=== PATIENT | male | born 1955 | race Caucasian/White ===

== ENCOUNTER 2017-05-02 19:48 | Emergency (ER) | payer BC ==
[2017-05-02] MEDS ORDERED: Sodium Chloride 0.9% 10 ML Syringe FLUSH PRN (19:51)
[2017-05-02] MEDS ORDERED: Aspirin 81 MG Tab.Chew PO ONE (19:59)
[2017-05-02] MEDS ORDERED: Nitroglycerin 0.4 MG Tab.SL SL ONE (20:00)
--- NOTE | 2017-05-02 20:06 | EDM.PDOC ---
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)) - Related Data Allergies Allergy/AdvReac Type Severity Reaction Status Date / Time acetaminophen Allergy Change Verified 10/05/16 01:32 [From Darvocet-N 100] Mental Status cinnamon Allergy Cannot Verified 10/05/16 01:32 Remember codeine Allergy Change Verified 10/05/16 01:32 Mental Status egg Allergy Cannot Verified 10/05/16 01:32 Remember indomethacin [From Indocin] Allergy Change Verified 10/05/16 01:32 Mental Status indomethacin sodium Allergy Change Verified 10/05/16 01:32 [From Indocin] Mental Status propoxyphene HCl Allergy Change Verified 10/05/16 01:32 [From Darvon] Mental Status propoxyphene napsylate Allergy Cannot Verified 10/05/16 01:32 [From Darvocet-N 100] Remember Qbkluda-Tdm-Sgx Reductase Allergy Muscle Verified 10/05/16 01:32 Inhibitor Aches Home Meds: Home Meds Aspirin 325 mg PO DAILY 01/29/15 [History] Carvedilol Phosphate [Coreg Cr] 40 mg PO DAILY 01/29/15 [History] ClonazePAM [KlonoPIN] 1 mg PO TID 01/29/15 [History] Colchicine [Colcrys] 2 tab PO ASDIRECTED PRN 01/29/15 [History] Lisinopril 1 tab PO DAILY 01/29/15 [History] Multivitamin [Multi-Vitamin Daily] 1 each PO DAILY 01/29/15 [History] Omeprazole [Prilosec] 1 cap PO BID 01/29/15 [History] Sucralfate [Carafate] 1 tab PO QIDACANDBED 01/29/15 [History] metFORMIN HCl [Metformin HCl] 1,000 mg PO BID 01/29/15 [History] Past Medical History Other HEENT History: glasses Cardiovascular History: Reports: Angina, High Cholesterol, Hypertension, [place] Respiratory History: Reports: SOB Gastrointestinal History: Reports: GERD, Hiatal Hernia, PUD Musculoskeletal History: Reports: Gout, Osteoarthritis Other Musculoskeletal History: Bilateral Knee Pain Psychiatric History: Reports: Anxiety Endocrine/Metabolic History: Reports: Diabetes, Type II Hematologic History: Reports: Anemia - Infectious Disease History Infectious Disease History: Reports: Chicken Pox - Past Surgical History Cardiovascular Surgical History: Reports: Coronary Artery Stent, Other (See Below) Social & Family History - Tobacco Use Smoking Status *Q: Former Smoker Years of Tobacco use: 3 Packs/Tins Daily: 1 Used Tobacco, but Quit: Yes Month Tobacco Last Used: NA Second Hand Smoke Exposure: No - Caffeine Use Caffeine Use: Reports: None - Alcohol Use Days Per Week of Alcohol Use: 0 - Recreational Drug Use Recreational Drug Use: No ED ROS GENERAL - Review of Systems Review Of Systems: See Below Constitutional: Reports: No Symptoms HEENT: Reports: No Symptoms Respiratory: Reports: Shortness of Breath (with exertion) Cardiovascular: Reports: Chest Pain, Dyspnea on Exertion GI/Abdominal: Reports: Abdominal Pain, Distension, Other (feels gassy) Musculoskeletal: Reports: Other (pain between shoulder blades) Skin: Reports: No Symptoms Neurological: Reports: No Symptoms ED EXAM, GENERAL - Physical Exam Exam: See Below Exam Limited By: No Limitations General Appearance: Alert, No Apparent Distress Head: Atraumatic, Normocephalic Neck: Normal Inspection, Non-Tender, Full Range of Motion Respiratory/Chest: No Respiratory Distress, Lungs Clear, Normal Breath Sounds Cardiovascular: Regular Rate, Rhythm, No Edema, Systolic Murmur GI/Abdominal: Normal Bowel Sounds, Soft, Non-Tender Back Exam: Normal Inspection, Full Range of Motion Extremities: Normal Inspection, Normal Range of Motion, Non-Tender Neurological: Alert, Oriented, CN II-XII Intact, Normal Cognition, Normal Gait Psychiatric: Normal Affect, Normal Mood Skin Exam: Warm, Dry, Intact, Normal Color EKG INTERPRETATION EKG Date: 05/02/17 Rhythm: NSR Rate (Beats/Min): 82 Comparison: Other: (no acute ST T wave elevation) Course - Vital Signs Last Recorded V/S: Last Vital Signs Temp 97.8 F 05/02/17 20:36 Pulse 82 05/02/17 20:36 Resp 16 05/02/17 20:36 BP 153/68 H 05/02/17 20:36 Pulse Ox 97 05/02/17 20:36 - Orders/Labs/Meds Orders: Active Orders 24 hr Category Date Time Status EKG Documentation Completion [RC] ASDIRECTED Care 05/02/17 19:52 Active Chest 1V Frontal [CR] Stat Exams 05/02/17 19:51 Taken Sodium Chloride 0.9% [Saline Flush] Med 05/02/17 19:51 Active 10 ml FLUSH ASDIRECTED PRN Peripheral IV Insertion Adult [OM.PC] Stat Oth 05/02/17 19:51 Ordered Medication Orders Sodium Chloride (Saline Flush) 10 ml FLUSH ASDIRECTED PRN PRN Reason: Keep Vein Open Labs: Laboratory Tests 05/02/17 05/02/17 Range/Units 20:10 20:10 WBC 4.0 (4.0-11.0) K/uL RBC 3.91 L (4.50-6.50) M/uL Hgb 11.8 L (13.0-18.0) g/dL Hct 34.8 L (40.0-54.0) % MCV 89 (76-96) fL MCH 30.2 (27.0-32.0) pg MCHC 33.9 (31.0-35.0) g/dL RDW 15.4 (11.0-16.0) % Plt Count 108 L D (150-400) K/uL MPV 10.5 H (6.0-10.0) fL Neut % (Auto) 67.0 (45.0-70.0) % Lymph % (Auto) 19.4 L (20.0-40.0) % Miller % (Auto) 10.2 H (3.0-10.0) % Eos % (Auto) 2.7 (1.0-5.0) % Baso % (Auto) 0.7 H (0.0-0.5) % Neut # (Auto) 2.69 (2.00-7.50) K/uL Lymph # (Auto) 0.78 L (1.50-4.00) K/uL Miller # (Auto) 0.41 (0.20-0.80) K/uL Eos # (Auto) 0.11 (0.04-0.40) K/uL Baso # (Auto) 0.03 (0.02-0.10) K/uL Sodium 140 (136-145) mmol/L Potassium 4.4 (3.5-5.1) mmol/L Chloride 104 (98-107) mmol/L Carbon Dioxide 24.3 (21.0-32.0) mmol/L Anion Gap 16.1 H (5.0-15.0) mmol/L BUN 23 D (8-26) mg/dL Creatinine 1.43 H D (0.70-1.30) mg/dL Est Cr Clr Drug Dosing TNP Estimated GFR (MDRD) 51 L (>60) MLS/MIN BUN/Creatinine Ratio 16.1 (6-25) Glucose 118 H (74-100) mg/dL Calcium 9.4 (8.5-10.1) mg/dL Total Bilirubin 0.8 (0.0-1.0) mg/dL AST 47 H (15-37) U/L ALT 46 (12-78) U/L Alkaline Phosphatase 138 H (46-116) U/L Troponin I < 0.017 (0.000-0.060) ng/mL B-Natriuretic Peptide 73 D (0-125) pg/mL Total Protein 7.7 (6.4-8.2) g/dL Albumin 3.7 (3.4-5.0) g/dL Globulin 4.0 (2.2-4.2) g/dL Albumin/Globulin Ratio 0.9 (0.8-2.0) Meds: Medications Generic Name Dose Route Start Last Admin Trade Name Freq PRN Reason Stop Dose Admin Sodium Chloride 10 ml 05/02/17 19:51 Saline Flush FLUSH ASDIRECTED PRN Keep Vein Open Discontinued Medications Generic Name Dose Route Start Last Admin Trade Name Freq PRN Reason Stop Dose Admin Al Hydroxide/Mg Hydroxide 30 ml 05/02/17 20:12 Gi Cocktail PO 05/02/17 20:13 ONETIME ONE Aspirin 324 mg 05/02/17 19:59 Aspirin PO 05/02/17 20:00 ONETIME ONE Nitroglycerin 0.4 mg 05/02/17 20:00 Nitrostat SL 05/02/17 20:01 ONETIME ONE Departure - Departure Time of Disposition: 21:15 Disposition: Home, Self-Care 01 Condition: Fair Clinical Impression: Epigastric abdominal pain - Discharge Information Forms: ED Department Discharge - Problem List & Annotations (1) Epigastric abdominal pain SNOMED Code(s): 39569177 Code(s): R10.13 - EPIGASTRIC PAIN Status: Acute Priority: Medium Current Visit: Yes - Problem List Review Problem List Initiated/Reviewed/Updated: Yes - My Orders Last 24 Hours: My Active Orders 05/02/17 19:51 Chest 1V Frontal [CR] Stat Sodium Chloride 0.9% [Saline Flush] 10 ml FLUSH ASDIRECTED PRN Peripheral IV Insertion Adult [OM.PC] Stat 05/02/17 19:52 EKG Documentation Completion [RC] ASDIRECTED - Assessment/Plan Last 24 Hours: My Active Orders 05/02/17 19:51 Chest 1V Frontal [CR] Stat Sodium Chloride 0.9% [Saline Flush] 10 ml FLUSH ASDIRECTED PRN Peripheral IV Insertion Adult [OM.PC] Stat 05/02/17 19:52 EKG Documentation Completion [RC] ASDIRECTED Assessment:: Epigastric abdominal pain Plan: Labs are normal; EKG and chest are WNL, he seems to respond to GI cocktail; the nitro did nothing for him. He states the epigastric discomfort waxes and wanes; the sharp pain last for 15 seconds. Recommend easy digestible foods, push fluids/gut rest Would like him to have FU in clinic next week; return to ER with worsening of symptoms
[2017-05-02] MEDS ORDERED: GI Cocktail Oral Solution 30 ML PO ONE (20:12)
--- NOTE | 2017-05-02 23:16 | CR ---
DATE OF SERVICE: 05/02/2017 CLINICAL DATA: Chest pain. AP CHEST Comparison is made to a prior exam dated 09/13/2016. The cardiac pacer and pacer wire remain unchanged in position. The heart remains enlarged, unchanged. There is persistent mild pulmonary vascular congestion. The interstitial infiltrates on the prior exam appear slightly improved. There is persistent mild eventration of the right hemidiaphragm. The exam is otherwise unchanged. [id number] MTDD
[2017-05-03 06:48] VITALS: BP 181/71
== END 2017-05-02 20:50 | disposition home or self-care (01) ==
LOC: LB.ED 19:48
DX: R10.13 Epigastric pain (principal); E78.00 Pure hypercholesterolemia, unspecified; I10 Essential (primary) hypertension; I25.2 Old myocardial infarction; K21.9 Gastro-esophageal reflux disease without esophagitis; E11.9 Type 2 diabetes mellitus without complications; M19.90 Unspecified osteoarthritis, unspecified site; Z86.2 Personal history of diseases of the blood and blood-forming organs and certain disorders involving the immune mechanism; Z87.891 Personal history of nicotine dependence; Z88.5 Allergy status to narcotic agent; Z91.012 Allergy to eggs; Z91.018 Allergy to other foods; Z88.8 Allergy status to other drugs, medicaments and biological substances; Z79.82 Long term (current) use of aspirin; Z79.84 Long term (current) use of oral hypoglycemic drugs; Z79.899 Other long term (current) drug therapy
CPT/HCPCS: 36415; 71010; 80053; 83880; 84484; 85025; 93005; 99285; A9270

== ENCOUNTER 2017-09-03 15:47 | Emergency (ER) | payer BC ==
[2017-09-03 16:16] VITALS: BP 141/56
[2017-09-03] MEDS ORDERED: diphenhydrAMINE 25 MG Cap ONE ×3 (16:28→17:39)
--- NOTE | 2017-09-03 16:30 | EDM.PDOC ---
ED HPI GENERAL MEDICAL PROBLEM - General Chief Complaint: General Stated Complaint: FLU LIKE SYMPTOMS Time Seen by Provider: 09/03/17 16:10 Source of Information: Reports: Patient, RN History Limitations: Reports: No Limitations - History of Present Illness INITIAL COMMENTS - FREE TEXT/NARRATIVE: 61 yr male presents with diarrhea X1 and numbness to cheeks, tops of hands and feet. He does have diabetes, did have some meat today with extra seasons in it , unknown if allergic to this, States he has had 2 CO in past and does have a pacemaker. States he wasn't doing anything, but sitting in chair when this started today. No change in cognition, equal hand grasps, smiles evenly. moves extremities well. States he does have some arthritis to knee and shoulder. Hx of gout. He does have 1 molar to left upper gum. No soreness to mouth and no sore throat. Onset: Today Onset Date: 09/03/17 Location: Reports: Face, Upper Extremity, Left, Upper Extremity, Right, Lower Extremity, Left, Lower Extremity, Right Quality: Reports: Other (numbness) epigastric Pain Score (Numeric/FACES): 3 - Related Data Allergies Allergy/AdvReac Type Severity Reaction Status Date / Time acetaminophen Allergy Change Verified 09/03/17 16:16 [From Darvocet-N 100] Mental Status cinnamon Allergy Cannot Verified 09/03/17 16:16 Remember codeine Allergy Change Verified 09/03/17 16:16 Mental Status egg Allergy Cannot Verified 09/03/17 16:16 Remember indomethacin [From Indocin] Allergy Change Verified 09/03/17 16:16 Mental Status indomethacin sodium Allergy Change Verified 09/03/17 16:16 [From Indocin] Mental Status propoxyphene HCl Allergy Change Verified 09/03/17 16:16 [From Darvon] Mental Status propoxyphene napsylate Allergy Cannot Verified 09/03/17 16:16 [From Darvocet-N 100] Remember Uqyezfq-Jgv-Thu Reductase Allergy Muscle Verified 09/03/17 16:16 Inhibitor Aches Home Meds: Home Meds Aspirin 325 mg PO DAILY 01/29/15 [History] Carvedilol Phosphate [Coreg Cr] 40 mg PO DAILY 01/29/15 [History] ClonazePAM [KlonoPIN] 1 mg PO TID 01/29/15 [History] Colchicine [Colcrys] 2 tab PO ASDIRECTED PRN 01/29/15 [History] Lisinopril 1 tab PO DAILY 01/29/15 [History] Multivitamin [Multi-Vitamin Daily] 1 each PO DAILY 01/29/15 [History] Omeprazole [Prilosec] 1 cap PO BID 01/29/15 [History] Sucralfate [Carafate] 1 tab PO QIDACANDBED 01/29/15 [History] metFORMIN HCl [Metformin HCl] 1,000 mg PO BID 01/29/15 [History] Past Medical History Other HEENT History: glasses Cardiovascular History: Reports: Angina, High Cholesterol, Hypertension, [place] Other Cardiovascular History: AICD stents July 2017 Respiratory History: Reports: SOB Other Respiratory History: dyspnea with exertion no sob or difficulty breathing at rest Gastrointestinal History: Reports: GERD, Hiatal Hernia, PUD Musculoskeletal History: Reports: Gout, Osteoarthritis Other Musculoskeletal History: Bilateral Knee Pain Psychiatric History: Reports: Anxiety Endocrine/Metabolic History: Reports: Diabetes, Type II Hematologic History: Reports: Anemia - Infectious Disease History Infectious Disease History: Reports: Chicken Pox - Past Surgical History Cardiovascular Surgical History: Reports: Coronary Artery Stent, Other (See Below) Social & Family History - Tobacco Use Smoking Status *Q: Former Smoker Years of Tobacco use: 3 Packs/Tins Daily: 1 Used Tobacco, but Quit: Yes Month Tobacco Last Used: NA Second Hand Smoke Exposure: No - Caffeine Use Caffeine Use: Reports: None Other Caffeine Use: not reported - Alcohol Use Days Per Week of Alcohol Use: 0 - Recreational Drug Use Recreational Drug Use: No ED ROS GENERAL - Review of Systems Review Of Systems: See Below HEENT: Reports: No Symptoms, Glasses, Other (numbness to cheeks.) Respiratory: Reports: No Symptoms Cardiovascular: Reports: No Symptoms GI/Abdominal: Reports: No Symptoms Musculoskeletal: Reports: Shoulder Pain Skin: Reports: No Symptoms Neurological: Reports: Numbness Psychiatric: Reports: Anxiety (Upper and lower GI scheduled this week and hx of polyps) Hematologic/Lymphatic: Reports: No Symptoms Immunologic: Reports: No Symptoms ED EXAM, GENERAL - Physical Exam Exam: See Below Exam Limited By: No Limitations General Appearance: Alert, WD/WN, No Apparent Distress Ears: Hearing Grossly Normal Nose: Normal Inspection, Normal Mucosa Throat/Mouth: Normal Inspection, Normal Lips, Normal Oropharynx, Normal Voice. No: Normal Teeth Head: Atraumatic, Normocephalic Neck: Supple, Non-Tender Respiratory/Chest: No Respiratory Distress, Lungs Clear, Normal Breath Sounds Cardiovascular: Regular Rate, Rhythm, No Edema GI/Abdominal: Normal Bowel Sounds, Soft, Non-Tender Extremities: Normal Inspection, Normal Range of Motion, No Pedal Edema Neurological: Alert, Oriented, CN II-XII Intact, Normal Cognition Psychiatric: Normal Affect, Normal Mood Skin Exam: Warm, Dry, Normal Color Lymphatic: No Adenopathy Course - Vital Signs Last Recorded V/S: Last Vital Signs Temp 98.7 F 09/03/17 16:00 Pulse 80 09/03/17 16:00 Resp 20 09/03/17 16:00 BP 141/56 H 09/03/17 16:00 Pulse Ox 98 09/03/17 16:00 - Orders/Labs/Meds Labs: Laboratory Tests 09/03/17 09/03/17 09/03/17 Range/Units 16:45 16:45 16:45 WBC 3.4 L (4.0-11.0) K/uL RBC 4.12 L (4.50-6.50) M/uL Hgb 12.6 L (13.0-18.0) g/dL Hct 35.4 L (40.0-54.0) % MCV 86 (76-96) fL MCH 30.6 (27.0-32.0) pg MCHC 35.6 H (31.0-35.0) g/dL RDW 14.9 (11.0-16.0) % Plt Count 82 L (150-400) K/uL MPV 11.1 H (6.0-10.0) fL Neut % (Auto) 71.2 H (45.0-70.0) % Lymph % (Auto) 15.4 L (20.0-40.0) % [place] % (Auto) 10.4 H (3.0-10.0) % Eos % (Auto) 2.7 (1.0-5.0) % Baso % (Auto) 0.3 (0.0-0.5) % Neut # (Auto) 2.40 (2.00-7.50) K/uL Lymph # (Auto) 0.52 L (1.50-4.00) K/uL [place] # (Auto) 0.35 (0.20-0.80) K/uL Eos # (Auto) 0.09 (0.04-0.40) K/uL Baso # (Auto) 0.01 L (0.02-0.10) K/uL Sodium 134 L (136-145) mmol/L Potassium 5.4 H (3.5-5.1) mmol/L Chloride 101 (98-107) mmol/L Carbon Dioxide 20.3 L D (21.0-32.0) mmol/L Anion Gap 18.1 H (5.0-15.0) mmol/L BUN 18 (8-26) mg/dL Creatinine 1.35 H (0.70-1.30) mg/dL Est Cr Clr Drug Dosing 64.67 mL/min Estimated GFR (MDRD) 54 L (>60) MLS/MIN BUN/Creatinine Ratio 13.3 (6-25) Glucose 297 H D (74-100) mg/dL Calcium 8.4 L (8.5-10.1) mg/dL Total Bilirubin 0.7 (0.0-1.0) mg/dL AST 50 H (15-37) U/L ALT 50 (12-78) U/L Alkaline Phosphatase 188 H (46-116) U/L Total Protein 7.3 (6.4-8.2) g/dL Albumin 3.3 L (3.4-5.0) g/dL Globulin 4.0 (2.2-4.2) g/dL Albumin/Globulin Ratio 0.8 (0.8-2.0) TSH, Ultra Sensitive 3.018 (0.358-3.740) uIU/mL Meds: Medications Discontinued Medications Generic Name Dose Route Start Last Admin Trade Name Freq PRN Reason Stop Dose Admin Al Hydroxide/Mg Hydroxide 30 ml 09/03/17 17:00 09/03/17 17:00 Gi Cocktail PO 09/03/17 17:01 30 ml ONETIME ONE Administration Diphenhydramine HCl Confirm 09/03/17 16:28 Benadryl Administered 09/03/17 16:29 Dose 25 mg .ROUTE .STK-MED ONE Diphenhydramine HCl 25 mg 09/03/17 16:39 09/03/17 16:41 Benadryl PO 09/03/17 16:40 25 mg ONETIME ONE Administration Diphenhydramine HCl Confirm 09/03/17 17:39 Benadryl Administered 09/03/17 17:40 Dose 150 mg .ROUTE .STK-MED ONE - Re-Assessments/Exams Free Text/Narrative Re-Assessment/Exam: 09/03/17 18:44 Pt reported this epigastric pain after having meat with seasoning on it at home. States relief of pain after Benadryl and GI cocktail. Pt states he has been having more sweets and more fruit with the holidays. Pt is scheduled for colonoscopy and upper GI Sunday. Pt is concerned about this. States he is taking Probiotic and is hopeful this will help with the blood in his stools. States some improvement noted. Recommend taking Benadryl every 8 hr if needed for numbness. Recommend to limit simple sugars, limit fruits, and limit carbohydrates. Pt will take is easy and be up at home this week until his GI series later this week. Cautioned against use of equipment and no driving with use of Benadryl. 09/03/17 18:52 Departure - Departure Time of Disposition: 17:40 Disposition: Home, Self-Care 01 Condition: Good Clinical Impression: Epigastric pain - Discharge Information Instructions: Diphenhydramine capsules or tablets, Panic Attacks Referrals: PCP,None [Primary Care Provider] - Forms: ED Department Discharge Additional Instructions: Take the rest of the week off and relax, you can take the Benadryl as needed for the numbness and tingling. If you feel worse return to the ER or the clinic. Drink plenty of fluid. - Problem List & Annotations (1) Epigastric abdominal pain SNOMED Code(s): 14439330 Code(s): R10.13 - EPIGASTRIC PAIN Status: Acute Priority: Medium - Problem List Review Problem List Initiated/Reviewed/Updated: Yes - Assessment/Plan Plan: Epigastric pain: [place] foods, decrease use of simple sugars and decrease fruit intake with his diabetes. Recommend use of Benadryl as needed for possible allergic reaction to seasoned meat he had tonight. F/U with PCP if symptoms persist or worsen or Return to ER.
[2017-09-03] MEDS ORDERED: diphenhydrAMINE 25 MG Cap PO ONE (16:39)
[2017-09-03] MEDS ORDERED: GI Cocktail Oral Solution 30 ML PO ONE (17:00)
== END 2017-09-03 17:40 | disposition home or self-care (01) ==
LOC: LB.ED 15:47
DX: R10.13 Epigastric pain (principal); Z87.891 Personal history of nicotine dependence; I10 Essential (primary) hypertension; I25.2 Old myocardial infarction; E11.9 Type 2 diabetes mellitus without complications; K21.9 Gastro-esophageal reflux disease without esophagitis; F41.9 Anxiety disorder, unspecified; E78.00 Pure hypercholesterolemia, unspecified; Z79.82 Long term (current) use of aspirin; Z79.84 Long term (current) use of oral hypoglycemic drugs; Z95.5 Presence of coronary angioplasty implant and graft; Z88.5 Allergy status to narcotic agent; Z88.6 Allergy status to analgesic agent; Z91.018 Allergy to other foods; Z88.8 Allergy status to other drugs, medicaments and biological substances; Z91.012 Allergy to eggs; Z79.899 Other long term (current) drug therapy
CPT/HCPCS: 36415; 80053; 84443; 85025; 99284; A9270

== ENCOUNTER 2017-09-07 09:28 | Day surgery (SDC) | payer BC ==
[~2017-09-07 09:28] MED LIST: Metoclopramide 10 MG/2 ML SDV IV PRN; Sodium Chloride 0.9% 10 ML Syringe FLUSH PRN
[2017-09-07] MEDS ORDERED: Propofol 200 MG/20 ML SDV ONE (11:30)
[2017-09-07 16:04] VITALS: BP 153/82
[2017-09-07] MEDS ORDERED: Sodium Chloride 0.9% 1,000 ML IV SCH (16:30)
--- NOTE | 2017-09-07 16:42 | OR ---
DATE OF OPERATION: 09/07/2017 PREOPERATIVE DIAGNOSIS: Gastrointestinal blood loss. POSTOPERATIVE DIAGNOSES: 1. Portal hypertension with esophageal varices and portal hypertensive gastropathy. 2. Moderate gastritis. 3. Moderate to severe sigmoid diverticulosis. 4. Grade 2 internal hemorrhoids. OPERATIONS: 1. Esophagogastroduodenoscopy with biopsies. 2. Colonoscopy. COMPLICATIONS: None. DRAINS: None. SPECIMENS: Gastric antrum. ESTIMATED BLOOD LOSS: Minimal. ANESTHESIA: General propofol anesthesia. INDICATION: Mr. Velez is a 61-year-old gentleman, who has had repeated bouts in the past of GI blood loss, both bright red blood as well as melena. He has recently had an episodes of bright red blood per rectum; however, this was short lived and he has not had a recurrence. He was sent for the above-mentioned tests. The above-mentioned procedures were explained. The risks, benefits, and complications were explained. The patient understood and agreed, and he was brought to the operating room. DESCRIPTION OF PROCEDURE: The patient was brought to the operating room, placed in a left lateral decubitus position on the operating room table. Satisfactory general propofol anesthesia was administered. We began by elevating the head of the bed to 45 degrees and placing a mouth guard. I then placed the endoscope by visual introduction into the oral cavity and subsequently advanced to the level of the second portion of the duodenum. Examination was performed on withdrawal. The duodenum appeared normal. The bowel showed some mild granularity, but no gross inflammation. The antrum and the body of the stomach did show moderate gastritis, this was characterized by granularity and cobblestoning. Biopsies of the antrum were taken for histology. On retroflexion, there was no hiatal hernia identified; however, there was sign suggestive of hypertensive portal gastropathy. Next, on withdrawal there were grade 3 esophageal varices identified within the esophagus, none of these were bleeding at that time, and there were no indication of previous bleed from these varices. The remainder of the esophagus was normal. The GE junction was normal. The Z-line was regular. The endoscope was subsequently withdrawn, and the patient tolerated that portion of the procedure well. Next, with the patient still in the left lateral decubitus position the bed was flattened out and then rotated, and we performed the lower endoscopy. The perianal examination revealed some old skin tags suggestive of previous external hemorrhoids. Remainder of the perianal area was within normal limits. Next, I then placed the endoscope by finger introduction into the rectum and subsequently advanced to the level of the cecum. Cecum was identified by the appendiceal orifice, the ileocecal valve, and cecal strap. Careful evaluation of mucosa was performed on withdrawal, and this revealed no polyps, no telangiectasias, no neoplastic growths; however, the patient did have moderate to severe diverticulosis involving the rectosigmoid and sigmoid without stricturing. Next, we performed a retroflexion maneuver in the rectum and this revealed grade 2 internal hemorrhoids. None of these were bleeding at the time. The remainder of the examination is within normal limits. Next, the colon was decompressed and the endoscope was withdrawn. The patient tolerated the procedure well. There were no complications. Instrument count was correct. The patient was awoken in the OR and taken to PACU for recovery. ARA/MARIANA /[id number]
== END 2017-09-07 14:20 | disposition home or self-care (01) ==
LOC: LB.SDS 09:28
PROVIDERS: ATTEND Surgery
DX: K57.30 Diverticulosis of large intestine without perforation or abscess without bleeding (principal); K64.8 Other hemorrhoids; I85.00 Esophageal varices without bleeding; I10 Essential (primary) hypertension; E78.5 Hyperlipidemia, unspecified; E11.9 Type 2 diabetes mellitus without complications; I25.10 Atherosclerotic heart disease of native coronary artery without angina pectoris; Z88.8 Allergy status to other drugs, medicaments and biological substances; Z91.012 Allergy to eggs; Z79.82 Long term (current) use of aspirin; Z79.899 Other long term (current) drug therapy
CPT/HCPCS: 43239; 45378; 82962; 88305; J2704; J7040

== ENCOUNTER 2018-01-03 22:20 | Emergency (ER) | payer BC ==
[2018-01-03 23:33] VITALS: BP 163/68
[2018-01-03] MEDS ORDERED: predniSONE 10 MG Tab ONE (23:50)
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
== END 2018-01-03 22:57 | disposition home or self-care (01) ==
LOC: LB.ED 22:20
DX: J45.909 Unspecified asthma, uncomplicated (principal)
CPT/HCPCS: 99283; A9270-GY

== ENCOUNTER 2019-08-20 08:50 | Observation (INO) | payer OTHER ==
--- NOTE | 2019-08-20 09:18 | EDM.PDOC ---
ED HPI GENERAL MEDICAL PROBLEM - General Chief Complaint: Neuro Symptoms/Deficits Stated Complaint: BEHAVIORAL Time Seen by Provider: 08/20/19 08:50 Source of Information: Reports: Patient, EMS, RN History Limitations: Reports: Altered Mental Status - History of Present Illness INITIAL COMMENTS - FREE TEXT/NARRATIVE: 63 yo male presents via ambulance, states pt confused at home and unable to communicate needs. states yesterday he was driving erradically on road from [place] to [place]. states his blood sugars have been elevated over 500 and was started on insulin. BS today on ambulance 208. Pt is alert, eyes open spontaneously, no chest pain, no shortness of breath. Follows commands. some inappropriate behavior, took out dentures and offered paper to put dentures on and pt tried to eat the paper. Head CT completed. EKG completed with NSR, left atrial enlargement, no ST elevations or depression. IV Nacl started 125cc/hr. Labs for CBC, CMP, troponin, lactic acid, U/A, TSH, magnesium. No alcohol use, no illicit drug use. Hx of diabetes uncontrolled, fatty liver disease, hypertension, hyperlipidemia, no seizures, no abusive behavior. VS normal, HR=80, BP 152/70. States no pain. will add ammonia level with hx of liver disease. Labs reviewed and no electrolyte imbalance, troponin negative, U/A clear, TSH slightly elevated, magnesium slightly low. Pt thought he took AM medications, but pills still in pill reminder for today, states he didn't take his medication. CT scan of head with no acute findings. Moderate chronic microvascular ischemic changes. Reviewed results with pt and , will place on observation. Ammonia level is pending. - Related Data Allergies Allergy/AdvReac Type Severity Reaction Status Date / Time acetaminophen Allergy Change Verified 08/20/19 11:57 [From Darvocet-N 100] Mental Status cinnamon Allergy Cannot Verified 08/20/19 11:57 Remember egg Allergy Cannot Verified 08/20/19 11:57 Remember dontrell Allergy Other Verified 08/20/19 11:57 mustard Allergy Anaphylactic Verified 08/20/19 11:57 Shock propoxyphene napsylate Allergy Cannot Verified 08/20/19 11:57 [From Darvocet-N 100] Remember Vllnfts-Mmh-Wvx Reductase Allergy Muscle Verified 08/20/19 11:57 Inhibitor Aches codeine AdvReac Change Verified 08/20/19 11:57 Mental Status indomethacin [From Indocin] AdvReac Change Verified 08/20/19 11:57 Mental Status indomethacin sodium AdvReac Change Verified 08/20/19 11:57 [From Indocin] Mental Status propoxyphene HCl AdvReac Change Verified 08/20/19 11:57 [From Darvon] Mental Status Home Meds: Home Meds Multivitamin [Multi-Vitamin Daily] 1 each PO DAILY 01/29/15 [History] metFORMIN HCl [Metformin HCl] 1,000 mg PO BID 01/29/15 [History] Ascorbic Acid [Vitamin C] 500 mg PO DAILY 09/06/17 [History] Aspirin 81 mg PO DAILY 09/06/17 [History] Ferrous Sulfate 325 mg PO DAILY 09/06/17 [History] Alogliptin Benzoate [Alogliptin] 25 mg PO DAILY 08/20/19 [History] Carvedilol [Coreg] 25 mg PO BID 08/20/19 [History] Citalopram [Citalopram HBr] 10 mg PO DAILY 08/20/19 [History] Famotidine 20 mg PO BEDTIME 08/20/19 [History] Insulin Aspart [NovoLOG] 5 units SUBCUT TIDMEALS 08/20/19 [History] Insulin Glargine,Hum.Rec.Anlog [Lantus Solostar] 24 units SUBCUT DAILY 08/20/19 [History] Lisinopril [Zestril] 20 mg PO DAILY 08/20/19 [History] Magnesium Oxide 2 tab PO BID 08/20/19 [History] Propranolol HCl 20 mg PO BID 08/20/19 [History] Past Medical History HEENT History: Reports: Impaired Vision Other HEENT History: glasses Cardiovascular History: Reports: Angina, High Cholesterol, Hypertension, [place] Other Cardiovascular History: AICD stents July 2017 Respiratory History: Reports: SOB Other Respiratory History: dyspnea with exertion no sob or difficulty breathing at rest Gastrointestinal History: Reports: GERD, Hiatal Hernia, PUD Musculoskeletal History: Reports: Gout, Osteoarthritis Other Musculoskeletal History: Bilateral Knee Pain Psychiatric History: Reports: Anxiety Endocrine/Metabolic History: Reports: Diabetes, Type II Hematologic History: Reports: Anemia - Infectious Disease History Infectious Disease History: Reports: Chicken Pox - Past Surgical History Cardiovascular Surgical History: Reports: Coronary Artery Stent, Other (See Below) Other Cardiovascular Surgeries/Procedures: Internal Defibrillator Social & Family History - Family History Family Medical History: Noncontributory - Caffeine Use Caffeine Use: Reports: Coffee Other Caffeine Use: not reported ED ROS GENERAL - Review of Systems Review Of Systems: See Below Constitutional: Reports: Weakness HEENT: Reports: Glasses, Vision Change, Other (history of blurred vision with blood sugar elevation per ) Respiratory: Denies: Shortness of Breath, Wheezing, Cough Cardiovascular: Denies: Chest Pain, Edema GI/Abdominal: Denies: Abdominal Pain, Diarrhea, Nausea, Vomiting : Reports: Frequency. Denies: Dysuria Musculoskeletal: Reports: Shoulder Pain, Other (neck pain, no trauma, no falls) Neurological: Reports: Confusion, Other (slow to respond) Psychiatric: Reports: Other (anxious and fist out like going to punch , she called ambulance) Hematologic/Lymphatic: Reports: No Symptoms ED EXAM, NEURO - Physical Exam Exam: See Below Exam Limited By: Altered Mental Status General Appearance: Alert, No Apparent Distress Nose: Normal Inspection, Normal Mucosa Throat/Mouth: Normal Lips, Normal Voice, No Airway Compromise Head Exam: Atraumatic, Normocephalic Neck: Supple, Non-Tender Respiratory/Chest: No Respiratory Distress, Lungs Clear, Normal Breath Sounds Cardiovascular: Normal Peripheral Pulses, Regular Rate, Rhythm, No Edema GI/Abdominal: Normal Bowel Sounds, Soft Neurological: Normal Dorsiflexion, Normal Plantar Flexion, Tremor (LUE), Straight Leg Raise (L), Straight Leg Raise (R) Extremities: Non-Tender, No Pedal Edema, Normal Capillary Refill Psychiatric: Flat Affect Skin Exam: Warm, Dry, Normal Color EKG INTERPRETATION EKG Date: 08/20/19 Rhythm: NSR Course - Vital Signs Last Recorded V/S: Last Vital Signs Temp 99.9 F 08/20/19 17:00 Pulse 83 08/20/19 17:00 Resp 18 08/20/19 17:00 BP 145/62 H 08/20/19 17:00 Pulse Ox 96 08/20/19 17:00 - Orders/Labs/Meds Labs: Laboratory Tests 08/20/19 08/20/19 08/20/19 Range/Units 09:30 09:30 09:30 WBC 4.4 D (4.0-11.0) K/uL RBC 4.31 L (4.50-6.50) M/uL Hgb 13.2 (13.0-18.0) g/dL Hct 38.4 L (40.0-54.0) % MCV 89 (76-96) fL MCH 30.6 (27.0-32.0) pg MCHC 34.4 (31.0-35.0) g/dL RDW 14.9 (11.0-16.0) % Plt Count 90 L (150-400) K/uL MPV 10.7 H (6.0-10.0) fL Neut % (Auto) 74.9 H (45.0-70.0) % Lymph % (Auto) 11.6 L (20.0-40.0) % [place] % (Auto) 9.8 (3.0-10.0) % Eos % (Auto) 3.0 (1.0-5.0) % Baso % (Auto) 0.7 H (0.0-0.5) % Neut # (Auto) 3.29 (2.00-7.50) K/uL Lymph # (Auto) 0.51 L (1.50-4.00) K/uL [place] # (Auto) 0.43 (0.20-0.80) K/uL Eos # (Auto) 0.13 (0.04-0.40) K/uL Baso # (Auto) 0.03 (0.02-0.10) K/uL Sodium 141 (136-145) mmol/L Potassium 4.7 (3.5-5.1) mmol/L Chloride 105 (98-107) mmol/L Carbon Dioxide 25.3 D (21.0-32.0) mmol/L Anion Gap 15.4 H (5.0-15.0) mmol/L BUN 21 (8-26) mg/dL Creatinine 1.25 (0.70-1.30) mg/dL Est Cr Clr Drug Dosing TNP Estimated GFR (MDRD) 59 L (>60) MLS/MIN BUN/Creatinine Ratio 16.8 (6-25) Glucose 221 H (74-100) mg/dL POC Glucose (74-110) mg/dL Lactic Acid 2.42 H (0.90-1.70) mmol/L Calcium 9.2 (8.5-10.1) mg/dL Magnesium 1.4 L (1.8-2.4) mg/dL Total Bilirubin 1.2 H D (0.0-1.0) mg/dL AST 68 H (15-37) U/L ALT 57 (12-78) U/L Alkaline Phosphatase 174 H (46-116) U/L Ammonia (11-32) umol/L Troponin I < 0.017 (0.000-0.060) ng/mL B-Natriuretic Peptide 128 H D (0-125) pg/mL Total Protein 7.5 (6.4-8.2) g/dL Albumin 3.6 (3.4-5.0) g/dL Globulin 3.9 (2.2-4.2) g/dL Albumin/Globulin Ratio 0.9 (0.8-2.0) TSH, Ultra Sensitive 4.486 H D (0.358-3.740) uIU/mL Urine Color Urine Appearance (CLEAR) Urine pH (5.0-8.0) Ur Specific [place] (1.003-1.030) Urine Protein (NEGATIVE) mg/dL Urine Glucose (UA) (NEGATIVE) mg/dL Urine Ketones (NEGATIVE) mg/dL Urine Occult Blood (NEGATIVE) Urine Nitrite (NEGATIVE) Urine Bilirubin (NEGATIVE) Urine Urobilinogen (0.2-1.0) E.U./dL Ur Leukocyte Esterase (NEGATIVE) 08/20/19 08/20/19 08/20/19 Range/Units 09:30 09:44 09:50 WBC (4.0-11.0) K/uL RBC (4.50-6.50) M/uL Hgb (13.0-18.0) g/dL Hct (40.0-54.0) % MCV (76-96) fL MCH (27.0-32.0) pg MCHC (31.0-35.0) g/dL RDW (11.0-16.0) % Plt Count (150-400) K/uL MPV (6.0-10.0) fL Neut % (Auto) (45.0-70.0) % Lymph % (Auto) (20.0-40.0) % [place] % (Auto) (3.0-10.0) % Eos % (Auto) (1.0-5.0) % Baso % (Auto) (0.0-0.5) % Neut # (Auto) (2.00-7.50) K/uL Lymph # (Auto) (1.50-4.00) K/uL [place] # (Auto) (0.20-0.80) K/uL Eos # (Auto) (0.04-0.40) K/uL Baso # (Auto) (0.02-0.10) K/uL Sodium (136-145) mmol/L Potassium (3.5-5.1) mmol/L Chloride (98-107) mmol/L Carbon Dioxide (21.0-32.0) mmol/L Anion Gap (5.0-15.0) mmol/L BUN (8-26) mg/dL Creatinine (0.70-1.30) mg/dL Est Cr Clr Drug Dosing Estimated GFR (MDRD) (>60) MLS/MIN BUN/Creatinine Ratio (6-25) Glucose (74-100) mg/dL POC Glucose 201 H (74-110) mg/dL Lactic Acid (0.90-1.70) mmol/L Calcium (8.5-10.1) mg/dL Magnesium (1.8-2.4) mg/dL Total Bilirubin (0.0-1.0) mg/dL AST (15-37) U/L ALT (12-78) U/L Alkaline Phosphatase (46-116) U/L Ammonia 120 H (11-32) umol/L Troponin I (0.000-0.060) ng/mL B-Natriuretic Peptide (0-125) pg/mL Total Protein (6.4-8.2) g/dL Albumin (3.4-5.0) g/dL Globulin (2.2-4.2) g/dL Albumin/Globulin Ratio (0.8-2.0) TSH, Ultra Sensitive (0.358-3.740) uIU/mL Urine Color Yellow Urine Appearance Clear (CLEAR) Urine pH 6.0 (5.0-8.0) Ur Specific [place] 1.020 (1.003-1.030) Urine Protein Negative (NEGATIVE) mg/dL Urine Glucose (UA) Negative (NEGATIVE) mg/dL Urine Ketones Negative (NEGATIVE) mg/dL Urine Occult Blood Negative (NEGATIVE) Urine Nitrite Negative (NEGATIVE) Urine Bilirubin Negative (NEGATIVE) Urine Urobilinogen 0.2 (0.2-1.0) E.U./dL Ur Leukocyte Esterase Negative (NEGATIVE) Meds: Medications Discontinued Medications Generic Name Dose Route Start Last Admin Trade Name Freq PRN Reason Stop Dose Admin Lactulose 20 gm 08/20/19 12:00 08/20/19 14:12 Chronulac PO 20 gm TID FATOU Administration Lactulose 20 gm 08/20/19 16:06 Chronulac PO ASDIRECTED PRN Other Lactulose 20 gm 08/20/19 17:00 08/20/19 16:33 Chronulac PO 20 gm ASDIRECTED PRN Administration Other Non-Formulary Medication 25 mg 08/21/19 08:00 Alogliptin Benzoate [Alogliptin] PO DAILY FATOU Non-Formulary Medication 81 mg 08/21/19 08:00 Aspirin [Aspirin] PO DAILY FATOU Non-Formulary Medication 25 mg 08/20/19 12:00 08/20/19 13:06 Carvedilol [Coreg] PO 25 mg BID FATOU Administration Non-Formulary 10 mg 08/21/19 08:00 Medication 1 Each ( PO Citalopram [ DAILY FATOU Citalopram Hbr] 20 Mg) Non-Formulary Medication 20 mg 08/20/19 20:00 Famotidine [Famotidine] PO BEDTIME FATOU Non-Formulary Medication 325 mg 08/21/19 08:00 Ferrous Sulfate [Ferrous Sulfate] PO DAILY FATOU Non-Formulary Medication 5 units 08/20/19 12:00 08/20/19 17:53 Insulin Aspart [Novolog] SUBCUT Not Given TIDMEALS FATOU Non-Formulary Medication 24 units 08/21/19 08:00 Insulin Glargine,Hum.Rec.Anlog [Lantus Solostar] SUBCUT DAILY FATOU Non-Formulary 20 mg 08/20/19 12:00 08/20/19 13:07 Medication 1 Each ( PO 20 mg Lisinopril [Zestril] DAILY FATOU Administration 40 Mg) Non-Formulary Medication 2 tab 08/20/19 12:00 08/20/19 13:07 Magnesium Oxide [Magnesium Oxide] PO 2 tab BID FATOU Administration Metformin 500mg Er 1,000 mg 08/20/19 20:00 Tablets PO BIDMEALS FATOU Non-Formulary Medication 1 each 08/21/19 08:00 Multivitamin [Multi-Vitamin Daily] PO DAILY FATOU Non-Formulary 20 mg 08/20/19 20:00 Medication 1 Each ( PO Propranolol Hcl [ BID FATOU Propranolol Hcl] 40 Mg) Non-Formulary Medication 25 mg 08/20/19 17:00 Carvedilol [Coreg] PO BIDMEALS FATOU - Re-Assessments/Exams Free Text/Narrative Re-Assessment/Exam: 08/20/19 17:33 Ammonia level is elevated, hx of fatty liver disease per . Consult with e-hospitalist and Dr Filiberto MD at [place]. Maisha crouch hospitalist recommend to transfer pt. Contact to [facility]. Dr Beltran reviewing pt record. Pt is having soft BM X 2. Continues with confusion and inappropriate use of items, blank stare, tremors to LUE. Staff report pr communicates well with lying down, but increase in confusion/blank stare with activity. PT is eating and drinking well. Blood sugars stable 200. Pt voiding well. Departure - Departure Time of Disposition: 19:00 Disposition: DC/Tfer to Acute Hospital 02 Clinical Impression: Hepatic encephalopathy, Tremor of left hand, Type 2 diabetes mellitus - Discharge Information *PRESCRIPTION DRUG MONITORING PROGRAM REVIEWED*: Not Applicable *COPY OF PRESCRIPTION DRUG MONITORING REPORT IN PATIENT FATOU: Not Applicable Sepsis Event Note - Focused Exam Vital Signs: Vital Signs Temp Pulse Resp BP Pulse Ox 08/20/19 09:11 76 20 152/70 H 97 08/20/19 09:02 97 20 117/83 97 08/20/19 08:53 97.6 F 81 20 162/87 H 98 Date Exam was Performed: 08/20/19 Time Exam was Performed: 20:52 - Assessment/Plan Plan: Ammonia level is elevated, hx of fatty liver disease per . Lactulose 20 gm PO every 1-2 hour until 2 soft BM, then tid started and pt has had 2 loose BM. Consult with e-hospitalist and Dr Filiberto MD at [place]. Maisha crouch hospitalist recommend to transfer pt. Contact to [facility] Lorenz[facility]. Dr Beltran reviewing pt record. Pt is having soft BM X 2. Continues with confusion and inappropriate use of items, blank stare, tremors to LUE. Staff report pr communicates well with lying down, but increase in confusion/blank stare with activity. Pt is eating and drinking well. Blood sugars stable 200. Pt voiding well. TC back from Dr Beltran and will accept pt for hepatic encephalopathy and tremor of LUE. [place] [facility] contacted and will transfer pt to [place], [place]. Discussion with and pt and agreeable to transfer.
--- NOTE | 2019-08-20 11:36 | CT ---
Date of Service: 08/20/19 Clinical Data: tremor left hand, confusion UNENHANCED BRAIN CT: Multislice acquisition through the brain without IV contrast was performed. No priors. No masses or mass effect. No intracranial hemorrhage. No evidence of acute or subacute infarct. There are periventricular lucencies bilaterally consistent with small vessel ischemic change. No osseous abnormalities. IMPRESSION: No acute intracranial abnormalities. [id number] [facility]
[2019-08-20] MEDS ORDERED: Non-Formulary Medication 1 Each (Carvedilol [Coreg] 25 MG) PO SCH ×2 (12:00→17:00)
[2019-08-20] MEDS ORDERED: Non-Formulary Medication 1 Each (Lisinopril [Zestril] 40 MG) PO SCH (12:00)
[2019-08-20] MEDS ORDERED: MAGNESIUM OXIDE PO SCH (12:00)
[2019-08-20] MEDS: Lactulose Soln 10 GM/15 ML 15 ML UD Cup PO SCH ×2 (12:01→14:12)
[2019-08-20] MEDS: INSULIN ASPART 5 UNIT SUBCUT SCH ×2 (13:08→17:53)
[2019-08-20] MEDS ORDERED: Lactulose Soln 10 GM/15 ML 15 ML UD Cup PO PRN ×2 (16:06→17:00)
[2019-08-20 17:58] VITALS: BP 145/62; PULSE 83
[2019-08-20] MEDS ORDERED: PROPRANOLOL HCL 40 MG PO SCH (20:00)
[2019-08-20] MEDS ORDERED: FAMOTIDINE 20 MG PO SCH (20:00)
[2019-08-20] MEDS ORDERED: METFORMIN 500 MG PO SCH (20:00)
[2019-08-21] MEDS ORDERED: ALOGLIPTIN BENZOATE 25 MG PO SCH (08:00)
[2019-08-21] MEDS ORDERED: INSULIN GLARGINE HUM REC ANLOG 24 UNIT SUBCUT SCH (08:00)
[2019-08-21] MEDS ORDERED: [UNRECOGNIZED DRUG - OTHER] SUBCUT SCH (08:00)
[2019-08-21] MEDS ORDERED: Non-Formulary Medication 1 Each (Citalopram [Citalopram Hbr] 20 MG) PO SCH (08:00)
[2019-08-21] MEDS ORDERED: Non-Formulary Medication 1 Each (Aspirin [Aspirin] 81 MG) PO SCH (08:00)
[2019-08-21] MEDS ORDERED: Non-Formulary Medication 1 Each (Multivitamin [Multi-Vitamin Daily] 1 EACH) PO SCH (08:00)
[2019-08-21] MEDS ORDERED: Non-Formulary Medication 1 Each (Ferrous Sulfate [Ferrous Sulfate] 325 MG) PO SCH (08:00)
== END 2019-08-20 19:00 ==
LOC: LB.ED 08:50 → LB.MS 10:44
PROVIDERS: ADMIT Nurse Practitioner Family; ATTEND Nurse Practitioner Family
DX: R41.0 Disorientation, unspecified (principal); E78.00 Pure hypercholesterolemia, unspecified; I10 Essential (primary) hypertension; K21.9 Gastro-esophageal reflux disease without esophagitis; E11.9 Type 2 diabetes mellitus without complications; F41.9 Anxiety disorder, unspecified; M10.9 Gout, unspecified; M19.90 Unspecified osteoarthritis, unspecified site; Z87.19 Personal history of other diseases of the digestive system; Z88.6 Allergy status to analgesic agent; Z88.5 Allergy status to narcotic agent; Z91.018 Allergy to other foods; Z91.012 Allergy to eggs; Z88.8 Allergy status to other drugs, medicaments and biological substances; Z79.899 Other long term (current) drug therapy; Z79.84 Long term (current) use of oral hypoglycemic drugs; Z79.82 Long term (current) use of aspirin
CPT/HCPCS: 36415; 70450; 80053; 81003; 82140; 82962; 83605; 83735; 83880; 84443; 84484; 85025; 93005; 99285; A0425; A0429; A9270-GY; G0378

== ENCOUNTER 2019-08-28 10:14 | Emergency (ER) | payer OTHER ==
[2019-08-28 11:35] VITALS: BP 151/77; PULSE 76
--- NOTE | 2019-08-28 12:11 | EDM.PDOC ---
ED HPI GENERAL MEDICAL PROBLEM - General Chief Complaint: General Stated Complaint: Confusion Time Seen by Provider: 08/28/19 11:00 Source of Information: Reports: Patient, Family History Limitations: Reports: Altered Mental Status - History of Present Illness INITIAL COMMENTS - FREE TEXT/NARRATIVE: This is a 63yo M brought in by his due to confusion. He has had recent issues with hepatic encephalopathy and has been on lactulose. He states it is 2001 and September but able to recall his birthday, place, , and president correctly. Onset: Gradual Duration: Day(s): Location: Reports: Generalized Severity: Mild - Related Data Allergies Allergy/AdvReac Type Severity Reaction Status Date / Time acetaminophen Allergy Change Verified 08/28/19 10:36 [From Darvocet-N 100] Mental Status cinnamon Allergy Cannot Verified 08/28/19 10:36 Remember egg Allergy Cannot Verified 08/28/19 10:36 Remember dontrell Allergy Other Verified 08/28/19 10:36 mustard Allergy Anaphylactic Verified 08/28/19 10:36 Shock propoxyphene napsylate Allergy Cannot Verified 08/28/19 10:36 [From Darvocet-N 100] Remember Sedpfbg-Cwz-Hkf Reductase Allergy Muscle Verified 08/28/19 10:36 Inhibitor Aches codeine AdvReac Change Verified 08/28/19 10:36 Mental Status indomethacin [From Indocin] AdvReac Change Verified 08/28/19 10:36 Mental Status indomethacin sodium AdvReac Change Verified 08/28/19 10:36 [From Indocin] Mental Status propoxyphene HCl AdvReac Change Verified 08/28/19 10:36 [From Darvon] Mental Status Home Meds: Home Meds Multivitamin [Multi-Vitamin Daily] 1 each PO DAILY 01/29/15 [History] metFORMIN HCl [Metformin HCl] 1,000 mg PO BID 01/29/15 [History] Ascorbic Acid [Vitamin C] 500 mg PO DAILY 09/06/17 [History] Aspirin 81 mg PO DAILY 09/06/17 [History] Ferrous Sulfate 325 mg PO DAILY 09/06/17 [History] Alogliptin Benzoate [Alogliptin] 25 mg PO DAILY 08/20/19 [History] Carvedilol [Coreg] 25 mg PO BID 08/20/19 [History] Citalopram [Citalopram HBr] 10 mg PO DAILY 08/20/19 [History] Famotidine 20 mg PO BEDTIME 08/20/19 [History] Insulin Aspart [NovoLOG] 5 units SUBCUT TIDMEALS 08/20/19 [History] Insulin Glargine,Hum.Rec.Anlog [Lantus Solostar] 24 units SUBCUT DAILY 08/20/19 [History] Lisinopril [Zestril] 20 mg PO DAILY 08/20/19 [History] Magnesium Oxide 2 tab PO BID 08/20/19 [History] Propranolol HCl 20 mg PO BID 08/20/19 [History] Lactulose 30 ml PO TID 08/28/19 [History] Past Medical History HEENT History: Reports: Impaired Vision Other HEENT History: glasses Cardiovascular History: Reports: Angina, High Cholesterol, Hypertension, [place] Other Cardiovascular History: AICD stents July 2017 Respiratory History: Reports: SOB Other Respiratory History: dyspnea with exertion no sob or difficulty breathing at rest Gastrointestinal History: Reports: Cirrhosis, GERD, Hiatal Hernia, PUD Musculoskeletal History: Reports: Gout, Osteoarthritis Other Musculoskeletal History: Bilateral Knee Pain Neurological History: Reports: Other (See Below) Other Neuro History: AMS when ammonia level gets high Psychiatric History: Reports: Anxiety Endocrine/Metabolic History: Reports: Diabetes, Type II Hematologic History: Reports: Anemia - Infectious Disease History Infectious Disease History: Reports: Chicken Pox - Past Surgical History Cardiovascular Surgical History: Reports: Coronary Artery Stent, Other (See Below) Other Cardiovascular Surgeries/Procedures: Internal Defibrillator Social & Family History - Family History Family Medical History: Noncontributory - Tobacco Use Smoking Status *Q: Former Smoker Used Tobacco, but Quit: Yes Month/Year Tobacco Last Used: 2001 - Caffeine Use Caffeine Use: Reports: Coffee Other Caffeine Use: not reported ED ROS GENERAL - Review of Systems Review Of Systems: Comprehensive ROS is negative, except as noted in HPI. ED EXAM, GENERAL - Physical Exam Exam: See Below Exam Limited By: No Limitations General Appearance: Alert, WD/WN, No Apparent Distress Eye Exam: Bilateral Eye: EOMI, PERRL Ears: Normal External Exam Nose: Normal Inspection Throat/Mouth: Normal Inspection, Normal Lips, Normal Teeth Head: Atraumatic, Normocephalic Neck: Normal Inspection, Supple, Non-Tender Respiratory/Chest: No Respiratory Distress, Lungs Clear Cardiovascular: Normal Peripheral Pulses, Regular Rate, Rhythm Extremities: Normal Inspection Neurological: Alert. No: Oriented Psychiatric: Normal Affect, Normal Mood Skin Exam: Warm, Dry, Intact Course - Vital Signs Last Recorded V/S: Last Vital Signs Temp 37.4 C 08/28/19 11:34 Pulse 76 08/28/19 11:34 Resp 16 08/28/19 11:34 BP 151/77 H 08/28/19 11:34 Pulse Ox 96 08/28/19 11:34 - Orders/Labs/Meds Orders: Active Orders 24 hr Category Date Time Status Chest 1V Frontal [CR] Stat Exams 08/28/19 10:36 Taken Labs: Laboratory Tests 08/28/19 08/28/19 08/28/19 Range/Units 10:50 10:50 10:50 WBC 3.6 L (4.0-11.0) K/uL RBC 4.36 L (4.50-6.50) M/uL Hgb 13.4 (13.0-18.0) g/dL Hct 39.0 L (40.0-54.0) % MCV 89 (76-96) fL MCH 30.7 (27.0-32.0) pg MCHC 34.4 (31.0-35.0) g/dL RDW 14.4 (11.0-16.0) % Plt Count 78 L (150-400) K/uL MPV 11.0 H (6.0-10.0) fL Neut % (Auto) 70.2 H (45.0-70.0) % Lymph % (Auto) 14.5 L (20.0-40.0) % [place] % (Auto) 11.1 H (3.0-10.0) % Eos % (Auto) 3.6 (1.0-5.0) % Baso % (Auto) 0.6 H (0.0-0.5) % Neut # (Auto) 2.52 (2.00-7.50) K/uL Lymph # (Auto) 0.52 L (1.50-4.00) K/uL [place] # (Auto) 0.40 (0.20-0.80) K/uL Eos # (Auto) 0.13 (0.04-0.40) K/uL Baso # (Auto) 0.02 (0.02-0.10) K/uL Sodium 142 (136-145) mmol/L Potassium 4.8 (3.5-5.1) mmol/L Chloride 107 (98-107) mmol/L Carbon Dioxide 24.3 (21.0-32.0) mmol/L Anion Gap 15.5 H (5.0-15.0) mmol/L BUN 20 (8-26) mg/dL Creatinine 1.36 H (0.70-1.30) mg/dL Est Cr Clr Drug Dosing 62.61 mL/min Estimated GFR (MDRD) 53 L (>60) MLS/MIN BUN/Creatinine Ratio 14.7 (6-25) Glucose 197 H (74-100) mg/dL Calcium 9.6 (8.5-10.1) mg/dL Total Bilirubin 0.8 D (0.0-1.0) mg/dL AST 49 H (15-37) U/L ALT 52 (12-78) U/L Alkaline Phosphatase 165 H (46-116) U/L Ammonia 117 H (11-32) umol/L Troponin I < 0.017 (0.000-0.060) ng/mL Total Protein 7.7 (6.4-8.2) g/dL Albumin 3.7 (3.4-5.0) g/dL Globulin 4.0 (2.2-4.2) g/dL Albumin/Globulin Ratio 0.9 (0.8-2.0) TSH, Ultra Sensitive 3.996 H (0.358-3.740) uIU/mL Departure - Departure Time of Disposition: 11:50 Disposition: Home, Self-Care 01 Condition: Good Clinical Impression: Hepatic encephalopathy - Discharge Information Instructions: Hepatic Encephalopathy Referrals: PCP,None [Primary Care Provider] - Forms: ED Department Discharge Care Plan Goals: MD De Los Santos will send electronic prescription to the pharmacy. Start taking this pill (Rifaximin) as prescribed and stop taking lactulose. If you are unable to fill the Rifaximin (due to siegel as discussed with MD De Los Santos) continue taking Lactulose as you were previously. Do not skip doses due to frequent bowel movements. If confusion gets worse call clinic or come to the ER. Make sure you are increasing your water intake to ensure you are staying hydrated. Call the clinic or hospital with any questions [phone]. Sepsis Event Note - Evaluation Sepsis Screening Result: No Definite Risk - Focused Exam Vital Signs: Vital Signs Temp Pulse Resp BP BP Pulse Ox 08/28/19 11:34 37.4 C 76 16 151/77 H 96 08/28/19 10:46 169/87 H 08/28/19 10:26 176/87 H 08/28/19 10:25 36.4 C 82 16 183/89 H 98 Date Exam was Performed: 08/28/19 Time Exam was Performed: 12:06 - Problem List & Annotations (1) Hepatic encephalopathy SNOMED Code(s): 47190104 Code(s): K72.90 - HEPATIC FAILURE, UNSPECIFIED WITHOUT COMA Status: Acute Priority: High Current Visit: Yes - Problem List Review Problem List Initiated/Reviewed/Updated: Yes - My Orders Last 24 Hours: My Active Orders 08/28/19 10:36 Chest 1V Frontal [CR] Stat - Assessment/Plan Last 24 Hours: My Active Orders 08/28/19 10:36 Chest 1V Frontal [CR] Stat Plan: Counseled on regular treatment and management. Patient needs to continue lactulose or medications regularly for management of his ammonia level. will monitor and help him manage his medication as directed. Discussed continued f/u in ER or clinic as needed for further symptoms or persistent symptoms. Discussed Rifaximin and use one or the other but only one of them as directed. F[facility]u [facility] clinic or [facility] as directed.
--- NOTE | 2019-08-28 17:19 | CR ---
CLINICAL DATA: Confusion. AP PORTABLE CHEST, 28 AUGUST 2019: Comparison made to a prior exam dated 02 May 2017. The heart remains enlarged, unchanged. The cardiac pacer and pacer wire remain unchanged in position. The lungs are clear. No pneumothorax. No pleural effusions. Job: [id number]
== END 2019-08-28 12:00 | disposition home or self-care (01) ==
LOC: LB.ED 10:14
DX: K72.90 Hepatic failure, unspecified without coma (principal); I10 Essential (primary) hypertension; I25.2 Old myocardial infarction; E11.9 Type 2 diabetes mellitus without complications; Z88.8 Allergy status to other drugs, medicaments and biological substances; Z91.012 Allergy to eggs; Z91.018 Allergy to other foods; Z88.5 Allergy status to narcotic agent; Z79.4 Long term (current) use of insulin; Z87.891 Personal history of nicotine dependence
CPT/HCPCS: 36415; 71045; 80053; 82140; 84443; 84484; 85025; 99283; 99285-25

== ENCOUNTER 2019-09-12 07:44 | Inpatient (IN) | payer OTHER ==
[2019-09-12] MEDS ORDERED: Non-Formulary Medication 1 Each (Ascorbic Acid [Vitamin C] 500 MG) PO SCH (10:30)
[2019-09-12] MEDS ORDERED: MAGNESIUM OXIDE PO SCH (10:30)
[2019-09-12] MEDS: metFORMIN 1,000 MG Tab PO SCH ×3 (12:05→20:36)
[2019-09-12] MEDS ORDERED: Lactulose Soln 10 GM/15 ML 15 ML UD Cup ONE (13:28)
[2019-09-12] MEDS: Aspirin 81 MG Tab.Chew PO SCH (13:33)
[2019-09-12] MEDS: ALOGLIPTIN BENZOATE 25 MG PO SCH (13:33)
[2019-09-12] MEDS: Citalopram 20 MG Tab PO SCH (13:33)
[2019-09-12] MEDS: Ferrous Sulfate 325 MG Tab PO SCH (13:33)
[2019-09-12] MEDS: Lactulose Soln 10 GM/15 ML 15 ML UD Cup PO SCH ×3 (13:36→20:35)
[2019-09-12] MEDS: Lisinopril 20 MG Tab PO SCH (13:42)
[2019-09-12] MEDS: Propranolol 40 MG Tab PO SCH ×2 (13:44→20:37)
[2019-09-12] MEDS ORDERED: Carvedilol 25 MG Tab ONE (13:49)
[2019-09-12] MEDS ORDERED: Ascorbic Acid 500 MG Tab ONE (13:50)
[2019-09-12] MEDS: Carvedilol 25 MG Tab PO SCH ×2 (13:51→20:37)
[2019-09-12] MEDS ORDERED: Magnesium Oxide 400 MG Tab ONE (13:56)
[2019-09-12] MEDS ORDERED: LACTULOSE PO SCH (14:00)
--- NOTE | 2019-09-12 14:11 | HP ---
REASON FOR EMERGENCY ROOM VISIT: Confusion and history of hepatic encephalopathy. HISTORY OF PRESENT ILLNESS: This 63-year-old man was brought in with his and accompanied by their son with increasing confusion. He has a history of nonalcoholic liver disease, possibly cirrhosis and is noted to have a fatty liver. His liver disease has progressed to the point where he has had significant ammonia elevations and encephalopathy leading to confusion for the past several months at least. His ammonia levels have been consistently high, recently over 100 and he has been on lactulose for this. His states that she is certain that he has been taking lactulose. He does have approximately 4-5 stools per day, although he is not having real diarrhea. At 1 point, there was consideration of putting him on Rifaximin because of encephalopathy. However, due to the expense and it is not being covered by insurance, they have not been able to get him on this medication. She states the he has got to the point where he has been very increasingly difficult to care for at home and she feels that his confusion has worsened. He has not had any fever, chills, or any recent respiratory illness. He has not had any bloody stools. It should be noted that the patient has been followed at the [facility] and he has also been seen by a warning coordination meteorologist to follow his liver disease. PAST MEDICAL HISTORY: 1. Liver disease as described above. 2. Type 2 diabetes mellitus. 3. History of asthmatic bronchitis. 4. Non-ST elevation [place] with stenting. 5. History of esophageal varices. 6. Hypertension. MEDICATIONS: Reviewed, please see electronic medical record. They include the following; carvedilol, aspirin, vitamin C, alogliptin, insulin, ferrous sulfate, famotidine, citalopram, magnesium oxide, lisinopril, lactulose 30 mL p.o. t.i.d., metformin 500 mg p.o. q.i.d., and propranolol 20 mg p.o. b.i.d. ALLERGIES: TO ACETAMINOPHEN, MULTIPLE SPICES INCLUDING CINNAMON, LYSSA, MUSTARD, PROPOXYPHENE, STATINS, CODEINE, INDOMETHACIN. REVIEW OF SYSTEMS: Pertinent positives and negatives as listed in the HPI. PHYSICAL EXAMINATION: GENERAL: He is calm, but responds to voice. He is not oriented to place or time. VITAL SIGNS: He is afebrile. Blood pressure 158/71, heart rate 83, respirations 18, O2 sats 98%. HEENT: There is no scleral icterus. Oropharynx is normal. NECK: Supple. No JVD is noted. CHEST: Clear to auscultation. CARDIAC: Regular rate without murmur or rub. ABDOMEN: Soft and nondistended. Clinically, I cannot detect any evidence of ascites with no evidence of shifting dullness, etc. EXTREMITIES: Normal pulses. No edema. SKIN: No rashes. He does not appear jaundiced. NEUROLOGIC: He moves all 4 extremities to command. His cranial nerves grossly appear to be intact with normal facial asymmetry. Extraocular motion, movement and normal hearing. His muscle strength, bulk and tone are normal and symmetrical. Deep tendon reflexes are not tested. LABORATORY DATA: His CBC shows that he has a mild leukopenia with a WBC of 3.8. His platelets are 87,000. He is not anemic. His CMP shows that his electrolytes are normal. His estimated GFR is 53, which is slightly decreased from 1 month ago when it was 59. His serum creatinine is 1.36. His glucose is 159. He has some mild transaminase elevation with an AST of 46. His alkaline phosphatase is 163, slightly elevated. His bilirubin is normal. His ammonia is 163, which is a significant elevation from 1 month ago when it was 120. IMPRESSION: Hepatic encephalopathy, secondary to liver disease (cirrhosis). PLAN: We will admit him to the hospital, make sure that his hydration is adequate and continue his medications including his lactulose. We may want to try to bump up his lactulose dose. In addition, I am going to try to see if I can get him started on Rifaximin 550 mg p.o. b.i.d. to help with his ammonia and his encephalopathy. It may be that he will need to be transferred to the [facility], where he gets most of his primary care. This was all explained to the patient's and son. They understand and agree. All questions were answered. DALE
[2019-09-12] MEDS: Insulin Glargine,Human Rec. Analog 100 Units/ML 3 ML Pen SUBCUT SCH (14:24)
[2019-09-12] MEDS: Insulin Aspart 100 Units/ML 3 ML Pen SUBCUT SCH ×2 (14:24→18:45)
[2019-09-12] MEDS ORDERED: Rifaximin 550 MG Tab ONE (15:04)
[2019-09-12] MEDS: Rifaximin 550 MG Tab PO SCH ×2 (15:08→20:36)
[2019-09-12] MEDS: Famotidine 20 MG Tab PO SCH (20:36)
[2019-09-12] MEDS: Magnesium Oxide 400 MG Tab PO SCH (20:38)
[2019-09-13] MEDS: Insulin Glargine,Human Rec. Analog 100 Units/ML 3 ML Pen SUBCUT SCH (08:00)
[2019-09-13] MEDS ORDERED: Non-Formulary Medication 1 Each (Multivitamin [Multi-Vitamin Daily] 1 EACH) PO SCH (08:00)
[2019-09-13] MEDS: Propranolol 40 MG Tab PO SCH ×2 (09:35→20:02)
[2019-09-13] MEDS: metFORMIN 1,000 MG Tab PO SCH ×4 (09:36→20:15)
[2019-09-13] MEDS: Citalopram 20 MG Tab PO SCH (09:37)
[2019-09-13] MEDS: Aspirin 81 MG Tab.Chew PO SCH (09:39)
[2019-09-13] MEDS: Lisinopril 20 MG Tab PO SCH (09:40)
[2019-09-13] MEDS: Magnesium Oxide 400 MG Tab PO SCH ×2 (09:40→20:03)
[2019-09-13] MEDS: Multivitamins with Iron/Calcium/Folic Acid/Minerals Tab PO SCH (09:40)
[2019-09-13] MEDS: Ascorbic Acid 500 MG Tab PO SCH (09:42)
[2019-09-13] MEDS: Ferrous Sulfate 325 MG Tab PO SCH (09:43)
[2019-09-13] MEDS: Carvedilol 25 MG Tab PO SCH ×2 (09:43→20:03)
[2019-09-13] MEDS: Insulin Aspart 100 Units/ML 3 ML Pen SUBCUT SCH ×3 (09:44→17:11)
[2019-09-13] MEDS: Lactulose Soln 10 GM/15 ML 15 ML UD Cup PO SCH ×5 (09:59→23:31)
[2019-09-13] MEDS: Rifaximin 550 MG Tab PO SCH ×2 (10:02→20:15)
--- NOTE | 2019-09-13 10:47 | PN ---
DATE OF VISIT: Mr. Velez has made incredible improvement overnight. He is much more alert and oriented and answers questions appropriately this morning. Please see nursing notes documenting his improvement over the course of the evening and into this morning. He is having more bowel movements and realizes that he is now taking his lactulose 4 times a day. In addition to this, we started him yesterday on rifaximin 550 mg p.o. b.i.d., and I have a feeling this has a lot to do with his tremendous improvement. He did not have any labs today, but it will be interesting to see how his ammonia level has changed compared to yesterday, and I have ordered labs for the morning. His vital signs remain stable, and he is afebrile. We will continue with no changes today and recheck his labs in the morning. DALE /[id number]
[2019-09-13] MEDS: ALOGLIPTIN BENZOATE 25 MG PO SCH (17:26)
[2019-09-13] MEDS: Famotidine 20 MG Tab PO SCH (20:02)
[2019-09-14] MEDS: Insulin Aspart 100 Units/ML 3 ML Pen SUBCUT SCH ×3 (08:00→17:46)
[2019-09-14] MEDS: Ascorbic Acid 500 MG Tab PO SCH (08:07)
[2019-09-14] MEDS: ALOGLIPTIN BENZOATE 25 MG PO SCH (08:07)
[2019-09-14] MEDS: Aspirin 81 MG Tab.Chew PO SCH (08:07)
[2019-09-14] MEDS: Ferrous Sulfate 325 MG Tab PO SCH (08:08)
[2019-09-14] MEDS: Multivitamins with Iron/Calcium/Folic Acid/Minerals Tab PO SCH (08:08)
[2019-09-14] MEDS: Magnesium Oxide 400 MG Tab PO SCH ×2 (08:08→19:51)
[2019-09-14] MEDS: Rifaximin 550 MG Tab PO SCH (08:08)
[2019-09-14] MEDS: Citalopram 20 MG Tab PO SCH (08:08)
[2019-09-14] MEDS: metFORMIN 1,000 MG Tab PO SCH ×4 (08:09→19:51)
[2019-09-14] MEDS: Propranolol 40 MG Tab PO SCH ×2 (08:10→19:51)
[2019-09-14] MEDS: Carvedilol 25 MG Tab PO SCH ×2 (08:12→19:50)
[2019-09-14] MEDS: Lisinopril 20 MG Tab PO SCH (08:12)
[2019-09-14] MEDS: Insulin Glargine,Human Rec. Analog 100 Units/ML 3 ML Pen SUBCUT SCH (08:13)
[2019-09-14] MEDS: Lactulose Soln 10 GM/15 ML 15 ML UD Cup PO SCH ×3 (08:16→19:52)
[2019-09-14] MEDS ORDERED: Rifaximin 550 MG Tab PO ONE (09:00)
--- NOTE | 2019-09-14 10:30 | PN ---
DATE OF VISIT: SUBJECTIVE: Kameron had a good night last night. He had quite a few more loose stools as a result of increasing his lactulose dose, so we cut back from 4 times a day back to his normal 3 times a day with the lactulose. He remains cogent, alert, oriented, and is 100% improved compared to his admission with regard to his encephalopathy. At this point, he has no signs of encephalopathy whatsoever. He remains afebrile with stable vital signs. OBJECTIVE: CHEST: Clear. CARDIAC: Regular rate without murmur. ABDOMEN: Soft. LABORATORY DATA: From this morning showed that his ammonia has gone from 163 on 09/12/2019, to his current level of 58 which is a remarkable change. I attribute this to the rifaximin largely. Some concern to me was the fact that his creatinine jumped from 1.36 to 1.72 with a decline in his GFR from 60-40. In looking back on his medical records, however, he had a GFR of 60 in August and looking back 2 years ago he had a creatinine of 1.6 with a GFR of 46. So, it appears to me that his renal function tends to wax and wane. IMPRESSION: 1. Overall, improved regarding hepatic encephalopathy. 2. Fluctuating renal function as described above. PLAN: We will cut his rifaximin down to from 550 mg b.i.d. to 550 mg p.o. daily even though this is not known to be a nephrotoxic drug. A long discussion has been undertaken regarding getting coverage for this expensive medication rifaximin and arranging this through the [place] system. I am going to talk to Dr. De Los Santos about that and ask him if he can help him through this process since he is the patient's regular provider. The patient understands and agrees with that. SANDEE/MARIANA /[id number]
[2019-09-14] MEDS: Famotidine 20 MG Tab PO SCH (19:50)
[2019-09-15] MEDS: Ferrous Sulfate 325 MG Tab PO SCH (09:20)
[2019-09-15] MEDS: Lisinopril 20 MG Tab PO SCH (09:20)
[2019-09-15] MEDS: Propranolol 40 MG Tab PO SCH ×2 (09:21→20:08)
[2019-09-15] MEDS: Multivitamins with Iron/Calcium/Folic Acid/Minerals Tab PO SCH (09:21)
[2019-09-15] MEDS: Citalopram 20 MG Tab PO SCH (09:22)
[2019-09-15] MEDS: metFORMIN 1,000 MG Tab PO SCH ×4 (09:22→20:09)
[2019-09-15] MEDS: Rifaximin 550 MG Tab PO SCH (09:22)
[2019-09-15] MEDS: Ascorbic Acid 500 MG Tab PO SCH (09:23)
[2019-09-15] MEDS: Aspirin 81 MG Tab.Chew PO SCH (09:24)
[2019-09-15] MEDS: Carvedilol 25 MG Tab PO SCH ×2 (09:24→20:08)
[2019-09-15] MEDS: Magnesium Oxide 400 MG Tab PO SCH ×2 (09:24→20:17)
[2019-09-15] MEDS: Insulin Aspart 100 Units/ML 3 ML Pen SUBCUT SCH ×3 (09:49→17:20)
[2019-09-15] MEDS: ALOGLIPTIN BENZOATE 25 MG PO SCH (09:58)
[2019-09-15] MEDS: Lactulose Soln 10 GM/15 ML 15 ML UD Cup PO SCH ×3 (10:12→20:07)
[2019-09-15] MEDS: Insulin Glargine,Human Rec. Analog 100 Units/ML 3 ML Pen SUBCUT SCH (10:31)
[2019-09-15] MEDS ORDERED: Sodium Chloride 0.9% 1,000 ML IV STA (10:42)
--- NOTE | 2019-09-15 12:01 | PN ---
DATE OF VISIT: 09/15/2019 SUBJECTIVE: Kameron feels well today and now offers no complaints. OBJECTIVE: His vital signs are stable and his exam is unremarkable. LABORATORY DATA: His labs demonstrates that his creatinine continues to inch up, yesterday it was 1.72 and today it is 2.04. His estimated GFR has gone from 41 to 33. His blood glucose this morning was 196. His liver enzymes remained stable and his ammonia has went from 56 yesterday to 71 today. He is now only taking rifaximin 550 mg p.o. daily. IMPRESSION: He is stable from the standpoint of his encephalopathy, which has resolved. However, his renal function seems to be deteriorating. In the past, he has had significant fluctuations in his renal function from mild to moderate in terms of severity and this may be simply a matter of hydration. I discussed the patient's situation with Dr. De Los Santos, who is his primary care provider, and we agreed that perhaps some gentle hydration throughout the day and recheck his labs in the morning would be a sensible approach. I am not going to make any changes in his medications. We will check a UA as well. The patient is understandably disappointed, but agrees and understands. SANDEE/MARIANA /[id number]
[2019-09-15] MEDS ORDERED: Insulin Glargine,Human Rec. Analog 100 Units/ML 3 ML Pen SUBCUT SCH (20:00)
[2019-09-15] MEDS: Famotidine 20 MG Tab PO SCH (20:08)
[2019-09-16 07:36] VITALS: BP 127/63; PULSE 69
[2019-09-16] MEDS: Propranolol 40 MG Tab PO SCH (08:02)
[2019-09-16] MEDS: Aspirin 81 MG Tab.Chew PO SCH (08:03)
[2019-09-16] MEDS: Ferrous Sulfate 325 MG Tab PO SCH (08:03)
[2019-09-16] MEDS: Multivitamins with Iron/Calcium/Folic Acid/Minerals Tab PO SCH (08:03)
[2019-09-16] MEDS: Ascorbic Acid 500 MG Tab PO SCH (08:03)
[2019-09-16] MEDS: metFORMIN 1,000 MG Tab PO SCH ×2 (08:04→11:50)
[2019-09-16] MEDS: Carvedilol 25 MG Tab PO SCH (08:04)
[2019-09-16] MEDS: Rifaximin 550 MG Tab PO SCH (08:04)
[2019-09-16] MEDS: Lisinopril 20 MG Tab PO SCH (08:05)
[2019-09-16] MEDS: Magnesium Oxide 400 MG Tab PO SCH (08:05)
[2019-09-16] MEDS: Citalopram 20 MG Tab PO SCH (08:06)
[2019-09-16] MEDS: Lactulose Soln 10 GM/15 ML 15 ML UD Cup PO SCH (08:06)
[2019-09-16] MEDS: Insulin Aspart 100 Units/ML 3 ML Pen SUBCUT SCH ×2 (08:07→11:51)
[2019-09-16] MEDS: ALOGLIPTIN BENZOATE 25 MG PO SCH (08:07)
--- NOTE | 2019-10-21 09:16 | DISCH ---
ADMISSION DIAGNOSIS: Hepatic encephalopathy, secondary to liver disease. DISCHARGE DIAGNOSIS: Hepatic encephalopathy, improved. HOSPITAL COURSE: This 63-year-old man was admitted on the above-mentioned date with increasing confusion and due to hepatic encephalopathy. He had a history of significant elevated ammonia levels and encephalopathy in the past for several months prior to this admission. His ammonia levels had been consistently high, greater than 100, and he had been on lactulose for this. He had marked confusion and disorientation. MEDICAL HISTORY: Significant for: 1. Liver disease including fatty liver. 2. Type 2 diabetes. 3. History of asthmatic bronchitis. 4. History of [id number] MS with coronary artery stenting. 5. History of esophageal bleeding with esophageal varices. 6. Hypertension. HOSPITAL COURSE: He was admitted to the hospital on the above-mentioned date, and he was started on rifaximin 550 mg p.o. b.i.d. His lactulose was continued through this, and overnight, he had remarkable improvement. On his third day of hospitalization, he had an increase in loose stools, so his lactulose had to be cut back. His mental status remained completely normal compared to admission, when he was very obtunded. His admission ammonia had gone from 163 down to a level of 58 by this time. He did have a jump in his creatinine from 1.36 to 1.72 and a decline in his GFR. Because of his rising creatinine and BUN, we had cut back on his rifaximin, even though it was not known to be a nephrotoxic drug, and we hydrated him gently throughout the day. His renal function did turn around and improve, and by the day of discharge, he was markedly improved. Arrangements were made to see if Dr. De Los Santos could arrange to have him get his rifaximin covered, as he is a , and he was just discharged on rifaximin 550 mg p.o. b.i.d. His other medications were unchanged. Followup arrangements were made. DALE /[id number]
== END 2019-09-16 12:55 | disposition home or self-care (01) | DRG 443 ==
LOC: LB.ED 07:44 → LB.MS 09:36 → UNDOADMIN 09:36 → LB.MS 10:25
PROVIDERS: ADMIT Surgery; ATTEND Surgery
DX: K72.90 Hepatic failure, unspecified without coma (principal); K74.60 Unspecified cirrhosis of liver; E11.9 Type 2 diabetes mellitus without complications; Z95.5 Presence of coronary angioplasty implant and graft; I10 Essential (primary) hypertension; Z79.82 Long term (current) use of aspirin; Z79.4 Long term (current) use of insulin; Z91.02 Food additives allergy status; I25.2 Old myocardial infarction; Z79.899 Other long term (current) drug therapy; Z88.5 Allergy status to narcotic agent; Z88.8 Allergy status to other drugs, medicaments and biological substances
CPT/HCPCS: 36415; 80053; 82140; 85025; A0425; A0429; 81003; 82962; 99285; A9270-GY; J1815-GY; J7030

== ENCOUNTER 2019-10-20 06:14 | Inpatient (IN) | payer OTHER ==
[2019-10-20] MEDS ORDERED: Albuterol 8 GM Inhaler INH PRN (08:33)
--- NOTE | 2019-10-20 08:35 | CR ---
Date of Service: 10/20/19 Clinical Data: altered mental status, fever AP CHEST: Comparison is made to a prior exam dated 08/28/19. The patient has had a poor inspiration. The cardiac pacer and pacer wire remain unchanged in position. The heart remains enlarged, unchanged. The right costophrenic angle is cut off. The visualized lungs are clear. No pneumothorax. No pleural effusions. [id number] [facility]
[2019-10-20] MEDS ORDERED: Insulin Glargine,Human Rec. Analog 100 Units/ML 3 ML Pen SUBCUT SCH (08:45)
[2019-10-20] MEDS: Rifaximin 550 MG Tab PO SCH ×3 (12:05→20:07)
[2019-10-20] MEDS: metFORMIN 1,000 MG Tab PO SCH ×4 (12:05→20:09)
[2019-10-20] MEDS: Carvedilol 6.25 MG Tab PO SCH ×3 (12:05→20:06)
[2019-10-20] MEDS: Aspirin 81 MG Tab.EC PO SCH ×2 (12:06→14:08)
[2019-10-20] MEDS: Ferrous Sulfate 325 MG Tab PO SCH ×2 (12:06→14:06)
[2019-10-20] MEDS: Carvedilol 25 MG Tab PO SCH ×3 (12:06→20:07)
[2019-10-20] MEDS: Citalopram 20 MG Tab PO SCH ×2 (12:07→14:06)
[2019-10-20] MEDS: Insulin Aspart 100 Units/ML 3 ML Pen SUBCUT SCH ×2 (12:08→18:05)
[2019-10-20] MEDS ORDERED: Multivitamins with Iron/Calcium/Folic Acid/Minerals Tab ONE (12:14)
[2019-10-20] MEDS ORDERED: Ascorbic Acid 500 MG Tab ONE (12:14)
[2019-10-20] MEDS: Non-Formulary Medication 1 Each (Ascorbic Acid [Vitamin C] 500 MG) PO SCH ×2 (12:15→14:09)
[2019-10-20] MEDS: Non-Formulary Medication 1 Each (Multivitamin [Multi-Vitamin Daily] 1 EACH) PO SCH ×2 (12:15→14:09)
--- NOTE | 2019-10-20 12:36 | HP ---
REASON FOR ADMISSION: Hepatic encephalopathy. HISTORY: This 64-year-old man had been admitted in the past on a number of occasions for hepatic encephalopathy secondary to cirrhosis and fatty liver. The etiology of his underlying liver disease is unclear at this time. He was previously admitted last month with marked confusion and a serum ammonia level of 163. He was maintained on lactulose, but that obviously was not keeping his serum ammonia levels down. He had been quite obtunded by the time he was seen in the emergency room at that time, however, once he was started on rifaximin therapy 550 mg b.i.d., he improved substantially and returned to baseline normal mental status levels. Unfortunately, due to the excessive cost of the rifaximin and the inability to arrange an insurance or [facility] to cover this medication, he has now returned with he had another episode of confusion that evolved over the past day or so. His noted that he was much more confused this morning. He was oriented as to name, but thought it was March 07. She noted that he was acting inappropriately, fidgeting around to toilet, and acting unusual and forgetful. When he gets like this, she states that he does anger quite easily and brought him and feeling "something is just not right." It should be noted that everyone in his family has had an upper respiratory infection that started over the weekend. He has not had any significant respiratory symptoms at this stage nor has he had any GI symptoms. He had been on propranolol in the past, however, he was switched to carvedilol. His emergency vehicle operations instructor, Dr. Phelan, in [place], is scheduled to see him next Sunday (1 week from tomorrow). PAST MEDICAL HISTORY: Significant for: 1. Liver disease as described above. 2. Type 2 diabetes. 3. History of an asthmatic bronchitis. 4. Non-ST elevation [place] with stenting. 5. History of esophageal varices. 6. Hypertension. MEDICATIONS: Reviewed. Please see electronic medical record. They include the followin. Carvedilol. 2. Aspirin. 3. Vitamin C. 4. Alogliptin. 5. Insulin. 6. Ferrous sulfate. 7. Famotidine. 8. Citalopram. 9. Lisinopril. 10.Lactulose 30 mL p.o. t.i.d. 11.Metformin 500 mg p.o. q.i.d. ALLERGIES: HE IS ALLERGIC TO ACETAMINOPHEN, MULTIPLE SPICES INCLUDING CINNAMON, LYSSA, AND MUSTARD. HE IS ALLERGIC TO PROPOXYPHENE, STATINS, CODEINE, AND INDOMETHACIN. REVIEW OF SYSTEMS: Pertinent positives and negatives as listed in the HPI. PHYSICAL EXAMINATION: GENERAL: He is reasonably alert and recognizes me. He is disoriented as to time stating that it was March 07. He is not agitated or in any acute distress. VITAL SIGNS: He is afebrile. Heart rate 79, blood pressure 156/68, respirations 18, O2 sats 97% on room air. HEENT: Head is normocephalic. He does not have any scleral icterus. Oropharynx is normal. No erythema or exudates. NECK: Supple. No adenopathy. No JVD. CHEST: Clear to auscultation with good air exchange bilaterally. No wheezes, rhonchi, or rales. CARDIAC: Regular rate without murmur. ABDOMEN: Obese, soft, and nontender. No hepatosplenomegaly can be detected. There is no evidence of ascites clinically with no shifting dullness. EXTREMITIES: Normal pulses. No edema. NEUROLOGIC: He is oriented x2. He does answer questions appropriately. Cranial nerves 2 through 12 are intact. Deep tendon reflexes are symmetrical bilaterally in both lower extremities. Muscle strength bulk and tone are normal and symmetrical. Sensation is normal to crude touch. SKIN: No rashes. LABORATORY DATA: CBC shows that he has a WBC of 3.4 x10 to the 3rd. This is his baseline. Hemoglobin 12.6. CMP, his electrolytes are normal. His creatinine is 1.14 with a BUN of 18 and a GFR estimated at greater than 60. His alkaline phosphatase is borderline elevated at 145, but his bilirubin is normal. His other transaminases are normal. His serum ammonia level is 178. His chest x-ray shows no active pulmonary disease. Nasopharyngeal swab for influenza A and B was negative. IMPRESSION: Hepatic encephalopathy. PLAN: We will admit him and restart him on his rifaximin and see if we can get that decreased. The underlying problem remains that he seems to need this medication quite badly and there are problems with getting this covered. This problem will have to be addressed. He and his understand and agree with this plan. SANDEE/MARIANA
[2019-10-20] MEDS ORDERED: Lactulose Soln 10 GM/15 ML 15 ML UD Cup ONE (13:18)
[2019-10-20] MEDS: ALOGLIPTIN BENZOATE 25 MG PO SCH (13:36)
[2019-10-20] MEDS: MAGNESIUM OXIDE PO SCH ×2 (13:36→20:25)
[2019-10-20] MEDS ORDERED: LACTULOSE PO SCH (14:00)
[2019-10-20] MEDS ORDERED: metFORMIN 500 MG Tab ONE (19:52)
[2019-10-20] MEDS ORDERED: Famotidine 20 MG Tab PO SCH (20:00)
[2019-10-20] MEDS: Lactulose Soln 10 GM/15 ML 15 ML UD Cup PO SCH (20:05)
[2019-10-20] MEDS: Magnesium Oxide 400 MG Tab ONE ×2 (20:07→20:26)
[2019-10-20] MEDS: Sodium Chloride 0.9% 10 ML Syringe FLUSH SCH (20:24)
[2019-10-21] MEDS ORDERED: Multivitamins with Iron/Calcium/Folic Acid/Minerals Tab PO SCH (08:00)
[2019-10-21] MEDS ORDERED: Ascorbic Acid 500 MG Tab PO SCH (08:00)
[2019-10-21] MEDS: Lactulose Soln 10 GM/15 ML 15 ML UD Cup PO SCH ×2 (08:10→14:01)
[2019-10-21] MEDS: Citalopram 20 MG Tab PO SCH (08:15)
[2019-10-21] MEDS: Ferrous Sulfate 325 MG Tab PO SCH (08:15)
[2019-10-21] MEDS: Rifaximin 550 MG Tab PO SCH (08:17)
[2019-10-21] MEDS: Carvedilol 6.25 MG Tab PO SCH (08:17)
[2019-10-21] MEDS ORDERED: Magnesium Oxide 400 MG Tab ONE ×2 (08:34→08:53)
[2019-10-21] MEDS: Insulin Aspart 100 Units/ML 3 ML Pen SUBCUT SCH ×2 (08:44→12:03)
[2019-10-21] MEDS: Carvedilol 25 MG Tab PO SCH (08:49)
[2019-10-21] MEDS: MAGNESIUM OXIDE PO SCH (08:50)
[2019-10-21] MEDS: metFORMIN 1,000 MG Tab PO SCH ×2 (08:50→12:06)
[2019-10-21] MEDS: Aspirin 81 MG Tab.EC PO SCH (08:50)
[2019-10-21] MEDS: Sodium Chloride 0.9% 10 ML Syringe FLUSH SCH (08:51)
[2019-10-21] MEDS: ALOGLIPTIN BENZOATE 25 MG PO SCH ×2 (09:00→14:00)
[2019-10-21 11:25] VITALS: BP 143/59; PULSE 71
--- NOTE | 2019-10-21 11:28 | PN ---
DATE OF VISIT: Mr. Velez is remarkably improved with regard to his mental status. This morning, he is perfectly lucid and is oriented x3. He answers questions appropriately and engages in normal conversation this morning. His turnaround is quite remarkable in light of his being here only 24 hours. His vital signs remained stable. His blood sugars are stable ranging between 133 and 117. His ammonia has gone from 178 yesterday to 65 today. This is the same pattern he exhibited last time and the only difference in both of these occasions that made a glaring difference was that he was able to take rifaximin. IMPRESSION: Marked hepatic encephalopathy, markedly improved. PLAN: The main dilemma we have here is that according to his , the insurance will not cover this medication. She has been quoted outrageous quotes in terms of cost for this medication ranging between 1500 and 3000 dollars per month. A cursory check by myself online indicates that this medication is available through offshore pharmacies such as in [place], etc., for less than 1 dollar a day. They have been told that the [facility] will not cover the cost of this medication, and I find that outrageous. I am going to enlist the help of [employer] to help resolve this issue. At least, we realize that it is possible for them to obtain the medication through pharmacies in [place], etc., but I still think that he should be able to be covered through the VA, and we will see if we can accomplish this for him. DALE /[id number]
[2019-10-21] MEDS ORDERED: Rifaximin 550 MG Tab PO ONE (16:00)
--- NOTE | 2019-10-21 16:25 | DISCH ---
ADMISSION DIAGNOSIS: Hepatic encephalopathy. HISTORY OF PRESENT ILLNESS: This 64-year-old man was admitted with known cirrhosis and liver failure, who was admitted yesterday with confusion and an elevated serum ammonia level of 174. He is known to have liver disease and type 2 diabetes. The etiology of his liver disease is unclear at this time, but it is possibly related to a combination of alcohol and fatty liver, which he does have as well. He was previously admitted 1 month ago with marked obtundation and an elevated ammonia level of 163. During that hospitalization, he was treated with his lactulose as usual, but he was also treated with rifaximin 550 mg p.o. b.i.d. This resulted in a remarkable turnaround with a significant fall of his serum ammonia levels down to 63 and a complete clearing of his sensorium to a normal baseline level. He was subsequently discharged. However, the problems have risen where he has been unable to get this covered by his insurance carrier and the [place] refuses to provide him with a medication as well. Financial constraints are very real as the cost of this medication out of pocket is in the range of 3000 dollars per month. was given a limited supply of the rifaximin and she stretched it out by only giving the medication once a day. However, eventually, it had to be discontinued because of cost limitations. He did begin to exhibit abnormal and inappropriate behavior and anger flareups as well as some disorientation and overall confusion, which was very similar to signs he had exhibited in the past. HOSPITAL COURSE: He was admitted with a serum ammonia level of 178. The remainder of his labs were unremarkable except that he normally has a leukopenia with a white blood count of 3.4 x10 to 3rd that is his baseline. He had no signs of any other comorbid conditions such as heart disease or pulmonary disease, and he was restarted on his rifaximin and this morning, his sensorium has cleared considerably to the point where he is back to his baseline and once again, his serum ammonia level dropped down to 65 this morning. This is the identical pattern to that which he exhibited in the previous hospitalization. IMPRESSION: Marked hepatic encephalopathy, much improved. PLAN: We spent a few hours today trying to work through some ways of providing him with this medication or at least getting the medication down to an affordable level. This included telephone calls to [facility] as he was actually born in [place]. They were unable to help us at all. We tried to get him a discount and indeed we were able to get his medication discount, but not very much from a level of 3000 dollars per month down to approximately 2700 dollars per month. Finally, a call was placed to Congressman Daniel Ramos and his office is trying to assist us with navigating to the [facility] system so that this can be provided with this medication. In the meantime, since he is clinically able to be discharged, we went ahead and discharged him and I did give his a prescription for rifaximin 550 mg dispense #14 tablets. She is prescribed 1 b.i.d., but she may stretch this out to 1 tablet a day so that to give her more time to be able to resolve this problem regarding the cost of the medication. I enlisted the help of hospital pharmacist and social services technician as well, and it really has been a huge effort on our RN to try to help this gentleman out. It may be that if they are unable to get his medication covered that he will have to return and be here until this matter can be resolved as it truly is a life- threatening situation. All questions were answered. SANDEE/MARIANA /[id number]
[2019-10-21] MEDS ORDERED: Insulin Glargine,Human Rec. Analog 100 Units/ML 3 ML Pen SUBCUT SCH (20:00)
== END 2019-10-21 16:15 | disposition home or self-care (01) | DRG 434 ==
LOC: LB.ED 06:14 → LB.MS 08:21
PROVIDERS: ADMIT Surgery; ATTEND Surgery
DX: K70.40 Alcoholic hepatic failure without coma (principal); K76.0 Fatty (change of) liver, not elsewhere classified; K74.60 Unspecified cirrhosis of liver; K72.90 Hepatic failure, unspecified without coma; E11.9 Type 2 diabetes mellitus without complications; I25.2 Old myocardial infarction; Z95.5 Presence of coronary angioplasty implant and graft; I10 Essential (primary) hypertension; Z79.82 Long term (current) use of aspirin; Z79.4 Long term (current) use of insulin; Z79.899 Other long term (current) drug therapy; Z88.5 Allergy status to narcotic agent; Z88.8 Allergy status to other drugs, medicaments and biological substances; Z88.6 Allergy status to analgesic agent; Z91.02 Food additives allergy status
CPT/HCPCS: 36415; 71045; 80053; 81003; 82140; 85025; 87804 ×2; 99284; A0425; A0429; 82962; 99221; 99238; A9270-GY; J1815-GY

== ENCOUNTER 2020-04-17 14:14 | Emergency (ER) | payer OTHER ==
[2020-04-17 14:31] VITALS: BP 142/67; PULSE 75
--- NOTE | 2020-04-17 15:05 | EDM.PDOC ---
ED HPI GENERAL MEDICAL PROBLEM - General Chief Complaint: Behavioral/Psych Stated Complaint: Altered mental Status Time Seen by Provider: 04/17/20 14:26 Source of Information: Reports: EMS History Limitations: Reports: Altered Mental Status - History of Present Illness INITIAL COMMENTS - FREE TEXT/NARRATIVE: Pt with know Hepatic Encephalopathy brought to ER due to worsening MS Change. Last time due to elevated ammonia levels 174. Onset: Today Duration: Intermittent, Waxing/Waning Quality: Reports: Same as Previous Episode Severity: Mild Improves with: Reports: Medication Associated Symptoms: Reports: Confusion. Denies: Cough, Diaphoresis, Fever/Chills, Headaches, Loss of Appetite, Malaise, Nausea/Vomiting - Related Data Allergies Allergy/AdvReac Type Severity Reaction Status Date / Time acetaminophen Allergy Change Verified 09/12/19 08:12 [From Darvocet-N 100] Mental Status cinnamon Allergy Cannot Verified 09/12/19 08:12 Remember egg Allergy Cannot Verified 09/12/19 08:12 Remember dontrell Allergy Other Verified 09/12/19 08:12 mustard Allergy Anaphylactic Verified 09/12/19 08:12 Shock propoxyphene napsylate Allergy Cannot Verified 09/12/19 08:12 [From Darvocet-N 100] Remember [id number] Reductase Allergy Muscle Verified 09/12/19 08:12 Inhibitor Aches codeine AdvReac Change Verified 09/12/19 08:12 Mental Status indomethacin [From Indocin] AdvReac Change Verified 09/12/19 08:12 Mental Status indomethacin sodium AdvReac Change Verified 09/12/19 08:12 [From Indocin] Mental Status propoxyphene HCl AdvReac Change Verified 09/12/19 08:12 [From Darvon] Mental Status Home Meds: Home Meds Multivitamin [Multi-Vitamin Daily] 1 each PO DAILY 01/29/15 [History] metFORMIN HCl [Metformin HCl] 500 mg PO QID 01/29/15 [History] Ascorbic Acid [Vitamin C] 500 mg PO DAILY 09/06/17 [History] Ferrous Sulfate 325 mg PO DAILY 09/06/17 [History] Alogliptin Benzoate [Alogliptin] 25 mg PO DAILY 08/20/19 [History] Citalopram [Citalopram HBr] 10 mg PO DAILY 08/20/19 [History] Famotidine 20 mg PO BEDTIME 08/20/19 [History] Insulin Aspart [NovoLOG] 8 units SUBCUT TIDMEALS 08/20/19 [History] Insulin Glargine,Hum.Rec.Anlog [Lantus Solostar] 24 units SUBCUT DAILY 08/20/19 [History] Magnesium Oxide 3 tab PO BID 08/20/19 [History] carvediloL [Coreg] 25 mg PO BID 08/20/19 [History] lisinopriL [Zestril] 20 mg PO DAILY 08/20/19 [History] Lactulose 30 ml PO TID 08/28/19 [History] Albuterol Sulfate [Albuterol Sulfate Hfa] 2 puff INH DAILY PRN 10/20/19 [History] Aspirin [Ecotrin EC] 81 mg PO DAILY 10/20/19 [History] carvediloL [Carvedilol] 6.25 mg PO BID 10/20/19 [History] Rifaximin [Xifaxan] 550 mg PO BID 10/21/19 [History] Past Medical History HEENT History: Reports: Impaired Vision Other HEENT History: glasses Cardiovascular History: Reports: Angina, High Cholesterol, Hypertension, [place] Other Cardiovascular History: AICD stents July 2017 Respiratory History: Reports: SOB Other Respiratory History: dyspnea with exertion no sob or difficulty breathing at rest Gastrointestinal History: Reports: Cirrhosis, GERD, Hiatal Hernia, PUD Musculoskeletal History: Reports: Gout, Osteoarthritis Other Musculoskeletal History: Bilateral Knee Pain Neurological History: Reports: Other (See Below) Other Neuro History: AMS when ammonia level gets high Psychiatric History: Reports: Anxiety Endocrine/Metabolic History: Reports: Diabetes, Type II Hematologic History: Reports: Anemia - Infectious Disease History Infectious Disease History: Reports: Chicken Pox - Past Surgical History Cardiovascular Surgical History: Reports: Coronary Artery Stent, Other (See Below) Other Cardiovascular Surgeries/Procedures: Internal Defibrillator Social & Family History - Family History Family Medical History: Noncontributory - Caffeine Use Caffeine Use: Reports: None Other Caffeine Use: not reported ED ROS GENERAL - Review of Systems Review Of Systems: See Below Constitutional: Denies: Fever, Fatigue, Diaphoresis HEENT: Reports: No Symptoms Respiratory: Reports: No Symptoms Cardiovascular: Denies: Chest Pain GI/Abdominal: Reports: Stool Incontinence : Reports: No Symptoms Musculoskeletal: Reports: No Symptoms Skin: Reports: No Symptoms Neurological: Reports: Confusion Psychiatric: Reports: Confusion ED EXAM, GENERAL - Physical Exam Exam: See Below Exam Limited By: Altered Mental Status General Appearance: Alert, Obtunded, Mild Distress Nose: Normal Inspection Throat/Mouth: Normal Inspection Head: Atraumatic, Normocephalic Neck: Normal Inspection, Supple Respiratory/Chest: No Respiratory Distress, Lungs Clear, Normal Breath Sounds, No Accessory Muscle Use Cardiovascular: Regular Rate, Rhythm, No Edema, No Gallop GI/Abdominal: Normal Bowel Sounds, Soft, Non-Tender Neurological: Alert, Confused (pt has hepatic encephalopathy and when Ammonia level increases he will be come confused) Psychiatric: Normal Affect Skin Exam: Warm, Dry, Intact EKG INTERPRETATION EKG Date: 04/17/20 Rhythm: NSR [place]: LAD-Left [place] Deviation Comparison: Change From Previous EKG (non-specific intraventricular block) Course - Vital Signs Last Recorded V/S: Last Vital Signs Temp 98.7 F 04/17/20 14:25 Pulse 75 04/17/20 14:25 Resp 18 04/17/20 14:25 BP 142/67 H 04/17/20 14:25 Pulse Ox 98 04/17/20 14:25 - Orders/Labs/Meds Orders: Active Orders 24 hr Category Date Time Status EKG Documentation Completion [RC] ASDIRECTED Care 04/17/20 16:45 Active CXR [Chest 1V Frontal] [CR] Stat Exams 04/17/20 16:41 Taken CKMB [CHEM] Stat Lab 04/17/20 16:47 Ordered CORONAVIRUS COVID-19 RAPID [MOLEC] Stat Lab 04/17/20 18:16 Ordered URINALYSIS W/MICROSCOPIC [UA W/MICROSCOPIC] [URIN] Stat Lab 04/17/20 15:00 Ordered Labs: Laboratory Tests 04/17/20 04/17/20 04/17/20 Range/Units 13:40 15:00 15:00 WBC 4.3 D (4.0-11.0) K/uL RBC 4.35 L (4.50-6.50) M/uL Hgb 13.5 (13.0-18.0) g/dL Hct 38.7 L (40.0-54.0) % MCV 89 (76-96) fL MCH 31.0 (27.0-32.0) pg MCHC 34.9 (31.0-35.0) g/dL RDW 15.0 (11.0-16.0) % Plt Count 85 L (150-400) K/uL MPV 10.7 H (6.0-10.0) fL Neut % (Auto) 70.0 (45.0-70.0) % Lymph % (Auto) 13.6 L (20.0-40.0) % Walker % (Auto) 12.7 H (3.0-10.0) % Eos % (Auto) 3.0 (1.0-5.0) % Baso % (Auto) 0.7 H (0.0-0.5) % Neut # (Auto) 3.03 (2.00-7.50) K/uL Lymph # (Auto) 0.59 L (1.50-4.00) K/uL Walker # (Auto) 0.55 (0.20-0.80) K/uL Eos # (Auto) 0.13 (0.04-0.40) K/uL Baso # (Auto) 0.03 (0.02-0.10) K/uL Sodium (136-145) mmol/L Potassium (3.5-5.1) mmol/L Chloride (98-107) mmol/L Carbon Dioxide (21.0-32.0) mmol/L Anion Gap (5.0-15.0) mmol/L BUN (8-26) mg/dL Creatinine (0.70-1.30) mg/dL Est Cr Clr Drug Dosing mL/min Estimated GFR (MDRD) (>60) MLS/MIN BUN/Creatinine Ratio (6-25) Glucose (74-100) mg/dL Calcium (8.5-10.1) mg/dL Total Bilirubin (0.0-1.0) mg/dL AST (15-37) U/L ALT (12-78) U/L Alkaline Phosphatase (46-116) U/L Ammonia 91 H (11-32) umol/L Troponin I < 0.017 (0.000-0.060) ng/mL Total Protein (6.4-8.2) g/dL Albumin (3.4-5.0) g/dL Globulin (2.2-4.2) g/dL Albumin/Globulin Ratio (0.8-2.0) 08/ Range/Units 15:00 WBC (4.0-11.0) K/uL RBC (4.50-6.50) M/uL Hgb (13.0-18.0) g/dL Hct (40.0-54.0) % MCV (76-96) fL MCH (27.0-32.0) pg MCHC (31.0-35.0) g/dL RDW (11.0-16.0) % Plt Count (150-400) K/uL MPV (6.0-10.0) fL Neut % (Auto) (45.0-70.0) % Lymph % (Auto) (20.0-40.0) % Walker % (Auto) (3.0-10.0) % Eos % (Auto) (1.0-5.0) % Baso % (Auto) (0.0-0.5) % Neut # (Auto) (2.00-7.50) K/uL Lymph # (Auto) (1.50-4.00) K/uL Walker # (Auto) (0.20-0.80) K/uL Eos # (Auto) (0.04-0.40) K/uL Baso # (Auto) (0.02-0.10) K/uL Sodium 140 (136-145) mmol/L Potassium 4.6 (3.5-5.1) mmol/L Chloride 106 (98-107) mmol/L Carbon Dioxide 23.0 (21.0-32.0) mmol/L Anion Gap 15.6 H (5.0-15.0) mmol/L BUN 21 (8-26) mg/dL Creatinine 1.20 (0.70-1.30) mg/dL Est Cr Clr Drug Dosing 70.06 mL/min Estimated GFR (MDRD) > 60 (>60) MLS/MIN BUN/Creatinine Ratio 17.5 (6-25) Glucose 141 H (74-100) mg/dL Calcium 8.8 (8.5-10.1) mg/dL Total Bilirubin 1.3 H (0.0-1.0) mg/dL AST 55 H (15-37) U/L ALT 52 (12-78) U/L Alkaline Phosphatase 153 H (46-116) U/L Ammonia (11-32) umol/L Troponin I (0.000-0.060) ng/mL Total Protein 6.9 (6.4-8.2) g/dL Albumin 3.1 L (3.4-5.0) g/dL Globulin 3.8 (2.2-4.2) g/dL Albumin/Globulin Ratio 0.8 (0.8-2.0) Meds: Medications Discontinued Medications Generic Name Dose Route Start Last Admin Trade Name Stacie PRN Reason Stop Dose Admin Lactulose 10 gm 04/17/20 15:01 04/17/20 15:59 Chronulac PO 04/17/20 15:02 10 gm ONETIME ONE Administration - Re-Assessments/Exams Free Text/Narrative Re-Assessment/Exam: Pt was brought to ER by EMS due to bizarre behavior at home according to his as reported by EMS. He will at times become confused especially if his Ammonia level increases secondary to Hepatic Encephalopathy. 04/17/20 17:14 Free Text/Narrative Re-Assessment/Exam: Screening labs did reveal an elevated Ammonia level of 91. His brought in his home medication which he takes to help control his Hepatic Encephalopathy (Rifaximin). He was given 550mg in ER and within an hour he was mentally back to his baseline and he wanted to go home and his wanted to take him home. 04/17/20 18:16 Free Text/Narrative Re-Assessment/Exam: 04/17/20 19:19 He was discharged at 1915 Departure - Departure Time of Disposition: 19:20 Disposition: Home, Self-Care 01 Preliminary Cause of *Q: Sepsis & Multi System Organ Failure Condition: Fair Clinical Impression: Increased ammonia level, Hepatic encephalopathy syndrome - Discharge Information *PRESCRIPTION DRUG MONITORING PROGRAM REVIEWED*: Not Applicable *COPY OF PRESCRIPTION DRUG MONITORING REPORT IN PATIENT FATOU: Not Applicable Instructions: Hepatic Encephalopathy, Ammonia Test Referrals: PCP,None [Primary Care Provider] - Forms: ED Department Discharge Sepsis Event Note (ED) - Evaluation Sepsis Screening Result: No Definite Risk - Focused Exam Vital Signs: Vital Signs Temp Pulse Resp BP Pulse Ox 04/17/20 14:25 98.7 F 75 18 142/67 H 98 - My Orders Last 24 Hours: My Active Orders 04/17/20 15:00 URINALYSIS W/MICROSCOPIC [UA W/MICROSCOPIC] [URIN] Stat 04/17/20 16:41 CXR [Chest 1V Frontal] [CR] Stat 04/17/20 16:45 EKG Documentation Completion [RC] ASDIRECTED 04/17/20 16:47 CKMB [CHEM] Stat 04/17/20 18:16 CORONAVIRUS COVID-19 RAPID [MOLEC] Stat - Assessment/Plan Last 24 Hours: My Active Orders 04/17/20 15:00 URINALYSIS W/MICROSCOPIC [UA W/MICROSCOPIC] [URIN] Stat 04/17/20 16:41 CXR [Chest 1V Frontal] [CR] Stat 04/17/20 16:45 EKG Documentation Completion [RC] ASDIRECTED 04/17/20 16:47 CKMB [CHEM] Stat 04/17/20 18:16 CORONAVIRUS COVID-19 RAPID [MOLEC] Stat
[2020-04-17] MEDS: Lactulose Soln 10 GM/15 ML 15 ML UD Cup PO ONE (15:59)
--- NOTE | 2020-04-19 06:43 | CR ---
Date of Service: 04/17/20 Clinical Data: sob AP CHEST: Patient has taken a poor inspiration. Comparison is made to a prior exam dated 10/20/19. The heart remains enlarged, unchanged. The cardiac pacer and pacer wire remain unchanged in position. There is increased density in the left retrocardiac region consistent with basilar atelectasis or infiltrate. The lungs are otherwise clear. The pulmonary vasculature does appear mildly prominent. It is most likely accentuated by the poor inspiration. No pneumothorax. No pleural effusion. [id number] [facility]
== END 2020-04-17 18:55 | disposition home or self-care (01) ==
LOC: LB.ED 14:14
DX: K72.90 Hepatic failure, unspecified without coma (principal); E72.20 Disorder of urea cycle metabolism, unspecified; I10 Essential (primary) hypertension; I25.2 Old myocardial infarction; K21.9 Gastro-esophageal reflux disease without esophagitis; F41.9 Anxiety disorder, unspecified; M10.9 Gout, unspecified; E11.9 Type 2 diabetes mellitus without complications; Z88.6 Allergy status to analgesic agent; Z91.018 Allergy to other foods; Z91.012 Allergy to eggs; Z88.5 Allergy status to narcotic agent; Z79.899 Other long term (current) drug therapy; Z79.82 Long term (current) use of aspirin; Z79.4 Long term (current) use of insulin
CPT/HCPCS: 36415; 71045; 80053; 82140; 84484; 85025; 93005; 99285-25; A0425; A0429; A9270-GY

== ENCOUNTER 2020-06-22 20:50 | Inpatient (IN) | payer OTHER ==
[2020-06-22] MEDS ORDERED: Rifaximin 550 MG Tab PO ONE (22:18)
[2020-06-22] MEDS: Rifaximin 550 MG Tab ONE (22:19)
[2020-06-22] MEDS ORDERED: Lactulose Soln 10 GM/15 ML 15 ML UD Cup PO ONE (23:17)
[2020-06-22] MEDS ORDERED: Albuterol 8 GM Inhaler INH PRN (23:23)
[2020-06-22] MEDS ORDERED: Sodium Chloride 0.9% 10 ML Syringe FLUSH PRN (23:25)
--- NOTE | 2020-06-22 23:40 | ER ---
HISTORY OF PRESENT ILLNESS: A 64-year-old male who comes in by ambulance with complaints of confusion. His called stating that he has been confused for about a day. EMS crew states that when they got there, she said he was in the bathroom and he was playing with a cupboard in an unusual way. The patient does have history of episodes of confusion that usually linked with hepatic encephalopathy. The patient's told EMS and nursing staff that he has been taking his medications, especially lactulose and Rifaximin as directed. These medications have helped him in the past to maintain his baseline level of alertness. The patient has not been sick otherwise. He has not been running a fever. There has been no problems with coughing or falling. OBJECTIVE: GENERAL APPEARANCE: The patient is awake, he appears alert, but he is slow to answer questions. When asked what was going on, he stated that was a good question. He denies feeling sick. He is not having any pain and he is not really sure why he is here. VITAL SIGNS: Show a blood pressure of 140/55, pulse 78, he is afebrile, O2 sats 99% on room air, respirations 18. HEENT: Eyes; pupils equal, round, and reactive to light. EOMs are intact. Ears, TMs are normal. Oral mucous membranes moist. Tonsils not enlarged or injected. Pharynx not inflamed. NECK: Supple. LUNGS: Clear. CARDIAC: Heart sounds distinct without murmurs. ABDOMEN: Soft. Bowel sounds are present and active. SKIN: Warm and dry. There is no pain with palpation of the abdomen. LABORATORY DATA: Labs include a CBC showing a slightly low white count of 3.4, platelets are low but historically low for this patient, this is not new. Comprehensive metabolic panel shows a blood glucose of 150, hemoglobin A1c is 6.0. Kidney function is maintained. AST is 57. Ammonia level is 229. DIAGNOSES: 1. Confusion. 2. Hepatic encephalopathy. TREATMENT PLAN: We will admit the patient for observation overnight. He was given an extra dose of Rifaximin and we will give him lactulose 30 mL basically at bedtime this evening as well. He will be monitored overnight and ammonia level will be checked again in the morning. CRS/MODL /[id number]
[2020-06-22] MEDS: Sodium Chloride 0.9% 1,000 ML IRR PRN (23:55)
--- NOTE | 2020-06-23 00:16 | ADMIT ---
The patient is a 64-year-old male who was admitted through the emergency room with an elevated ammonia level of 229. This is thought to be due to hepatic encephalopathy. The patient has confusion with this, that had supposedly started about a day ago according to his . She states that he had been taking his medication, most noticeably, the lactulose and the rifaximin which have caused confusion in the past when he has missed doses. The patient was given an extra dose of rifaximin in the ER, but failed to really respond. The patient is compliant. He is quiet. He just is slightly confused. He is not sure why he is here. He denies any problems with feeling sick or any pain. The patient will be monitored overnight. I will start an IV and give him some IV fluids at a rate of 100 mL/h, and he will be given an extra dose of lactulose before bedtime as well. We will recheck an ammonia level in the morning and see if it has improved. In the past, this has worked for him. PAULINE/MARIANA /[id number]
[2020-06-23] MEDS ORDERED: Rifaximin 550 MG Tab ONE (07:48)
[2020-06-23] MEDS ORDERED: Lactulose Soln 10 GM/15 ML 15 ML UD Cup ONE ×2 (07:49→14:36)
[2020-06-23] MEDS: Rifaximin 550 MG Tab ONE (07:57)
[2020-06-23] MEDS: LACTULOSE PO SCH ×2 (07:58→14:42)
[2020-06-23] MEDS ORDERED: INSULIN GLARGINE HUM REC ANLOG 24 UNIT SUBCUT SCH (08:00)
[2020-06-23] MEDS ORDERED: Non-Formulary Medication 1 Each (Ferrous Sulfate [Ferrous Sulfate] 325 MG) PO SCH (08:00)
[2020-06-23] MEDS ORDERED: [UNRECOGNIZED DRUG - OTHER] SUBCUT SCH (08:00)
[2020-06-23] MEDS ORDERED: CARVEDILOL 6.25 MG PO SCH (08:00)
[2020-06-23] MEDS ORDERED: Non-Formulary Medication 1 Each (Carvedilol [Coreg] 25 MG) PO SCH (08:00)
[2020-06-23] MEDS ORDERED: Non-Formulary Medication 1 Each (Ascorbic Acid [Vitamin C] 500 MG) PO SCH (08:00)
[2020-06-23] MEDS ORDERED: LISINOPRIL 20 MG PO SCH (08:00)
[2020-06-23] MEDS ORDERED: RIFAXIMIN 550 MG PO SCH (08:00)
[2020-06-23] MEDS ORDERED: CITALOPRAM 10 MG PO SCH (08:00)
[2020-06-23] MEDS ORDERED: ASPIRIN 81 MG PO SCH (08:00)
[2020-06-23] MEDS: Non-Formulary Medication 1 Each (Metformin Hcl [Metformin Hcl] 500 MG) PO SCH ×2 (11:52→12:49)
[2020-06-23] MEDS: MAGNESIUM OXIDE PO SCH ×2 (12:50→21:14)
[2020-06-23] MEDS: INSULIN ASPART 8 UNIT SUBCUT SCH (12:51)
[2020-06-23] MEDS: ALOGLIPTIN BENZOATE 25 MG PO SCH (12:53)
--- NOTE | 2020-06-23 14:37 | PCM.PN ---
- General Info Date of Service: 06/23/20 Subjective Update: This is a 64yo M here for confusion, altered mental status and inappropriate behavior which appears secondary to hepatic encephalopathy. He has improved slightly but remains confused with altered mental status. - Review of Systems General: Reports: Weakness HEENT: Reports: No Symptoms Pulmonary: Reports: No Symptoms Cardiovascular: Reports: No Symptoms Gastrointestinal: Reports: No Symptoms Genitourinary: Reports: No Symptoms Musculoskeletal: Reports: No Symptoms Neurological: Reports: Confusion, Weakness - Patient Data Vitals - Most Recent: Last Vital Signs Temp 36.4 C 06/23/20 11:00 Pulse 77 06/23/20 11:00 Resp 16 06/23/20 11:00 BP 146/74 H 06/23/20 11:00 Pulse Ox 97 06/23/20 11:00 Weight - Most Recent: 115.212 kg I&O - Last 24 Hours: Intake & Output 06/22/20 06/23/20 06/23/20 22:59 06:59 14:59 Intake Total 50 Output Total 0 Balance 50 Lab Results Last 24 Hours: Laboratory Results - last 24 hr 06/22/20 06/22/20 06/22/20 Range/Units 21:50 22:10 22:10 WBC 3.4 L D (4.0-11.0) K/uL RBC 4.31 L (4.50-6.50) M/uL Hgb 13.4 (13.0-18.0) g/dL Hct 38.1 L (40.0-54.0) % MCV 88 (76-96) fL MCH 31.1 (27.0-32.0) pg MCHC 35.2 H (31.0-35.0) g/dL RDW 14.9 (11.0-16.0) % Plt Count 67 L D (150-400) K/uL MPV 10.9 H (6.0-10.0) fL Neut % (Auto) 67.9 (45.0-70.0) % Lymph % (Auto) 15.2 L (20.0-40.0) % Kidder % (Auto) 13.7 H (3.0-10.0) % Eos % (Auto) 2.6 (1.0-5.0) % Baso % (Auto) 0.6 H (0.0-0.5) % Neut # (Auto) 2.32 (2.00-7.50) K/uL Lymph # (Auto) 0.52 L (1.50-4.00) K/uL [place]der # (Auto) 0.47 (0.20-0.80) K/uL Eos # (Auto) 0.09 (0.04-0.40) K/uL Baso # (Auto) 0.02 (0.02-0.10) K/uL Sodium 142 (136-145) mmol/L Potassium 4.3 (3.5-5.1) mmol/L Chloride 106 (98-107) mmol/L Carbon Dioxide 21.9 (21.0-32.0) mmol/L Anion Gap 18.4 H (5.0-15.0) mmol/L BUN 18 (8-26) mg/dL Creatinine 1.25 (0.70-1.30) mg/dL Est Cr Clr Drug Dosing TNP Estimated GFR (MDRD) 59 L (>60) MLS/MIN BUN/Creatinine Ratio 14.4 (6-25) Glucose 150 H (74-100) mg/dL POC Glucose (74-110) mg/dL Hemoglobin A1c 6.0 H (< 5.7) % Calcium 8.4 L (8.5-10.1) mg/dL Total Bilirubin 1.0 (0.0-1.0) mg/dL AST 57 H (15-37) U/L ALT 55 (12-78) U/L Alkaline Phosphatase 160 H (46-116) U/L Ammonia (11-32) umol/L Total Protein 6.8 (6.4-8.2) g/dL Albumin 3.2 L (3.4-5.0) g/dL Globulin 3.6 (2.2-4.2) g/dL Albumin/Globulin Ratio 0.9 (0.8-2.0) Salicylates (2.8-20.0) mg/dL SARS CoV-2 RNA Rapid MCKAYLA 06/22/20 06/23/20 06/23/20 Range/Units 22:20 06:55 08:00 WBC (4.0-11.0) K/uL RBC (4.50-6.50) M/uL Hgb (13.0-18.0) g/dL Hct (40.0-54.0) % MCV (76-96) fL MCH (27.0-32.0) pg MCHC (31.0-35.0) g/dL RDW (11.0-16.0) % Plt Count (150-400) K/uL MPV (6.0-10.0) fL Neut % (Auto) (45.0-70.0) % Lymph % (Auto) (20.0-40.0) % [place] % (Auto) (3.0-10.0) % Eos % (Auto) (1.0-5.0) % Baso % (Auto) (0.0-0.5) % Neut # (Auto) (2.00-7.50) K/uL Lymph # (Auto) (1.50-4.00) K/uL [place]der # (Auto) (0.20-0.80) K/uL Eos # (Auto) (0.04-0.40) K/uL Baso # (Auto) (0.02-0.10) K/uL Sodium (136-145) mmol/L Potassium (3.5-5.1) mmol/L Chloride (98-107) mmol/L Carbon Dioxide (21.0-32.0) mmol/L Anion Gap (5.0-15.0) mmol/L BUN (8-26) mg/dL Creatinine (0.70-1.30) mg/dL Est Cr Clr Drug Dosing Estimated GFR (MDRD) (>60) MLS/MIN BUN/Creatinine Ratio (6-25) Glucose (74-100) mg/dL POC Glucose 88 (74-110) mg/dL Hemoglobin A1c (< 5.7) % Calcium (8.5-10.1) mg/dL Total Bilirubin (0.0-1.0) mg/dL AST (15-37) U/L ALT (12-78) U/L Alkaline Phosphatase (46-116) U/L Ammonia 229 H 92 H (11-32) umol/L Total Protein (6.4-8.2) g/dL Albumin (3.4-5.0) g/dL Globulin (2.2-4.2) g/dL Albumin/Globulin Ratio (0.8-2.0) Salicylates (2.8-20.0) mg/dL SARS CoV-2 RNA Rapid MCKAYLA 06/23/20 06/23/20 06/23/20 Range/Units 08:00 09:44 10:43 WBC (4.0-11.0) K/uL RBC (4.50-6.50) M/uL Hgb (13.0-18.0) g/dL Hct (40.0-54.0) % MCV (76-96) fL MCH (27.0-32.0) pg MCHC (31.0-35.0) g/dL RDW (11.0-16.0) % Plt Count (150-400) K/uL MPV (6.0-10.0) fL Neut % (Auto) (45.0-70.0) % Lymph % (Auto) (20.0-40.0) % Kidder % (Auto) (3.0-10.0) % Eos % (Auto) (1.0-5.0) % Baso % (Auto) (0.0-0.5) % Neut # (Auto) (2.00-7.50) K/uL Lymph # (Auto) (1.50-4.00) K/uL [place] # (Auto) (0.20-0.80) K/uL Eos # (Auto) (0.04-0.40) K/uL Baso # (Auto) (0.02-0.10) K/uL Sodium (136-145) mmol/L Potassium (3.5-5.1) mmol/L Chloride (98-107) mmol/L Carbon Dioxide (21.0-32.0) mmol/L Anion Gap (5.0-15.0) mmol/L BUN (8-26) mg/dL Creatinine (0.70-1.30) mg/dL Est Cr Clr Drug Dosing Estimated GFR (MDRD) (>60) MLS/MIN BUN/Creatinine Ratio (6-25) Glucose (74-100) mg/dL POC Glucose 118 H (74-110) mg/dL Hemoglobin A1c (< 5.7) % Calcium (8.5-10.1) mg/dL Total Bilirubin (0.0-1.0) mg/dL AST (15-37) U/L ALT (12-78) U/L Alkaline Phosphatase (46-116) U/L Ammonia (11-32) umol/L Total Protein (6.4-8.2) g/dL Albumin (3.4-5.0) g/dL Globulin (2.2-4.2) g/dL Albumin/Globulin Ratio (0.8-2.0) Salicylates < 0.2 L (2.8-20.0) mg/dL SARS CoV-2 RNA Rapid MCKAYLA Negative Med Orders - Current: Current Medications Albuterol (Ventolin Hfa) 0 gm INH DAILY PRN PRN Reason: Dyspnea Sodium Chloride (Sodium Chloride 0.9%) 1,000 mls @ 100 mls/hr IRR ASDIRECTED PRN PRN Reason: confusion Stop: 06/23/20 23:59 Last Admin: 06/22/20 23:55 Dose: 100 mls/hr Documented by: Non-Formulary Medication (Alogliptin Benzoate [Alogliptin]) 25 mg PO DAILY [facility] Last Admin: 06/23/20 12:53 Dose: Not Given Documented by: Non-Formulary Medication (Ascorbic Acid [Vitamin C]) 500 mg PO DAILY [facility] Last Admin: 06/23/20 12:52 Dose: Not Given Documented by: Non-Formulary Medication (Aspirin [Ecotrin Ec]) 81 mg PO DAILY [facility] Last Admin: 06/23/20 12:52 Dose: Not Given Documented by: Non-Formulary Medication (Carvedilol [Carvedilol]) 6.25 mg PO BID [facility] Last Admin: 06/23/20 11:45 Dose: 6.25 mg Documented by: Non-Formulary Medication (Carvedilol [Coreg]) 25 mg PO BID [facility] Last Admin: 06/23/20 11:47 Dose: 25 mg Documented by: Non-Formulary Medication (Citalopram [Citalopram Hbr]) 10 mg PO DAILY [facility] Last Admin: 06/23/20 12:52 Dose: 10 mg Documented by: Non-Formulary Medication (Famotidine [Famotidine]) 20 mg PO BEDTIME [facility] Non-Formulary Medication (Ferrous Sulfate [Ferrous Sulfate]) 325 mg PO DAILY [facility] Last Admin: 06/23/20 12:52 Dose: Not Given Documented by: Non-Formulary Medication (Insulin Aspart [Novolog]) 8 units SUBCUT TIDMEALS [facility] Last Admin: 06/23/20 12:51 Dose: Not Given Documented by: Non-Formulary Medication (Insulin Glargine,Hum.Rec.Anlog [Lantus Solostar]) 24 units SUBCUT DAILY [facility] Last Admin: 06/23/20 12:50 Dose: Not Given Documented by: Non-Formulary Medication (Lactulose [Lactulose]) 30 ml PO TID [facility] Last Admin: 06/23/20 07:58 Dose: 30 ml Documented by: Non-Formulary Medication (Lisinopril [Zestril]) 20 mg PO DAILY [facility] Last Admin: 06/23/20 11:48 Dose: 20 mg Documented by: Non-Formulary Medication (Magnesium Oxide [Magnesium Oxide]) 3 tab PO BID [facility] Last Admin: 06/23/20 12:50 Dose: Not Given Documented by: Non-Formulary Medication (Metformin Hcl [Metformin Hcl]) 500 mg PO QID [facility] Last Admin: 06/23/20 12:49 Dose: Not Given Documented by: Non-Formulary Medication (Rifaximin [Xifaxan]) 550 mg PO BID [facility] Last Admin: 06/23/20 11:36 Dose: Not Given Documented by: Sodium Chloride (Saline Flush) 10 ml FLUSH ASDIRECTED PRN PRN Reason: Keep Vein Open Discontinued Medications Lactulose (Chronulac) 30 gm PO ONETIME ONE Stop: 06/22/20 23:18 Last Admin: 06/22/20 23:50 Dose: 30 gm Documented by: Lactulose (Chronulac) Confirm Administered Dose 30 gm .ROUTE .STK-MED ONE Stop: 06/23/20 07:50 Last Admin: 06/23/20 12:21 Dose: Not Given Documented by: Rifaximin (Xifaxan) Confirm Administered Dose 550 mg .ROUTE .STK-MED ONE Stop: 06/22/20 22:15 Last Admin: 06/23/20 07:57 Dose: 550 mg Documented by: Rifaximin (Xifaxan) 550 mg PO ONETIME ONE Stop: 06/22/20 22:19 Last Admin: 06/22/20 22:15 Dose: 550 mg Documented by: Rifaximin (Xifaxan) Confirm Administered Dose 550 mg .ROUTE .STK-MED ONE Stop: 06/23/20 07:49 Last Admin: 06/23/20 12:21 Dose: Not Given Documented by: - Exam General: No Acute Distress, Other (confused, ) HEENT: Pupils Equal, Pupils Reactive, EOMI Neck: Supple Lungs: Clear to Auscultation, Normal Respiratory Effort Cardiovascular: Regular Rate, Regular Rhythm GI/Abdominal Exam: Normal Bowel Sounds Back Exam: Normal Inspection Extremities: Normal Inspection Sepsis Event Note - Evaluation Sepsis Screening Result: No Definite Risk - Focused Exam Vital Signs: Vital Signs Temp Pulse Resp BP Pulse Ox 06/23/20 11:00 36.4 C 77 16 146/74 H 97 06/23/20 07:00 36.8 C 72 16 135/59 L 97 - Problem List & Annotations (1) Altered mental state SNOMED Code(s): 785533112 Code(s): R41.82 - ALTERED MENTAL STATUS, UNSPECIFIED Status: Acute Priority: High Current Visit: Yes (2) Hepatic encephalopathy SNOMED Code(s): 29826631 Code(s): K72.90 - HEPATIC FAILURE, UNSPECIFIED WITHOUT COMA Status: Acute Priority: High Current Visit: Yes - Problem List Review Problem List Initiated/Reviewed/Updated: Yes - Plan Plan:: We will continue current hydration and Rifaximin and Lactulose. F/u labs in am. Improved Ammonia and monitoring for continues improvement in labs and clinically.
[2020-06-23] MEDS: Insulin Aspart 100 Units/ML 3 ML Pen SUBCUT SCH (17:22)
[2020-06-23] MEDS ORDERED: Famotidine 20 MG Tab PO SCH (20:00)
[2020-06-23] MEDS ORDERED: FAMOTIDINE 20 MG PO SCH (20:00)
[2020-06-23] MEDS ORDERED: Insulin Glargine,Human Rec. Analog 100 Units/ML 3 ML Pen SUBCUT SCH (20:00)
[2020-06-23] MEDS: Lactulose Soln 10 GM/15 ML 15 ML UD Cup PO SCH (20:52)
[2020-06-23] MEDS: Carvedilol 25 MG Tab PO SCH (20:52)
[2020-06-23] MEDS: Carvedilol 6.25 MG Tab PO SCH (20:58)
[2020-06-23] MEDS: Rifaximin 550 MG Tab PO SCH (21:00)
[2020-06-23] MEDS: metFORMIN 500 MG Tab PO SCH (21:17)
[2020-06-23] MEDS ORDERED: Ascorbic Acid 500 MG Tab PO SCH (21:30)
[2020-06-23] MEDS ORDERED: Ferrous Sulfate 325 MG Tab PO SCH (21:30)
[2020-06-24 04:16] VITALS: PULSE 73
[2020-06-24] MEDS ORDERED: Lisinopril 20 MG Tab PO SCH (08:00)
[2020-06-24] MEDS ORDERED: Citalopram 10 MG Tab PO SCH (08:00)
[2020-06-24] MEDS ORDERED: Famotidine 20 MG Tab PO SCH (08:00)
[2020-06-24] MEDS ORDERED: Citalopram 20 MG Tab PO SCH (08:00)
[2020-06-24] MEDS ORDERED: Aspirin 81 MG Tab.EC PO SCH (08:00)
[2020-06-24] MEDS: Carvedilol 6.25 MG Tab PO SCH (08:11)
[2020-06-24] MEDS: Lactulose Soln 10 GM/15 ML 15 ML UD Cup PO SCH (08:11)
[2020-06-24] MEDS: Rifaximin 550 MG Tab PO SCH (08:12)
[2020-06-24] MEDS: Carvedilol 25 MG Tab PO SCH (08:12)
[2020-06-24] MEDS: metFORMIN 500 MG Tab PO SCH (08:13)
[2020-06-24] MEDS: ALOGLIPTIN BENZOATE 25 MG PO SCH (08:16)
[2020-06-24] MEDS: MAGNESIUM OXIDE PO SCH (08:18)
[2020-06-24] MEDS: Insulin Aspart 100 Units/ML 3 ML Pen SUBCUT SCH (08:18)
[2020-06-24 08:19] VITALS: BP 132/65
--- NOTE | 2020-06-24 09:43 | PCM.DCSUM1 ---
Discharge Summary - Discharge Data Discharge Date: 06/24/20 Discharge Disposition: Home, Self-Care 01 Condition: Good - Referral to Home Health Primary Care Physician: PCP None - Discharge Diagnosis/Problem(s) (1) Altered mental state SNOMED Code(s): 691045770 ICD Code: R41.82 - ALTERED MENTAL STATUS, UNSPECIFIED Status: Acute Priority: High Current Visit: Yes (2) Hepatic encephalopathy SNOMED Code(s): 95387502 ICD Code: K72.90 - HEPATIC FAILURE, UNSPECIFIED WITHOUT COMA Status: Acute Priority: High Current Visit: Yes - Discharge Plan Home Medications: Home Meds Multivitamin [Multi-Vitamin Daily] 1 each PO DAILY 01/29/15 [History] metFORMIN HCl [Metformin HCl] 500 mg PO QID 01/29/15 [History] Ascorbic Acid [Vitamin C] 500 mg PO DAILY 09/06/17 [History] Ferrous Sulfate 325 mg PO DAILY 09/06/17 [History] Alogliptin Benzoate [Alogliptin] 25 mg PO DAILY 08/20/19 [History] Citalopram [Citalopram HBr] 10 mg PO DAILY 08/20/19 [History] Famotidine 20 mg PO BEDTIME 08/20/19 [History] Insulin Aspart [NovoLOG] 8 units SUBCUT TIDMEALS 08/20/19 [History] Insulin Glargine,Hum.Rec.Anlog [Lantus Solostar] 24 units SUBCUT DAILY 08/20/19 [History] Magnesium Oxide 3 tab PO BID 08/20/19 [History] carvediloL [Coreg] 25 mg PO BID 08/20/19 [History] lisinopriL [Zestril] 20 mg PO DAILY 08/20/19 [History] Lactulose 30 ml PO TID 08/28/19 [History] Albuterol Sulfate [Albuterol Sulfate Hfa] 2 puff INH DAILY PRN 10/20/19 [History] Aspirin [Ecotrin EC] 81 mg PO DAILY 10/20/19 [History] carvediloL [Carvedilol] 6.25 mg PO BID 10/20/19 [History] Ascorbic Acid [Vitamin C] 500 mg PO 2000 tablet 06/24/20 [Rx] Aspirin [Halfprin] 81 mg PO DAILY tab.ec 06/24/20 [Rx] Citalopram [Citalopram HBr] 10 mg PO DAILY tablet 06/24/20 [Rx] Ferrous Sulfate 325 mg PO 2000 tablet 06/24/20 [Rx] Lactulose [Chronulac] 10 gm PO TID cup 06/24/20 [Rx] Rifaximin [Xifaxan] 550 mg PO TID #0 06/24/20 [Rx] lisinopriL [Prinivil] 20 mg PO DAILY tablet 06/24/20 [Rx] metFORMIN [Glucophage] 500 mg PO QID tablet 06/24/20 [Rx] - Discharge Summary/Plan Comment DC Time >30 min.: No Discharge Summary/Plan Comment: Discussed plan to discharge tomorrow but he is adamant he wants to go home today. Patient counseled on discharge. Discussed medication use and management and monitoring confusion and altered mental status and behaviors. F/u labs in Clinic as directed. - General Info Date of Service: 06/24/20 Functional Status: Reports: Pain Controlled, Tolerating Diet, Ambulating - Review of Systems General: Reports: Weakness HEENT: Reports: No Symptoms Pulmonary: Reports: No Symptoms Cardiovascular: Reports: No Symptoms Gastrointestinal: Reports: No Symptoms Genitourinary: Reports: No Symptoms Musculoskeletal: Reports: No Symptoms Skin: Reports: No Symptoms Neurological: Reports: No Symptoms Psychiatric: Reports: No Symptoms - Patient Data Vitals - Most Recent: Last Vital Signs Temp 36.3 C 06/24/20 08:00 Pulse 73 06/24/20 08:12 Resp 18 06/24/20 08:00 BP 132/65 06/24/20 08:12 Pulse Ox 98 06/24/20 08:00 Weight - Most Recent: 115.212 kg Lab Results - Last 24 hrs: Laboratory Results - last 24 hr 06/23/20 06/23/20 06/23/20 Range/Units 09:44 10:43 16:13 WBC (4.0-11.0) K/uL RBC (4.50-6.50) M/uL Hgb (13.0-18.0) g/dL Hct (40.0-54.0) % MCV (76-96) fL MCH (27.0-32.0) pg MCHC (31.0-35.0) g/dL RDW (11.0-16.0) % Plt Count (150-400) K/uL MPV (6.0-10.0) fL Neut % (Auto) (45.0-70.0) % Lymph % (Auto) (20.0-40.0) % Converse % (Auto) (3.0-10.0) % Eos % (Auto) (1.0-5.0) % Baso % (Auto) (0.0-0.5) % Neut # (Auto) (2.00-7.50) K/uL Lymph # (Auto) (1.50-4.00) K/uL Converse # (Auto) (0.20-0.80) K/uL Eos # (Auto) (0.04-0.40) K/uL Baso # (Auto) (0.02-0.10) K/uL Sodium (136-145) mmol/L Potassium (3.5-5.1) mmol/L Chloride (98-107) mmol/L Carbon Dioxide (21.0-32.0) mmol/L Anion Gap (5.0-15.0) mmol/L BUN (8-26) mg/dL Creatinine (0.70-1.30) mg/dL Est Cr Clr Drug Dosing mL/min Estimated GFR (MDRD) (>60) MLS/MIN BUN/Creatinine Ratio (6-25) Glucose (74-100) mg/dL POC Glucose 118 H 114 H (74-110) mg/dL Calcium (8.5-10.1) mg/dL Total Bilirubin (0.0-1.0) mg/dL AST (15-37) U/L ALT (12-78) U/L Alkaline Phosphatase (46-116) U/L Ammonia (11-32) umol/L Total Protein (6.4-8.2) g/dL Albumin (3.4-5.0) g/dL Globulin (2.2-4.2) g/dL Albumin/Globulin Ratio (0.8-2.0) Urine Color Urine Appearance (CLEAR) Urine pH (5.0-8.0) Ur Specific Ransom (1.003-1.030) Urine Protein (NEGATIVE) mg/dL Urine Glucose (UA) (NEGATIVE) mg/dL Urine Ketones (NEGATIVE) mg/dL Urine Occult Blood (NEGATIVE) Urine Nitrite (NEGATIVE) Urine Bilirubin (NEGATIVE) Urine Urobilinogen (0.2-1.0) E.U./dL Ur Leukocyte Esterase (NEGATIVE) Urine RBC /HPF Urine WBC /HPF Ur Squamous Epith Cells /HPF Urine Opiates Screen (NEGATIVE) Ur Oxycodone Screen (NEGATIVE) Urine Methadone Screen (NEGATIVE) Ur Barbiturates Screen (NEGATIVE) Ur Tricyclics Screen (NEGATIVE) Ur Phencyclidine Scrn (NEGATIVE) Ur Amphetamine Screen (NEGATIVE) U Methamphetamines Scrn (NEGATIVE) Urine MDMA Screen (NEGATIVE) U Benzodiazepines Scrn (NEGATIVE) U Cocaine Metab Screen (NEGATIVE) U Marijuana (THC) Screen (NEGATIVE) SARS CoV-2 RNA Rapid MCKAYLA Negative 06/23/20 06/23/20 06/23/20 Range/Units 16:45 16:56 20:07 WBC (4.0-11.0) K/uL RBC (4.50-6.50) M/uL Hgb (13.0-18.0) g/dL Hct (40.0-54.0) % MCV (76-96) fL MCH (27.0-32.0) pg MCHC (31.0-35.0) g/dL RDW (11.0-16.0) % Plt Count (150-400) K/uL MPV (6.0-10.0) fL Neut % (Auto) (45.0-70.0) % Lymph % (Auto) (20.0-40.0) % Converse % (Auto) (3.0-10.0) % Eos % (Auto) (1.0-5.0) % Baso % (Auto) (0.0-0.5) % Neut # (Auto) (2.00-7.50) K/uL Lymph # (Auto) (1.50-4.00) K/uL Converse # (Auto) (0.20-0.80) K/uL Eos # (Auto) (0.04-0.40) K/uL Baso # (Auto) (0.02-0.10) K/uL Sodium (136-145) mmol/L Potassium (3.5-5.1) mmol/L Chloride (98-107) mmol/L Carbon Dioxide (21.0-32.0) mmol/L Anion Gap (5.0-15.0) mmol/L BUN (8-26) mg/dL Creatinine (0.70-1.30) mg/dL Est Cr Clr Drug Dosing mL/min Estimated GFR (MDRD) (>60) MLS/MIN BUN/Creatinine Ratio (6-25) Glucose (74-100) mg/dL POC Glucose 90 (74-110) mg/dL Calcium (8.5-10.1) mg/dL Total Bilirubin (0.0-1.0) mg/dL AST (15-37) U/L ALT (12-78) U/L Alkaline Phosphatase (46-116) U/L Ammonia (11-32) umol/L Total Protein (6.4-8.2) g/dL Albumin (3.4-5.0) g/dL Globulin (2.2-4.2) g/dL Albumin/Globulin Ratio (0.8-2.0) Urine Color Yellow Urine Appearance Clear (CLEAR) Urine pH 6.5 (5.0-8.0) Ur Specific Ransom 1.025 (1.003-1.030) Urine Protein Negative (NEGATIVE) mg/dL Urine Glucose (UA) Negative (NEGATIVE) mg/dL Urine Ketones Negative (NEGATIVE) mg/dL Urine Occult Blood Trace-intact H (NEGATIVE) Urine Nitrite Negative (NEGATIVE) Urine Bilirubin Negative (NEGATIVE) Urine Urobilinogen 1.0 (0.2-1.0) E.U./dL Ur Leukocyte Esterase Negative (NEGATIVE) Urine RBC 0-5 H /HPF Urine WBC 0-5 H /HPF Ur Squamous Epith Cells Occasional /HPF Urine Opiates Screen Negative (NEGATIVE) Ur Oxycodone Screen Negative (NEGATIVE) Urine Methadone Screen Negative (NEGATIVE) Ur Barbiturates Screen Negative (NEGATIVE) Ur Tricyclics Screen Negative (NEGATIVE) Ur Phencyclidine Scrn Negative (NEGATIVE) Ur Amphetamine Screen Negative (NEGATIVE) U Methamphetamines Scrn Negative (NEGATIVE) Urine MDMA Screen Negative (NEGATIVE) U Benzodiazepines Scrn Negative (NEGATIVE) U Cocaine Metab Screen Negative (NEGATIVE) U Marijuana (THC) Screen Negative (NEGATIVE) SARS CoV-2 RNA Rapid MCKAYLA 06/24/20 06/24/20 06/24/20 Range/Units 07:01 07:05 07:05 WBC 4.0 (4.0-11.0) K/uL RBC 4.30 L (4.50-6.50) M/uL Hgb 13.2 (13.0-18.0) g/dL Hct 38.1 L (40.0-54.0) % MCV 89 (76-96) fL MCH 30.7 (27.0-32.0) pg MCHC 34.6 (31.0-35.0) g/dL RDW 15.2 (11.0-16.0) % Plt Count 77 L (150-400) K/uL MPV 11.1 H (6.0-10.0) fL Neut % (Auto) 62.8 (45.0-70.0) % Lymph % (Auto) 16.4 L (20.0-40.0) % Converse % (Auto) 16.1 H (3.0-10.0) % Eos % (Auto) 4.2 (1.0-5.0) % Baso % (Auto) 0.5 (0.0-0.5) % Neut # (Auto) 2.53 (2.00-7.50) K/uL Lymph # (Auto) 0.66 L (1.50-4.00) K/uL Converse # (Auto) 0.65 (0.20-0.80) K/uL Eos # (Auto) 0.17 (0.04-0.40) K/uL Baso # (Auto) 0.02 (0.02-0.10) K/uL Sodium 141 (136-145) mmol/L Potassium 4.3 (3.5-5.1) mmol/L Chloride 106 (98-107) mmol/L Carbon Dioxide 25.3 (21.0-32.0) mmol/L Anion Gap 14.0 (5.0-15.0) mmol/L BUN 14 D (8-26) mg/dL Creatinine 1.15 (0.70-1.30) mg/dL Est Cr Clr Drug Dosing 83.93 mL/min Estimated GFR (MDRD) > 60 (>60) MLS/MIN BUN/Creatinine Ratio 12.2 (6-25) Glucose 106 H (74-100) mg/dL POC Glucose 94 (74-110) mg/dL Calcium 8.8 (8.5-10.1) mg/dL Total Bilirubin 1.9 H D (0.0-1.0) mg/dL AST 59 H (15-37) U/L ALT 56 (12-78) U/L Alkaline Phosphatase 117 H (46-116) U/L Ammonia (11-32) umol/L Total Protein 6.7 (6.4-8.2) g/dL Albumin 3.2 L (3.4-5.0) g/dL Globulin 3.5 (2.2-4.2) g/dL Albumin/Globulin Ratio 0.9 (0.8-2.0) Urine Color Urine Appearance (CLEAR) Urine pH (5.0-8.0) Ur Specific Ransom (1.003-1.030) Urine Protein (NEGATIVE) mg/dL Urine Glucose (UA) (NEGATIVE) mg/dL Urine Ketones (NEGATIVE) mg/dL Urine Occult Blood (NEGATIVE) Urine Nitrite (NEGATIVE) Urine Bilirubin (NEGATIVE) Urine Urobilinogen (0.2-1.0) E.U./dL Ur Leukocyte Esterase (NEGATIVE) Urine RBC /HPF Urine WBC /HPF Ur Squamous Epith Cells /HPF Urine Opiates Screen (NEGATIVE) Ur Oxycodone Screen (NEGATIVE) Urine Methadone Screen (NEGATIVE) Ur Barbiturates Screen (NEGATIVE) Ur Tricyclics Screen (NEGATIVE) Ur Phencyclidine Scrn (NEGATIVE) Ur Amphetamine Screen (NEGATIVE) U Methamphetamines Scrn (NEGATIVE) Urine MDMA Screen (NEGATIVE) U Benzodiazepines Scrn (NEGATIVE) U Cocaine Metab Screen (NEGATIVE) U Marijuana (THC) Screen (NEGATIVE) SARS CoV-2 RNA Rapid MCKAYLA 06/24/20 Range/Units 07:05 WBC (4.0-11.0) K/uL RBC (4.50-6.50) M/uL Hgb (13.0-18.0) g/dL Hct (40.0-54.0) % MCV (76-96) fL MCH (27.0-32.0) pg MCHC (31.0-35.0) g/dL RDW (11.0-16.0) % Plt Count (150-400) K/uL MPV (6.0-10.0) fL Neut % (Auto) (45.0-70.0) % Lymph % (Auto) (20.0-40.0) % Converse % (Auto) (3.0-10.0) % Eos % (Auto) (1.0-5.0) % Baso % (Auto) (0.0-0.5) % Neut # (Auto) (2.00-7.50) K/uL Lymph # (Auto) (1.50-4.00) K/uL Converse # (Auto) (0.20-0.80) K/uL Eos # (Auto) (0.04-0.40) K/uL Baso # (Auto) (0.02-0.10) K/uL Sodium (136-145) mmol/L Potassium (3.5-5.1) mmol/L Chloride (98-107) mmol/L Carbon Dioxide (21.0-32.0) mmol/L Anion Gap (5.0-15.0) mmol/L BUN (8-26) mg/dL Creatinine (0.70-1.30) mg/dL Est Cr Clr Drug Dosing mL/min Estimated GFR (MDRD) (>60) MLS/MIN BUN/Creatinine Ratio (6-25) Glucose (74-100) mg/dL POC Glucose (74-110) mg/dL Calcium (8.5-10.1) mg/dL Total Bilirubin (0.0-1.0) mg/dL AST (15-37) U/L ALT (12-78) U/L Alkaline Phosphatase (46-116) U/L Ammonia 40 H (11-32) umol/L Total Protein (6.4-8.2) g/dL Albumin (3.4-5.0) g/dL Globulin (2.2-4.2) g/dL Albumin/Globulin Ratio (0.8-2.0) Urine Color Urine Appearance (CLEAR) Urine pH (5.0-8.0) Ur Specific Ransom (1.003-1.030) Urine Protein (NEGATIVE) mg/dL Urine Glucose (UA) (NEGATIVE) mg/dL Urine Ketones (NEGATIVE) mg/dL Urine Occult Blood (NEGATIVE) Urine Nitrite (NEGATIVE) Urine Bilirubin (NEGATIVE) Urine Urobilinogen (0.2-1.0) E.U./dL Ur Leukocyte Esterase (NEGATIVE) Urine RBC /HPF Urine WBC /HPF Ur Squamous Epith Cells /HPF Urine Opiates Screen (NEGATIVE) Ur Oxycodone Screen (NEGATIVE) Urine Methadone Screen (NEGATIVE) Ur Barbiturates Screen (NEGATIVE) Ur Tricyclics Screen (NEGATIVE) Ur Phencyclidine Scrn (NEGATIVE) Ur Amphetamine Screen (NEGATIVE) U Methamphetamines Scrn (NEGATIVE) Urine MDMA Screen (NEGATIVE) U Benzodiazepines Scrn (NEGATIVE) U Cocaine Metab Screen (NEGATIVE) U Marijuana (THC) Screen (NEGATIVE) SARS CoV-2 RNA Rapid MCKAYLA PATRICK Results - Last 24 hrs: Microbiology 06/23/20 04:20 MRSA Surveillance Culture - Final Nares, Right NO MRSA ISOLATED Med Orders - Current: Current Medications Albuterol (Ventolin Hfa) 0 gm INH DAILY PRN PRN Reason: Dyspnea Ascorbic Acid (Vitamin C) 500 mg PO 1999 [facility] Last Admin: 06/23/20 21:59 Dose: 500 mg Documented by: Aspirin (Halfprin) 81 mg PO DAILY [facility] Last Admin: 06/24/20 08:13 Dose: 81 mg Documented by: Carvedilol (Coreg) 25 mg PO BID [facility] Last Admin: 06/24/20 08:12 Dose: 25 mg Documented by: Carvedilol (Coreg) 6.25 mg PO BID [facility] Last Admin: 06/24/20 08:11 Dose: 6.25 mg Documented by: Citalopram Hydrobromide (Celexa) 10 mg PO DAILY [facility] Last Admin: 06/24/20 08:13 Dose: 10 mg Documented by: Famotidine (Pepcid) 20 mg PO 0800 [facility] Last Admin: 06/24/20 08:12 Dose: 20 mg Documented by: Ferrous Sulfate (Ferrous Sulfate) 325 mg PO 1999 [facility] Last Admin: 06/23/20 21:59 Dose: 325 mg Documented by: Insulin Aspart (Novolog) 8 unit SUBCUT TIDMEALS [facility] Last Admin: 06/24/20 08:18 Dose: 8 units Documented by: Insulin Glargine (Lantus Solostar) 24 units SUBCUT BEDTIME [facility] Last Admin: 06/23/20 21:07 Dose: Not Given Documented by: Lactulose (Chronulac) 10 gm PO TID [facility] Last Admin: 06/24/20 08:11 Dose: 10 gm Documented by: Lisinopril (Prinivil) 20 mg PO DAILY [facility] Last Admin: 06/24/20 08:12 Dose: 20 mg Documented by: Metformin HCl (Glucophage) 500 mg PO QID [facility] Last Admin: 06/24/20 08:13 Dose: 500 mg Documented by: Non-Formulary Medication (Alogliptin Benzoate [Alogliptin]) 25 mg PO DAILY [facility] Last Admin: 06/24/20 08:16 Dose: 25 mg Documented by: Non-Formulary Medication (Magnesium Oxide [Magnesium Oxide]) 3 tab PO BID [facility] Last Admin: 06/24/20 08:18 Dose: 3 tab Documented by: Rifaximin (Xifaxan) 550 mg PO BID [facility] Last Admin: 06/24/20 08:12 Dose: 550 mg Documented by: Sodium Chloride (Saline Flush) 10 ml FLUSH ASDIRECTED PRN PRN Reason: Keep Vein Open Discontinued Medications Famotidine (Pepcid) 20 mg PO BEDTIME [facility] Last Admin: 06/23/20 22:12 Dose: Not Given Documented by: Sodium Chloride (Sodium Chloride 0.9%) 1,000 mls @ 100 mls/hr IRR ASDIRECTED PRN PRN Reason: confusion Stop: 06/23/20 23:59 Last Admin: 06/22/20 23:55 Dose: 100 mls/hr Documented by: Lactulose (Chronulac) 30 gm PO ONETIME ONE Stop: 06/22/20 23:18 Last Admin: 06/22/20 23:50 Dose: 30 gm Documented by: Lactulose (Chronulac) Confirm Administered Dose 30 gm .ROUTE .STK-MED ONE Stop: 06/23/20 07:50 Last Admin: 06/23/20 12:21 Dose: Not Given Documented by: Lactulose (Chronulac) Confirm Administered Dose 20 gm .ROUTE .STK-MED ONE Stop: 06/23/20 14:37 Last Admin: 06/23/20 16:26 Dose: Not Given Documented by: Non-Formulary Medication (Ascorbic Acid [Vitamin C]) 500 mg PO DAILY [facility] Last Admin: 06/23/20 12:52 Dose: Not Given Documented by: Non-Formulary Medication (Aspirin [Ecotrin Ec]) 81 mg PO DAILY [facility] Last Admin: 06/23/20 12:52 Dose: Not Given Documented by: Non-Formulary Medication (Carvedilol [Carvedilol]) 6.25 mg PO BID [facility] Last Admin: 06/23/20 11:45 Dose: 6.25 mg Documented by: Non-Formulary Medication (Carvedilol [Coreg]) 25 mg PO BID [facility] Last Admin: 06/23/20 11:47 Dose: 25 mg Documented by: Non-Formulary Medication (Citalopram [Citalopram Hbr]) 10 mg PO DAILY [facility] Last Admin: 06/23/20 12:52 Dose: 10 mg Documented by: Non-Formulary Medication (Ferrous Sulfate [Ferrous Sulfate]) 325 mg PO DAILY [facility] Last Admin: 06/23/20 12:52 Dose: Not Given Documented by: Non-Formulary Medication (Insulin Aspart [Novolog]) 8 units SUBCUT TIDMEALS [facility] Last Admin: 06/23/20 12:51 Dose: Not Given Documented by: Non-Formulary Medication (Insulin Glargine,Hum.Rec.Anlog [Lantus Solostar]) 24 units SUBCUT DAILY [facility] Last Admin: 06/23/20 12:50 Dose: Not Given Documented by: Non-Formulary Medication (Lactulose [Lactulose]) 30 ml PO TID [facility] Last Admin: 06/23/20 14:42 Dose: 30 ml Documented by: Non-Formulary Medication (Lisinopril [Zestril]) 20 mg PO DAILY [facility] Last Admin: 06/23/20 11:48 Dose: 20 mg Documented by: Non-Formulary Medication (Metformin Hcl [Metformin Hcl]) 500 mg PO QID [facility] Last Admin: 06/23/20 12:49 Dose: Not Given Documented by: Non-Formulary Medication (Rifaximin [Xifaxan]) 550 mg PO BID [facility] Last Admin: 06/23/20 11:36 Dose: Not Given Documented by: Rifaximin (Xifaxan) Confirm Administered Dose 550 mg .ROUTE .STK-MED ONE Stop: 06/22/20 22:15 Last Admin: 06/23/20 07:57 Dose: 550 mg Documented by: Rifaximin (Xifaxan) 550 mg PO ONETIME ONE Stop: 06/22/20 22:19 Last Admin: 06/22/20 22:15 Dose: 550 mg Documented by: Rifaximin (Xifaxan) Confirm Administered Dose 550 mg .ROUTE .STK-MED ONE Stop: 06/23/20 07:49 Last Admin: 06/23/20 12:21 Dose: Not Given Documented by: - Exam General: Reports: Alert, Oriented, Cooperative HEENT: Reports: Pupils Equal, Pupils Reactive, EOMI Neck: Reports: Supple Lungs: Reports: Clear to Auscultation, Normal Respiratory Effort Cardiovascular: Reports: Regular Rate, Regular Rhythm Back Exam: Reports: Normal Inspection Extremities: Normal Inspection
== END 2020-06-24 12:10 | disposition home or self-care (01) | DRG 443 ==
LOC: LB.ED 20:50 → LB.MS 23:25 → OBSVTOIN 06-23 09:00
PROVIDERS: ADMIT Physician Assistant; ATTEND Physician Assistant
DX: K72.90 Hepatic failure, unspecified without coma (principal); R41.0 Disorientation, unspecified; K72.00 Acute and subacute hepatic failure without coma; Z20.828 Contact with and (suspected) exposure to other viral communicable diseases
CPT/HCPCS: 36415; 80053; 80307; 81001; 82140; 82962; 83036; 85025; 99285; A9270-GY; G0378; U0002

== ENCOUNTER 2020-07-17 20:12 | Observation (INO) | payer OTHER ==
--- NOTE | 2020-07-17 21:00 | EDM.PDOC ---
ED HPI GENERAL MEDICAL PROBLEM - General Chief Complaint: General Stated Complaint: liver failure Time Seen by Provider: 07/17/20 21:00 Source of Information: Reports: Patient History Limitations: Reports: No Limitations - History of Present Illness INITIAL COMMENTS - FREE TEXT/NARRATIVE: Patient is a 64 y/o male with PMHx significant for hepatic encephalopathy and elevated ammonia, his called EMS and stated that he was confused and that has happened before when his ammonia levels were elevated. Patient denies any pain, fever, SOB, chest pain, abd pain, dysuria, dizziness, or headache. He has been admitted previously for this and given lactulose and rifaximin. - Related Data Allergies Allergy/AdvReac Type Severity Reaction Status Date / Time acetaminophen Allergy Change Verified 09/12/19 08:12 [From Darvocet-N 100] Mental Status cinnamon Allergy Cannot Verified 09/12/19 08:12 Remember egg Allergy Cannot Verified 09/12/19 08:12 Remember dontrell Allergy Other Verified 09/12/19 08:12 mustard Allergy Anaphylactic Verified 09/12/19 08:12 Shock propoxyphene napsylate Allergy Cannot Verified 09/12/19 08:12 [From Darvocet-N 100] Remember Gnzjvig-Nha-Ora Reductase Allergy Muscle Verified 09/12/19 08:12 Inhibitor Aches codeine AdvReac Change Verified 09/12/19 08:12 Mental Status indomethacin [From Indocin] AdvReac Change Verified 09/12/19 08:12 Mental Status indomethacin sodium AdvReac Change Verified 09/12/19 08:12 [From Indocin] Mental Status propoxyphene HCl AdvReac Change Verified 09/12/19 08:12 [From Darvon] Mental Status Home Meds: Home Meds Multivitamin [Multi-Vitamin Daily] 1 each PO DAILY 01/29/15 [History] Alogliptin Benzoate [Alogliptin] 25 mg PO DAILY 08/20/19 [History] Citalopram [Citalopram HBr] 10 mg PO DAILY 08/20/19 [History] Insulin Aspart [NovoLOG] 6 units SUBCUT TIDMEALS 08/20/19 [History] Insulin Glargine,Hum.Rec.Anlog [Lantus Solostar] 18 units SUBCUT DAILY 08/20/19 [History] Magnesium Oxide 2 tab PO TID 08/20/19 [History] carvediloL [Coreg] 25 mg PO BID 08/20/19 [History] Lactulose 30 ml PO TID 08/28/19 [History] Albuterol Sulfate [Albuterol Sulfate Hfa] 2 puff INH QID PRN 10/20/19 [History] carvediloL [Carvedilol] 6.25 mg PO BID 10/20/19 [History] Aspirin [Halfprin] 81 mg PO DAILY tab.ec 06/24/20 [Rx] Ferrous Sulfate 325 mg PO 2000 tablet 06/24/20 [Rx] Rifaximin [Xifaxan] 550 mg PO TID #0 06/24/20 [Rx] lisinopriL [Prinivil] 20 mg PO DAILY tablet 06/24/20 [Rx] metFORMIN [Glucophage] 500 mg PO QID tablet 06/24/20 [Rx] Acetaminophen [Tylenol Extra Strength] 1,000 mg PO TID PRN 07/17/20 [History] Ascorbic Acid [Vitamin C] 500 mg PO DAILY 07/17/20 [History] Past Medical History HEENT History: Reports: Impaired Vision Other HEENT History: glasses Cardiovascular History: Reports: Angina, High Cholesterol, Hypertension, [place] Other Cardiovascular History: AICD stents July 2017 Respiratory History: Reports: SOB Other Respiratory History: dyspnea with exertion no sob or difficulty breathing at rest Gastrointestinal History: Reports: Cirrhosis, GERD, Hiatal Hernia, PUD Musculoskeletal History: Reports: Gout, Osteoarthritis Other Musculoskeletal History: Bilateral Knee Pain Neurological History: Reports: Other (See Below) Other Neuro History: AMS when ammonia level gets high Psychiatric History: Reports: Anxiety Endocrine/Metabolic History: Reports: Diabetes, Type II Hematologic History: Reports: Anemia - Infectious Disease History Infectious Disease History: Reports: Chicken Pox - Past Surgical History Cardiovascular Surgical History: Reports: Coronary Artery Stent, Other (See Below) Other Cardiovascular Surgeries/Procedures: Internal Defibrillator Social & Family History - Family History Family Medical History: No Pertinent Family History - Caffeine Use Caffeine Use: Reports: None Other Caffeine Use: not reported ED ROS GENERAL - Review of Systems Review Of Systems: See Below Constitutional: Reports: No Symptoms HEENT: Reports: No Symptoms Respiratory: Reports: No Symptoms Cardiovascular: Reports: No Symptoms Endocrine: Reports: No Symptoms GI/Abdominal: Reports: No Symptoms : Reports: No Symptoms Musculoskeletal: Reports: No Symptoms Skin: Reports: No Symptoms Neurological: Reports: No Symptoms Psychiatric: Reports: Confusion ED EXAM, GENERAL - Physical Exam Exam: See Below Exam Limited By: No Limitations General Appearance: Alert, No Apparent Distress Head: Atraumatic, Normocephalic Neck: Normal Inspection, Supple Respiratory/Chest: No Respiratory Distress, Lungs Clear, Normal Breath Sounds, No Accessory Muscle Use, Chest Non-Tender Cardiovascular: Normal Peripheral Pulses, Regular Rate, Rhythm, No Edema, No Murmur GI/Abdominal: Normal Bowel Sounds, Soft, Non-Tender, No Distention Extremities: Normal Inspection, Normal Range of Motion, No Pedal Edema, Normal Capillary Refill Neurological: Alert, Oriented, CN II-XII Intact, Normal Cognition, Normal Gait, No Motor/Sensory Deficits Psychiatric: Normal Affect, Normal Mood Skin Exam: Warm, Dry, Intact, Normal Color, No Rash Course - Vital Signs Text/Narrative:: Patient with elevated ammonia levels and hematuria. He was confused when going to the bathroom, according to nursing and wasn't sure how to use the toilet. Will admit patient overnight and consult e-hospitalist concerning elevated ammonia levels and confusion. Last Recorded V/S: Last Vital Signs Temp 37.6 C 07/17/20 20:52 Pulse 82 07/17/20 20:52 Resp 16 07/17/20 20:52 BP 144/63 H 07/17/20 20:52 Pulse Ox 96 07/17/20 20:52 - Orders/Labs/Meds Orders: Active Orders 24 hr Category Date Time Status Chest 1V Frontal [CR] Stat Exams 07/17/20 20:52 Taken Labs: Laboratory Tests 07/17/20 07/17/20 07/17/20 Range/Units 21:05 21:05 21:05 WBC 4.5 (4.0-11.0) K/uL RBC 4.23 L (4.50-6.50) M/uL Hgb 13.1 (13.0-18.0) g/dL Hct 37.7 L (40.0-54.0) % MCV 89 (76-96) fL MCH 31.0 (27.0-32.0) pg MCHC 34.7 (31.0-35.0) g/dL RDW 15.5 (11.0-16.0) % Plt Count 80 L (150-400) K/uL MPV 10.6 H (6.0-10.0) fL Neut % (Auto) 70.8 H (45.0-70.0) % Lymph % (Auto) 12.7 L (20.0-40.0) % [place] % (Auto) 12.2 H (3.0-10.0) % Eos % (Auto) 3.6 (1.0-5.0) % Baso % (Auto) 0.7 H (0.0-0.5) % Neut # (Auto) 3.19 (2.00-7.50) K/uL Lymph # (Auto) 0.57 L (1.50-4.00) K/uL [place] # (Auto) 0.55 (0.20-0.80) K/uL Eos # (Auto) 0.16 (0.04-0.40) K/uL Baso # (Auto) 0.03 (0.02-0.10) K/uL Sodium 140 (136-145) mmol/L Potassium 4.7 (3.5-5.1) mmol/L Chloride 106 (98-107) mmol/L Carbon Dioxide 22.8 (21.0-32.0) mmol/L Anion Gap 15.9 H (5.0-15.0) mmol/L BUN 13 (8-26) mg/dL Creatinine 1.23 (0.70-1.30) mg/dL Est Cr Clr Drug Dosing TNP Estimated GFR (MDRD) 60 (>60) MLS/MIN BUN/Creatinine Ratio 10.6 (6-25) Glucose 172 H D (74-100) mg/dL Calcium 8.3 L (8.5-10.1) mg/dL Total Bilirubin 1.2 H D (0.0-1.0) mg/dL AST 48 H (15-37) U/L ALT 50 (12-78) U/L Alkaline Phosphatase 132 H (46-116) U/L Ammonia 124 H (11-32) umol/L Total Protein 6.6 (6.4-8.2) g/dL Albumin 3.1 L (3.4-5.0) g/dL Globulin 3.5 (2.2-4.2) g/dL Albumin/Globulin Ratio 0.9 (0.8-2.0) Urine Color Urine Appearance (CLEAR) Urine pH (5.0-8.0) Ur Specific [place] (1.003-1.030) Urine Protein (NEGATIVE) mg/dL Urine Glucose (UA) (NEGATIVE) mg/dL Urine Ketones (NEGATIVE) mg/dL Urine Occult Blood (NEGATIVE) Urine Nitrite (NEGATIVE) Urine Bilirubin (NEGATIVE) Urine Urobilinogen (0.2-1.0) E.U./dL Ur Leukocyte Esterase (NEGATIVE) Urine RBC /HPF Urine WBC /HPF Urine Opiates Screen (NEGATIVE) Ur Oxycodone Screen (NEGATIVE) Urine Methadone Screen (NEGATIVE) Ur Barbiturates Screen (NEGATIVE) Ur Tricyclics Screen (NEGATIVE) Ur Phencyclidine Scrn (NEGATIVE) Ur Amphetamine Screen (NEGATIVE) U Methamphetamines Scrn (NEGATIVE) Urine MDMA Screen (NEGATIVE) U Benzodiazepines Scrn (NEGATIVE) U Cocaine Metab Screen (NEGATIVE) U Marijuana (THC) Screen (NEGATIVE) Ethyl Alcohol (<3.0) mg/dL SARS-CoV-2 RNA (MCKAYLA) (NEGATIVE) 07/17/20 07/17/20 07/17/20 Range/Units 21:05 22:30 22:30 WBC (4.0-11.0) K/uL RBC (4.50-6.50) M/uL Hgb (13.0-18.0) g/dL Hct (40.0-54.0) % MCV (76-96) fL MCH (27.0-32.0) pg MCHC (31.0-35.0) g/dL RDW (11.0-16.0) % Plt Count (150-400) K/uL MPV (6.0-10.0) fL Neut % (Auto) (45.0-70.0) % Lymph % (Auto) (20.0-40.0) % [place] % (Auto) (3.0-10.0) % Eos % (Auto) (1.0-5.0) % Baso % (Auto) (0.0-0.5) % Neut # (Auto) (2.00-7.50) K/uL Lymph # (Auto) (1.50-4.00) K/uL [place] # (Auto) (0.20-0.80) K/uL Eos # (Auto) (0.04-0.40) K/uL Baso # (Auto) (0.02-0.10) K/uL Sodium (136-145) mmol/L Potassium (3.5-5.1) mmol/L Chloride (98-107) mmol/L Carbon Dioxide (21.0-32.0) mmol/L Anion Gap (5.0-15.0) mmol/L BUN (8-26) mg/dL Creatinine (0.70-1.30) mg/dL Est Cr Clr Drug Dosing Estimated GFR (MDRD) (>60) MLS/MIN BUN/Creatinine Ratio (6-25) Glucose (74-100) mg/dL Calcium (8.5-10.1) mg/dL Total Bilirubin (0.0-1.0) mg/dL AST (15-37) U/L ALT (12-78) U/L Alkaline Phosphatase (46-116) U/L Ammonia (11-32) umol/L Total Protein (6.4-8.2) g/dL Albumin (3.4-5.0) g/dL Globulin (2.2-4.2) g/dL Albumin/Globulin Ratio (0.8-2.0) Urine Color Yellow Urine Appearance Clear (CLEAR) Urine pH 6.0 (5.0-8.0) Ur Specific [place] 1.015 (1.003-1.030) Urine Protein Negative (NEGATIVE) mg/dL Urine Glucose (UA) Negative (NEGATIVE) mg/dL Urine Ketones Negative (NEGATIVE) mg/dL Urine Occult Blood Moderate H (NEGATIVE) Urine Nitrite Negative (NEGATIVE) Urine Bilirubin Negative (NEGATIVE) Urine Urobilinogen 0.2 (0.2-1.0) E.U./dL Ur Leukocyte Esterase Negative (NEGATIVE) Urine RBC 50-75 H /HPF Urine WBC Not seen /HPF Urine Opiates Screen Negative (NEGATIVE) Ur Oxycodone Screen Negative (NEGATIVE) Urine Methadone Screen Negative (NEGATIVE) Ur Barbiturates Screen Negative (NEGATIVE) Ur Tricyclics Screen Negative (NEGATIVE) Ur Phencyclidine Scrn Negative (NEGATIVE) Ur Amphetamine Screen Negative (NEGATIVE) U Methamphetamines Scrn Negative (NEGATIVE) Urine MDMA Screen Negative (NEGATIVE) U Benzodiazepines Scrn Negative (NEGATIVE) U Cocaine Metab Screen Negative (NEGATIVE) U Marijuana (THC) Screen Negative (NEGATIVE) Ethyl Alcohol < 3.0 (<3.0) mg/dL SARS-CoV-2 RNA (MCKAYLA) (NEGATIVE) 07/17/20 Range/Units 23:00 WBC (4.0-11.0) K/uL RBC (4.50-6.50) M/uL Hgb (13.0-18.0) g/dL Hct (40.0-54.0) % MCV (76-96) fL MCH (27.0-32.0) pg MCHC (31.0-35.0) g/dL RDW (11.0-16.0) % Plt Count (150-400) K/uL MPV (6.0-10.0) fL Neut % (Auto) (45.0-70.0) % Lymph % (Auto) (20.0-40.0) % [place] % (Auto) (3.0-10.0) % Eos % (Auto) (1.0-5.0) % Baso % (Auto) (0.0-0.5) % Neut # (Auto) (2.00-7.50) K/uL Lymph # (Auto) (1.50-4.00) K/uL [place] # (Auto) (0.20-0.80) K/uL Eos # (Auto) (0.04-0.40) K/uL Baso # (Auto) (0.02-0.10) K/uL Sodium (136-145) mmol/L Potassium (3.5-5.1) mmol/L Chloride (98-107) mmol/L Carbon Dioxide (21.0-32.0) mmol/L Anion Gap (5.0-15.0) mmol/L BUN (8-26) mg/dL Creatinine (0.70-1.30) mg/dL Est Cr Clr Drug Dosing Estimated GFR (MDRD) (>60) MLS/MIN BUN/Creatinine Ratio (6-25) Glucose (74-100) mg/dL Calcium (8.5-10.1) mg/dL Total Bilirubin (0.0-1.0) mg/dL AST (15-37) U/L ALT (12-78) U/L Alkaline Phosphatase (46-116) U/L Ammonia (11-32) umol/L Total Protein (6.4-8.2) g/dL Albumin (3.4-5.0) g/dL Globulin (2.2-4.2) g/dL Albumin/Globulin Ratio (0.8-2.0) Urine Color Urine Appearance (CLEAR) Urine pH (5.0-8.0) Ur Specific [place] (1.003-1.030) Urine Protein (NEGATIVE) mg/dL Urine Glucose (UA) (NEGATIVE) mg/dL Urine Ketones (NEGATIVE) mg/dL Urine Occult Blood (NEGATIVE) Urine Nitrite (NEGATIVE) Urine Bilirubin (NEGATIVE) Urine Urobilinogen (0.2-1.0) E.U./dL Ur Leukocyte Esterase (NEGATIVE) Urine RBC /HPF Urine WBC /HPF Urine Opiates Screen (NEGATIVE) Ur Oxycodone Screen (NEGATIVE) Urine Methadone Screen (NEGATIVE) Ur Barbiturates Screen (NEGATIVE) Ur Tricyclics Screen (NEGATIVE) Ur Phencyclidine Scrn (NEGATIVE) Ur Amphetamine Screen (NEGATIVE) U Methamphetamines Scrn (NEGATIVE) Urine MDMA Screen (NEGATIVE) U Benzodiazepines Scrn (NEGATIVE) U Cocaine Metab Screen (NEGATIVE) U Marijuana (THC) Screen (NEGATIVE) Ethyl Alcohol (<3.0) mg/dL SARS-CoV-2 RNA (MCKAYLA) Negative (NEGATIVE) Departure - Departure Time of Disposition: 23:00 Disposition: Admitted As Inpatient 68 Condition: Good Clinical Impression: Confusion - Discharge Information *PRESCRIPTION DRUG MONITORING PROGRAM REVIEWED*: Not Applicable *COPY OF PRESCRIPTION DRUG MONITORING REPORT IN PATIENT FATOU: Not Applicable Sepsis Event Note (ED) - Evaluation Sepsis Screening Result: No Definite Risk - Focused Exam Vital Signs: Vital Signs Temp Pulse Resp BP Pulse Ox 07/17/20 20:52 37.6 C 82 16 144/63 H 96 - My Orders Last 24 Hours: My Active Orders 07/17/20 20:52 Chest 1V Frontal [CR] Stat - Assessment/Plan Last 24 Hours: My Active Orders 07/17/20 20:52 Chest 1V Frontal [CR] Stat
[2020-07-17] MEDS ORDERED: Sodium Chloride 0.9% 1,000 ML IV ONE (21:45)
[2020-07-18] MEDS ORDERED: Lactulose Soln 10 GM/15 ML 15 ML UD Cup PO ONE (01:02)
[2020-07-18] MEDS ORDERED: Lactulose Soln 10 GM/15 ML 15 ML UD Cup ONE (01:06)
[2020-07-18] MEDS ORDERED: Ondansetron 4 MG/2 ML SDV IV PRN (02:06)
--- NOTE | 2020-07-18 02:06 | PCM.CONS ---
H&P History of Present Illness - General Date of Service: 07/18/20 Admit Problem/Dx: Admission Diagnosis/Problem Admission Diagnosis/Problem Confusion - History of Present Illness Initial Comments - Free Text/Narative: Rudi Alston Hospitalist ADMISSION SUPPORT NOTE eHospitalist was contacted by Belem Reyes with request of admission support. Chief complaint: Confusion HPI: The patient was brought in by his because of confusion. The patient states "I was little bit off and a little confused". He had difficulty explaining the reason for his presentation but reports "I just did not feel right". His was concerned with his confusion when she noticed he had difficulty finding the bathroom in their home. Ammonia level was elevated in the ED. Review of systems other than mentioned above is negative. Improves with: Reports: None Worsens with: Reports: None Associated Symptoms: Reports: No Other Symptoms - Related Data Allergies/Adverse Reactions: Allergies Allergy/AdvReac Type Severity Reaction Status Date / Time acetaminophen Allergy Change Verified 09/12/19 08:12 [From Darvocet-N 100] Mental Status cinnamon Allergy Cannot Verified 09/12/19 08:12 Remember egg Allergy Cannot Verified 09/12/19 08:12 Remember dontrell Allergy Other Verified 09/12/19 08:12 mustard Allergy Anaphylactic Verified 09/12/19 08:12 Shock propoxyphene napsylate Allergy Cannot Verified 09/12/19 08:12 [From Darvocet-N 100] Remember Xdtlcwc-Scc-Vgi Reductase Allergy Muscle Verified 09/12/19 08:12 Inhibitor Aches codeine AdvReac Change Verified 09/12/19 08:12 Mental Status indomethacin [From Indocin] AdvReac Change Verified 09/12/19 08:12 Mental Status indomethacin sodium AdvReac Change Verified 09/12/19 08:12 [From Indocin] Mental Status propoxyphene HCl AdvReac Change Verified 09/12/19 08:12 [From Darvon] Mental Status Home Medications: Home Meds Multivitamin [Multi-Vitamin Daily] 1 each PO DAILY 01/29/15 [History] Alogliptin Benzoate [Alogliptin] 25 mg PO DAILY 08/20/19 [History] Citalopram [Citalopram HBr] 10 mg PO DAILY 08/20/19 [History] Insulin Aspart [NovoLOG] 6 units SUBCUT TIDMEALS 08/20/19 [History] Insulin Glargine,Hum.Rec.Anlog [Lantus Solostar] 18 units SUBCUT DAILY 08/20/19 [History] Magnesium Oxide 2 tab PO TID 08/20/19 [History] carvediloL [Coreg] 25 mg PO BID 08/20/19 [History] Lactulose 30 ml PO TID 08/28/19 [History] Albuterol Sulfate [Albuterol Sulfate Hfa] 2 puff INH QID PRN 10/20/19 [History] carvediloL [Carvedilol] 6.25 mg PO BID 10/20/19 [History] Aspirin [Halfprin] 81 mg PO DAILY tab.ec 06/24/20 [Rx] Ferrous Sulfate 325 mg PO 2000 tablet 06/24/20 [Rx] Rifaximin [Xifaxan] 550 mg PO TID #0 06/24/20 [Rx] lisinopriL [Prinivil] 20 mg PO DAILY tablet 06/24/20 [Rx] metFORMIN [Glucophage] 500 mg PO QID tablet 06/24/20 [Rx] Acetaminophen [Tylenol Extra Strength] 1,000 mg PO TID PRN 07/17/20 [History] Ascorbic Acid [Vitamin C] 500 mg PO DAILY 07/17/20 [History] Past Medical History HEENT History: Reports: Impaired Vision Other HEENT History: glasses Cardiovascular History: Reports: Angina, High Cholesterol, Hypertension, [place] Other Cardiovascular History: AICD stents July 2017 Respiratory History: Reports: SOB Other Respiratory History: dyspnea with exertion no sob or difficulty breathing at rest Gastrointestinal History: Reports: Cirrhosis, GERD, Hiatal Hernia, PUD Musculoskeletal History: Reports: Gout, Osteoarthritis Other Musculoskeletal History: Bilateral Knee Pain Neurological History: Reports: Other (See Below) Other Neuro History: AMS when ammonia level gets high Psychiatric History: Reports: Anxiety Endocrine/Metabolic History: Reports: Diabetes, Type II Hematologic History: Reports: Anemia - Infectious Disease History Infectious Disease History: Reports: Chicken Pox - Past Surgical History Cardiovascular Surgical History: Reports: Coronary Artery Stent, Other (See Below) Other Cardiovascular Surgeries/Procedures: Internal Defibrillator - History Comment History Comment: Home Medications: Reviewed see EMR for details. Pertinent Medical History: Hepatic encephalopathy, cirrhosis, CAD, DM 2, asthma, [place] x2, depression, thrombocytopenia, esophageal varices, HTN, left heart catheterization times multiple, EGD, colonoscopy times multiple, chol ecystectomy, ICD. Pertinent Social History: , quit smoking in 2001, up to that point smoked 3 packs/day for 10 years, quit drinking alcohol in 2004 Social & Family History - Family History Family Medical History: No Pertinent Family History - Tobacco Use Tobacco Use Status *Q: Former Tobacco User Used Tobacco, but Quit: Yes Month/Year Tobacco Last Used: 15 years ago quit - Caffeine Use Caffeine Use: Reports: None Other Caffeine Use: not reported - Recreational Drug Use Recreational Drug Use: No H&P Review of Systems - Review of Systems: Review Of Systems: Comprehensive ROS is negative, except as noted in HPI. Exam - Vital Signs Vital Signs: Last Vital Signs Temp 37.1 C 07/17/20 22:45 Pulse 76 07/17/20 22:45 Resp 17 07/17/20 22:45 BP 140/82 07/17/20 22:45 Pulse Ox 97 07/17/20 22:45 Weight: 121.744 kg - Exam Physical Exam Comments:: Exam (performed via interactive video with assistance of bedside nurse): General: Alert, cooperative, no acute distress HEENT: Oral mucosa pink and moist without erythema, tongue with, several circular lesions located on the right lateral side of the tongue with well- defined borders with ulcer-like depression and white in color around the borders Lungs: Clear to auscultation bilaterally without crackle or wheeze CV: Regular rate and rhythm without loud murmur rub or gallop Abd: Does not exhibit signs of pain with palpation done by bedside nurse, the nurse reports left upper quadrant palpable mass [rounding provider to evaluate further] Ext: No pitting edema noted Skin: No rashes, bruises or lesions appreciated on gross visualization of exposed skin Neuro: Alert, oriented x 3. CN III -VII, XI, XII grossly intact, moves all extremities without any significant focal deficit - Patient Data Lab Results Last 24 hrs: Laboratory Results - last 24 hr 07/17/20 07/17/20 07/17/20 Range/Units 21:05 21:05 21:05 WBC 4.5 (4.0-11.0) K/uL RBC 4.23 L (4.50-6.50) M/uL Hgb 13.1 (13.0-18.0) g/dL Hct 37.7 L (40.0-54.0) % MCV 89 (76-96) fL MCH 31.0 (27.0-32.0) pg MCHC 34.7 (31.0-35.0) g/dL RDW 15.5 (11.0-16.0) % Plt Count 80 L (150-400) K/uL MPV 10.6 H (6.0-10.0) fL Neut % (Auto) 70.8 H (45.0-70.0) % Lymph % (Auto) 12.7 L (20.0-40.0) % Lares % (Auto) 12.2 H (3.0-10.0) % Eos % (Auto) 3.6 (1.0-5.0) % Baso % (Auto) 0.7 H (0.0-0.5) % Neut # (Auto) 3.19 (2.00-7.50) K/uL Lymph # (Auto) 0.57 L (1.50-4.00) K/uL Lares # (Auto) 0.55 (0.20-0.80) K/uL Eos # (Auto) 0.16 (0.04-0.40) K/uL Baso # (Auto) 0.03 (0.02-0.10) K/uL Sodium 140 (136-145) mmol/L Potassium 4.7 (3.5-5.1) mmol/L Chloride 106 (98-107) mmol/L Carbon Dioxide 22.8 (21.0-32.0) mmol/L Anion Gap 15.9 H (5.0-15.0) mmol/L BUN 13 (8-26) mg/dL Creatinine 1.23 (0.70-1.30) mg/dL Est Cr Clr Drug Dosing TNP Estimated GFR (MDRD) 60 (>60) MLS/MIN BUN/Creatinine Ratio 10.6 (6-25) Glucose 172 H D (74-100) mg/dL Calcium 8.3 L (8.5-10.1) mg/dL Total Bilirubin 1.2 H D (0.0-1.0) mg/dL AST 48 H (15-37) U/L ALT 50 (12-78) U/L Alkaline Phosphatase 132 H (46-116) U/L Ammonia 124 H (11-32) umol/L Total Protein 6.6 (6.4-8.2) g/dL Albumin 3.1 L (3.4-5.0) g/dL Globulin 3.5 (2.2-4.2) g/dL Albumin/Globulin Ratio 0.9 (0.8-2.0) Urine Color Urine Appearance (CLEAR) Urine pH (5.0-8.0) Ur Specific Dodge (1.003-1.030) Urine Protein (NEGATIVE) mg/dL Urine Glucose (UA) (NEGATIVE) mg/dL Urine Ketones (NEGATIVE) mg/dL Urine Occult Blood (NEGATIVE) Urine Nitrite (NEGATIVE) Urine Bilirubin (NEGATIVE) Urine Urobilinogen (0.2-1.0) E.U./dL Ur Leukocyte Esterase (NEGATIVE) Urine RBC /HPF Urine WBC /HPF Urine Opiates Screen (NEGATIVE) Ur Oxycodone Screen (NEGATIVE) Urine Methadone Screen (NEGATIVE) Ur Barbiturates Screen (NEGATIVE) Ur Tricyclics Screen (NEGATIVE) Ur Phencyclidine Scrn (NEGATIVE) Ur Amphetamine Screen (NEGATIVE) U Methamphetamines Scrn (NEGATIVE) Urine MDMA Screen (NEGATIVE) U Benzodiazepines Scrn (NEGATIVE) U Cocaine Metab Screen (NEGATIVE) U Marijuana (THC) Screen (NEGATIVE) Ethyl Alcohol (<3.0) mg/dL SARS-CoV-2 RNA (MCKAYLA) (NEGATIVE) 07/17/20 07/17/20 07/17/20 Range/Units 21:05 22:30 22:30 WBC (4.0-11.0) K/uL RBC (4.50-6.50) M/uL Hgb (13.0-18.0) g/dL Hct (40.0-54.0) % MCV (76-96) fL MCH (27.0-32.0) pg MCHC (31.0-35.0) g/dL RDW (11.0-16.0) % Plt Count (150-400) K/uL MPV (6.0-10.0) fL Neut % (Auto) (45.0-70.0) % Lymph % (Auto) (20.0-40.0) % Lares % (Auto) (3.0-10.0) % Eos % (Auto) (1.0-5.0) % Baso % (Auto) (0.0-0.5) % Neut # (Auto) (2.00-7.50) K/uL Lymph # (Auto) (1.50-4.00) K/uL Lares # (Auto) (0.20-0.80) K/uL Eos # (Auto) (0.04-0.40) K/uL Baso # (Auto) (0.02-0.10) K/uL Sodium (136-145) mmol/L Potassium (3.5-5.1) mmol/L Chloride (98-107) mmol/L Carbon Dioxide (21.0-32.0) mmol/L Anion Gap (5.0-15.0) mmol/L BUN (8-26) mg/dL Creatinine (0.70-1.30) mg/dL Est Cr Clr Drug Dosing Estimated GFR (MDRD) (>60) MLS/MIN BUN/Creatinine Ratio (6-25) Glucose (74-100) mg/dL Calcium (8.5-10.1) mg/dL Total Bilirubin (0.0-1.0) mg/dL AST (15-37) U/L ALT (12-78) U/L Alkaline Phosphatase (46-116) U/L Ammonia (11-32) umol/L Total Protein (6.4-8.2) g/dL Albumin (3.4-5.0) g/dL Globulin (2.2-4.2) g/dL Albumin/Globulin Ratio (0.8-2.0) Urine Color Yellow Urine Appearance Clear (CLEAR) Urine pH 6.0 (5.0-8.0) Ur Specific Dodge 1.015 (1.003-1.030) Urine Protein Negative (NEGATIVE) mg/dL Urine Glucose (UA) Negative (NEGATIVE) mg/dL Urine Ketones Negative (NEGATIVE) mg/dL Urine Occult Blood Moderate H (NEGATIVE) Urine Nitrite Negative (NEGATIVE) Urine Bilirubin Negative (NEGATIVE) Urine Urobilinogen 0.2 (0.2-1.0) E.U./dL Ur Leukocyte Esterase Negative (NEGATIVE) Urine RBC 50-75 H /HPF Urine WBC Not seen /HPF Urine Opiates Screen Negative (NEGATIVE) Ur Oxycodone Screen Negative (NEGATIVE) Urine Methadone Screen Negative (NEGATIVE) Ur Barbiturates Screen Negative (NEGATIVE) Ur Tricyclics Screen Negative (NEGATIVE) Ur Phencyclidine Scrn Negative (NEGATIVE) Ur Amphetamine Screen Negative (NEGATIVE) U Methamphetamines Scrn Negative (NEGATIVE) Urine MDMA Screen Negative (NEGATIVE) U Benzodiazepines Scrn Negative (NEGATIVE) U Cocaine Metab Screen Negative (NEGATIVE) U Marijuana (THC) Screen Negative (NEGATIVE) Ethyl Alcohol < 3.0 (<3.0) mg/dL SARS-CoV-2 RNA (MCKAYLA) (NEGATIVE) 07/17/20 Range/Units 23:00 WBC (4.0-11.0) K/uL RBC (4.50-6.50) M/uL Hgb (13.0-18.0) g/dL Hct (40.0-54.0) % MCV (76-96) fL MCH (27.0-32.0) pg MCHC (31.0-35.0) g/dL RDW (11.0-16.0) % Plt Count (150-400) K/uL MPV (6.0-10.0) fL Neut % (Auto) (45.0-70.0) % Lymph % (Auto) (20.0-40.0) % Lares % (Auto) (3.0-10.0) % Eos % (Auto) (1.0-5.0) % Baso % (Auto) (0.0-0.5) % Neut # (Auto) (2.00-7.50) K/uL Lymph # (Auto) (1.50-4.00) K/uL Lares # (Auto) (0.20-0.80) K/uL Eos # (Auto) (0.04-0.40) K/uL Baso # (Auto) (0.02-0.10) K/uL Sodium (136-145) mmol/L Potassium (3.5-5.1) mmol/L Chloride (98-107) mmol/L Carbon Dioxide (21.0-32.0) mmol/L Anion Gap (5.0-15.0) mmol/L BUN (8-26) mg/dL Creatinine (0.70-1.30) mg/dL Est Cr Clr Drug Dosing Estimated GFR (MDRD) (>60) MLS/MIN BUN/Creatinine Ratio (6-25) Glucose (74-100) mg/dL Calcium (8.5-10.1) mg/dL Total Bilirubin (0.0-1.0) mg/dL AST (15-37) U/L ALT (12-78) U/L Alkaline Phosphatase (46-116) U/L Ammonia (11-32) umol/L Total Protein (6.4-8.2) g/dL Albumin (3.4-5.0) g/dL Globulin (2.2-4.2) g/dL Albumin/Globulin Ratio (0.8-2.0) Urine Color Urine Appearance (CLEAR) Urine pH (5.0-8.0) Ur Specific Dodge (1.003-1.030) Urine Protein (NEGATIVE) mg/dL Urine Glucose (UA) (NEGATIVE) mg/dL Urine Ketones (NEGATIVE) mg/dL Urine Occult Blood (NEGATIVE) Urine Nitrite (NEGATIVE) Urine Bilirubin (NEGATIVE) Urine Urobilinogen (0.2-1.0) E.U./dL Ur Leukocyte Esterase (NEGATIVE) Urine RBC /HPF Urine WBC /HPF Urine Opiates Screen (NEGATIVE) Ur Oxycodone Screen (NEGATIVE) Urine Methadone Screen (NEGATIVE) Ur Barbiturates Screen (NEGATIVE) Ur Tricyclics Screen (NEGATIVE) Ur Phencyclidine Scrn (NEGATIVE) Ur Amphetamine Screen (NEGATIVE) U Methamphetamines Scrn (NEGATIVE) Urine MDMA Screen (NEGATIVE) U Benzodiazepines Scrn (NEGATIVE) U Cocaine Metab Screen (NEGATIVE) U Marijuana (THC) Screen (NEGATIVE) Ethyl Alcohol (<3.0) mg/dL SARS-CoV-2 RNA (MCKAYLA) Negative (NEGATIVE) Result Diagrams: 07/17/20 21:05 07/17/20 21:05 Asif Results Last 24 hrs: Recent lab: Reviewed see EMR for details Sepsis Event Note - Evaluation Sepsis Screening Result: No Definite Risk - Focused Exam Vital Signs: Vital Signs Temp Pulse Resp BP Pulse Ox 07/17/20 22:45 37.1 C 76 17 140/82 97 07/17/20 20:52 37.6 C 82 16 144/63 H 96 Consult PN Assessment/Plan Procedures: Procedures ASSAY OF AMMONIA (06/23/20) ASSAY OF BLOOD/URIC ACID (08/02/17) ASSAY OF FERRITIN (12/10/15) ASSAY OF IRON (08/02/17) ASSAY OF LACTIC ACID (08/20/19) ASSAY OF MAGNESIUM (09/24/19) ASSAY OF NATRIURETIC PEPTIDE (08/20/19) ASSAY OF TROPONIN QUANT (04/17/20) ASSAY TEST FOR BLOOD FECAL (12/20/15) ASSAY THYROID STIM HORMONE (08/28/19) CARDIAC REHAB/MONITOR (10/04/16) CHEST X-RAY 1 VIEW FRONTAL (05/02/17) COLONOSCOPY AND BIOPSY (01/29/15) COLONOSCOPY W/LESION REMOVAL (01/29/15) COMPLETE CBC W/AUTO DIFF WBC (06/23/20) COMPREHEN METABOLIC PANEL (06/23/20) CT HEAD/BRAIN W/O DYE (08/20/19) DIAGNOSTIC COLONOSCOPY (09/07/17) DRUG TEST PRSMV CHEM ANLYZR (06/23/20) EGD BIOPSY SINGLE/MULTIPLE (09/07/17) EGD REMOVE LESION SNARE (12/31/15) ELECTROCARDIOGRAM TRACING (04/17/20) EMERGENCY DEPT VISIT (06/23/20) EMERGENCY DEPT VISIT (10/20/19) EMERGENCY DEPT VISIT (08/28/19) EMERGENCY DEPT VISIT (08/28/19) EMERGENCY DEPT VISIT (01/03/18) EMERGENCY DEPT VISIT (09/03/17) EMERGENCY DEPT VISIT (05/02/17) EMERGENCY DEPT VISIT (10/04/16) EMERGENCY DEPT VISIT (09/13/16) GLUCOSE BLOOD TEST (06/23/20) GLYCOSYLATED HEMOGLOBIN TEST (06/23/20) HOSPITAL DISCHARGE DAY (10/20/19) INFLUENZA ASSAY W/OPTIC (10/20/19) INITIAL HOSPITAL CARE (10/20/19) IRON BINDING TEST (08/02/17) LIPID PANEL (08/02/17) OBSERV/HOSP SAME DATE (08/20/19) PROTHROMBIN TIME (09/13/16) ROUTINE VENIPUNCTURE (06/23/20) SARS-COV2 COVID-19 AMP PRB (06/23/20) THROMBOPLASTIN TIME PARTIAL (09/13/16) TISSUE EXAM BY PATHOLOGIST (09/07/17) UR ALBUMIN QUANTITATIVE (08/02/17) URINALYSIS AUTO W/O SCOPE (10/20/19) URINALYSIS AUTO W/SCOPE (06/23/20) US ABDL AORTA SCREEN AAA (02/11/18) X-RAY EXAM CHEST 1 VIEW (04/17/20) X-RAY EXAM OF ANKLE (08/21/16) X-RAY EXAM OF FOREARM (11/20/16) X-RAY EXAM OF HAND (02/10/15) X-RAY EXAM OF KNEE 1 OR 2 (09/10/14) X-RAY EXAM OF KNEE 3 (11/20/16) X-RAY EXAM OF SHOULDER (09/24/19) Plan: 1. Hepatic encephalopathy-the patient reports that he takes his lactulose 3 times daily and has about 4 stools daily. He still has elevated ammonia level. He needs increased dosing of his lactulose on discharge to 4 times daily. I h ave placed him on lactulose 20 g every 4 hours x6 doses and then daytime provider to adjust dose to 4 times daily. Repeat ammonia level in the a.m. continue rifaximin. 2. Tongue lesions-I am uncertain as to what this lesion is on the right lateral aspect of his tongue. This certainly warrants further follow-up as an outpatient. I am placing him on nystatin although this lesion does not look ty pical of oral candidiasis. 3. DM2-stable on SSI. Continue Lantus. Hold Glucophage while in the hospital 4. CAD-stable monitor. Continue aspirin 5. Asthma/COPD-stable as needed duo nebs 6. HTN-stable. Continue Coreg and lisinopril 7. Depression-stable. Continue Celexa 8. Thrombocytopenia-stable monitor 9. DVT prophylaxis SCDs 10. CODE STATUS full code discussed with patient Chart review was performed as well as evaluation of the patient via video. Thank you for involving ehospitalist. Please contact [phone] if further assistance is needed.
[2020-07-18] MEDS ORDERED: 50% Dextrose in Water 50 ML Syringe IV PRN (02:12)
[2020-07-18] MEDS: Lactulose Soln 10 GM/15 ML 15 ML UD Cup PO SCH ×6 (04:36→23:38)
[2020-07-18] MEDS ORDERED: Albuterol/Ipratropium 3.0-0.5 MG/3 ML Neb Soln NEB PRN (06:07)
[2020-07-18] MEDS ORDERED: Insulin Aspart 100 Units/ML 3 ML Pen SUBCUT SCH (08:00)
[2020-07-18] MEDS: Nystatin Susp 100,000 Unit/ML 5 ML UD Cup PO SCH ×4 (08:18→20:12)
[2020-07-18] MEDS ORDERED: 50% Dextrose in Water 50 ML Syringe IVPUSH PRN (09:50)
[2020-07-18] MEDS ORDERED: Glucagon,Human Recombinant 1 MG Vial IM PRN (09:50)
[2020-07-18] MEDS ORDERED: Insulin Glargine,Human Rec. Analog 100 Units/ML 3 ML Pen**OWN MED SUBCUT SCH ×2 (10:00→20:00)
--- NOTE | 2020-07-18 10:40 | PCM.PN ---
- General Info Date of Service: 07/18/20 Admission Dx/Problem (Free Text): Admission Diagnosis/Problem Admission Diagnosis/Problem Confusion Subjective Update: Patient continues to deny any pain, SOB, chest pain, abdominal pain, N/V/D, or dysuria. Functional Status: Reports: Tolerating Diet, Ambulating, Urinating - Review of Systems General: Reports: No Symptoms HEENT: Reports: No Symptoms Pulmonary: Reports: No Symptoms Cardiovascular: Reports: No Symptoms Gastrointestinal: Reports: No Symptoms Genitourinary: Reports: No Symptoms Musculoskeletal: Reports: No Symptoms Skin: Reports: No Symptoms Neurological: Reports: Confusion Psychiatric: Reports: No Symptoms - Patient Data Vitals - Most Recent: Last Vital Signs Temp 37.0 C 07/18/20 10:00 Pulse 69 07/18/20 10:00 Resp 18 07/18/20 10:00 BP 142/84 H 07/18/20 10:00 Pulse Ox 99 07/18/20 10:00 Weight - Most Recent: 117.798 kg I&O - Last 24 Hours: Intake & Output 07/17/20 07/18/20 07/18/20 22:59 06:59 14:59 Intake Total 1120 Output Total 500 Balance 620 Lab Results Last 24 Hours: Laboratory Results - last 24 hr 07/17/20 07/17/20 07/17/20 Range/Units 21:05 21:05 21:05 WBC 4.5 (4.0-11.0) K/uL RBC 4.23 L (4.50-6.50) M/uL Hgb 13.1 (13.0-18.0) g/dL Hct 37.7 L (40.0-54.0) % MCV 89 (76-96) fL MCH 31.0 (27.0-32.0) pg MCHC 34.7 (31.0-35.0) g/dL RDW 15.5 (11.0-16.0) % Plt Count 80 L (150-400) K/uL MPV 10.6 H (6.0-10.0) fL Neut % (Auto) 70.8 H (45.0-70.0) % Lymph % (Auto) 12.7 L (20.0-40.0) % [place] % (Auto) 12.2 H (3.0-10.0) % Eos % (Auto) 3.6 (1.0-5.0) % Baso % (Auto) 0.7 H (0.0-0.5) % Neut # (Auto) 3.19 (2.00-7.50) K/uL Lymph # (Auto) 0.57 L (1.50-4.00) K/uL [place] # (Auto) 0.55 (0.20-0.80) K/uL Eos # (Auto) 0.16 (0.04-0.40) K/uL Baso # (Auto) 0.03 (0.02-0.10) K/uL Sodium 140 (136-145) mmol/L Potassium 4.7 (3.5-5.1) mmol/L Chloride 106 (98-107) mmol/L Carbon Dioxide 22.8 (21.0-32.0) mmol/L Anion Gap 15.9 H (5.0-15.0) mmol/L BUN 13 (8-26) mg/dL Creatinine 1.23 (0.70-1.30) mg/dL Est Cr Clr Drug Dosing TNP Estimated GFR (MDRD) 60 (>60) MLS/MIN BUN/Creatinine Ratio 10.6 (6-25) Glucose 172 H D (74-100) mg/dL POC Glucose (74-110) mg/dL Calcium 8.3 L (8.5-10.1) mg/dL Total Bilirubin 1.2 H D (0.0-1.0) mg/dL AST 48 H (15-37) U/L ALT 50 (12-78) U/L Alkaline Phosphatase 132 H (46-116) U/L Ammonia 124 H (11-32) umol/L B-Natriuretic Peptide (0-125) pg/mL Total Protein 6.6 (6.4-8.2) g/dL Albumin 3.1 L (3.4-5.0) g/dL Globulin 3.5 (2.2-4.2) g/dL Albumin/Globulin Ratio 0.9 (0.8-2.0) Urine Color Urine Appearance (CLEAR) Urine pH (5.0-8.0) Ur Specific [place] (1.003-1.030) Urine Protein (NEGATIVE) mg/dL Urine Glucose (UA) (NEGATIVE) mg/dL Urine Ketones (NEGATIVE) mg/dL Urine Occult Blood (NEGATIVE) Urine Nitrite (NEGATIVE) Urine Bilirubin (NEGATIVE) Urine Urobilinogen (0.2-1.0) E.U./dL Ur Leukocyte Esterase (NEGATIVE) Urine RBC /HPF Urine WBC /HPF Urine Opiates Screen (NEGATIVE) Ur Oxycodone Screen (NEGATIVE) Urine Methadone Screen (NEGATIVE) Ur Barbiturates Screen (NEGATIVE) Ur Tricyclics Screen (NEGATIVE) Ur Phencyclidine Scrn (NEGATIVE) Ur Amphetamine Screen (NEGATIVE) U Methamphetamines Scrn (NEGATIVE) Urine MDMA Screen (NEGATIVE) U Benzodiazepines Scrn (NEGATIVE) U Cocaine Metab Screen (NEGATIVE) U Marijuana (THC) Screen (NEGATIVE) Ethyl Alcohol (<3.0) mg/dL SARS-CoV-2 RNA (MCKAYLA) (NEGATIVE) 07/17/20 07/17/20 07/17/20 Range/Units 21:05 22:30 22:30 WBC (4.0-11.0) K/uL RBC (4.50-6.50) M/uL Hgb (13.0-18.0) g/dL Hct (40.0-54.0) % MCV (76-96) fL MCH (27.0-32.0) pg MCHC (31.0-35.0) g/dL RDW (11.0-16.0) % Plt Count (150-400) K/uL MPV (6.0-10.0) fL Neut % (Auto) (45.0-70.0) % Lymph % (Auto) (20.0-40.0) % [place] % (Auto) (3.0-10.0) % Eos % (Auto) (1.0-5.0) % Baso % (Auto) (0.0-0.5) % Neut # (Auto) (2.00-7.50) K/uL Lymph # (Auto) (1.50-4.00) K/uL [place] # (Auto) (0.20-0.80) K/uL Eos # (Auto) (0.04-0.40) K/uL Baso # (Auto) (0.02-0.10) K/uL Sodium (136-145) mmol/L Potassium (3.5-5.1) mmol/L Chloride (98-107) mmol/L Carbon Dioxide (21.0-32.0) mmol/L Anion Gap (5.0-15.0) mmol/L BUN (8-26) mg/dL Creatinine (0.70-1.30) mg/dL Est Cr Clr Drug Dosing Estimated GFR (MDRD) (>60) MLS/MIN BUN/Creatinine Ratio (6-25) Glucose (74-100) mg/dL POC Glucose (74-110) mg/dL Calcium (8.5-10.1) mg/dL Total Bilirubin (0.0-1.0) mg/dL AST (15-37) U/L ALT (12-78) U/L Alkaline Phosphatase (46-116) U/L Ammonia (11-32) umol/L B-Natriuretic Peptide (0-125) pg/mL Total Protein (6.4-8.2) g/dL Albumin (3.4-5.0) g/dL Globulin (2.2-4.2) g/dL Albumin/Globulin Ratio (0.8-2.0) Urine Color Yellow Urine Appearance Clear (CLEAR) Urine pH 6.0 (5.0-8.0) Ur Specific [place] 1.015 (1.003-1.030) Urine Protein Negative (NEGATIVE) mg/dL Urine Glucose (UA) Negative (NEGATIVE) mg/dL Urine Ketones Negative (NEGATIVE) mg/dL Urine Occult Blood Moderate H (NEGATIVE) Urine Nitrite Negative (NEGATIVE) Urine Bilirubin Negative (NEGATIVE) Urine Urobilinogen 0.2 (0.2-1.0) E.U./dL Ur Leukocyte Esterase Negative (NEGATIVE) Urine RBC 50-75 H /HPF Urine WBC Not seen /HPF Urine Opiates Screen Negative (NEGATIVE) Ur Oxycodone Screen Negative (NEGATIVE) Urine Methadone Screen Negative (NEGATIVE) Ur Barbiturates Screen Negative (NEGATIVE) Ur Tricyclics Screen Negative (NEGATIVE) Ur Phencyclidine Scrn Negative (NEGATIVE) Ur Amphetamine Screen Negative (NEGATIVE) U Methamphetamines Scrn Negative (NEGATIVE) Urine MDMA Screen Negative (NEGATIVE) U Benzodiazepines Scrn Negative (NEGATIVE) U Cocaine Metab Screen Negative (NEGATIVE) U Marijuana (THC) Screen Negative (NEGATIVE) Ethyl Alcohol < 3.0 (<3.0) mg/dL SARS-CoV-2 RNA (MCKAYLA) (NEGATIVE) 07/17/20 07/18/20 07/18/20 Range/Units 23:00 06:21 08:20 WBC (4.0-11.0) K/uL RBC (4.50-6.50) M/uL Hgb (13.0-18.0) g/dL Hct (40.0-54.0) % MCV (76-96) fL MCH (27.0-32.0) pg MCHC (31.0-35.0) g/dL RDW (11.0-16.0) % Plt Count (150-400) K/uL MPV (6.0-10.0) fL Neut % (Auto) (45.0-70.0) % Lymph % (Auto) (20.0-40.0) % [place] % (Auto) (3.0-10.0) % Eos % (Auto) (1.0-5.0) % Baso % (Auto) (0.0-0.5) % Neut # (Auto) (2.00-7.50) K/uL Lymph # (Auto) (1.50-4.00) K/uL [place] # (Auto) (0.20-0.80) K/uL Eos # (Auto) (0.04-0.40) K/uL Baso # (Auto) (0.02-0.10) K/uL Sodium (136-145) mmol/L Potassium (3.5-5.1) mmol/L Chloride (98-107) mmol/L Carbon Dioxide (21.0-32.0) mmol/L Anion Gap (5.0-15.0) mmol/L BUN (8-26) mg/dL Creatinine (0.70-1.30) mg/dL Est Cr Clr Drug Dosing Estimated GFR (MDRD) (>60) MLS/MIN BUN/Creatinine Ratio (6-25) Glucose (74-100) mg/dL POC Glucose 100 (74-110) mg/dL Calcium (8.5-10.1) mg/dL Total Bilirubin (0.0-1.0) mg/dL AST (15-37) U/L ALT (12-78) U/L Alkaline Phosphatase (46-116) U/L Ammonia 52 H (11-32) umol/L B-Natriuretic Peptide (0-125) pg/mL Total Protein (6.4-8.2) g/dL Albumin (3.4-5.0) g/dL Globulin (2.2-4.2) g/dL Albumin/Globulin Ratio (0.8-2.0) Urine Color Urine Appearance (CLEAR) Urine pH (5.0-8.0) Ur Specific [place] (1.003-1.030) Urine Protein (NEGATIVE) mg/dL Urine Glucose (UA) (NEGATIVE) mg/dL Urine Ketones (NEGATIVE) mg/dL Urine Occult Blood (NEGATIVE) Urine Nitrite (NEGATIVE) Urine Bilirubin (NEGATIVE) Urine Urobilinogen (0.2-1.0) E.U./dL Ur Leukocyte Esterase (NEGATIVE) Urine RBC /HPF Urine WBC /HPF Urine Opiates Screen (NEGATIVE) Ur Oxycodone Screen (NEGATIVE) Urine Methadone Screen (NEGATIVE) Ur Barbiturates Screen (NEGATIVE) Ur Tricyclics Screen (NEGATIVE) Ur Phencyclidine Scrn (NEGATIVE) Ur Amphetamine Screen (NEGATIVE) U Methamphetamines Scrn (NEGATIVE) Urine MDMA Screen (NEGATIVE) U Benzodiazepines Scrn (NEGATIVE) U Cocaine Metab Screen (NEGATIVE) U Marijuana (THC) Screen (NEGATIVE) Ethyl Alcohol (<3.0) mg/dL SARS-CoV-2 RNA (MCKAYLA) Negative (NEGATIVE) 07/18/20 07/18/20 07/18/20 Range/Units 08:20 08:20 08:20 WBC 3.8 L (4.0-11.0) K/uL RBC 4.22 L (4.50-6.50) M/uL Hgb 13.0 (13.0-18.0) g/dL Hct 37.7 L (40.0-54.0) % MCV 89 (76-96) fL MCH 30.8 (27.0-32.0) pg MCHC 34.5 (31.0-35.0) g/dL RDW 15.7 (11.0-16.0) % Plt Count 73 L (150-400) K/uL MPV 11.0 H (6.0-10.0) fL Neut % (Auto) 65.8 (45.0-70.0) % Lymph % (Auto) 14.7 L (20.0-40.0) % [place] % (Auto) 15.3 H (3.0-10.0) % Eos % (Auto) 3.4 (1.0-5.0) % Baso % (Auto) 0.8 H (0.0-0.5) % Neut # (Auto) 2.50 (2.00-7.50) K/uL Lymph # (Auto) 0.56 L (1.50-4.00) K/uL [place] # (Auto) 0.58 (0.20-0.80) K/uL Eos # (Auto) 0.13 (0.04-0.40) K/uL Baso # (Auto) 0.03 (0.02-0.10) K/uL Sodium 141 (136-145) mmol/L Potassium 4.2 (3.5-5.1) mmol/L Chloride 107 (98-107) mmol/L Carbon Dioxide 21.2 (21.0-32.0) mmol/L Anion Gap 17.0 H (5.0-15.0) mmol/L BUN 12 (8-26) mg/dL Creatinine 1.13 (0.70-1.30) mg/dL Est Cr Clr Drug Dosing 76.60 Estimated GFR (MDRD) > 60 (>60) MLS/MIN BUN/Creatinine Ratio 10.6 (6-25) Glucose 127 H (74-100) mg/dL POC Glucose (74-110) mg/dL Calcium 8.6 (8.5-10.1) mg/dL Total Bilirubin 1.8 H D (0.0-1.0) mg/dL AST 46 H (15-37) U/L ALT 48 (12-78) U/L Alkaline Phosphatase 116 (46-116) U/L Ammonia (11-32) umol/L B-Natriuretic Peptide 886 H D (0-125) pg/mL Total Protein 6.6 (6.4-8.2) g/dL Albumin 3.1 L (3.4-5.0) g/dL Globulin 3.5 (2.2-4.2) g/dL Albumin/Globulin Ratio 0.9 (0.8-2.0) Urine Color Urine Appearance (CLEAR) Urine pH (5.0-8.0) Ur Specific [place] (1.003-1.030) Urine Protein (NEGATIVE) mg/dL Urine Glucose (UA) (NEGATIVE) mg/dL Urine Ketones (NEGATIVE) mg/dL Urine Occult Blood (NEGATIVE) Urine Nitrite (NEGATIVE) Urine Bilirubin (NEGATIVE) Urine Urobilinogen (0.2-1.0) E.U./dL Ur Leukocyte Esterase (NEGATIVE) Urine RBC /HPF Urine WBC /HPF Urine Opiates Screen (NEGATIVE) Ur Oxycodone Screen (NEGATIVE) Urine Methadone Screen (NEGATIVE) Ur Barbiturates Screen (NEGATIVE) Ur Tricyclics Screen (NEGATIVE) Ur Phencyclidine Scrn (NEGATIVE) Ur Amphetamine Screen (NEGATIVE) U Methamphetamines Scrn (NEGATIVE) Urine MDMA Screen (NEGATIVE) U Benzodiazepines Scrn (NEGATIVE) U Cocaine Metab Screen (NEGATIVE) U Marijuana (THC) Screen (NEGATIVE) Ethyl Alcohol (<3.0) mg/dL SARS-CoV-2 RNA (MCKAYLA) (NEGATIVE) Med Orders - Current: Current Medications Albuterol/Ipratropium (Duoneb 3.0-0.5 Mg/3 Ml) 3 ml NEB Q6H PRN PRN Reason: Wheezing Aspirin (Halfprin) 81 mg PO DAILY [facility] Carvedilol (Coreg) 25 mg PO BID [facility] Citalopram Hydrobromide (Celexa) 10 mg PO DAILY [facility] Dextrose/Water (Dextrose 50% In Water) 50 ml IVPUSH ASDIRECTED PRN PRN Reason: Hypoglycemia Glucagon (Glucagen) 1 mg IM ASDIRECTED PRN PRN Reason: Hypoglycemia Insulin Aspart (Novolog) 0 unit SUBCUT TIDMEALS [facility]; Protocol Last Admin: 07/18/20 08:18 Dose: Not Given Documented by: Insulin Glargine (Lantus Solostar) 18 units SUBCUT DAILY [facility] Lactulose (Chronulac) 20 gm PO Q4HR [facility] Stop: 07/19/20 00:01 Last Admin: 07/18/20 08:17 Dose: 20 gm Documented by: Lisinopril (Prinivil) 20 mg PO DAILY [facility] Non-Formulary Medication (Rifaximin [Xifaxan]) 550 mg PO TID [facility] Non-Formulary Medication (Multivitamin [Multi-Vitamin Daily]) 1 each PO DAILY [facility] Nystatin (Mycostatin) 5 ml PO QID [facility] Last Admin: 07/18/20 08:18 Dose: 5 ml Documented by: Ondansetron HCl (Zofran) 4 mg IV Q4H PRN PRN Reason: Nausea/Vomiting Sodium Chloride (Saline Flush) 10 ml FLUSH ASDIRECTED PRN PRN Reason: Keep Vein Open Discontinued Medications Dextrose/Water (Dextrose 50% In Water) 50 ml IV ONETIME PRN PRN Reason: Hypoglycemia Enoxaparin Sodium (Lovenox) 40 mg SUBCUT DAILY [facility]OU Sodium Chloride (Normal Saline) 1,000 mls @ 999 mls/hr IV .BOLUS ONE Stop: 07/17/20 22:45 Last Admin: 07/17/20 21:45 Dose: 999 mls/hr Documented by: Lactulose (Chronulac) 20 gm PO ONETIME ONE Stop: 07/18/20 01:03 Last Admin: 07/18/20 01:10 Dose: 20 gm Documented by: Lactulose (Chronulac) Confirm Administered Dose 20 gm .ROUTE .STK-MED ONE Stop: 07/18/20 01:07 Last Admin: 07/18/20 02:05 Dose: Not Given Documented by: - Exam General: Alert, Oriented, Cooperative HEENT: Pupils Equal, Pupils Reactive Neck: Supple, Trachea Midline Lungs: Clear to Auscultation, Normal Respiratory Effort Cardiovascular: Regular Rate, Regular Rhythm, No Murmurs GI/Abdominal Exam: Normal Bowel Sounds, Soft, Non-Tender, No Distention Extremities: Normal Inspection, Normal Range of Motion, Non-Tender, No Pedal Edema, Normal Capillary Refill Skin: Warm, Dry, Intact Neurological: No New Focal Deficit, Normal Gait Psy/Mental Status: Alert, Normal Affect, Normal Mood Sepsis Event Note - Evaluation Sepsis Screening Result: No Definite Risk - Focused Exam Vital Signs: Vital Signs Temp Pulse Resp BP BP Pulse Ox 07/18/20 10:00 37.0 C 69 18 142/84 H 99 07/18/20 06:06 36.6 C 76 16 138/70 95 07/18/20 02:15 36.6 C 76 18 148/81 H 96 07/17/20 22:45 37.1 C 76 17 140/82 97 - Problem List Review Problem List Initiated/Reviewed/Updated: Yes - My Orders Last 24 Hours: My Active Orders 07/17/20 20:52 Chest 1V Frontal [CR] Stat 07/17/20 21:00 Insert Urinary Catheter [OM.PC] Q24H 07/18/20 00:56 Patient Status [ADT] Routine 07/18/20 04:48 CULTURE MRSA SURVEY [RM] Routine 07/18/20 Breakfast Consistent Carbohydrate Diet [DIET] 07/18/20 09:50 Dextrose 50% in Water 50 ml IVPUSH ASDIRECTED PRN Glucagon,Human Recombinant [GlucaGen] 1 mg IM ASDIRECTED PRN 07/18/20 10:00 Aspirin [Halfprin] 81 mg PO DAILY Citalopram [Celexa] 10 mg PO DAILY Insulin Glarg,Human.Rec.Analog [LantUS Solostar] 18 units SUBCUT DAILY Multivitamin [Multi-Vitamin Daily] 1 each PO DAILY carvediloL [Coreg] 25 mg PO BID lisinopriL [Prinivil] 20 mg PO DAILY 07/18/20 14:00 Rifaximin [Xifaxan] 550 mg PO TID 07/19/20 05:11 CBC WITH AUTO DIFF [HEME] AM COMPREHENSIVE METABOLIC PN,CMP [CHEM] AM 07/19/20 08:00 AMMONIA VENOUS [CHEM] Routine - Plan Plan:: Hospitalist recommended lactulose x 6 doses today. Ammonia has decreased to 52. Will increase the lactulose prescription to QID starting tomorrow. Anticipated discharge tomorrow. No confusion today.
[2020-07-18] MEDS: Citalopram 20 MG Tab**OWN MED PO SCH (11:17)
[2020-07-18] MEDS: Aspirin 81 MG Tab.EC**OWN MED PO SCH (11:17)
[2020-07-18] MEDS: RIFAXIMIN 550 MG PO SCH ×3 (11:17→20:00)
[2020-07-18] MEDS: MINERALS PO SCH (11:18)
[2020-07-18] MEDS: FOLIC ACID PO SCH (11:18)
[2020-07-18] MEDS: LISINOPRIL 40 MG PO SCH (11:18)
[2020-07-18] MEDS: CARVEDILOL 25 MG PO SCH ×2 (11:18→20:00)
[2020-07-18] MEDS: MULTIVITAMINS WITH IRON PO SCH (11:18)
[2020-07-18] MEDS: CALCIUM PO SCH (11:18)
[2020-07-18] MEDS: Sodium Chloride 0.9% 10 ML Syringe FLUSH PRN ×2 (11:19→20:03)
[2020-07-18] MEDS: INSULIN ASPART 100 UNIT/ML SUBCUT SCH ×2 (12:22→17:10)
--- NOTE | 2020-07-18 14:45 | CR ---
DATE OF SERVICE: 07/17/20 CLINICAL DATA: confusion AP CHEST: Comparison is made to a prior exam dated 04/17/12. The heart remains enlarged, unchanged. The cardiac pacer and pacer wire remain unchanged in position. There is pulmonary vascular congestion with progression from the prior exam. Congestive failure shoulder be considered. There are also patchy infiltrates in both lungs. This could be related to failure. Viral pneumonia should be considered. No pneumothorax. No pleural effusions. [id number] MTDD
[2020-07-19] MEDS: CARVEDILOL 25 MG PO SCH (07:55)
[2020-07-19] MEDS: Nystatin Susp 100,000 Unit/ML 5 ML UD Cup PO SCH ×2 (07:55→11:43)
[2020-07-19] MEDS: LISINOPRIL 40 MG PO SCH (07:55)
[2020-07-19] MEDS: MULTIVITAMINS WITH IRON PO SCH (07:55)
[2020-07-19] MEDS: CALCIUM PO SCH (07:55)
[2020-07-19] MEDS: FOLIC ACID PO SCH (07:55)
[2020-07-19] MEDS: MINERALS PO SCH (07:55)
[2020-07-19] MEDS: Lactulose Soln 10 GM/15 ML 15 ML UD Cup PO SCH ×2 (07:55→11:43)
[2020-07-19] MEDS: RIFAXIMIN 550 MG PO SCH (07:56)
[2020-07-19] MEDS: Citalopram 20 MG Tab**OWN MED PO SCH (07:56)
[2020-07-19] MEDS: Aspirin 81 MG Tab.EC**OWN MED PO SCH (07:56)
[2020-07-19] MEDS: INSULIN ASPART 100 UNIT/ML SUBCUT SCH ×2 (07:58→11:46)
[2020-07-19 08:00] VITALS: BP 135/82; PULSE 72
[2020-07-19] MEDS ORDERED: Enoxaparin 40 MG/0.4 ML Syringe SUBCUT SCH (08:00)
--- NOTE | 2020-07-19 10:31 | PCM.DCSUM1 ---
Discharge Summary - Hospital Course Free Text/Narrative:: Patient is a 64 y/o male who was admitted for confusion and elevated ammonia levels. PMHx significant for hepatic encephalopathy. Patient given lactulose and levels decreased and confusion resolved. Patient found to have some pulmonary congestion on CXR and elevated BNP, as well as, difficulty with catheterization. Concerning for the beginnings of CHF and enlarged prostate. No clinical findings of respiratory distress or urinary obstruction. Patient wants to go home and [facility] Will discharge with prescriptions for nystatin 5 mL PO QID x 10 days. Lactulose 20 gm PO QID x 1 month Consulted case management and feel that patient needs to be seen sooner. [facility] to get [facility] week or two, otherwise, get pre-approval to have patient seen here outpatient. Would need follow up for possible CHF and possible enlarged prostate, as well as ammonia levels. Explained to patient and case management will work on his follow up apts. - Discharge Data Discharge Date: 07/19/20 Discharge Disposition: Home, Self-Care 01 Condition: Good - Referral to Home Health Primary Care Physician: PCP None - Patient Instructions Diet: Heart Healthy Diet Activity: As Tolerated, Full Weight Bearing Driving: May Drive Today - Discharge Plan *PRESCRIPTION DRUG MONITORING PROGRAM REVIEWED*: Not Applicable *COPY OF PRESCRIPTION DRUG MONITORING REPORT IN PATIENT FATOU: Not Applicable Home Medications: Home Meds Multivitamin [Multi-Vitamin Daily] 1 each PO DAILY 01/29/15 [History] Alogliptin Benzoate [Alogliptin] 25 mg PO DAILY 08/20/19 [History] Citalopram [Citalopram HBr] 10 mg PO DAILY 08/20/19 [History] Insulin Aspart [NovoLOG] 6 units SUBCUT TIDMEALS 08/20/19 [History] Insulin Glargine,Hum.Rec.Anlog [Lantus Solostar] 18 units SUBCUT DAILY 08/20/19 [History] Magnesium Oxide 2 tab PO TID 08/20/19 [History] carvediloL [Coreg] 25 mg PO BID 08/20/19 [History] Lactulose 30 ml PO TID 08/28/19 [History] Albuterol Sulfate [Albuterol Sulfate Hfa] 2 puff INH QID PRN 10/20/19 [History] carvediloL [Carvedilol] 6.25 mg PO BID 10/20/19 [History] Aspirin [Halfprin] 81 mg PO DAILY tab.ec 06/24/20 [Rx] Ferrous Sulfate 325 mg PO 2000 tablet 06/24/20 [Rx] Rifaximin [Xifaxan] 550 mg PO TID #0 06/24/20 [Rx] lisinopriL [Prinivil] 20 mg PO DAILY tablet 06/24/20 [Rx] metFORMIN [Glucophage] 500 mg PO QID tablet 06/24/20 [Rx] Acetaminophen [Tylenol Extra Strength] 1,000 mg PO TID PRN 07/17/20 [History] Ascorbic Acid [Vitamin C] 500 mg PO DAILY 07/17/20 [History] Referrals: PCP,None [Primary Care Provider] - - Discharge Summary/Plan Comment DC Time >30 min.: No - General Info Date of Service: 07/19/20 Admission Dx/Problem (Free Text: Admission Diagnosis/Problem Admission Diagnosis/Problem Confusion Functional Status: Reports: Tolerating Diet, Ambulating, Urinating - Review of Systems General: Reports: No Symptoms HEENT: Reports: No Symptoms Pulmonary: Reports: No Symptoms Cardiovascular: Reports: No Symptoms Gastrointestinal: Reports: No Symptoms Genitourinary: Reports: No Symptoms Musculoskeletal: Reports: No Symptoms Skin: Reports: No Symptoms Neurological: Reports: No Symptoms Psychiatric: Reports: No Symptoms - Patient Data Vitals - Most Recent: Last Vital Signs Temp 36.5 C 07/19/20 08:00 Pulse 72 07/19/20 08:00 Resp 18 07/19/20 08:00 BP 135/82 07/19/20 08:00 Pulse Ox 99 07/19/20 08:00 Weight - Most Recent: 118.841 kg I&O - Last 24 hours: Intake & Output 07/18/20 07/19/20 07/19/20 22:59 06:59 14:59 Intake Total 3200 970 Balance 3200 970 Lab Results - Last 24 hrs: Laboratory Results - last 24 hr 07/18/20 07/18/20 07/19/20 Range/Units 10:57 19:57 07:40 WBC 3.7 L (4.0-11.0) K/uL RBC 4.29 L (4.50-6.50) M/uL Hgb 13.3 (13.0-18.0) g/dL Hct 38.2 L (40.0-54.0) % MCV 89 (76-96) fL MCH 31.0 (27.0-32.0) pg MCHC 34.8 (31.0-35.0) g/dL RDW 15.5 (11.0-16.0) % Plt Count 66 L (150-400) K/uL MPV 10.3 H (6.0-10.0) fL Neut % (Auto) 62.3 (45.0-70.0) % Lymph % (Auto) 15.9 L (20.0-40.0) % [place] % (Auto) 16.4 H (3.0-10.0) % Eos % (Auto) 4.6 (1.0-5.0) % Baso % (Auto) 0.8 H (0.0-0.5) % Neut # (Auto) 2.32 (2.00-7.50) K/uL Lymph # (Auto) 0.59 L (1.50-4.00) K/uL [place] # (Auto) 0.61 (0.20-0.80) K/uL Eos # (Auto) 0.17 (0.04-0.40) K/uL Baso # (Auto) 0.03 (0.02-0.10) K/uL Sodium (136-145) mmol/L Potassium (3.5-5.1) mmol/L Chloride (98-107) mmol/L Carbon Dioxide (21.0-32.0) mmol/L Anion Gap (5.0-15.0) mmol/L BUN (8-26) mg/dL Creatinine (0.70-1.30) mg/dL Est Cr Clr Drug Dosing mL/min Estimated GFR (MDRD) (>60) MLS/MIN BUN/Creatinine Ratio (6-25) Glucose (74-100) mg/dL POC Glucose 134 H 168 H (74-110) mg/dL Calcium (8.5-10.1) mg/dL Total Bilirubin (0.0-1.0) mg/dL AST (15-37) U/L ALT (12-78) U/L Alkaline Phosphatase (46-116) U/L Ammonia (11-32) umol/L Total Protein (6.4-8.2) g/dL Albumin (3.4-5.0) g/dL Globulin (2.2-4.2) g/dL Albumin/Globulin Ratio (0.8-2.0) 07/19/20 07/19/20 Range/Units 07:40 07:40 WBC (4.0-11.0) K/uL RBC (4.50-6.50) M/uL Hgb (13.0-18.0) g/dL Hct (40.0-54.0) % MCV (76-96) fL MCH (27.0-32.0) pg MCHC (31.0-35.0) g/dL RDW (11.0-16.0) % Plt Count (150-400) K/uL MPV (6.0-10.0) fL Neut % (Auto) (45.0-70.0) % Lymph % (Auto) (20.0-40.0) % [place] % (Auto) (3.0-10.0) % Eos % (Auto) (1.0-5.0) % Baso % (Auto) (0.0-0.5) % Neut # (Auto) (2.00-7.50) K/uL Lymph # (Auto) (1.50-4.00) K/uL [place] # (Auto) (0.20-0.80) K/uL Eos # (Auto) (0.04-0.40) K/uL Baso # (Auto) (0.02-0.10) K/uL Sodium 141 (136-145) mmol/L Potassium 4.5 (3.5-5.1) mmol/L Chloride 106 (98-107) mmol/L Carbon Dioxide 26.1 D (21.0-32.0) mmol/L Anion Gap 13.4 (5.0-15.0) mmol/L BUN 11 (8-26) mg/dL Creatinine 0.96 (0.70-1.30) mg/dL Est Cr Clr Drug Dosing 90.16 mL/min Estimated GFR (MDRD) > 60 (>60) MLS/MIN BUN/Creatinine Ratio 11.5 (6-25) Glucose 126 H (74-100) mg/dL POC Glucose (74-110) mg/dL Calcium 9.3 (8.5-10.1) mg/dL Total Bilirubin 1.9 H (0.0-1.0) mg/dL AST 51 H (15-37) U/L ALT 51 (12-78) U/L Alkaline Phosphatase 123 H (46-116) U/L Ammonia 57 H (11-32) umol/L Total Protein 6.3 L (6.4-8.2) g/dL Albumin 3.0 L (3.4-5.0) g/dL Globulin 3.3 (2.2-4.2) g/dL Albumin/Globulin Ratio 0.9 (0.8-2.0) PATRICK Results - Last 24 hrs: Microbiology 07/18/20 04:48 MRSA Surveillance Culture - Final Nares, Right NO MRSA ISOLATED Med Orders - Current: Current Medications Albuterol/Ipratropium (Duoneb 3.0-0.5 Mg/3 Ml) 3 ml NEB Q6H PRN PRN Reason: Wheezing Aspirin (Halfprin) 81 mg PO DAILY [facility] Last Admin: 07/19/20 07:56 Dose: 81 mg Documented by: Carvedilol (Coreg) 25 mg PO BID [facility] Last Admin: 07/19/20 07:55 Dose: 25 mg Documented by: Citalopram Hydrobromide (Celexa) 10 mg PO DAILY [facility] Last Admin: 07/19/20 07:56 Dose: 10 mg Documented by: Dextrose/Water (Dextrose 50% In Water) 50 ml IVPUSH ASDIRECTED PRN PRN Reason: Hypoglycemia Glucagon (Glucagen) 1 mg IM ASDIRECTED PRN PRN Reason: Hypoglycemia Insulin Aspart (Novolog) 0 unit SUBCUT TIDMEALS [facility]; Protocol Last Admin: 07/19/20 07:58 Dose: Not Given Documented by: Insulin Glargine (Lantus Solostar) 18 units SUBCUT DAILY@1999 [facility] Last Admin: 07/18/20 20:09 Dose: 18 unit Documented by: Lactulose (Chronulac) 20 gm PO QID [facility] Last Admin: 07/19/20 07:55 Dose: 20 gm Documented by: Lisinopril (Prinivil) 20 mg PO DAILY [facility] Last Admin: 07/19/20 07:55 Dose: 20 mg Documented by: Multivitamins/Minerals (Thera M Plus) 1 tab PO DAILY [facility] Last Admin: 07/19/20 07:55 Dose: 1 tab Documented by: Nystatin (Mycostatin) 5 ml PO QID [facility] Last Admin: 07/19/20 07:55 Dose: 5 ml Documented by: Ondansetron HCl (Zofran) 4 mg IV Q4H PRN PRN Reason: Nausea/Vomiting Rifaximin (Xifaxan) 550 mg PO TID [facility] Last Admin: 07/19/20 07:56 Dose: 550 mg Documented by: Sodium Chloride (Saline Flush) 10 ml FLUSH ASDIRECTED PRN PRN Reason: Keep Vein Open Last Admin: 07/18/20 20:03 Dose: 10 ml Documented by: Discontinued Medications Dextrose/Water (Dextrose 50% In Water) 50 ml IV ONETIME PRN PRN Reason: Hypoglycemia Enoxaparin Sodium (Lovenox) 40 mg SUBCUT DAILY [facility] Sodium Chloride (Normal Saline) 1,000 mls @ 999 mls/hr IV .BOLUS ONE Stop: 07/17/20 22:45 Last Admin: 07/17/20 21:45 Dose: 999 mls/hr Documented by: Insulin Aspart (Novolog) 0 unit SUBCUT TIDMEALS [facility]; Protocol Last Admin: 07/18/20 08:18 Dose: Not Given Documented by: Insulin Glargine (Lantus Solostar) 18 units SUBCUT DAILY [facility] Last Admin: 07/18/20 18:49 Dose: Not Given Documented by: Lactulose (Chronulac) 20 gm PO ONETIME ONE Stop: 07/18/20 01:03 Last Admin: 07/18/20 01:10 Dose: 20 gm Documented by: Lactulose (Chronulac) Confirm Administered Dose 20 gm .ROUTE .STK-MED ONE Stop: 07/18/20 01:07 Last Admin: 07/18/20 02:05 Dose: Not Given Documented by: Lactulose (Chronulac) 20 gm PO Q4HR [facility] Stop: 07/19/20 00:01 Last Admin: 07/18/20 23:38 Dose: 20 gm Documented by: - Exam General: Reports: Alert, Oriented, Cooperative HEENT: Reports: Pupils Equal, Pupils Reactive Neck: Reports: Supple, Trachea Midline Lungs: Reports: Clear to Auscultation, Normal Respiratory Effort Cardiovascular: Reports: Regular Rate, Regular Rhythm, No Murmurs GI/Abdominal Exam: Normal Bowel Sounds, Soft, Non-Tender, No Distention Extremities: Normal Inspection, Normal Range of Motion, No Pedal Edema, Normal Capillary Refill Skin: Reports: Warm, Dry, Intact Neurological: Reports: No New Focal Deficit, Normal Gait, Normal Speech Psy/Mental Status: Reports: Alert, Normal Affect, Normal Mood
== END 2020-07-19 13:10 | disposition home or self-care (01) ==
LOC: LB.ED 20:12 → LB.MS 22:45
PROVIDERS: ADMIT Physician Assistant; ATTEND Physician Assistant
DX: K72.90 Hepatic failure, unspecified without coma (principal); D69.6 Thrombocytopenia, unspecified; E78.00 Pure hypercholesterolemia, unspecified; I10 Essential (primary) hypertension; I25.2 Old myocardial infarction; F41.9 Anxiety disorder, unspecified; E11.9 Type 2 diabetes mellitus without complications; F32.9 Major depressive disorder, single episode, unspecified; Z20.828 Contact with and (suspected) exposure to other viral communicable diseases; Z88.8 Allergy status to other drugs, medicaments and biological substances; Z91.012 Allergy to eggs; Z91.018 Allergy to other foods; Z95.5 Presence of coronary angioplasty implant and graft; Z79.4 Long term (current) use of insulin; Z95.810 Presence of automatic (implantable) cardiac defibrillator; Z88.5 Allergy status to narcotic agent; Z79.899 Other long term (current) drug therapy
CPT/HCPCS: 36415; 71045; 80053; 80307; 81001; 82140; 82962; 83880; 85025; 87635; 96372; 99285; A9270; G0378; J7030; A0425; A0429; U0002

== ENCOUNTER 2020-07-24 08:20 | Observation (INO) | payer OTHER ==
[2020-07-24] MEDS ORDERED: Lactulose Soln 10 GM/15 ML 15 ML UD Cup PO ONE (10:00)
--- NOTE | 2020-07-24 10:35 | EDM.PDOC ---
ED HPI GENERAL MEDICAL PROBLEM - General Stated Complaint: CONFUSION Time Seen by Provider: 07/24/20 08:45 Source of Information: Reports: Patient, EMS History Limitations: Reports: Altered Mental Status - History of Present Illness INITIAL COMMENTS - FREE TEXT/NARRATIVE: pt presents to the ER via EMS who report pt has had increased confusion upon awakening. EMS reports that according to pt woke up and was found in the kitchen relieving his bladder and in the middle of emptying his bowels while standing and with his pants still on. pt had been admitted twice in the past two weeks for hepatic encephalopathy. pt states todays date is "" and the year is "2004" he denies pain, fever, chills, cough, SOB, dizzyness, lightheadedness. Onset: Today - Related Data Allergies Allergy/AdvReac Type Severity Reaction Status Date / Time acetaminophen Allergy Change Verified 07/24/20 08:27 [From Darvocet-N 100] Mental Status cinnamon Allergy Cannot Verified 07/24/20 08:27 Remember egg Allergy Cannot Verified 07/24/20 08:27 Remember dontrell Allergy Other Verified 07/24/20 08:27 mustard Allergy Anaphylactic Verified 07/24/20 08:27 Shock propoxyphene napsylate Allergy Cannot Verified 07/24/20 08:27 [From Darvocet-N 100] Remember [id number] Reductase Allergy Muscle Verified 07/24/20 08:27 Inhibitor Aches codeine AdvReac Change Verified 07/24/20 08:27 Mental Status indomethacin [From Indocin] AdvReac Change Verified 07/24/20 08:27 Mental Status indomethacin sodium AdvReac Change Verified 07/24/20 08:27 [From Indocin] Mental Status propoxyphene HCl AdvReac Change Verified 07/24/20 08:27 [From Darvon] Mental Status Home Meds: Home Meds Multivitamin [Multi-Vitamin Daily] 1 each PO DAILY 01/29/15 [History] Alogliptin Benzoate [Alogliptin] 25 mg PO DAILY 08/20/19 [History] Citalopram [Citalopram HBr] 10 mg PO DAILY 08/20/19 [History] Insulin Aspart [NovoLOG] 6 units SUBCUT TIDMEALS 08/20/19 [History] Insulin Glargine,Hum.Rec.Anlog [Lantus Solostar] 18 units SUBCUT DAILY 08/20/19 [History] Magnesium Oxide 2 tab PO TID 08/20/19 [History] carvediloL [Coreg] 25 mg PO BID 08/20/19 [History] Lactulose 30 ml PO TID 08/28/19 [History] Albuterol Sulfate [Albuterol Sulfate Hfa] 2 puff INH QID PRN 10/20/19 [History] carvediloL [Carvedilol] 6.25 mg PO BID 10/20/19 [History] Aspirin [Halfprin] 81 mg PO DAILY tab.ec 06/24/20 [Rx] Ferrous Sulfate 325 mg PO 2000 tablet 06/24/20 [Rx] Rifaximin [Xifaxan] 550 mg PO TID #0 06/24/20 [Rx] lisinopriL [Prinivil] 20 mg PO DAILY tablet 06/24/20 [Rx] metFORMIN [Glucophage] 500 mg PO QID tablet 06/24/20 [Rx] Acetaminophen [Tylenol Extra Strength] 1,000 mg PO TID PRN 07/17/20 [History] Ascorbic Acid [Vitamin C] 500 mg PO DAILY 07/17/20 [History] Past Medical History HEENT History: Reports: Impaired Vision Other HEENT History: glasses Cardiovascular History: Reports: Angina, High Cholesterol, Hypertension, VT Other Cardiovascular History: AICD stents July 2017 Respiratory History: Reports: SOB Other Respiratory History: dyspnea with exertion no sob or difficulty breathing at rest Gastrointestinal History: Reports: Cirrhosis, GERD, Hiatal Hernia, PUD Musculoskeletal History: Reports: Gout, Osteoarthritis Other Musculoskeletal History: Bilateral Knee Pain Neurological History: Reports: Other (See Below) Other Neuro History: AMS when ammonia level gets high Psychiatric History: Reports: Anxiety Endocrine/Metabolic History: Reports: Diabetes, Type II Hematologic History: Reports: Anemia - Infectious Disease History Infectious Disease History: Reports: Chicken Pox - Past Surgical History Cardiovascular Surgical History: Reports: Coronary Artery Stent, Other (See Below) Other Cardiovascular Surgeries/Procedures: Internal Defibrillator - History Comment History Comment: Home Medications: Reviewed see EMR for details. Pertinent Medical History: Hepatic encephalopathy, cirrhosis, CAD, DM 2, asthma, VT x2, depression, thrombocytopenia, esophageal varices, HTN, left heart catheterization times multiple, EGD, colonoscopy times multiple, cholecystectomy, ICD. Pertinent Social History: , quit smoking in 2001, up to that point smoked 3 packs/day for 10 years, quit drinking alcohol in 2004 Social & Family History - Family History Family Medical History: No Pertinent Family History - Caffeine Use Caffeine Use: Reports: None Other Caffeine Use: not reported ED ROS GENERAL - Review of Systems Review Of Systems: Comprehensive ROS is negative, except as noted in HPI. Reason Not Obtained: altered mental status HEENT: Reports: No Symptoms ED EXAM, GENERAL - Physical Exam Exam: See Below Exam Limited By: Altered Mental Status General Appearance: Alert, WD/WN, No Apparent Distress Eye Exam: Bilateral Eye: EOMI, PERRL Ears: Normal External Exam, Normal TMs Throat/Mouth: Normal Inspection, Normal Lips, Normal Teeth Head: Atraumatic, Normocephalic Respiratory/Chest: No Respiratory Distress, Lungs Clear, Normal Breath Sounds, No Accessory Muscle Use Cardiovascular: Normal Peripheral Pulses, Systolic Murmur Peripheral Pulses: 2+: Radial (L), Radial (R), Dorsalis Pedis (L), Dorsalis Pedis (R) Neurological: Alert, CN II-XII Intact, Normal Gait, No Motor/Sensory Deficits, Confused, Disoriented Skin Exam: Warm, Dry, Intact, No Rash Course - Orders/Labs/Meds Orders: Active Orders 24 hr Category Date Time Status Admission Diagnosis [ADT] Routine ADT 07/24/20 10:19 Ordered Patient Status [ADT] Routine ADT 07/24/20 10:20 Ordered Oxygen Therapy [RC] PRN Care 07/24/20 10:20 Ordered VTE/DVT Education [RC] Per Unit Routine Care 07/24/20 10:20 Ordered Vital Signs [RC] Q4H Care 07/24/20 10:20 Ordered Resuscitation Status Routine Resus Stat 07/24/20 10:19 Ordered Departure - Departure Time of Disposition: 10:57 Disposition: Refer to Observation Condition: Fair Clinical Impression: Hepatic encephalopathy, Type 2 diabetes mellitus - Discharge Information *PRESCRIPTION DRUG MONITORING PROGRAM REVIEWED*: Not Applicable *COPY OF PRESCRIPTION DRUG MONITORING REPORT IN PATIENT FATOU: Not Applicable Referrals: PCP,None [Primary Care Provider] - Care Plan Goals: will admit to [facility] for Obs and monitored administration of lactulose with increased dose as well as his rifaximin. current estimate is pt is non-compliant with medication regimen but it could be there is too little dose of lactulose vs infrequent dosing. will redraw ammonia tomorrow AM for recheck and based on prior admissions likely discharge but with increase dose of lactulose recommendation. - My Orders Last 24 Hours: My Active Orders 07/24/20 10:19 Admission Diagnosis [ADT] Routine Resuscitation Status Routine 07/24/20 10:20 Patient Status [ADT] Routine Oxygen Therapy [RC] PRN VTE/DVT Education [RC] Per Unit Routine Vital Signs [RC] Q4H - Assessment/Plan Last 24 Hours: My Active Orders 07/24/20 10:19 Admission Diagnosis [ADT] Routine Resuscitation Status Routine 07/24/20 10:20 Patient Status [ADT] Routine Oxygen Therapy [RC] PRN VTE/DVT Education [RC] Per Unit Routine Vital Signs [RC] Q4H Plan: assessment: hepatic encephalopathy plan: admit obs monitored dosing of lactulose and rifaximin increase dose of lactulose likely discharge tomorrow home with follow up in person or over phone with [facility].
[2020-07-24] MEDS ORDERED: Albuterol 8 GM Inhaler INH PRN (10:39)
[2020-07-24] MEDS ORDERED: CARVEDILOL 6.25 MG PO SCH (10:45)
[2020-07-24] MEDS ORDERED: Non-Formulary Medication 1 Each (Multivitamin [Multi-Vitamin Daily] 1 EACH) PO SCH (10:45)
[2020-07-24] MEDS ORDERED: CITALOPRAM 10 MG PO SCH (10:45)
[2020-07-24] MEDS ORDERED: Non-Formulary Medication 1 Each (Carvedilol [Coreg] 25 MG) PO SCH (10:45)
[2020-07-24] MEDS ORDERED: ALOGLIPTIN BENZOATE 25 MG PO SCH (10:45)
[2020-07-24] MEDS ORDERED: Non-Formulary Medication 1 Each (Ascorbic Acid [Vitamin C] 500 MG) PO SCH (10:45)
[2020-07-24] MEDS ORDERED: Non-Formulary Medication 1 Each (Aspirin [Halfprin] 81 MG) PO SCH (10:45)
[2020-07-24] MEDS ORDERED: LISINOPRIL 20 MG PO SCH (10:45)
[2020-07-24] MEDS ORDERED: Non-Formulary Medication 1 Each (Metformin [Glucophage] 500 MG) PO SCH (12:00)
[2020-07-24] MEDS ORDERED: INSULIN ASPART 6 UNIT SUBCUT SCH (12:00)
[2020-07-24] MEDS ORDERED: MAGNESIUM OXIDE PO SCH (14:00)
[2020-07-24] MEDS ORDERED: RIFAXIMIN 550 MG PO SCH (14:00)
[2020-07-24] MEDS ORDERED: LACTULOSE 30 GM PO SCH (14:00)
[2020-07-24] MEDS ORDERED: Lactulose Soln 10 GM/15 ML 15 ML UD Cup PO SCH (14:00)
[2020-07-24] MEDS: LACTULOSE 10 GM/15 ML PO SCH ×2 (15:30→19:30)
[2020-07-24] MEDS ORDERED: LISINOPRIL 40 MG PO SCH (15:45)
[2020-07-24] MEDS ORDERED: CITALOPRAM 20 MG PO SCH (16:00)
[2020-07-24] MEDS ORDERED: ALOGLIPTIN 25 MG PO SCH (16:15)
[2020-07-24] MEDS: NOVOLOG FLEX SUBCUT SCH (17:45)
[2020-07-24] MEDS: CARVEDILOL 25 MG PO SCH (19:26)
[2020-07-24] MEDS: CARVEDILOL 6.25 MG PO SCH (19:27)
[2020-07-24] MEDS: RIFAXIMIN 550 MG PO SCH (19:29)
[2020-07-24] MEDS: MAGNESIUM 420 MG PO SCH (19:30)
[2020-07-24] MEDS: METFORMIN 500 MG PO SCH (19:33)
[2020-07-24] MEDS ORDERED: INSULIN GLARGINE SUBCUT SCH (20:00)
[2020-07-24] MEDS ORDERED: FERROUS SULFATE 325 MG PO SCH (20:00)
[2020-07-24] MEDS ORDERED: Non-Formulary Medication 1 Each (Ferrous Sulfate [Ferrous Sulfate] 325 MG) PO SCH (20:00)
[2020-07-24] MEDS ORDERED: [UNRECOGNIZED DRUG - OTHER] SUBCUT SCH (20:00)
[2020-07-24] MEDS ORDERED: INSULIN GLARGINE HUM REC ANLOG 16 UNIT SUBCUT SCH (20:00)
[2020-07-25] MEDS ORDERED: Pantoprazole 40 MG Tab.CR PO SCH (07:00)
[2020-07-25] MEDS ORDERED: PANTOPRAZOLE 40 MG PO SCH (07:00)
[2020-07-25] MEDS: LACTULOSE 10 GM/15 ML PO SCH ×2 (07:39→14:26)
[2020-07-25] MEDS: METFORMIN 500 MG PO SCH ×2 (07:42→11:36)
[2020-07-25] MEDS: CARVEDILOL 25 MG PO SCH (07:44)
[2020-07-25] MEDS: MAGNESIUM 420 MG PO SCH ×2 (07:44→14:25)
[2020-07-25] MEDS: CARVEDILOL 6.25 MG PO SCH (07:47)
[2020-07-25] MEDS: RIFAXIMIN 550 MG PO SCH ×2 (07:48→14:25)
[2020-07-25] MEDS: NOVOLOG FLEX SUBCUT SCH ×2 (07:49→12:00)
[2020-07-25] MEDS ORDERED: ASPIRIN 81 MG PO SCH (08:00)
[2020-07-25] MEDS ORDERED: VITAMIN C 500 MG PO SCH (08:00)
[2020-07-25] MEDS ORDERED: LISINOPRIL 40 MG PO SCH (08:00)
[2020-07-25] MEDS ORDERED: MULTIVITAMIN PO SCH (08:00)
[2020-07-25] MEDS ORDERED: CITALOPRAM 20 MG PO SCH (08:00)
[2020-07-25] MEDS ORDERED: ALOGLIPTIN 25 MG PO SCH (08:00)
--- NOTE | 2020-07-25 12:48 | PCM.DCSUM1 ---
Discharge Summary - Hospital Course Brief History: Patient was admitted to [facility] for elevated ammonia in the setting of patient's increased confusion, disorientation. Patient diagnosed the emergency department with hepatics encephalopathy and lactulose was increased from 30 mL to 45 mL 4 times a day. Nursing chart review shows patient increased mentation and coordination throughout the morning and increased ability to hold conversation noting that patient is pleasant, alert and oriented. Diagnosis: Stroke: No - Discharge Data Discharge Date: 07/25/20 Discharge Disposition: Home, Self-Care 01 Condition: Good - Referral to Home Health Primary Care Physician: PCP None - Discharge Diagnosis/Problem(s) (1) Hepatic encephalopathy SNOMED Code(s): 51748563 ICD Code: K72.90 - HEPATIC FAILURE, UNSPECIFIED WITHOUT COMA Status: Acute Priority: High Current Visit: Yes - Discharge Plan *PRESCRIPTION DRUG MONITORING PROGRAM REVIEWED*: Not Applicable *COPY OF PRESCRIPTION DRUG MONITORING REPORT IN PATIENT FATOU: Not Applicable Home Medications: Home Meds Multivitamin [Multi-Vitamin Daily] 1 each PO DAILY 01/29/15 [History] Alogliptin Benzoate [Alogliptin] 25 mg PO DAILY 08/20/19 [History] Citalopram [Citalopram HBr] 10 mg PO DAILY 08/20/19 [History] Insulin Aspart [NovoLOG] 6 units SUBCUT TIDMEALS 08/20/19 [History] Insulin Glargine,Hum.Rec.Anlog [Lantus Solostar] 18 units SUBCUT DAILY 08/20/19 [History] Magnesium Oxide 2 tab PO TID 08/20/19 [History] carvediloL [Coreg] 25 mg PO BID 08/20/19 [History] Lactulose 30 ml PO TID 08/28/19 [History] Albuterol Sulfate [Albuterol Sulfate Hfa] 2 puff INH QID PRN 10/20/19 [History] carvediloL [Carvedilol] 6.25 mg PO BID 10/20/19 [History] Aspirin [Halfprin] 81 mg PO DAILY tab.ec 06/24/20 [Rx] Ferrous Sulfate 325 mg PO 2000 tablet 06/24/20 [Rx] Rifaximin [Xifaxan] 550 mg PO TID #0 06/24/20 [Rx] lisinopriL [Prinivil] 20 mg PO DAILY tablet 06/24/20 [Rx] metFORMIN [Glucophage] 500 mg PO QID tablet 06/24/20 [Rx] Acetaminophen [Tylenol Extra Strength] 1,000 mg PO TID PRN 07/17/20 [History] Ascorbic Acid [Vitamin C] 500 mg PO DAILY 07/17/20 [History] Patient Handouts: Hepatic Encephalopathy Forms: ED Department Discharge Referrals: PCP,None [Primary Care Provider] - - Discharge Summary/Plan Comment DC Time >30 min.: Yes Discharge Summary/Plan Comment: Discharge home, please notify your primary care physician of the increase in your lactulose from 20g to 30 g. This means you need to take 45 mL 4 times a day to reach the appropriate dose. I also recommend ammonia levels weekly for the next 2 to 3 weeks if your symptoms remain stable, then you should have them taken biweekly. Today's ammonia level is in the 60s, our laboratory states normal is between 10- 30 but at pt's current level in 60s he is near his baseline. - General Info Date of Service: 07/25/20 Admission Dx/Problem (Free Text: Hepatic encephalopathy Subjective Update: Patient denies fever, chills, nausea, vomiting, dizziness, lightheadedness, unilateral weakness, generalized weakness, abdominal pain, diarrhea. Functional Status: Reports: Pain Controlled - Review of Systems General: Reports: No Symptoms Pulmonary: Reports: No Symptoms Cardiovascular: Reports: No Symptoms Gastrointestinal: Reports: No Symptoms Skin: Reports: No Symptoms Neurological: Reports: No Symptoms Psychiatric: Reports: No Symptoms - Patient Data Vitals - Most Recent: Last Vital Signs Temp 98.4 F 07/25/20 07:54 Pulse 66 07/25/20 07:54 Resp 16 07/25/20 07:54 BP 138/55 L 07/25/20 07:54 Pulse Ox 100 07/25/20 07:54 Weight - Most Recent: 265 lb 7 oz Lab Results - Last 24 hrs: Laboratory Results - last 24 hr 07/24/20 07/25/20 07/25/20 Range/Units 16:22 06:36 09:00 POC Glucose 103 115 H (74-110) mg/dL Ammonia 67 H (11-32) umol/L 07/25/20 Range/Units 10:43 POC Glucose 217 H (74-110) mg/dL Ammonia (11-32) umol/L PATRICK Results - Last 24 hrs: Microbiology 07/24/20 Unknown MRSA Surveillance Culture - Final Nasal, Unspecified NO MRSA ISOLATED Med Orders - Current: Current Medications Albuterol (Ventolin Hfa) 0 gm INH QID PRN PRN Reason: Dyspnea Lactulose 10 Gm/15 (Ml *Pt Own Med*) 0 each PO TID [facility] Last Admin: 07/25/20 07:39 Dose: 1 each Documented by: (Rifaximin [Xifaxan] (550 Mg)*Pt Own Med*) 0 each PO TID [facility] Last Admin: 07/25/20 07:48 Dose: 1 each Documented by: Pantoprazole 40 Mg (Tab.Cr*Pt Own Med*) 0 each PO ACBREAKFAST [facility] Last Admin: 07/25/20 07:41 Dose: 1 each Documented by: Carvedilol 25 Mg Tab (*Pt Own Med*) 0 each PO BID [facility] Last Admin: 07/25/20 07:44 Dose: 1 each Documented by: Carvedilol 6.25 Mg (Tab *Pt Own Med*) 0 each PO BID [facility] Last Admin: 07/25/20 07:47 Dose: 1 each Documented by: Magnesium 420 Mg Tab (*Pt Own Med*) 0 each PO TID [facility] Last Admin: 07/25/20 07:44 Dose: 2 each Documented by: Aspirin Ec 81 Mg *Pt (Own Med*) 0 each PO DAILY [facility] Last Admin: 07/25/20 07:41 Dose: 1 each Documented by: Ferrous Sulfate 325 (Mg Tab * Pt Own Med*) 0 each PO DAILY@1999 [facility] Last Admin: 07/24/20 19:28 Dose: 1 each Documented by: Metformin 500 Mg Tab (*Pt Own Med*) 0 each PO QID [facility] Last Admin: 07/25/20 11:36 Dose: 1 each Documented by: Novolog Flex-Pen *Pt (Own Med*) 0 each SUBCUT TIDMEALS [facility] Last Admin: 07/25/20 07:49 Dose: Not Given Documented by: Insulin Glargine *Pt (Own Med*) 0 each SUBCUT BEDTIME [facility] Last Admin: 07/24/20 19:36 Dose: 1 each Documented by: Vitamin C 500 Mg *Pt (Own Med*) 0 each PO DAILY [facility] Last Admin: 07/25/20 07:47 Dose: 1 each Documented by: One A Day Multivitamin *Pt Own Med* 1 each PO DAILY [facility] Last Admin: 07/25/20 07:42 Dose: 1 each Documented by: Lisnopril 40 Mg Tab (*Pt Own Med*) 0 each PO DAILY [facility] Last Admin: 07/25/20 07:43 Dose: 1 each Documented by: Alogliptin 25 Mg Tab (*Pt Own Med*) 0 each PO DAILY [facility] Last Admin: 07/25/20 07:42 Dose: 1 each Documented by: Citalopram 20 Mg Tab (*Pt Own Med*) 0 each PO DAILY [facility] Last Admin: 07/25/20 07:46 Dose: 1 each Documented by: Discontinued Medications Lactulose (Chronulac) 30 gm PO TID [facility] Last Admin: 07/24/20 14:50 Dose: 30 gm Documented by: Lactulose (Chronulac) 30 gm PO ONETIME ONE Stop: 07/24/20 10:01 Last Admin: 07/24/20 10:15 Dose: 30 gm Documented by: Non-Formulary Medication (Alogliptin Benzoate [Alogliptin]) 25 mg PO DAILY [facility] Last Admin: 07/24/20 15:15 Dose: Not Given Documented by: Non-Formulary Medication (Ascorbic Acid [Vitamin C]) 500 mg PO DAILY [facility] Last Admin: 07/24/20 15:15 Dose: Not Given Documented by: Non-Formulary Medication (Aspirin [Halfprin]) 81 mg PO DAILY [facility] Last Admin: 07/24/20 15:15 Dose: Not Given Documented by: Non-Formulary Medication (Carvedilol [Carvedilol]) 6.25 mg PO BID [facility] Last Admin: 07/24/20 15:15 Dose: Not Given Documented by: Non-Formulary Medication (Carvedilol [Coreg]) 25 mg PO BID [facility] Last Admin: 07/24/20 15:14 Dose: Not Given Documented by: Non-Formulary Medication (Citalopram [Citalopram Hbr]) 10 mg PO DAILY [facility] Last Admin: 07/24/20 15:14 Dose: Not Given Documented by: Non-Formulary Medication (Ferrous Sulfate [Ferrous Sulfate]) 325 mg PO 2000 [facility] Non-Formulary Medication (Insulin Aspart [Novolog]) 6 units SUBCUT TIDMEALS [facility] Last Admin: 07/24/20 15:13 Dose: Not Given Documented by: Non-Formulary Medication (Insulin Glargine,Hum.Rec.Anlog [Lantus Solostar]) 16 units SUBCUT BEDTIME [facility] Non-Formulary Medication (Lactulose [Lactulose]) 30 gm PO TID [facility] Last Admin: 07/24/20 15:24 Dose: Not Given Documented by: Non-Formulary Medication (Lisinopril [Prinivil]) 20 mg PO DAILY [facility] Last Admin: 07/24/20 15:14 Dose: Not Given Documented by: Non-Formulary Medication (Magnesium Oxide [Magnesium Oxide]) 2 tab PO TID [facility] Last Admin: 07/24/20 14:50 Dose: 2 tab Documented by: Non-Formulary Medication (Metformin [Glucophage]) 500 mg PO QID [facility] Last Admin: 07/24/20 15:14 Dose: Not Given Documented by: Non-Formulary Medication (Multivitamin [Multi-Vitamin Daily]) 1 each PO DAILY [facility] Last Admin: 07/24/20 15:14 Dose: Not Given Documented by: Non-Formulary Medication (Rifaximin [Xifaxan]) 550 mg PO TID [facility] Last Admin: 07/24/20 14:50 Dose: 550 mg Documented by: Pantoprazole Sodium (Protonix) 40 mg PO ACBREAKFAST [facility] Lisnopril 40 Mg Tab (*Pt Own Med*) 0 each PO DAILY [facility] Citalopram 20 Mg Tab (*Pt Own Med*) 0 each PO DAILY [facility] Alogliptin 25 Mg Tab (*Pt Own Med*) 0 each PO DAILY [facility] - Exam General: Reports: Alert, Oriented, Cooperative, No Acute Distress HEENT: Reports: Pupils Equal, Pupils Reactive, EOMI Lungs: Reports: Clear to Auscultation, Normal Respiratory Effort Cardiovascular: Reports: Regular Rate, Regular Rhythm, No Murmurs GI/Abdominal Exam: Soft, Non-Tender, No Mass Skin: Reports: Warm, Dry, Intact Neurological: Reports: No New Focal Deficit, Normal Gait, Normal Speech, Normal Tone, Strength Equal Bilateral, Sensation Intact, Cranial Nerves Intact Psy/Mental Status: Reports: Alert, Normal Affect, Normal Mood
[2020-07-25 13:17] VITALS: BP 127/54; PULSE 70
== END 2020-07-25 16:18 | disposition home or self-care (01) ==
LOC: LB.ED 08:20 → LB.MS 10:33
PROVIDERS: ADMIT Registered Nurse; ATTEND Family Medicine
DX: K72.90 Hepatic failure, unspecified without coma (principal); E78.00 Pure hypercholesterolemia, unspecified; I10 Essential (primary) hypertension; I25.2 Old myocardial infarction; F41.9 Anxiety disorder, unspecified; E11.9 Type 2 diabetes mellitus without complications; Z20.828 Contact with and (suspected) exposure to other viral communicable diseases; Z79.4 Long term (current) use of insulin; Z79.82 Long term (current) use of aspirin; Z95.5 Presence of coronary angioplasty implant and graft; Z88.8 Allergy status to other drugs, medicaments and biological substances; Z91.012 Allergy to eggs; Z91.02 Food additives allergy status; Z88.5 Allergy status to narcotic agent; Z79.899 Other long term (current) drug therapy
CPT/HCPCS: 36415; 80053; 82140; 82962; 85025; 87635; 96372; 99285; A9270; G0378; U0002

== ENCOUNTER 2020-08-11 11:06 | Observation (INO) | payer OTHER ==
[2020-08-11] MEDS ORDERED: Sodium Chloride 0.9% 1,000 ML IV ONE (11:51)
--- NOTE | 2020-08-11 13:10 | EDM.PDOC ---
ED HPI GENERAL MEDICAL PROBLEM - General Chief Complaint: General Stated Complaint: HIGH AMONIA LEVELS? Time Seen by Provider: 08/11/20 11:20 Source of Information: Reports: Patient History Limitations: Reports: No Limitations - History of Present Illness INITIAL COMMENTS - FREE TEXT/NARRATIVE: Patient is a 64 y/o male who presents to ED for confusion. He states his dropped him off and he isn't sure why he is here. Patient denies any fever, KING, vision changes, dizziness, chest pain, SOB, abd pain, N/V/D, or dysuria. PMHx significant for hepatic encephalopathy and has been admitted for this previously for high ammonia levels. - Related Data Allergies Allergy/AdvReac Type Severity Reaction Status Date / Time acetaminophen Allergy Change Verified 07/24/20 08:27 [From Darvocet-N 100] Mental Status cinnamon Allergy Cannot Verified 07/24/20 08:27 Remember egg Allergy Cannot Verified 07/24/20 08:27 Remember dontrell Allergy Other Verified 07/24/20 08:27 mustard Allergy Anaphylactic Verified 07/24/20 08:27 Shock propoxyphene napsylate Allergy Cannot Verified 07/24/20 08:27 [From Darvocet-N 100] Remember [id number]-Lgt Reductase Allergy Muscle Verified 07/24/20 08:27 Inhibitor Aches codeine AdvReac Change Verified 07/24/20 08:27 Mental Status indomethacin [From Indocin] AdvReac Change Verified 07/24/20 08:27 Mental Status indomethacin sodium AdvReac Change Verified 07/24/20 08:27 [From Indocin] Mental Status propoxyphene HCl AdvReac Change Verified 07/24/20 08:27 [From Darvon] Mental Status Home Meds: Home Meds Multivitamin [Multi-Vitamin Daily] 1 each PO DAILY 01/29/15 [History] Alogliptin Benzoate [Alogliptin] 25 mg PO DAILY 08/20/19 [History] Citalopram [Citalopram HBr] 10 mg PO DAILY 08/20/19 [History] Insulin Aspart [NovoLOG] 6 units SUBCUT TIDMEALS 08/20/19 [History] Insulin Glargine,Hum.Rec.Anlog [Lantus Solostar] 18 units SUBCUT DAILY 08/20/19 [History] Magnesium Oxide 2 tab PO TID 08/20/19 [History] carvediloL [Coreg] 25 mg PO BID 08/20/19 [History] Lactulose 45 ml PO QID 08/28/19 [History] Albuterol Sulfate [Albuterol Sulfate Hfa] 2 puff INH QID PRN 10/20/19 [History] carvediloL [Carvedilol] 6.25 mg PO BID 10/20/19 [History] Aspirin [Halfprin] 81 mg PO DAILY tab.ec 06/24/20 [Rx] Ferrous Sulfate 325 mg PO 2000 tablet 06/24/20 [Rx] Rifaximin [Xifaxan] 550 mg PO TID #0 06/24/20 [Rx] lisinopriL [Prinivil] 20 mg PO DAILY tablet 06/24/20 [Rx] metFORMIN [Glucophage] 500 mg PO QID tablet 06/24/20 [Rx] Acetaminophen [Tylenol Extra Strength] 1,000 mg PO TID PRN 07/17/20 [History] Ascorbic Acid [Vitamin C] 500 mg PO DAILY 07/17/20 [History] Albuterol [Ventolin HFA] 0 gm INH QID PRN inhaler 07/25/20 [Rx] Past Medical History HEENT History: Reports: Impaired Vision Other HEENT History: glasses Cardiovascular History: Reports: Angina, High Cholesterol, Hypertension, [place] Other Cardiovascular History: AICD stents July 2017 Respiratory History: Reports: SOB Other Respiratory History: dyspnea with exertion no sob or difficulty breathing at rest Gastrointestinal History: Reports: Cirrhosis, GERD, Hiatal Hernia, PUD Musculoskeletal History: Reports: Gout, Osteoarthritis Other Musculoskeletal History: Bilateral Knee Pain Neurological History: Reports: Other (See Below) Other Neuro History: AMS when ammonia level gets high Psychiatric History: Reports: Anxiety Endocrine/Metabolic History: Reports: Diabetes, Type II Hematologic History: Reports: Anemia - Infectious Disease History Infectious Disease History: Reports: Chicken Pox - Past Surgical History HEENT Surgical History: Reports: None Cardiovascular Surgical History: Reports: Coronary Artery Stent, Other (See Below) Other Cardiovascular Surgeries/Procedures: Internal Defibrillator Respiratory Surgical History: Reports: None GI Surgical History: Reports: Cholecystectomy Endocrine Surgical History: Reports: None Neurological Surgical History: Reports: None Musculoskeletal Surgical History: Reports: None - History Comment History Comment: Home Medications: Reviewed see EMR for details. Pertinent Medical History: Hepatic encephalopathy, cirrhosis, CAD, DM 2, asthma, [place] x2, depression, thrombocytopenia, esophageal varices, HTN, left heart catheterization times multiple, EGD, colonoscopy times multiple, cholecystectomy, ICD. Pertinent Social History: , quit smoking in 2001, up to that point smoked 3 packs/day for 10 years, quit drinking alcohol in 2004 Social & Family History - Family History Family Medical History: No Pertinent Family History - Caffeine Use Caffeine Use: Reports: None Other Caffeine Use: not reported - Recreational Drug Use Recreational Drug Use: No ED ROS GENERAL - Review of Systems Review Of Systems: See Below Constitutional: Reports: No Symptoms HEENT: Reports: No Symptoms Respiratory: Reports: No Symptoms Cardiovascular: Reports: No Symptoms Endocrine: Reports: No Symptoms GI/Abdominal: Reports: No Symptoms : Reports: No Symptoms Musculoskeletal: Reports: No Symptoms Skin: Reports: No Symptoms Neurological: Reports: No Symptoms Psychiatric: Reports: No Symptoms ED EXAM, GENERAL - Physical Exam Exam: See Below Exam Limited By: No Limitations General Appearance: Alert, No Apparent Distress Eye Exam: Bilateral Eye: PERRL Head: Atraumatic, Normocephalic Neck: Normal Inspection, Supple Respiratory/Chest: No Respiratory Distress, Lungs Clear, Normal Breath Sounds, No Accessory Muscle Use, Chest Non-Tender Cardiovascular: Normal Peripheral Pulses, Regular Rate, Rhythm, No Edema, No Murmur GI/Abdominal: Normal Bowel Sounds, Soft, Non-Tender, No Distention Extremities: Normal Inspection, Normal Range of Motion Neurological: Alert, Oriented, CN II-XII Intact, Normal Cognition, Normal Gait, No Motor/Sensory Deficits Psychiatric: Normal Affect, Normal Mood Skin Exam: Warm, Dry, Intact, Normal Color, No Rash Course - Vital Signs Text/Narrative:: Ammonia is 92 and patient was found by nursing squatting on the bed with his pants down, thinking he was on the toilet. Will admit to obs and give lactulose. E-hospitalist consulted. Patient denies following up from last visit with Dr. De Los Santos, but states he has been taking his lactulose as prescribed. Last Recorded V/S: Last Vital Signs Temp 37.3 C 08/11/20 11:37 Pulse 77 08/11/20 11:37 Resp 20 08/11/20 11:37 BP 146/86 H 08/11/20 11:37 Pulse Ox 99 08/11/20 11:37 - Orders/Labs/Meds Orders: Active Orders 24 hr Category Date Time Status CORONAVIRUS COVID-19 RAPID [MOLEC] Urgent Lab 08/11/20 13:02 Ordered Sodium Chloride 0.9% [Normal Saline] 1,000 ml Med 08/11/20 11:51 Active IV .BOLUS Medication Orders Sodium Chloride (Normal Saline) 1,000 mls @ 999 drops/hr IV .BOLUS ONE Stop: 08/12/20 02:51 Last Admin: 08/11/20 11:53 Dose: 999 drops/hr Documented by: KYAW Labs: Laboratory Tests 08/11/20 08/11/20 08/11/20 Range/Units 11:20 11:21 11:30 WBC 3.9 L (4.0-11.0) K/uL RBC 4.31 L (4.50-6.50) M/uL Hgb 13.3 (13.0-18.0) g/dL Hct 38.5 L (40.0-54.0) % MCV 89 (76-96) fL MCH 30.9 (27.0-32.0) pg MCHC 34.5 (31.0-35.0) g/dL RDW 15.0 (11.0-16.0) % Plt Count 75 L (150-400) K/uL MPV 11.1 H (6.0-10.0) fL Neut % (Auto) 74.4 H (45.0-70.0) % Lymph % (Auto) 12.7 L (20.0-40.0) % [place] % (Auto) 9.8 (3.0-10.0) % Eos % (Auto) 2.6 (1.0-5.0) % Baso % (Auto) 0.5 (0.0-0.5) % Neut # (Auto) 2.88 (2.00-7.50) K/uL Lymph # (Auto) 0.49 L (1.50-4.00) K/uL [place] # (Auto) 0.38 (0.20-0.80) K/uL Eos # (Auto) 0.10 (0.04-0.40) K/uL Baso # (Auto) 0.02 (0.02-0.10) K/uL Sodium 141 (136-145) mmol/L Potassium 4.7 (3.5-5.1) mmol/L Chloride 106 (98-107) mmol/L Carbon Dioxide 25.0 (21.0-32.0) mmol/L Anion Gap 14.7 (5.0-15.0) mmol/L BUN 14 (8-26) mg/dL Creatinine 1.17 (0.70-1.30) mg/dL Est Cr Clr Drug Dosing TNP Estimated GFR (MDRD) > 60 (>60) MLS/MIN BUN/Creatinine Ratio 12.0 (6-25) Glucose 155 H (74-100) mg/dL Calcium 8.5 (8.5-10.1) mg/dL Total Bilirubin 1.4 H (0.0-1.0) mg/dL AST 52 H (15-37) U/L ALT 54 (12-78) U/L Alkaline Phosphatase 146 H (46-116) U/L Ammonia 92 H (11-32) umol/L Total Protein 6.4 (6.4-8.2) g/dL Albumin 3.1 L (3.4-5.0) g/dL Globulin 3.3 (2.2-4.2) g/dL Albumin/Globulin Ratio 0.9 (0.8-2.0) Meds: Medications Generic Name Dose Route Start Last Admin Trade Name Freq PRN Reason Stop Dose Admin Sodium Chloride 1,000 mls @ 999 drops/hr 08/11/20 11:51 08/11/20 11:53 Normal Saline IV 08/12/20 02:51 999 drops/hr .BOLUS ONE Administration Departure - Departure Time of Disposition: 13:30 Disposition: Refer to Observation Condition: Good Clinical Impression: Hepatic encephalopathy - Discharge Information *PRESCRIPTION DRUG MONITORING PROGRAM REVIEWED*: Not Applicable *COPY OF PRESCRIPTION DRUG MONITORING REPORT IN PATIENT FATOU: Not Applicable Referrals: PCP,None [Primary Care Provider] - Sepsis Event Note (ED) - Evaluation Sepsis Screening Result: No Definite Risk - Focused Exam Vital Signs: Vital Signs Temp Pulse Resp BP Pulse Ox 08/11/20 11:37 37.3 C 77 20 146/86 H 99 - My Orders Last 24 Hours: My Active Orders 08/11/20 11:51 Sodium Chloride 0.9% [Normal Saline] 1,000 ml IV .BOLUS 08/11/20 13:02 CORONAVIRUS COVID-19 RAPID [MOLEC] Urgent - Assessment/Plan Last 24 Hours: My Active Orders 08/11/20 11:51 Sodium Chloride 0.9% [Normal Saline] 1,000 ml IV .BOLUS 08/11/20 13:02 CORONAVIRUS COVID-19 RAPID [MOLEC] Urgent
[2020-08-11] MEDS ORDERED: Acetaminophen 325 MG Tab PO PRN (13:11)
[2020-08-11] MEDS: Lactulose Soln 10 GM/15 ML 15 ML UD Cup PO SCH ×3 (13:31→19:33)
[2020-08-11] MEDS ORDERED: Lactulose Soln 10 GM/15 ML 15 ML UD Cup ONE (13:34)
--- NOTE | 2020-08-11 15:14 | PCM.TH.SN ---
- Free Text/Narrative Note: This history was taken from the chart, local provider and patient by video encounter. Patient is 64-year-old gentleman. Patient has significant past medical history of hepatic cirrhosis, history of hepatic encephalitis. Patient has history of multiple admissions for hepatic encephalopathy normally brought on by noncompliance with his home lactulose. Patient was dropped to the ED by his today due to confusion. When I saw patient he reported confusion today but was oriented x3. Apparently in the ED patient was similar but would get confused when asked to go to the bathroom. In the ED ammonia was found to be in the 90s. Patient restarted on his home dose of lactulose which he says he has been compliant with. Past medical, surgical, social history: Reviewed in EMR Exam (performed via interactive video with assistance of bedside nurse): General: alert, cooperative, no acute distress Lungs: clear to auscultation bilaterally without crackle or wheeze CV: regular rate and rhythm without loud murmur rub or gallop Abd: bowel sounds present, denies tenderness and does not exhibit signs of pain with palpation done by bedside nurse Ext: no pitting edema noted Assessment and plan: Acute hepatic encephalopathy likely secondary to medication noncompliance: -Continue lactulose at home dose. -Continue to aim for 2-4 bowel movements a day -Mentation does appear slightly improved, continue to trend -Patient reports that he does take rifaximin, continue this at home and recommend close PCP follow-up Discussed with local provider, thank you for consulting me care for the care of this patient, please call as needed for assistance. TeleHealth - TeleHealth Patient Service Facility: [facility] Informed Consent: Telemedicine Audio/Visual Informed Consent: The risks, benefits, and alternatives to the telehealth visit were explained to the patient and the patient consented to this modality of care. The telehealth visit was carried out via a secure, web-based conferencing system. This telemedicine service was a real-time, two-way interactive video and communication between the patient and the provider. All the parties involved were identified and approved by the patient prior to the visit. Any physical exam was assisted by the patient. Unless noted otherwise, the provider was located at their usual clinic location, and the patient was at their place of residence. Patient identity was confirmed by having the patient state their name and date of . All communications with the patient (verbal, audiovisual, and written) were documented in the patients medical record per documentation standards.
[2020-08-11] MEDS ORDERED: Magnesium Oxide 400 MG Tab ONE (16:43)
[2020-08-11] MEDS ORDERED: Rifaximin 550 MG Tab ONE (16:43)
[2020-08-11] MEDS: Magnesium Oxide 400 MG Tab PO SCH ×2 (16:43→19:17)
[2020-08-11] MEDS: Rifaximin 550 MG Tab PO SCH ×2 (16:43→19:17)
[2020-08-11] MEDS: Carvedilol 25 MG Tab PO SCH (19:27)
[2020-08-11] MEDS: Carvedilol 6.25 MG Tab PO SCH (19:28)
[2020-08-11] MEDS ORDERED: metFORMIN 500 MG Tab PO SCH (20:00)
[2020-08-11] MEDS ORDERED: Glucagon,Human Recombinant 1 MG Vial IM PRN (22:19)
[2020-08-11] MEDS ORDERED: 50% Dextrose in Water 50 ML Syringe IVPUSH PRN (22:19)
[2020-08-12] MEDS ORDERED: Pantoprazole 40 MG Tab.CR PO SCH (07:00)
[2020-08-12 07:38] VITALS: BP 132/73
[2020-08-12] MEDS ORDERED: ALOGLIPTIN 25 MG PO SCH (08:00)
[2020-08-12] MEDS ORDERED: Aspirin 81 MG Tab.EC PO SCH (08:00)
[2020-08-12] MEDS ORDERED: Ascorbic Acid 500 MG Tab PO SCH (08:00)
[2020-08-12] MEDS ORDERED: Lactulose Soln 10 GM/15 ML 15 ML UD Cup PO SCH (08:00)
[2020-08-12] MEDS ORDERED: Multivitamins with Iron/Calcium/Folic Acid/Minerals Tab PO SCH (08:00)
[2020-08-12] MEDS ORDERED: metFORMIN 500 MG Tab PO SCH (08:00)
[2020-08-12] MEDS ORDERED: Citalopram 20 MG Tab PO SCH (08:00)
[2020-08-12] MEDS ORDERED: Insulin Aspart 100 Units/ML 3 ML Pen SUBCUT SCH (08:00)
[2020-08-12] MEDS ORDERED: Ferrous Sulfate 325 MG Tab PO SCH (08:00)
[2020-08-12] MEDS: Magnesium Oxide 400 MG Tab PO SCH (08:12)
[2020-08-12] MEDS: Carvedilol 25 MG Tab PO SCH (08:12)
[2020-08-12] MEDS: Rifaximin 550 MG Tab PO SCH (08:13)
[2020-08-12] MEDS: Carvedilol 6.25 MG Tab PO SCH (08:13)
[2020-08-12 08:19] VITALS: PULSE 67
--- NOTE | 2020-08-12 10:39 | PCM.DCSUM1 ---
Discharge Summary - Discharge Data Discharge Date: 08/12/20 Discharge Disposition: Home, Self-Care 01 Condition: Good - Referral to Home Health Primary Care Physician: PCP None - Patient Instructions Diet: Usual Diet as Tolerated, Diabetic Diet Activity: As Tolerated Driving: May Drive Today - Discharge Plan *PRESCRIPTION DRUG MONITORING PROGRAM REVIEWED*: Not Applicable *COPY OF PRESCRIPTION DRUG MONITORING REPORT IN PATIENT FATOU: Not Applicable Home Medications: Home Meds Multivitamin [Multi-Vitamin Daily] 1 each PO DAILY 01/29/15 [History] Alogliptin Benzoate [Alogliptin] 25 mg PO DAILY 08/20/19 [History] Citalopram [Citalopram HBr] 10 mg PO DAILY 08/20/19 [History] Insulin Aspart [NovoLOG] 6 units SUBCUT TIDMEALS 08/20/19 [History] Insulin Glargine,Hum.Rec.Anlog [Lantus Solostar] 16 units SUBCUT DAILY 08/20/19 [History] Magnesium Oxide 2 tab PO TID 08/20/19 [History] carvediloL [Coreg] 25 mg PO BID 08/20/19 [History] Lactulose 60 ml PO QID 08/28/19 [History] Albuterol Sulfate [Albuterol Sulfate Hfa] 2 puff INH QID PRN 10/20/19 [History] carvediloL [Carvedilol] 6.25 mg PO BID 10/20/19 [History] Aspirin [Halfprin] 81 mg PO DAILY tab.ec 06/24/20 [Rx] Ferrous Sulfate 325 mg PO 2000 tablet 06/24/20 [Rx] Rifaximin [Xifaxan] 550 mg PO TID #0 06/24/20 [Rx] lisinopriL [Prinivil] 20 mg PO DAILY tablet 06/24/20 [Rx] metFORMIN [Glucophage] 500 mg PO QID tablet 06/24/20 [Rx] Acetaminophen [Tylenol Extra Strength] 1,000 mg PO TID PRN 07/17/20 [History] Ascorbic Acid [Vitamin C] 500 mg PO DAILY 07/17/20 [History] Albuterol [Ventolin HFA] 0 gm INH QID PRN inhaler 07/25/20 [Rx] Patient Handouts: Hepatic Encephalopathy Referrals: PCP,None [Primary Care Provider] - - Discharge Summary/Plan Comment DC Time >30 min.: No Discharge Summary/Plan Comment: Counseled on adjusting his lactulose use and compliance. Discussed continued f/u of his Ammonia levels. Discussed close f/u and rtc or ER if symptoms return. - General Info Date of Service: 08/12/20 Functional Status: Reports: Tolerating Diet, Ambulating - Review of Systems General: Reports: No Symptoms HEENT: Reports: No Symptoms Pulmonary: Reports: No Symptoms Cardiovascular: Reports: No Symptoms Neurological: Reports: No Symptoms Psychiatric: Reports: No Symptoms - Patient Data Vitals - Most Recent: Last Vital Signs Temp 36.9 C 08/12/20 07:37 Pulse 67 08/12/20 08:13 Resp 16 08/12/20 07:37 BP 132/73 08/12/20 08:13 Pulse Ox 99 08/12/20 07:37 Lab Results - Last 24 hrs: Laboratory Results - last 24 hr 08/11/20 08/11/20 08/11/20 Range/Units 11:20 11:21 11:30 WBC 3.9 L (4.0-11.0) K/uL RBC 4.31 L (4.50-6.50) M/uL Hgb 13.3 (13.0-18.0) g/dL Hct 38.5 L (40.0-54.0) % MCV 89 (76-96) fL MCH 30.9 (27.0-32.0) pg MCHC 34.5 (31.0-35.0) g/dL RDW 15.0 (11.0-16.0) % Plt Count 75 L (150-400) K/uL MPV 11.1 H (6.0-10.0) fL Neut % (Auto) 74.4 H (45.0-70.0) % Lymph % (Auto) 12.7 L (20.0-40.0) % [place] % (Auto) 9.8 (3.0-10.0) % Eos % (Auto) 2.6 (1.0-5.0) % Baso % (Auto) 0.5 (0.0-0.5) % Neut # (Auto) 2.88 (2.00-7.50) K/uL Lymph # (Auto) 0.49 L (1.50-4.00) K/uL [place] # (Auto) 0.38 (0.20-0.80) K/uL Eos # (Auto) 0.10 (0.04-0.40) K/uL Baso # (Auto) 0.02 (0.02-0.10) K/uL Sodium 141 (136-145) mmol/L Potassium 4.7 (3.5-5.1) mmol/L Chloride 106 (98-107) mmol/L Carbon Dioxide 25.0 (21.0-32.0) mmol/L Anion Gap 14.7 (5.0-15.0) mmol/L BUN 14 (8-26) mg/dL Creatinine 1.17 (0.70-1.30) mg/dL Est Cr Clr Drug Dosing TNP Estimated GFR (MDRD) > 60 (>60) MLS/MIN BUN/Creatinine Ratio 12.0 (6-25) Glucose 155 H (74-100) mg/dL POC Glucose (74-110) mg/dL Calcium 8.5 (8.5-10.1) mg/dL Total Bilirubin 1.4 H (0.0-1.0) mg/dL AST 52 H (15-37) U/L ALT 54 (12-78) U/L Alkaline Phosphatase 146 H (46-116) U/L Ammonia 92 H (11-32) umol/L Total Protein 6.4 (6.4-8.2) g/dL Albumin 3.1 L (3.4-5.0) g/dL Globulin 3.3 (2.2-4.2) g/dL Albumin/Globulin Ratio 0.9 (0.8-2.0) SARS-CoV-2 RNA (MCKAYLA) (NEGATIVE) 08/11/20 08/11/20 08/11/20 Range/Units 13:00 20:16 22:56 WBC (4.0-11.0) K/uL RBC (4.50-6.50) M/uL Hgb (13.0-18.0) g/dL Hct (40.0-54.0) % MCV (76-96) fL MCH (27.0-32.0) pg MCHC (31.0-35.0) g/dL RDW (11.0-16.0) % Plt Count (150-400) K/uL MPV (6.0-10.0) fL Neut % (Auto) (45.0-70.0) % Lymph % (Auto) (20.0-40.0) % [place] % (Auto) (3.0-10.0) % Eos % (Auto) (1.0-5.0) % Baso % (Auto) (0.0-0.5) % Neut # (Auto) (2.00-7.50) K/uL Lymph # (Auto) (1.50-4.00) K/uL [place] # (Auto) (0.20-0.80) K/uL Eos # (Auto) (0.04-0.40) K/uL Baso # (Auto) (0.02-0.10) K/uL Sodium (136-145) mmol/L Potassium (3.5-5.1) mmol/L Chloride (98-107) mmol/L Carbon Dioxide (21.0-32.0) mmol/L Anion Gap (5.0-15.0) mmol/L BUN (8-26) mg/dL Creatinine (0.70-1.30) mg/dL Est Cr Clr Drug Dosing Estimated GFR (MDRD) (>60) MLS/MIN BUN/Creatinine Ratio (6-25) Glucose (74-100) mg/dL POC Glucose 99 82 (74-110) mg/dL Calcium (8.5-10.1) mg/dL Total Bilirubin (0.0-1.0) mg/dL AST (15-37) U/L ALT (12-78) U/L Alkaline Phosphatase (46-116) U/L Ammonia (11-32) umol/L Total Protein (6.4-8.2) g/dL Albumin (3.4-5.0) g/dL Globulin (2.2-4.2) g/dL Albumin/Globulin Ratio (0.8-2.0) SARS-CoV-2 RNA (MCKAYLA) Negative (NEGATIVE) 08/12/20 08/12/20 08/12/20 Range/Units 01:02 06:31 07:40 WBC (4.0-11.0) K/uL RBC (4.50-6.50) M/uL Hgb (13.0-18.0) g/dL Hct (40.0-54.0) % MCV (76-96) fL MCH (27.0-32.0) pg MCHC (31.0-35.0) g/dL RDW (11.0-16.0) % Plt Count (150-400) K/uL MPV (6.0-10.0) fL Neut % (Auto) (45.0-70.0) % Lymph % (Auto) (20.0-40.0) % [place] % (Auto) (3.0-10.0) % Eos % (Auto) (1.0-5.0) % Baso % (Auto) (0.0-0.5) % Neut # (Auto) (2.00-7.50) K/uL Lymph # (Auto) (1.50-4.00) K/uL [place] # (Auto) (0.20-0.80) K/uL Eos # (Auto) (0.04-0.40) K/uL Baso # (Auto) (0.02-0.10) K/uL Sodium (136-145) mmol/L Potassium (3.5-5.1) mmol/L Chloride (98-107) mmol/L Carbon Dioxide (21.0-32.0) mmol/L Anion Gap (5.0-15.0) mmol/L BUN (8-26) mg/dL Creatinine (0.70-1.30) mg/dL Est Cr Clr Drug Dosing Estimated GFR (MDRD) (>60) MLS/MIN BUN/Creatinine Ratio (6-25) Glucose (74-100) mg/dL POC Glucose 115 H 124 H (74-110) mg/dL Calcium (8.5-10.1) mg/dL Total Bilirubin (0.0-1.0) mg/dL AST (15-37) U/L ALT (12-78) U/L Alkaline Phosphatase (46-116) U/L Ammonia 114 H (11-32) umol/L Total Protein (6.4-8.2) g/dL Albumin (3.4-5.0) g/dL Globulin (2.2-4.2) g/dL Albumin/Globulin Ratio (0.8-2.0) SARS-CoV-2 RNA (MCKAYLA) (NEGATIVE) Med Orders - Current: Current Medications Acetaminophen (Tylenol) 650 mg PO Q4H PRN PRN Reason: Pain (Mild 1-3)/fever Ascorbic Acid (Vitamin C) 500 mg PO DAILY [facility] Last Admin: 08/12/20 08:13 Dose: 500 mg Documented by: Aspirin (Halfprin) 81 mg PO DAILY [facility] Last Admin: 08/12/20 08:11 Dose: 81 mg Documented by: Carvedilol (Coreg) 6.25 mg PO BID [facility] Last Admin: 08/12/20 08:13 Dose: 6.25 mg Documented by: Carvedilol (Coreg) 25 mg PO BID [facility] Last Admin: 08/12/20 08:12 Dose: 25 mg Documented by: Citalopram Hydrobromide (Celexa) 10 mg PO DAILY [facility] Last Admin: 08/12/20 08:12 Dose: 10 mg Documented by: Dextrose/Water (Dextrose 50% In Water) 50 ml IVPUSH ASDIRECTED PRN PRN Reason: Hypoglycemia Ferrous Sulfate (Ferrous Sulfate) 325 mg PO DAILY [facility] Last Admin: 08/12/20 08:13 Dose: 325 mg Documented by: Glucagon (Glucagen) 1 mg IM ASDIRECTED PRN PRN Reason: Hypoglycemia Insulin Aspart (Novolog) 6 unit SUBCUT TIDMEALS [facility] Last Admin: 08/12/20 08:15 Dose: 6 units Documented by: Insulin Glargine (Lantus Solostar) 16 units SUBCUT BEDTIME [facility] Lactulose (Chronulac) 30 gm PO QID [facility] Last Admin: 08/12/20 08:14 Dose: 30 gm Documented by: Magnesium Oxide (Magnesium Oxide) 800 mg PO TID [facility] Last Admin: 08/12/20 08:12 Dose: 800 mg Documented by: Metformin HCl (Glucophage) 500 mg PO QID [facility] Last Admin: 08/12/20 08:19 Dose: 500 mg Documented by: Multivitamins/Minerals (Thera M Plus) 1 tab PO DAILY [facility] Last Admin: 08/12/20 08:14 Dose: 1 tab Documented by: Alogliptin 25mg (Tablets) 1 each PO DAILY [facility] Last Admin: 08/12/20 08:14 Dose: 1 each Documented by: Pantoprazole Sodium (Protonix) 40 mg PO ACBREAKFAST [facility] Last Admin: 08/12/20 06:31 Dose: 40 mg Documented by: Rifaximin (Xifaxan) 550 mg PO TID [facility] Last Admin: 08/12/20 08:13 Dose: 550 mg Documented by: Discontinued Medications Sodium Chloride (Normal Saline) 1,000 mls @ 999 drops/hr IV .BOLUS ONE Stop: 08/12/20 02:51 Last Admin: 08/11/20 11:53 Dose: 999 drops/hr Documented by: Lactulose (Chronulac) 45 gm PO QID [facility] Last Admin: 08/11/20 19:33 Dose: 45 gm Documented by: Lactulose (Chronulac) Confirm Administered Dose 50 gm .ROUTE .STK-MED ONE Stop: 08/11/20 13:35 Last Admin: 08/11/20 18:06 Dose: Not Given Documented by: Magnesium Oxide (Magnesium Oxide) Confirm Administered Dose 800 mg .ROUTE .STK- MED ONE Stop: 08/11/20 16:44 Last Admin: 08/11/20 18:06 Dose: Not Given Documented by: Metformin HCl (Glucophage) 1,000 mg PO BID [facility] Last Admin: 08/11/20 19:16 Dose: 1,000 mg Documented by: Rifaximin (Xifaxan) Confirm Administered Dose 550 mg .ROUTE .STK-MED ONE Stop: 08/11/20 16:44 Last Admin: 08/11/20 18:06 Dose: Not Given Documented by: - Exam General: Reports: Alert, Oriented, Cooperative HEENT: Reports: Pupils Equal, Pupils Reactive, EOMI Neck: Reports: Supple Lungs: Reports: Clear to Auscultation, Normal Respiratory Effort Cardiovascular: Reports: Regular Rate, Regular Rhythm Back Exam: Reports: Normal Inspection Extremities: Normal Inspection Neurological: Reports: No New Focal Deficit Psy/Mental Status: Reports: Alert, Normal Affect, Normal Mood
[2020-08-12] MEDS ORDERED: Insulin Glargine,Human Rec. Analog 100 Units/ML 3 ML Pen SUBCUT SCH (20:00)
== END 2020-08-12 10:10 | disposition home or self-care (01) ==
LOC: LB.ED 11:06 → LB.MS 13:11
PROVIDERS: ADMIT Physician Assistant; ATTEND Physician Assistant
DX: K72.90 Hepatic failure, unspecified without coma (principal); E78.00 Pure hypercholesterolemia, unspecified; I10 Essential (primary) hypertension; I25.2 Old myocardial infarction; E11.9 Type 2 diabetes mellitus without complications; F41.9 Anxiety disorder, unspecified; Z20.828 Contact with and (suspected) exposure to other viral communicable diseases; Z90.49 Acquired absence of other specified parts of digestive tract; Z87.891 Personal history of nicotine dependence; Z88.8 Allergy status to other drugs, medicaments and biological substances; Z91.012 Allergy to eggs; Z91.018 Allergy to other foods; Z88.5 Allergy status to narcotic agent; Z79.899 Other long term (current) drug therapy; Z95.810 Presence of automatic (implantable) cardiac defibrillator; Z79.82 Long term (current) use of aspirin; Z79.4 Long term (current) use of insulin; Z95.5 Presence of coronary angioplasty implant and graft
CPT/HCPCS: 36415; 80053; 82140; 82962; 85025; 87070; 96360; 99217; 99219; 99285-25; A9270-GY; J7030; U0002

== ENCOUNTER 2020-10-26 12:52 | Emergency (ER) | payer OTHER ==
--- NOTE | 2020-10-26 13:27 | EDM.PDOC ---
ED HPI GENERAL MEDICAL PROBLEM - General Chief Complaint: General Stated Complaint: PAIN Time Seen by Provider: 10/26/20 13:00 Source of Information: Reports: Patient History Limitations: Reports: No Limitations - History of Present Illness INITIAL COMMENTS - FREE TEXT/NARRATIVE: patient with a h/o hepatic encephalopathy who presented to the ER by ambulance due to concerns for altered mental status, reported by his .. already on lactulose and rifampin for a h/o hepatic encephalopathy. patient has a similar history in the past - multiple episodes of non-compliance to medications. Patient reports to me that he is feeling fine and doesn't think he is confused. no fever or chills, but patient reports that he had some cough lately. never been tested for COVID. No diarrhea. No abd pain. good appetite. Denies ETOH consumption. - Related Data Allergies Allergy/AdvReac Type Severity Reaction Status Date / Time acetaminophen Allergy Change Verified 07/24/20 08:27 [From Darvocet-N 100] Mental Status cinnamon Allergy Cannot Verified 07/24/20 08:27 Remember egg Allergy Cannot Verified 07/24/20 08:27 Remember dontrell Allergy Other Verified 07/24/20 08:27 mustard Allergy Anaphylactic Verified 07/24/20 08:27 Shock propoxyphene napsylate Allergy Cannot Verified 07/24/20 08:27 [From Darvocet-N 100] Remember Qplyatv-Eow-Bun Reductase Allergy Muscle Verified 07/24/20 08:27 Inhibitor Aches codeine AdvReac Change Verified 07/24/20 08:27 Mental Status indomethacin [From Indocin] AdvReac Change Verified 07/24/20 08:27 Mental Status indomethacin sodium AdvReac Change Verified 07/24/20 08:27 [From Indocin] Mental Status propoxyphene HCl AdvReac Change Verified 07/24/20 08:27 [From Darvon] Mental Status Home Meds: Home Meds Multivitamin [Multi-Vitamin Daily] 1 each PO DAILY 01/29/15 [History] Alogliptin Benzoate [Alogliptin] 25 mg PO DAILY 08/20/19 [History] Citalopram [Citalopram HBr] 10 mg PO DAILY 08/20/19 [History] Insulin Aspart [NovoLOG] 6 units SUBCUT TIDMEALS 08/20/19 [History] Insulin Glargine,Hum.Rec.Anlog [Lantus Solostar] 16 units SUBCUT DAILY 08/20/19 [History] Magnesium Oxide 2 tab PO TID 08/20/19 [History] carvediloL [Coreg] 25 mg PO BID 08/20/19 [History] Lactulose 60 ml PO QID 08/28/19 [History] Albuterol Sulfate [Albuterol Sulfate Hfa] 2 puff INH QID PRN 10/20/19 [History] carvediloL [Carvedilol] 6.25 mg PO BID 10/20/19 [History] Aspirin [Halfprin] 81 mg PO DAILY tab.ec 06/24/20 [Rx] Ferrous Sulfate 325 mg PO 2000 tablet 06/24/20 [Rx] Rifaximin [Xifaxan] 550 mg PO TID #0 06/24/20 [Rx] lisinopriL [Prinivil] 20 mg PO DAILY tablet 06/24/20 [Rx] metFORMIN [Glucophage] 500 mg PO QID tablet 06/24/20 [Rx] Acetaminophen [Tylenol Extra Strength] 1,000 mg PO TID PRN 07/17/20 [History] Ascorbic Acid [Vitamin C] 500 mg PO DAILY 07/17/20 [History] Albuterol [Ventolin HFA] 0 gm INH QID PRN inhaler 07/25/20 [Rx] Past Medical History HEENT History: Reports: Impaired Vision Other HEENT History: glasses Cardiovascular History: Reports: Angina, High Cholesterol, Hypertension, [place] Other Cardiovascular History: AICD stents July 2017 Respiratory History: Reports: SOB Other Respiratory History: dyspnea with exertion no sob or difficulty breathing at rest Gastrointestinal History: Reports: Cirrhosis, GERD, Hiatal Hernia, PUD Musculoskeletal History: Reports: Gout, Osteoarthritis Other Musculoskeletal History: Bilateral Knee Pain Neurological History: Reports: Other (See Below) Other Neuro History: AMS when ammonia level gets high Psychiatric History: Reports: Anxiety Endocrine/Metabolic History: Reports: Diabetes, Type II Hematologic History: Reports: Anemia - Infectious Disease History Infectious Disease History: Reports: Chicken Pox - Past Surgical History HEENT Surgical History: Reports: None Cardiovascular Surgical History: Reports: Coronary Artery Stent, Other (See Below) Other Cardiovascular Surgeries/Procedures: Internal Defibrillator Respiratory Surgical History: Reports: None GI Surgical History: Reports: Cholecystectomy Endocrine Surgical History: Reports: None Neurological Surgical History: Reports: None Musculoskeletal Surgical History: Reports: None - History Comment History Comment: Home Medications: Reviewed see EMR for details. Pertinent Medical History: Hepatic encephalopathy, cirrhosis, CAD, DM 2, asthma, [place] x2, depression, thrombocytopenia, esophageal varices, HTN, left heart catheterization times multiple, EGD, colonoscopy times multiple, cholecystectomy, ICD. Pertinent Social History: , quit smoking in 2001, up to that point smoked 3 packs/day for 10 years, quit drinking alcohol in 2004 Social & Family History - Family History Family Medical History: No Pertinent Family History - Caffeine Use Caffeine Use: Reports: None Other Caffeine Use: not reported ED ROS GENERAL - Review of Systems Review Of Systems: See Below Constitutional: Reports: No Symptoms HEENT: Reports: No Symptoms Respiratory: Reports: No Symptoms. Denies: Shortness of Breath, Wheezing Cardiovascular: Reports: No Symptoms GI/Abdominal: Reports: No Symptoms. Denies: Abdominal Pain Musculoskeletal: Reports: No Symptoms Skin: Reports: No Symptoms Neurological: Reports: No Symptoms ED EXAM, GENERAL - Physical Exam Exam: See Below Exam Limited By: No Limitations General Appearance: Alert, No Apparent Distress. No: Anxious, Lethargic, Obtunded Eye Exam: Bilateral Eye: EOMI, Other (no jaundice seen) Head: Atraumatic, Normocephalic Neck: Normal Inspection Respiratory/Chest: No Respiratory Distress, Lungs Clear Cardiovascular: Normal Peripheral Pulses GI/Abdominal: Normal Bowel Sounds, Soft, Non-Tender, No Distention. No: Rigid, Rebound, Tender Extremities: Normal Inspection Neurological: Alert, Oriented, No Motor/Sensory Deficits Psychiatric: Normal Affect, Normal Mood. No: Anxious Skin Exam: Warm Course - Vital Signs Last Recorded V/S: Last Vital Signs Temp 37.3 C 10/26/20 12:52 Pulse 69 10/26/20 12:52 Resp 18 10/26/20 12:52 BP 133/66 10/26/20 12:52 Pulse Ox 98 10/26/20 12:52 - Orders/Labs/Meds Orders: Active Orders 24 hr Category Date Time Status Lactated Ringers [Ringers, Lactated] 500 ml Med 10/26/20 14:15 Active IV .BOLUS Medication Orders Lactated Ringer's (Ringers, Lactated) 500 mls @ 100 mls/hr IV .BOLUS FATOU Last Admin: 10/26/20 14:19 Dose: 100 mls/hr Documented by: AMNA Labs: Laboratory Tests 10/26/20 10/26/20 10/26/20 Range/Units 13:17 13:17 13:17 WBC 4.8 D (4.0-11.0) K/uL RBC 4.79 (4.50-6.50) M/uL Hgb 14.6 (13.0-18.0) g/dL Hct 41.7 (40.0-54.0) % MCV 87 (76-96) fL MCH 30.5 (27.0-32.0) pg MCHC 35.0 (31.0-35.0) g/dL RDW 15.4 (11.0-16.0) % Plt Count 91 L D (150-400) K/uL MPV 11.5 H (6.0-10.0) fL Sodium 143 (136-145) mmol/L Potassium 4.9 (3.5-5.1) mmol/L Chloride 107 (98-107) mmol/L Carbon Dioxide 26.0 (21.0-32.0) mmol/L Anion Gap 14.9 (5.0-15.0) mmol/L BUN 15 (8-26) mg/dL Creatinine 1.25 (0.70-1.30) mg/dL Est Cr Clr Drug Dosing TNP Estimated GFR (MDRD) 58 L (>60) MLS/MIN BUN/Creatinine Ratio 12.0 (6-25) Glucose 139 H (74-100) mg/dL Hemoglobin A1c (< 5.7) % Calcium 8.6 (8.5-10.1) mg/dL Total Bilirubin 2.0 H D (0.0-1.0) mg/dL AST 56 H (15-37) U/L ALT 49 (12-78) U/L Alkaline Phosphatase 153 H (46-116) U/L Ammonia 66 H (11-32) umol/L Total Protein 7.0 (6.4-8.2) g/dL Albumin 3.1 L (3.4-5.0) g/dL Globulin 3.9 (2.2-4.2) g/dL Albumin/Globulin Ratio 0.8 (0.8-2.0) Urine Color Urine Appearance (CLEAR) Urine pH (5.0-8.0) Ur Specific [place] (1.003-1.030) Urine Protein (NEGATIVE) mg/dL Urine Glucose (UA) (NEGATIVE) mg/dL Urine Ketones (NEGATIVE) mg/dL Urine Occult Blood (NEGATIVE) Urine Nitrite (NEGATIVE) Urine Bilirubin (NEGATIVE) Urine Urobilinogen (0.2-1.0) E.U./dL Ur Leukocyte Esterase (NEGATIVE) SARS CoV-2 RNA Rapid MCKAYLA 10/26/20 10/26/20 10/26/20 Range/Units 13:21 13:30 14:14 WBC (4.0-11.0) K/uL RBC (4.50-6.50) M/uL Hgb (13.0-18.0) g/dL Hct (40.0-54.0) % MCV (76-96) fL MCH (27.0-32.0) pg MCHC (31.0-35.0) g/dL RDW (11.0-16.0) % Plt Count (150-400) K/uL MPV (6.0-10.0) fL Sodium (136-145) mmol/L Potassium (3.5-5.1) mmol/L Chloride (98-107) mmol/L Carbon Dioxide (21.0-32.0) mmol/L Anion Gap (5.0-15.0) mmol/L BUN (8-26) mg/dL Creatinine (0.70-1.30) mg/dL Est Cr Clr Drug Dosing Estimated GFR (MDRD) (>60) MLS/MIN BUN/Creatinine Ratio (6-25) Glucose (74-100) mg/dL Hemoglobin A1c 6.4 H (< 5.7) % Calcium (8.5-10.1) mg/dL Total Bilirubin (0.0-1.0) mg/dL AST (15-37) U/L ALT (12-78) U/L Alkaline Phosphatase (46-116) U/L Ammonia (11-32) umol/L Total Protein (6.4-8.2) g/dL Albumin (3.4-5.0) g/dL Globulin (2.2-4.2) g/dL Albumin/Globulin Ratio (0.8-2.0) Urine Color Yellow Urine Appearance Clear (CLEAR) Urine pH 7.0 (5.0-8.0) Ur Specific [place] 1.025 (1.003-1.030) Urine Protein Negative (NEGATIVE) mg/dL Urine Glucose (UA) Negative (NEGATIVE) mg/dL Urine Ketones Negative (NEGATIVE) mg/dL Urine Occult Blood Trace-intact H (NEGATIVE) Urine Nitrite Negative (NEGATIVE) Urine Bilirubin Negative (NEGATIVE) Urine Urobilinogen 1.0 (0.2-1.0) E.U./dL Ur Leukocyte Esterase Negative (NEGATIVE) SARS CoV-2 RNA Rapid MCKAYLA Negative Meds: Medications Generic Name Dose Route Start Last Admin Trade Name Freq PRN Reason Stop Dose Admin Lactated Ringer's 500 mls @ 100 mls/hr 10/26/20 14:15 10/26/20 14:19 Ringers, Lactated IV 100 mls/hr .BOLUS FATOU Administration - Re-Assessments/Exams Free Text/Narrative Re-Assessment/Exam: labs were ordered to check on CMP and ammonia levels. patient is cooperative and didn't require any sedation. 10/26/20 15:42 labs - no concerning findings. Ammonia level 65, which is mildy elevated but is better than previous levels in the past. K level WNL. HgbA1C 6.4 0.5 lit IVF LR was given patient tolerated PO intake ambulating without problem communicating well with the care staff and making jokes. no concerns 10/26/20 15:44 patient reported to me that he has been taking his meds and was able to successfully name his medications. Departure - Departure Time of Disposition: 15:44 Disposition: Home, Self-Care 01 Condition: Good Clinical Impression: Hepatic encephalopathy, Increased ammonia level Altered mental state Qualifiers: Altered mental status type: transient alteration of awareness Qualified Code(s): R40.4 - Transient alteration of awareness - Discharge Information *PRESCRIPTION DRUG MONITORING PROGRAM REVIEWED*: Not Applicable *COPY OF PRESCRIPTION DRUG MONITORING REPORT IN PATIENT FATOU: Not Applicable Referrals: PCP,None [Primary Care Provider] - Forms: ED Department Discharge Sepsis Event Note (ED) - Focused Exam Vital Signs: Vital Signs Temp Pulse Resp BP Pulse Ox 10/26/20 12:52 37.3 C 69 18 133/66 98 - Problem List & Annotations (1) Hepatic encephalopathy SNOMED Code(s): 75896726 Code(s): K72.90 - HEPATIC FAILURE, UNSPECIFIED WITHOUT COMA Status: Acute Priority: Medium Current Visit: Yes (2) Increased ammonia level SNOMED Code(s): 190116549, 174519138, 800916813 Code(s): R79.89 - OTHER SPECIFIED ABNORMAL FINDINGS OF BLOOD CHEMISTRY Status: Acute Priority: Medium Current Visit: Yes (3) Confusion SNOMED Code(s): 181938734 Code(s): R41.0 - DISORIENTATION, UNSPECIFIED Status: Acute Priority: Low Current Visit: No - Problem List Review Problem List Initiated/Reviewed/Updated: Yes - My Orders Last 24 Hours: My Active Orders 10/26/20 14:15 Lactated Ringers [Ringers, Lactated] 500 ml IV .BOLUS - Assessment/Plan Last 24 Hours: My Active Orders 10/26/20 14:15 Lactated Ringers [Ringers, Lactated] 500 ml IV .BOLUS Plan: no concerns at this time resume home meds as before follow up with the PCP in 1-2 weeks as needed
[2020-10-26 14:03] VITALS: BP 133/66; PULSE 69
[2020-10-26] MEDS ORDERED: Lactated Ringers 500 ML IV SCH (14:15)
[2020-10-26 14:30] LABS: HEMOGLOBIN A1C 6.4 % (< 5.7)
== END 2020-10-26 16:20 | disposition home or self-care (01) ==
LOC: LB.ED 12:52
DX: K72.90 Hepatic failure, unspecified without coma (principal); R82.998 Other abnormal findings in urine; I25.2 Old myocardial infarction; I10 Essential (primary) hypertension; E78.00 Pure hypercholesterolemia, unspecified; E11.9 Type 2 diabetes mellitus without complications; Z88.5 Allergy status to narcotic agent; Z91.012 Allergy to eggs; Z91.018 Allergy to other foods; Z88.8 Allergy status to other drugs, medicaments and biological substances; Z79.4 Long term (current) use of insulin; Z79.899 Other long term (current) drug therapy; Z20.822 Contact with and (suspected) exposure to COVID-19
CPT/HCPCS: 36415; 80053; 81003; 82140; 83036; 85027; 99283; 99285; A0425; A0429; U0002

== ENCOUNTER 2020-11-09 15:38 | Emergency (ER) | payer OTHER ==
[2020-11-09] MEDS ORDERED: Albuterol/Ipratropium 3.0-0.5 MG/3 ML Neb Soln NEB ONE (15:53)
--- NOTE | 2020-11-09 16:16 | EDM.PDOC ---
ED HPI GENERAL MEDICAL PROBLEM - General Chief Complaint: Respiratory Problem Stated Complaint: SOB Time Seen by Provider: 11/09/20 15:55 Source of Information: Reports: Patient, RN History Limitations: Reports: No Limitations - History of Present Illness INITIAL COMMENTS - FREE TEXT/NARRATIVE: Mr. Velez is a 65yo male Diabetic male w Hx of COPD who presented to the ED via POV, ambulatory into facility, unaccompanied, arriving at 1545. Pt c/o increased SOB for past several days. Denies any CP, dizziness, chest heaviness or tightness. Reports he has been taking medications as prescribed, however, has been unable to take Metformin and Mag Ox d/t not receiving them from pharmacy, per pt. States has used rescue inhalers with little to no relief. VSS. LS CTA. Patient has a pacer/defibrillator FLACO chest wall. NHRR. Abd is firm w normal bowl sounds. Neck is supple w no JVD. No cough or chest congestion, no fever. No N, V or D. Onset: Today Duration: Hour(s): Location: Reports: Chest Severity: Mild Improves with: Reports: None Worsens with: Reports: None Context: Reports: Activity Associated Symptoms: Reports: No Other Symptoms Treatments HOT PATCHER: Reports: Other (see below) (albuterol) - Related Data Allergies Allergy/AdvReac Type Severity Reaction Status Date / Time acetaminophen Allergy Change Verified 11/09/20 15:58 [From Darvocet-N 100] Mental Status cinnamon Allergy Cannot Verified 11/09/20 15:58 Remember egg Allergy Cannot Verified 11/09/20 15:58 Remember dontrell Allergy Other Verified 11/09/20 15:58 mustard Allergy Anaphylactic Verified 11/09/20 15:58 Shock propoxyphene napsylate Allergy Cannot Verified 11/09/20 15:58 [From Darvocet-N 100] Remember Furizxq-Xgy-Fzv Reductase Allergy Muscle Verified 11/09/20 15:58 Inhibitor Aches codeine AdvReac Change Verified 11/09/20 15:58 Mental Status indomethacin [From Indocin] AdvReac Change Verified 11/09/20 15:58 Mental Status indomethacin sodium AdvReac Change Verified 11/09/20 15:58 [From Indocin] Mental Status propoxyphene HCl AdvReac Change Verified 11/09/20 15:58 [From Darvon] Mental Status Home Meds: Home Meds Multivitamin [Multi-Vitamin Daily] 1 each PO DAILY 01/29/15 [History] Alogliptin Benzoate [Alogliptin] 25 mg PO DAILY 08/20/19 [History] Citalopram [Citalopram HBr] 10 mg PO DAILY 08/20/19 [History] Insulin Aspart [NovoLOG] 6 units SUBCUT TIDMEALS 08/20/19 [History] Insulin Glargine,Hum.Rec.Anlog [Lantus Solostar] 16 units SUBCUT DAILY 08/20/19 [History] Magnesium Oxide 2 tab PO TID 08/20/19 [History] carvediloL [Coreg] 25 mg PO BID 08/20/19 [History] Lactulose 60 ml PO QID 08/28/19 [History] Albuterol Sulfate [Albuterol Sulfate Hfa] 2 puff INH QID PRN 10/20/19 [History] carvediloL [Carvedilol] 6.25 mg PO BID 10/20/19 [History] Aspirin [Halfprin] 81 mg PO DAILY tab.ec 06/24/20 [Rx] Ferrous Sulfate 325 mg PO 2000 tablet 06/24/20 [Rx] Rifaximin [Xifaxan] 550 mg PO TID #0 06/24/20 [Rx] lisinopriL [Prinivil] 20 mg PO DAILY tablet 06/24/20 [Rx] metFORMIN [Glucophage] 500 mg PO QID tablet 06/24/20 [Rx] Acetaminophen [Tylenol Extra Strength] 1,000 mg PO TID PRN 07/17/20 [History] Ascorbic Acid [Vitamin C] 500 mg PO DAILY 07/17/20 [History] Albuterol [Ventolin HFA] 0 gm INH QID PRN inhaler 07/25/20 [Rx] Past Medical History HEENT History: Reports: Impaired Vision Other HEENT History: glasses Cardiovascular History: Reports: Angina, High Cholesterol, Hypertension, [place] Other Cardiovascular History: AICD stents July 2017 Respiratory History: Reports: SOB Other Respiratory History: dyspnea with exertion no sob or difficulty breathing at rest Gastrointestinal History: Reports: Cirrhosis, GERD, Hiatal Hernia, PUD Musculoskeletal History: Reports: Gout, Osteoarthritis Other Musculoskeletal History: Bilateral Knee Pain Neurological History: Reports: Other (See Below) Other Neuro History: AMS when ammonia level gets high Psychiatric History: Reports: Anxiety Endocrine/Metabolic History: Reports: Diabetes, Type II Hematologic History: Reports: Anemia - Infectious Disease History Infectious Disease History: Reports: Chicken Pox - Past Surgical History HEENT Surgical History: Reports: None Cardiovascular Surgical History: Reports: Coronary Artery Stent, Other (See Below) Other Cardiovascular Surgeries/Procedures: Internal Defibrillator Respiratory Surgical History: Reports: None GI Surgical History: Reports: Cholecystectomy Endocrine Surgical History: Reports: None Neurological Surgical History: Reports: None Musculoskeletal Surgical History: Reports: None - History Comment History Comment: Home Medications: Reviewed see EMR for details. Pertinent Medical History: Hepatic encephalopathy, cirrhosis, CAD, DM 2, asthma, [place] x2, depression, thrombocytopenia, esophageal varices, HTN, left heart catheterization times multiple, EGD, colonoscopy times multiple, cholecystectomy, ICD. Pertinent Social History: , quit smoking in 2001, up to that point smoked 3 packs/day for 10 years, quit drinking alcohol in 2004 Social & Family History - Family History Family Medical History: No Pertinent Family History - Caffeine Use Caffeine Use: Reports: None Other Caffeine Use: not reported ED ROS GENERAL - Review of Systems Review Of Systems: Comprehensive ROS is negative, except as noted in HPI. Respiratory: Reports: Shortness of Breath ED EXAM, GENERAL - Physical Exam Exam: See Below Exam Limited By: No Limitations General Appearance: Alert, WD/WN, No Apparent Distress Eye Exam: Bilateral Eye: PERRL Ears: Normal External Exam Nose: Normal Inspection, Normal Mucosa, No Blood Throat/Mouth: Normal Inspection, Normal Lips, Other (dental caries) Head: Atraumatic, Normocephalic Neck: Normal Inspection, Supple, Non-Tender Respiratory/Chest: No Respiratory Distress, Other (mild SOB wheezing on left) Peripheral Pulses: 2+: Brachial (L), Brachial (R) GI/Abdominal: Normal Bowel Sounds, Non-Tender, Distended Back Exam: Normal Inspection Extremities: Normal Inspection, Non-Tender, No Pedal Edema Neurological: Alert, Oriented, CN II-XII Intact, Normal Cognition, Normal Gait Psychiatric: Normal Affect, Normal Mood Skin Exam: Warm, Dry, Intact, Normal Color, No Rash Lymphatic: No Adenopathy Course - Orders/Labs/Meds Orders: Active Orders 24 hr Category Date Time Status EKG Documentation Completion [RC] ASDIRECTED Care 11/09/20 15:55 Active RT Aerosol Therapy [RC] ASDIRECTED Care 11/09/20 15:53 Active Labs: Laboratory Tests 11/09/20 11/09/20 11/09/20 Range/Units 16:05 16:05 16:26 WBC 4.1 (4.0-11.0) K/uL RBC 4.63 (4.50-6.50) M/uL Hgb 14.1 (13.0-18.0) g/dL Hct 41.1 (40.0-54.0) % MCV 89 (76-96) fL MCH 30.5 (27.0-32.0) pg MCHC 34.3 (31.0-35.0) g/dL RDW 15.6 (11.0-16.0) % Plt Count 96 L (150-400) K/uL MPV 11.1 H (6.0-10.0) fL Neut % (Auto) 67.8 (45.0-70.0) % Lymph % (Auto) 14.4 L (20.0-40.0) % Rush % (Auto) 13.7 H (3.0-10.0) % Eos % (Auto) 3.4 (1.0-5.0) % Baso % (Auto) 0.7 H (0.0-0.5) % Neut # (Auto) 2.78 (2.00-7.50) K/uL Lymph # (Auto) 0.59 L (1.50-4.00) K/uL Rush # (Auto) 0.56 (0.20-0.80) K/uL Eos # (Auto) 0.14 (0.04-0.40) K/uL Baso # (Auto) 0.03 (0.02-0.10) K/uL Sodium 142 (136-145) mmol/L Potassium 4.6 (3.5-5.1) mmol/L Chloride 110 H (98-107) mmol/L Carbon Dioxide 25.6 (21.0-32.0) mmol/L Anion Gap 11.0 (5.0-15.0) mmol/L BUN 17 (8-26) mg/dL Creatinine 1.21 (0.70-1.30) mg/dL Est Cr Clr Drug Dosing TNP Estimated GFR (MDRD) > 60 (>60) MLS/MIN BUN/Creatinine Ratio 14.0 (6-25) Glucose 181 H D (74-100) mg/dL Calcium 8.3 L (8.5-10.1) mg/dL Total Bilirubin 1.6 H (0.0-1.0) mg/dL AST 43 H (15-37) U/L ALT 44 (12-78) U/L Alkaline Phosphatase 170 H (46-116) U/L Ammonia (11-32) umol/L Creatine Kinase (21-232) U/L Troponin I (0.000-0.060) ng/mL B-Natriuretic Peptide 900 H (0-125) pg/mL Total Protein 7.1 (6.4-8.2) g/dL Albumin 3.1 L (3.4-5.0) g/dL Globulin 4.0 (2.2-4.2) g/dL Albumin/Globulin Ratio 0.8 (0.8-2.0) 11/09/20 11/09/20 11/09/20 Range/Units 16:30 16:30 16:46 WBC (4.0-11.0) K/uL RBC (4.50-6.50) M/uL Hgb (13.0-18.0) g/dL Hct (40.0-54.0) % MCV (76-96) fL MCH (27.0-32.0) pg MCHC (31.0-35.0) g/dL RDW (11.0-16.0) % Plt Count (150-400) K/uL MPV (6.0-10.0) fL Neut % (Auto) (45.0-70.0) % Lymph % (Auto) (20.0-40.0) % [place] % (Auto) (3.0-10.0) % Eos % (Auto) (1.0-5.0) % Baso % (Auto) (0.0-0.5) % Neut # (Auto) (2.00-7.50) K/uL Lymph # (Auto) (1.50-4.00) K/uL Rush # (Auto) (0.20-0.80) K/uL Eos # (Auto) (0.04-0.40) K/uL Baso # (Auto) (0.02-0.10) K/uL Sodium (136-145) mmol/L Potassium (3.5-5.1) mmol/L Chloride (98-107) mmol/L Carbon Dioxide (21.0-32.0) mmol/L Anion Gap (5.0-15.0) mmol/L BUN (8-26) mg/dL Creatinine (0.70-1.30) mg/dL Est Cr Clr Drug Dosing Estimated GFR (MDRD) (>60) MLS/MIN BUN/Creatinine Ratio (6-25) Glucose (74-100) mg/dL Calcium (8.5-10.1) mg/dL Total Bilirubin (0.0-1.0) mg/dL AST (15-37) U/L ALT (12-78) U/L Alkaline Phosphatase (46-116) U/L Ammonia 61 H (11-32) umol/L Creatine Kinase 107 (21-232) U/L Troponin I < 0.017 (0.000-0.060) ng/mL B-Natriuretic Peptide (0-125) pg/mL Total Protein (6.4-8.2) g/dL Albumin (3.4-5.0) g/dL Globulin (2.2-4.2) g/dL Albumin/Globulin Ratio (0.8-2.0) Meds: Medications Discontinued Medications Generic Name Dose Route Start Last Admin Trade Name Freq PRN Reason Stop Dose Admin Albuterol/Ipratropium 3 ml 11/09/20 15:53 Albuterol/Ipratropium 3.0-0.5 Mg/3 Ml Neb Soln NEB 11/09/20 15:54 BID ONE Methylprednisolone Sodium Succinate Confirm 11/09/20 17:08 Methylprednisolone Sodium Succinate 125 Mg/2 Ml Sdv Administered 11/09/20 17:09 Dose 125 mg .ROUTE .STK-MED ONE Departure - Departure Time of Disposition: 15:15 Disposition: Home, Self-Care 01 Condition: Good Clinical Impression: COPD exacerbation, SOB (shortness of breath) - Discharge Information *PRESCRIPTION DRUG MONITORING PROGRAM REVIEWED*: Not Applicable Instructions: Shortness of Breath, Adult, [id number], Chronic Obstructive Pulmonary Disease, [id number] Referrals: PCP,None [Primary Care Provider] - Forms: ED Department Discharge Additional Instructions: COPD exacerbation- Loading dose of Solu Medrol 125mg Order OP Medrol dose pack to start tomorrow. FU with PCP , return to ED for new or worsening symptoms. Take 2 dose of Lactulose at home upon discharge. - Problem List Review Problem List Initiated/Reviewed/Updated: Yes - My Orders Last 24 Hours: My Active Orders 11/09/20 15:53 RT Aerosol Therapy [RC] ASDIRECTED 11/09/20 15:55 EKG Documentation Completion [RC] ASDIRECTED - Assessment/Plan Last 24 Hours: My Active Orders 11/09/20 15:53 RT Aerosol Therapy [RC] ASDIRECTED 11/09/20 15:55 EKG Documentation Completion [RC] ASDIRECTED Assessment:: COPD exacerbation Plan: COPD exacerbation- Loading dose of Solu Medrol 125mg Order OP Medrol dose pack to start tomorrow. FU with PCP , return to ED for new or worsening symptoms.
[2020-11-09] MEDS ORDERED: methylPREDNISolone Sodium Succinate 125 MG/2 ML SDV IM ONE (17:00)
--- NOTE | 2020-11-09 17:03 | CR ---
Date of Service: 11/09/2020 Clinical Data: Shortness of Breath AP chest: The comparison is made to a prior exam dated 17 April 2020. The heart remains enlarged, unchanged. The cardiac pacer and pacer wires remain unchanged in position. There is persistent pulmonary vascular congestion, not significantly changed from the prior study. There is subtle ground-glass opacity in the right mid and lower lung. Pneumonia/pneumonitis should be considered. There is slight blunting of both costophrenic angles consistent with small bilateral pleural effusions. No pneumothorax. MTDD
[2020-11-09] MEDS ORDERED: methylPREDNISolone Sodium Succinate 125 MG/2 ML SDV ONE (17:08)
[2020-11-09 18:10] VITALS: BP 139/82; PULSE 73
== END 2020-11-09 17:20 | disposition home or self-care (01) ==
LOC: LB.ED 15:38
DX: J44.1 Chronic obstructive pulmonary disease with (acute) exacerbation (principal); I10 Essential (primary) hypertension; I25.2 Old myocardial infarction; E11.9 Type 2 diabetes mellitus without complications; Z88.6 Allergy status to analgesic agent; Z91.012 Allergy to eggs; Z91.018 Allergy to other foods; Z88.5 Allergy status to narcotic agent; Z88.8 Allergy status to other drugs, medicaments and biological substances; Z79.4 Long term (current) use of insulin; Z79.82 Long term (current) use of aspirin; Z79.899 Other long term (current) drug therapy
CPT/HCPCS: 36415; 71045; 80053; 82140; 82550; 83880; 84484; 85025; 93005; 96372; 99284; 99285-25; J2930; J7620-GY

== ENCOUNTER 2021-01-30 09:00 | Observation (INO) | payer OTHER ==
[2021-01-30] MEDS ORDERED: Sodium Chloride 0.9% 10 ML Syringe FLUSH PRN (10:06)
--- NOTE | 2021-01-30 10:06 | EDM.PDOC ---
ED HPI GENERAL MEDICAL PROBLEM - General Chief Complaint: General Stated Complaint: mental status change Time Seen by Provider: 01/30/21 09:45 Source of Information: Reports: EMS, RN History Limitations: Reports: Altered Mental Status - History of Present Illness INITIAL COMMENTS - FREE TEXT/NARRATIVE: patient with a h/o hepatic encephalopathy who presented to the ER by ambulance due to altered mental status and confusion, reported by his .. Already on lactulose and rifampin for a h/o hepatic encephalopathy. Similar presentations in the past - multiple episodes of non-compliance to medications. EMS reports that they found him in the bathroom, was confused and uncooperative with them. It took them a lot of effort to bring him to the ER. No fever or chills. Last seen well known was last night. Onset: Sudden Duration: Hour(s): (6) Bilateral Leg Pain Score (Numeric/FACES): 5 - Related Data Allergies Allergy/AdvReac Type Severity Reaction Status Date / Time acetaminophen Allergy Change Verified 01/30/21 09:04 [From Darvocet-N 100] Mental Status cinnamon Allergy Cannot Verified 01/30/21 09:04 Remember egg Allergy Cannot Verified 01/30/21 09:04 Remember dontrell Allergy Other Verified 01/30/21 09:04 mustard Allergy Anaphylactic Verified 01/30/21 09:04 Shock propoxyphene napsylate Allergy Cannot Verified 01/30/21 09:04 [From Darvocet-N 100] Remember [id number]-[id number]-Xgp Reductase Allergy Muscle Verified 01/30/21 09:04 Inhibitor Aches codeine AdvReac Change Verified 01/30/21 09:04 Mental Status indomethacin [From Indocin] AdvReac Change Verified 01/30/21 09:04 Mental Status indomethacin sodium AdvReac Change Verified 01/30/21 09:04 [From Indocin] Mental Status propoxyphene HCl AdvReac Change Verified 01/30/21 09:04 [From Darvon] Mental Status Home Meds: Home Meds Multivitamin [Multi-Vitamin Daily] 1 each PO DAILY 01/29/15 [History] Alogliptin Benzoate [Alogliptin] 25 mg PO DAILY 08/20/19 [History] Citalopram [Citalopram HBr] 10 mg PO DAILY 08/20/19 [History] Insulin Aspart [NovoLOG] 5 units SUBCUT TIDMEALS 08/20/19 [History] Insulin Glargine,Hum.Rec.Anlog [Lantus Solostar] 10 units SUBCUT BEDTIME 08/20/19 [History] Magnesium Oxide 2 tab PO TID 08/20/19 [History] carvediloL [Coreg] 25 mg PO BID 08/20/19 [History] Lactulose 60 ml PO QID 08/28/19 [History] Albuterol Sulfate [Albuterol Sulfate Hfa] 2 puff INH QID PRN 10/20/19 [History] carvediloL [Carvedilol] 6.25 mg PO BID 10/20/19 [History] Aspirin [Halfprin] 81 mg PO DAILY tab.ec 06/24/20 [Rx] Ferrous Sulfate 325 mg PO 2000 tablet 06/24/20 [Rx] Rifaximin [Xifaxan] 550 mg PO TID #0 06/24/20 [Rx] metFORMIN [Glucophage] 500 mg PO QID tablet 06/24/20 [Rx] Acetaminophen [Tylenol Extra Strength] 1,000 mg PO TID PRN 07/17/20 [History] Ascorbic Acid [Vitamin C] 500 mg PO DAILY 07/17/20 [History] Albuterol [Ventolin HFA] 0 gm INH QID PRN inhaler 07/25/20 [Rx] lisinopriL [Prinivil] 40 mg PO DAILY 01/30/21 [History] Past Medical History HEENT History: Reports: Hard of Hearing, Impaired Vision Other HEENT History: glasses Cardiovascular History: Reports: Angina, High Cholesterol, Hypertension, [place] Other Cardiovascular History: AICD stents July 2017 Respiratory History: Reports: SOB Other Respiratory History: dyspnea with exertion no sob or difficulty breathing at rest Gastrointestinal History: Reports: Cirrhosis, GERD, Hiatal Hernia, PUD Musculoskeletal History: Reports: Gout, Osteoarthritis Other Musculoskeletal History: Bilateral Knee Pain Neurological History: Reports: Other (See Below) Other Neuro History: AMS when ammonia level gets high Psychiatric History: Reports: Anxiety Endocrine/Metabolic History: Reports: Diabetes, Type II Hematologic History: Reports: Anemia - Infectious Disease History Infectious Disease History: Reports: Chicken Pox - Past Surgical History HEENT Surgical History: Reports: None Cardiovascular Surgical History: Reports: Coronary Artery Stent, Other (See Below) Other Cardiovascular Surgeries/Procedures: Internal Defibrillator Respiratory Surgical History: Reports: None GI Surgical History: Reports: Cholecystectomy Endocrine Surgical History: Reports: None Neurological Surgical History: Reports: None Musculoskeletal Surgical History: Reports: None - History Comment History Comment: Home Medications: Reviewed see EMR for details. Pertinent Medical History: Hepatic encephalopathy, cirrhosis, CAD, DM 2, asthma, [place] x2, depression, thrombocytopenia, esophageal varices, HTN, left heart catheterization times multiple, EGD, colonoscopy times multiple, cholecystectomy, ICD. Pertinent Social History: , quit smoking in 2001, up to that point smoked 3 packs/day for 10 years, quit drinking alcohol in 2004 Social & Family History - Family History Family Medical History: No Pertinent Family History - Caffeine Use Caffeine Use: Reports: Coffee Other Caffeine Use: not reported ED ROS GENERAL - Review of Systems Review Of Systems: Unable To Obtain Reason Not Obtained: mental confusion ED EXAM, GENERAL - Physical Exam Exam: See Below Exam Limited By: No Limitations General Appearance: Alert, WD/WN, No Apparent Distress, Obese Eye Exam: Bilateral Eye: PERRL, Other (jaundice ) Respiratory/Chest: No Respiratory Distress, Lungs Clear Cardiovascular: Normal Peripheral Pulses, Regular Rate, Rhythm GI/Abdominal: Normal Bowel Sounds, Soft, Non-Tender. No: Rigid, Rebound Extremities: Normal Inspection, Pedal Edema Neurological: No Motor/Sensory Deficits, Confused, Disoriented, Slow to Respond Skin Exam: Warm, Intact, Jaundice Course - Vital Signs Last Recorded V/S: Last Vital Signs Temp 36.6 C 01/30/21 10:39 Pulse 70 01/30/21 10:39 Resp 16 01/30/21 10:39 BP 117/53 L 01/30/21 10:39 Pulse Ox 99 01/30/21 10:39 - Orders/Labs/Meds Orders: Active Orders 24 hr Category Date Time Status EKG Documentation Completion [RC] ASDIRECTED Care 01/30/21 10:07 Active CORONAVIRUS COVID-19 MCKAYLA [MOLEC] Stat Lab 01/30/21 10:05 Received CULTURE MRSA SURVEY [RM] Stat Lab 01/30/21 10:45 Received Lactulose [Chronulac] Med 01/30/21 11:02 Once 30 gm PO ONETIME ONE Sodium Chloride 0.9% @ 150 MLS/HR (1000ml) Med 01/30/21 11:15 Ordered Sodium Chloride 0.9% [Normal Saline] 1,000 ml IV ASDIRECTED Sodium Chloride 0.9% [Saline Flush] Med 01/30/21 10:06 Active 10 ml FLUSH ASDIRECTED PRN Saline Lock Insert [OM.PC] Routine Oth 01/30/21 10:06 Ordered EKG 12 Lead [EK] Routine Ther 01/30/21 10:07 Ordered Medication Orders Lactulose (Lactulose Soln 10 Gm/15 Ml Ml 473 Ml Bottle) 30 gm PO ONETIME ONE Stop: 01/30/21 11:03 Sodium Chloride (Sodium Chloride 0.9% 10 Ml Syringe) 10 ml FLUSH ASDIRECTED PRN PRN Reason: Keep Vein Open Labs: Laboratory Tests 01/30/21 01/30/21 01/30/21 Range/Units 10:00 10:00 10:00 WBC 3.6 L (4.0-11.0) K/uL RBC 4.29 L (4.50-6.50) M/uL Hgb 13.2 (13.0-18.0) g/dL Hct 37.7 L (40.0-54.0) % MCV 88 (76-96) fL MCH 30.8 (27.0-32.0) pg MCHC 35.0 (31.0-35.0) g/dL RDW 14.9 (11.0-16.0) % Plt Count 79 L (150-400) K/uL MPV 11.1 H (6.0-10.0) fL Neut % (Auto) 67.7 (45.0-70.0) % Lymph % (Auto) 12.6 L (20.0-40.0) % [place] % (Auto) 14.9 H (3.0-10.0) % Eos % (Auto) 4.2 (1.0-5.0) % Baso % (Auto) 0.6 H (0.0-0.5) % Neut # (Auto) 2.41 (2.00-7.50) K/uL Lymph # (Auto) 0.45 L (1.50-4.00) K/uL [place] # (Auto) 0.53 (0.20-0.80) K/uL Eos # (Auto) 0.15 (0.04-0.40) K/uL Baso # (Auto) 0.02 (0.02-0.10) K/uL Sodium 139 (136-145) mmol/L Potassium 5.3 H (3.5-5.1) mmol/L Chloride 104 (98-107) mmol/L Carbon Dioxide 24.4 (21.0-32.0) mmol/L Anion Gap 15.9 H (5.0-15.0) mmol/L BUN 21 D (8-26) mg/dL Creatinine 1.30 (0.70-1.30) mg/dL Est Cr Clr Drug Dosing 63.84 mL/min Estimated GFR (MDRD) 56 L (>60) MLS/MIN BUN/Creatinine Ratio 16.2 (6-25) Glucose 182 H (74-100) mg/dL Calcium 8.2 L (8.5-10.1) mg/dL Total Bilirubin 1.7 H (0.0-1.0) mg/dL AST 52 H (15-37) U/L ALT 50 (12-78) U/L Alkaline Phosphatase 190 H (46-116) U/L Ammonia 184 H (11-32) umol/L Troponin I (0.000-0.060) ng/mL Total Protein 6.5 (6.4-8.2) g/dL Albumin 3.0 L (3.4-5.0) g/dL Globulin 3.5 (2.2-4.2) g/dL Albumin/Globulin Ratio 0.9 (0.8-2.0) 30/ Range/Units 10:00 WBC (4.0-11.0) K/uL RBC (4.50-6.50) M/uL Hgb (13.0-18.0) g/dL Hct (40.0-54.0) % MCV (76-96) fL MCH (27.0-32.0) pg MCHC (31.0-35.0) g/dL RDW (11.0-16.0) % Plt Count (150-400) K/uL MPV (6.0-10.0) fL Neut % (Auto) (45.0-70.0) % Lymph % (Auto) (20.0-40.0) % [place] % (Auto) (3.0-10.0) % Eos % (Auto) (1.0-5.0) % Baso % (Auto) (0.0-0.5) % Neut # (Auto) (2.00-7.50) K/uL Lymph # (Auto) (1.50-4.00) K/uL [place] # (Auto) (0.20-0.80) K/uL Eos # (Auto) (0.04-0.40) K/uL Baso # (Auto) (0.02-0.10) K/uL Sodium (136-145) mmol/L Potassium (3.5-5.1) mmol/L Chloride (98-107) mmol/L Carbon Dioxide (21.0-32.0) mmol/L Anion Gap (5.0-15.0) mmol/L BUN (8-26) mg/dL Creatinine (0.70-1.30) mg/dL Est Cr Clr Drug Dosing mL/min Estimated GFR (MDRD) (>60) MLS/MIN BUN/Creatinine Ratio (6-25) Glucose (74-100) mg/dL Calcium (8.5-10.1) mg/dL Total Bilirubin (0.0-1.0) mg/dL AST (15-37) U/L ALT (12-78) U/L Alkaline Phosphatase (46-116) U/L Ammonia (11-32) umol/L Troponin I < 0.017 (0.000-0.060) ng/mL Total Protein (6.4-8.2) g/dL Albumin (3.4-5.0) g/dL Globulin (2.2-4.2) g/dL Albumin/Globulin Ratio (0.8-2.0) Meds: Medications Generic Name Dose Route Start Last Admin Trade Name Freq PRN Reason Stop Dose Admin Lactulose 30 gm 01/30/21 11:02 Lactulose Soln 10 Gm/15 Ml Ml 473 Ml Bottle PO 01/30/21 11:03 ONETIME ONE Sodium Chloride 10 ml 01/30/21 10:06 Sodium Chloride 0.9% 10 Ml Syringe FLUSH ASDIRECTED PRN Keep Vein Open - Re-Assessments/Exams Free Text/Narrative Re-Assessment/Exam: 01/30/21 10:14 patient was connected to a monitor labs were ordered - including CBC, CMP and ammonia. Also UA. 01/30/21 11:07 Labs significant for high ammonia and mild hyperkalemia will start treatment by PO lactulose and resume home meds as before Gentle IVF close monitoring given the confusion status strict Is/Os Departure - Departure Time of Disposition: 11:08 Disposition: Admitted As Inpatient 68 Condition: Fair Clinical Impression: Hepatic encephalopathy, Increased ammonia level Altered mental state Qualifiers: Altered mental status type: transient alteration of awareness Qualified Code(s): R40.4 - Transient alteration of awareness - Discharge Information *PRESCRIPTION DRUG MONITORING PROGRAM REVIEWED*: Not Applicable *COPY OF PRESCRIPTION DRUG MONITORING REPORT IN PATIENT FATOU: Not Applicable Referrals: PCP,None [Primary Care Provider] - Forms: ED Department Discharge Sepsis Event Note (ED) - Evaluation Sepsis Screening Result: No Definite Risk - Focused Exam Vital Signs: Vital Signs Temp Pulse Resp BP Pulse Ox 01/30/21 10:39 36.6 C 70 16 117/53 L 99 01/30/21 09:40 37.2 C 73 16 121/50 L 95 - Problem List & Annotations (1) Hepatic encephalopathy SNOMED Code(s): 29820027 Code(s): K72.90 - HEPATIC FAILURE, UNSPECIFIED WITHOUT COMA Status: Acute Priority: Medium Current Visit: Yes (2) Increased ammonia level SNOMED Code(s): 022894386, 217561408, 276901114 Code(s): R79.89 - OTHER SPECIFIED ABNORMAL FINDINGS OF BLOOD CHEMISTRY Status: Acute Priority: Medium Current Visit: Yes (3) Altered mental state SNOMED Code(s): 231485650 Code(s): R41.82 - ALTERED MENTAL STATUS, UNSPECIFIED Status: Acute Priority: High Current Visit: Yes Qualifiers: Altered mental status type: transient alteration of awareness Qualified Code(s): R40.4 - Transient alteration of awareness (4) Confusion SNOMED Code(s): 168190761 Code(s): R41.0 - DISORIENTATION, UNSPECIFIED Status: Acute Priority: Low Current Visit: No - Problem List Review Problem List Initiated/Reviewed/Updated: Yes - My Orders Last 24 Hours: My Active Orders 01/30/21 10:05 CORONAVIRUS COVID-19 MCKAYLA [MOLEC] Stat 01/30/21 10:06 Sodium Chloride 0.9% [Saline Flush] 10 ml FLUSH ASDIRECTED PRN Saline Lock Insert [OM.PC] Routine 01/30/21 10:07 EKG Documentation Completion [RC] ASDIRECTED EKG 12 Lead [EK] Routine 01/30/21 10:45 CULTURE MRSA SURVEY [RM] Stat 01/30/21 11:02 Lactulose [Chronulac] 30 gm PO ONETIME ONE 01/30/21 11:15 Sodium Chloride 0.9% @ 150 MLS/HR (1000ml) Sodium Chloride 0.9% [Normal Saline] 1,000 ml IV ASDIRECTED - Assessment/Plan Last 24 Hours: My Active Orders 01/30/21 10:05 CORONAVIRUS COVID-19 MCKAYLA [MOLEC] Stat 01/30/21 10:06 Sodium Chloride 0.9% [Saline Flush] 10 ml FLUSH ASDIRECTED PRN Saline Lock Insert [OM.PC] Routine 01/30/21 10:07 EKG Documentation Completion [RC] ASDIRECTED EKG 12 Lead [EK] Routine 01/30/21 10:45 CULTURE MRSA SURVEY [RM] Stat 01/30/21 11:02 Lactulose [Chronulac] 30 gm PO ONETIME ONE 01/30/21 11:15 Sodium Chloride 0.9% @ 150 MLS/HR (1000ml) Sodium Chloride 0.9% [Normal Saline] 1,000 ml IV ASDIRECTED Plan: - admit to the floor - Will manage hepatic encephalopathy by administering Lactulose TID and resume home meds - IVF gently to avoid volume overload - possible d/c back home in 1-3 days - depends on fast is his response to therapy
[2021-01-30] MEDS ORDERED: Lactulose Soln 10 GM/15 ML 15 ML UD Cup PO ONE (11:02)
[2021-01-30] MEDS ORDERED: Glucagon,Human Recombinant 1 MG Vial IM PRN (11:10)
[2021-01-30] MEDS ORDERED: 50% Dextrose in Water 50 ML Syringe IVPUSH PRN (11:10)
[2021-01-30] MEDS ORDERED: Albuterol 8 GM Inhaler INH PRN ×2 (11:10)
[2021-01-30] MEDS: Sodium Chloride 0.9% 1,000 ML IV SCH ×2 (11:13→18:21)
[2021-01-30] MEDS ORDERED: LACTULOSE PO SCH (12:00)
[2021-01-30] MEDS ORDERED: RIFAXIMIN 200 MG PO SCH (14:00)
[2021-01-30] MEDS: Insulin Aspart 100 Units/ML 3 ML Pen SUBCUT SCH ×2 (14:26→18:20)
[2021-01-30] MEDS: LACTULOSE PO SCH ×2 (15:45→20:04)
[2021-01-30] MEDS: metFORMIN 500 MG Tab.ER**OWN MED PO SCH (16:49)
[2021-01-30] MEDS ORDERED: Ferrous Sulfate 325 MG Tab PO SCH (20:00)
[2021-01-30] MEDS ORDERED: Carvedilol 6.25 MG Tab PO SCH (20:00)
[2021-01-30] MEDS ORDERED: metFORMIN 500 MG Tab PO SCH (20:00)
[2021-01-30] MEDS ORDERED: Insulin Glargine,Human Rec. Analog 100 Units/ML 3 ML Pen SUBCUT SCH (20:00)
[2021-01-30] MEDS: Carvedilol 6.25 MG Tab**OWN MED PO SCH (20:05)
[2021-01-30] MEDS: RIFAXIMIN 550 MG PO SCH (20:05)
[2021-01-30] MEDS: CARVEDILOL 25 MG PO SCH (20:06)
[2021-01-31] MEDS: Sodium Chloride 0.9% 1,000 ML IV SCH (00:48)
[2021-01-31] MEDS ORDERED: PANTOPRAZOLE 40 MG PO SCH (07:00)
[2021-01-31] MEDS ORDERED: ALOGLIPTIN BENZOATE 25 MG PO SCH (08:00)
[2021-01-31] MEDS ORDERED: Citalopram 20 MG Tab**OWN MED PO SCH (08:00)
[2021-01-31] MEDS ORDERED: LISINOPRIL 40 MG PO SCH ×2 (08:00)
[2021-01-31] MEDS ORDERED: Non-Formulary Medication 1 Each (Alogliptin Benzoate [Alogliptin] 25 MG Tablet) PO SCH (08:00)
[2021-01-31] MEDS ORDERED: Citalopram 20 MG Tab PO SCH (08:00)
[2021-01-31] MEDS ORDERED: Aspirin 81 MG Tab.EC**OWN MED PO SCH ×2 (08:00)
[2021-01-31] MEDS: RIFAXIMIN 550 MG PO SCH ×2 (08:10→13:30)
[2021-01-31] MEDS: Carvedilol 6.25 MG Tab**OWN MED PO SCH (08:11)
[2021-01-31] MEDS: CARVEDILOL 25 MG PO SCH (08:12)
[2021-01-31] MEDS: metFORMIN 500 MG Tab.ER**OWN MED PO SCH (08:14)
[2021-01-31] MEDS: LACTULOSE PO SCH ×2 (08:15→11:54)
[2021-01-31] MEDS: Insulin Aspart 100 Units/ML 3 ML Pen SUBCUT SCH ×2 (08:15→11:53)
--- NOTE | 2021-01-31 09:34 | PCM.DCSUM1 ---
Discharge Summary - Hospital Course Brief History: patient with a h/o hepatic encephalopathy who presented to the ER by ambulance due to altered mental status and confusion, reported by his .. Already on lactulose and rifampin for a h/o hepatic encephalopathy. Similar presentations in the past - multiple episodes of non-compliance to medications. EMS reports that they found him in the bathroom, was confused and uncooperative. Patient was admitted to the floor - lactulose PO waws resumed, as well as, restof his meds. IVF was started at a low rate to prevent dehydration. Diagnosis: Stroke: No Modified Rhoda Scale: No Symptoms at All Modified Rhoda Scale Score: 0 - Discharge Data Discharge Date: 01/31/21 Discharge Disposition: Home, Self-Care 01 Condition: Good - Referral to Home Health Primary Care Physician: PCP None - Discharge Diagnosis/Problem(s) (1) Hepatic encephalopathy SNOMED Code(s): 41879503 ICD Code: K72.90 - HEPATIC FAILURE, UNSPECIFIED WITHOUT COMA Status: Acute Priority: Medium Current Visit: Yes (2) Increased ammonia level SNOMED Code(s): 885332340, 645743805, 431185236 ICD Code: R79.89 - OTHER SPECIFIED ABNORMAL FINDINGS OF BLOOD CHEMISTRY Status: Acute Priority: Medium Current Visit: Yes (3) Altered mental state SNOMED Code(s): 664055389 ICD Code: R41.82 - ALTERED MENTAL STATUS, UNSPECIFIED Status: Acute Priority: High Current Visit: Yes Qualifiers: Altered mental status type: transient alteration of awareness Qualified Code(s): R40.4 - Transient alteration of awareness (4) Confusion SNOMED Code(s): 253589538 ICD Code: R41.0 - DISORIENTATION, UNSPECIFIED Status: Acute Priority: Low Current Visit: No - Patient Summary/Data Hospital Course: Lactulose and rifaximin were resumed TID. The following day, patient was alert and oriented - communication well with the nursing staff and tolerated PO diet on his own . He was ambulating around the room without any issues,, and back to his normal mental baseline. Labs showed drop in ammonia level from 184 yesterday to 26 today. - Patient Instructions Diet: Heart Healthy Diet - Discharge Plan *PRESCRIPTION DRUG MONITORING PROGRAM REVIEWED*: Not Applicable *COPY OF PRESCRIPTION DRUG MONITORING REPORT IN PATIENT FATOU: Not Applicable Home Medications: Home Meds Multivitamin [Multi-Vitamin Daily] 1 each PO DAILY 01/29/15 [History] Alogliptin Benzoate [Alogliptin] 25 mg PO DAILY 08/20/19 [History] Citalopram [Citalopram HBr] 10 mg PO DAILY 08/20/19 [History] Insulin Aspart [NovoLOG] 5 units SUBCUT TIDMEALS 08/20/19 [History] Insulin Glargine,Hum.Rec.Anlog [Lantus Solostar] 10 units SUBCUT BEDTIME 08/20/19 [History] Magnesium Oxide 2 tab PO TID 08/20/19 [History] carvediloL [Coreg] 25 mg PO BID 08/20/19 [History] Lactulose 60 ml PO QID 08/28/19 [History] Albuterol Sulfate [Albuterol Sulfate Hfa] 2 puff INH QID PRN 10/20/19 [History] carvediloL [Carvedilol] 6.25 mg PO BID 10/20/19 [History] Aspirin [Halfprin] 81 mg PO DAILY tab.ec 06/24/20 [Rx] Ferrous Sulfate 325 mg PO 2000 tablet 06/24/20 [Rx] Rifaximin [Xifaxan] 550 mg PO TID #0 06/24/20 [Rx] metFORMIN [Glucophage] 500 mg PO QID tablet 06/24/20 [Rx] Acetaminophen [Tylenol Extra Strength] 1,000 mg PO TID PRN 07/17/20 [History] Ascorbic Acid [Vitamin C] 500 mg PO DAILY 07/17/20 [History] Albuterol [Ventolin HFA] 0 gm INH QID PRN inhaler 07/25/20 [Rx] lisinopriL [Prinivil] 40 mg PO DAILY 01/30/21 [History] Forms: ED Department Discharge Referrals: PCP,None [Primary Care Provider] - - Discharge Summary/Plan Comment DC Time >30 min.: Yes - General Info Date of Service: 01/31/21 Functional Status: Reports: Pain Controlled, Tolerating Diet, Ambulating, Urinating, New Symptoms - Review of Systems General: Reports: No Symptoms HEENT: Reports: No Symptoms Pulmonary: Reports: No Symptoms Cardiovascular: Reports: No Symptoms Gastrointestinal: Reports: No Symptoms Genitourinary: Reports: No Symptoms Musculoskeletal: Reports: No Symptoms Skin: Reports: No Symptoms. Denies: Jaundice Neurological: Reports: No Symptoms Psychiatric: Reports: No Symptoms - Patient Data Vitals - Most Recent: Last Vital Signs Temp 36.6 C 01/31/21 07:29 Pulse 79 01/31/21 08:12 Resp 18 01/31/21 07:29 BP 146/83 H 01/31/21 08:12 Pulse Ox 99 01/31/21 07:29 Weight - Most Recent: 120.792 kg I&O - Last 24 hours: Intake & Output 01/30/21 01/31/21 01/31/21 22:59 06:59 14:59 Intake Total 100 1601 Balance 100 1601 Lab Results - Last 24 hrs: Laboratory Results - last 24 hr 01/30/21 01/30/21 01/30/21 Range/Units 10:00 10:00 10:00 WBC 3.6 L (4.0-11.0) K/uL RBC 4.29 L (4.50-6.50) M/uL Hgb 13.2 (13.0-18.0) g/dL Hct 37.7 L (40.0-54.0) % MCV 88 (76-96) fL MCH 30.8 (27.0-32.0) pg MCHC 35.0 (31.0-35.0) g/dL RDW 14.9 (11.0-16.0) % Plt Count 79 L (150-400) K/uL MPV 11.1 H (6.0-10.0) fL Neut % (Auto) 67.7 (45.0-70.0) % Lymph % (Auto) 12.6 L (20.0-40.0) % Luna % (Auto) 14.9 H (3.0-10.0) % Eos % (Auto) 4.2 (1.0-5.0) % Baso % (Auto) 0.6 H (0.0-0.5) % Neut # (Auto) 2.41 (2.00-7.50) K/uL Lymph # (Auto) 0.45 L (1.50-4.00) K/uL Luna # (Auto) 0.53 (0.20-0.80) K/uL Eos # (Auto) 0.15 (0.04-0.40) K/uL Baso # (Auto) 0.02 (0.02-0.10) K/uL Sodium 139 (136-145) mmol/L Potassium 5.3 H (3.5-5.1) mmol/L Chloride 104 (98-107) mmol/L Carbon Dioxide 24.4 (21.0-32.0) mmol/L Anion Gap 15.9 H (5.0-15.0) mmol/L BUN 21 D (8-26) mg/dL Creatinine 1.30 (0.70-1.30) mg/dL Est Cr Clr Drug Dosing 63.84 mL/min Estimated GFR (MDRD) 56 L (>60) MLS/MIN BUN/Creatinine Ratio 16.2 (6-25) Glucose 182 H (74-100) mg/dL POC Glucose (74-110) mg/dL Calcium 8.2 L (8.5-10.1) mg/dL Total Bilirubin 1.7 H (0.0-1.0) mg/dL AST 52 H (15-37) U/L ALT 50 (12-78) U/L Alkaline Phosphatase 190 H (46-116) U/L Ammonia 184 H (11-32) umol/L Troponin I (0.000-0.060) ng/mL Total Protein 6.5 (6.4-8.2) g/dL Albumin 3.0 L (3.4-5.0) g/dL Globulin 3.5 (2.2-4.2) g/dL Albumin/Globulin Ratio 0.9 (0.8-2.0) SARS-CoV-2 RNA (MCKAYLA) (NEGATIVE) 01/30/21 01/30/21 01/30/21 Range/Units 10:00 10:05 17:03 WBC (4.0-11.0) K/uL RBC (4.50-6.50) M/uL Hgb (13.0-18.0) g/dL Hct (40.0-54.0) % MCV (76-96) fL MCH (27.0-32.0) pg MCHC (31.0-35.0) g/dL RDW (11.0-16.0) % Plt Count (150-400) K/uL MPV (6.0-10.0) fL Neut % (Auto) (45.0-70.0) % Lymph % (Auto) (20.0-40.0) % Luna % (Auto) (3.0-10.0) % Eos % (Auto) (1.0-5.0) % Baso % (Auto) (0.0-0.5) % Neut # (Auto) (2.00-7.50) K/uL Lymph # (Auto) (1.50-4.00) K/uL Luna # (Auto) (0.20-0.80) K/uL Eos # (Auto) (0.04-0.40) K/uL Baso # (Auto) (0.02-0.10) K/uL Sodium (136-145) mmol/L Potassium (3.5-5.1) mmol/L Chloride (98-107) mmol/L Carbon Dioxide (21.0-32.0) mmol/L Anion Gap (5.0-15.0) mmol/L BUN (8-26) mg/dL Creatinine (0.70-1.30) mg/dL Est Cr Clr Drug Dosing mL/min Estimated GFR (MDRD) (>60) MLS/MIN BUN/Creatinine Ratio (6-25) Glucose (74-100) mg/dL POC Glucose 118 H (74-110) mg/dL Calcium (8.5-10.1) mg/dL Total Bilirubin (0.0-1.0) mg/dL AST (15-37) U/L ALT (12-78) U/L Alkaline Phosphatase (46-116) U/L Ammonia (11-32) umol/L Troponin I < 0.017 (0.000-0.060) ng/mL Total Protein (6.4-8.2) g/dL Albumin (3.4-5.0) g/dL Globulin (2.2-4.2) g/dL Albumin/Globulin Ratio (0.8-2.0) SARS-CoV-2 RNA (MCKAYLA) Negative (NEGATIVE) 01/30/21 01/31/21 Range/Units 19:50 07:20 WBC (4.0-11.0) K/uL RBC (4.50-6.50) M/uL Hgb (13.0-18.0) g/dL Hct (40.0-54.0) % MCV (76-96) fL MCH (27.0-32.0) pg MCHC (31.0-35.0) g/dL RDW (11.0-16.0) % Plt Count (150-400) K/uL MPV (6.0-10.0) fL Neut % (Auto) (45.0-70.0) % Lymph % (Auto) (20.0-40.0) % Luna % (Auto) (3.0-10.0) % Eos % (Auto) (1.0-5.0) % Baso % (Auto) (0.0-0.5) % Neut # (Auto) (2.00-7.50) K/uL Lymph # (Auto) (1.50-4.00) K/uL Luna # (Auto) (0.20-0.80) K/uL Eos # (Auto) (0.04-0.40) K/uL Baso # (Auto) (0.02-0.10) K/uL Sodium (136-145) mmol/L Potassium (3.5-5.1) mmol/L Chloride (98-107) mmol/L Carbon Dioxide (21.0-32.0) mmol/L Anion Gap (5.0-15.0) mmol/L BUN (8-26) mg/dL Creatinine (0.70-1.30) mg/dL Est Cr Clr Drug Dosing mL/min Estimated GFR (MDRD) (>60) MLS/MIN BUN/Creatinine Ratio (6-25) Glucose (74-100) mg/dL POC Glucose 125 H 129 H (74-110) mg/dL Calcium (8.5-10.1) mg/dL Total Bilirubin (0.0-1.0) mg/dL AST (15-37) U/L ALT (12-78) U/L Alkaline Phosphatase (46-116) U/L Ammonia (11-32) umol/L Troponin I (0.000-0.060) ng/mL Total Protein (6.4-8.2) g/dL Albumin (3.4-5.0) g/dL Globulin (2.2-4.2) g/dL Albumin/Globulin Ratio (0.8-2.0) SARS-CoV-2 RNA (MCKAYLA) (NEGATIVE) Med Orders - Current: Current Medications Albuterol (Albuterol 8 Gm Inhaler) 0 gm INH QID PRN PRN Reason: Dyspnea Aspirin (Aspirin 81 Mg Tab.EcOwn Med) 81 mg PO DAILY [facility] Last Admin: 01/31/21 08:11 Dose: 81 mg Documented by: Carvedilol (Carvedilol 25 Mg TabOwn Med) 25 mg PO BID [facility] Last Admin: 01/31/21 08:12 Dose: 25 mg Documented by: Carvedilol (Carvedilol 6.25 Mg TabOwn Med) 6.25 mg PO BID [facility] Last Admin: 01/31/21 08:11 Dose: 6.25 mg Documented by: Citalopram Hydrobromide (Citalopram 20 Mg TabOwn Med) 10 mg PO DAILY [facility] Last Admin: 01/31/21 08:13 Dose: 10 mg Documented by: Dextrose/Water (50% Dextrose In Water 50 Ml Syringe) 50 ml IVPUSH ASDIRECTED PRN PRN Reason: Hypoglycemia Ferrous Sulfate (Ferrous Sulfate 325 Mg Tab) 325 mg PO 1999 [facility] Glucagon (Glucagon,Human Recombinant 1 Mg Vial) 1 mg IM ASDIRECTED PRN PRN Reason: Hypoglycemia Insulin Aspart (Insulin Aspart 100 Units/Ml 3 Ml Pen) 5 unit SUBCUT TIDMEALS [facility] Last Admin: 01/31/21 08:15 Dose: 5 units Documented by: Insulin Glargine (Insulin Glargine,Human Rec. Analog 100 Units/Ml 3 Ml Pen) 10 units SUBCUT BEDTIME [facility] Last Admin: 01/30/21 20:09 Dose: 10 units Documented by: Lisinopril (Lisinopril 40 Mg TabOwn Med) 20 mg PO DAILY [facility] Last Admin: 01/31/21 08:10 Dose: 20 mg Documented by: Metformin HCl (Metformin 500 Mg Tab.ErOwn Med) 1,000 mg PO BIDMEALS [facility] Last Admin: 01/31/21 08:14 Dose: 1,000 mg Documented by: Alogliptin Benzoate [Alogliptin] 25 Mg TabletOwn Med 25 mg PO DAILY [facility] Last Admin: 01/31/21 08:12 Dose: 25 mg Documented by: Lactulose [Lactulose ] 10 Gm/15 Ml Bottle Own Med 60 ml PO QID [facility] Last Admin: 01/31/21 08:15 Dose: 60 ml Documented by: Pantoprazole Sodium (Pantoprazole 40 Mg Delayed-Release Granules 1 PacketOwn Med) 40 mg PO ACBREAKFAST [facility] Last Admin: 01/31/21 07:34 Dose: 40 mg Documented by: Rifaximin (Rifaximin 550 Mg TabOwn Med) 550 mg PO TID [facility] Last Admin: 01/31/21 08:10 Dose: 550 mg Documented by: Sodium Chloride (Sodium Chloride 0.9% 10 Ml Syringe) 10 ml FLUSH ASDIRECTED PRN PRN Reason: Keep Vein Open Discontinued Medications Albuterol (Albuterol 8 Gm Inhaler) 1 gm INH QID PRN PRN Reason: Dyspnea Aspirin (Aspirin 81 Mg Tab.EcOwn Med) 81 mg PO DAILY [facility] Carvedilol (Carvedilol 6.25 Mg Tab) 6.25 mg PO BID [facility] Citalopram Hydrobromide (Citalopram 20 Mg Tab) 10 mg PO DAILY [facility] Sodium Chloride (Normal Saline) 1,000 mls @ 150 mls/hr IV ASDIRECTED [facility] Last Admin: 01/31/21 00:48 Dose: 150 mls/hr Documented by: Lactulose (Lactulose Soln 10 Gm/15 Ml 15 Ml Ud Cup) 30 gm PO ONETIME ONE Stop: 01/30/21 11:03 Last Admin: 01/30/21 11:23 Dose: 30 gm Documented by: Lisinopril (Lisinopril 40 Mg TabOwn Med) 20 mg PO DAILY [facility] Metformin HCl (Metformin 500 Mg Tab) 500 mg PO QID [facility] Non-Formulary Medication (Alogliptin Benzoate [Alogliptin]) 25 mg PO DAILY [facility] Non-Formulary Medication (Lactulose [Lactulose]) 60 ml PO QID [facility] Last Admin: 01/30/21 11:23 Dose: 60 ml Documented by: Non-Formulary Medication (Rifaximin [Xifaxan]) 550 mg PO TID [facility] Last Admin: 01/30/21 14:27 Dose: 550 mg Documented by: - Exam General: Reports: Alert, Oriented HEENT: Reports: Pupils Equal, Pupils Reactive, EOMI Lungs: Reports: Clear to Auscultation, Normal Respiratory Effort Cardiovascular: Reports: Regular Rate, Regular Rhythm GI/Abdominal Exam: Normal Bowel Sounds, Soft, Non-Tender Skin: Reports: Warm, Dry Neurological: Reports: No New Focal Deficit, Normal Gait, Normal Speech, Normal Tone, Strength Equal Bilateral, Sensation Intact Psy/Mental Status: Reports: Alert, Normal Affect, Normal Mood
[2021-01-31 11:49] VITALS: BP 146/68; PULSE 70
== END 2021-01-31 14:35 | disposition home or self-care (01) ==
LOC: LB.ED 09:00 → LB.MS 11:09
PROVIDERS: ADMIT Surgery; ATTEND Surgery
DX: K72.90 Hepatic failure, unspecified without coma (principal); R41.82 Altered mental status, unspecified; R41.0 Disorientation, unspecified; E78.00 Pure hypercholesterolemia, unspecified; I10 Essential (primary) hypertension; I25.2 Old myocardial infarction; E11.9 Type 2 diabetes mellitus without complications; I25.10 Atherosclerotic heart disease of native coronary artery without angina pectoris; R79.89 Other specified abnormal findings of blood chemistry; Z20.822 Contact with and (suspected) exposure to COVID-19; Z88.8 Allergy status to other drugs, medicaments and biological substances; Z91.012 Allergy to eggs; Z91.018 Allergy to other foods; Z88.5 Allergy status to narcotic agent; Z79.899 Other long term (current) drug therapy
CPT/HCPCS: 36415; 80048; 80053; 82140; 82947; 84484; 85025; 93005; 99285-25; A0425; A0429; A9270-GY; G0378; J7030; U0002

== ENCOUNTER 2021-05-23 09:52 | Emergency (ER) | payer OTHER ==
[2021-05-23] MEDS ORDERED: GI Cocktail Oral Solution 30 ML PO ONE (11:41)
[2021-05-23 11:42] VITALS: BP 135/63; PULSE 72
--- NOTE | 2021-05-23 11:59 | EDM.PDOC ---
ED HPI GENERAL MEDICAL PROBLEM - General Chief Complaint: General Stated Complaint: MAJOR PAIN IN STOMACH Time Seen by Provider: 05/23/21 11:00 - History of Present Illness INITIAL COMMENTS - FREE TEXT/NARRATIVE: Pt C/O epigastric pain for josey 1 week. He thinks he maybe swallowed a plastic cap from a water bottle 2 weeks ago when taking a drink at nite. He felt fine for a week after, then this Abd pain started, He has not noticed passing a FB in the stool. No nausea or vomiting. No trouble with swallowing, eating, or breathing. Upper Abdominal Pain Score (Numeric/FACES): 5 - Related Data Allergies Allergy/AdvReac Type Severity Reaction Status Date / Time acetaminophen Allergy Change Verified 01/30/21 09:04 [From Darvocet-N 100] Mental Status cinnamon Allergy Cannot Verified 01/30/21 09:04 Remember egg Allergy Cannot Verified 01/30/21 09:04 Remember dontrell Allergy Other Verified 01/30/21 09:04 mustard Allergy Anaphylactic Verified 01/30/21 09:04 Shock propoxyphene napsylate Allergy Cannot Verified 01/30/21 09:04 [From Darvocet-N 100] Remember Rmsplla-Gqp-Aru Reductase Allergy Muscle Verified 01/30/21 09:04 Inhibitor Aches codeine AdvReac Change Verified 01/30/21 09:04 Mental Status indomethacin [From Indocin] AdvReac Change Verified 01/30/21 09:04 Mental Status indomethacin sodium AdvReac Change Verified 01/30/21 09:04 [From Indocin] Mental Status propoxyphene HCl AdvReac Change Verified 01/30/21 09:04 [From Darvon] Mental Status Home Meds: Home Meds Multivitamin [Multi-Vitamin Daily] 1 each PO DAILY 01/29/15 [History] Alogliptin Benzoate [Alogliptin] 25 mg PO DAILY 08/20/19 [History] Citalopram [Citalopram HBr] 10 mg PO DAILY 08/20/19 [History] Insulin Aspart [NovoLOG] 5 units SUBCUT TIDMEALS 08/20/19 [History] Insulin Glargine,Hum.Rec.Anlog [Lantus Solostar] 10 units SUBCUT BEDTIME 08/20/19 [History] Magnesium Oxide 2 tab PO TID 08/20/19 [History] carvediloL [Coreg] 25 mg PO BID 08/20/19 [History] Lactulose 60 ml PO QID 08/28/19 [History] Albuterol Sulfate [Albuterol Sulfate Hfa] 2 puff INH QID PRN 10/20/19 [History] carvediloL [Carvedilol] 6.25 mg PO BID 10/20/19 [History] Aspirin [Halfprin] 81 mg PO DAILY tab.ec 06/24/20 [Rx] Ferrous Sulfate 325 mg PO 2000 tablet 06/24/20 [Rx] Rifaximin [Xifaxan] 550 mg PO TID #0 06/24/20 [Rx] metFORMIN [Glucophage] 500 mg PO QID tablet 06/24/20 [Rx] Acetaminophen [Tylenol Extra Strength] 1,000 mg PO TID PRN 07/17/20 [History] Ascorbic Acid [Vitamin C] 500 mg PO DAILY 07/17/20 [History] Albuterol [Ventolin HFA] 0 gm INH QID PRN inhaler 07/25/20 [Rx] lisinopriL [Prinivil] 40 mg PO DAILY 01/30/21 [History] Past Medical History HEENT History: Reports: Hard of Hearing, Impaired Vision Other HEENT History: glasses Cardiovascular History: Reports: Angina, High Cholesterol, Hypertension, [place] Other Cardiovascular History: AICD stents July 2017 Respiratory History: Reports: SOB Other Respiratory History: dyspnea with exertion no sob or difficulty breathing at rest Gastrointestinal History: Reports: Cirrhosis, GERD, Hiatal Hernia, PUD Musculoskeletal History: Reports: Gout, Osteoarthritis Other Musculoskeletal History: Bilateral Knee Pain Neurological History: Reports: Other (See Below) Other Neuro History: AMS when ammonia level gets high Psychiatric History: Reports: Anxiety Endocrine/Metabolic History: Reports: Diabetes, Type II Hematologic History: Reports: Anemia - Infectious Disease History Infectious Disease History: Reports: Chicken Pox - Past Surgical History HEENT Surgical History: Reports: None Cardiovascular Surgical History: Reports: Coronary Artery Stent, Other (See Below) Other Cardiovascular Surgeries/Procedures: Internal Defibrillator Respiratory Surgical History: Reports: None GI Surgical History: Reports: Cholecystectomy Endocrine Surgical History: Reports: None Neurological Surgical History: Reports: None Musculoskeletal Surgical History: Reports: None - History Comment History Comment: Home Medications: Reviewed see EMR for details. Pertinent Medical History: Hepatic encephalopathy, cirrhosis, CAD, DM 2, asthma, [place] x2, depression, thrombocytopenia, esophageal varices, HTN, left heart catheterization times multiple, EGD, colonoscopy times multiple, cholecystectomy, ICD. Pertinent Social History: , quit smoking in 2001, up to that point smoked 3 packs/day for 10 years, quit drinking alcohol in 2004 Social & Family History - Family History Family Medical History: No Pertinent Family History - Tobacco Use Tobacco Use Status *Q: Former Tobacco User Used Tobacco, but Quit: Yes Month/Year Tobacco Last Used: 09/03/2001 - Caffeine Use Caffeine Use: Reports: Coffee Other Caffeine Use: not reported ED ROS GENERAL - Review of Systems Review Of Systems: Comprehensive ROS is negative, except as noted in HPI. GI/Abdominal: Reports: Abdominal Pain (in the epigastric area.) ED EXAM, GENERAL - Physical Exam Exam: See Below GI/Abdominal: Other (Mild tenderness in the epigastric area midline and slightly to the Rt with light palpation. B.S. are present.) Course - Vital Signs Last Recorded V/S: Last Vital Signs Temp 97.6 F 05/23/21 11:36 Pulse 72 05/23/21 11:36 Resp 16 05/23/21 11:36 BP 135/63 05/23/21 11:36 Pulse Ox 98 05/23/21 11:36 - Orders/Labs/Meds Orders: Active Orders 24 hr Category Date Time Status Abdomen 2V AP Flat Upright [CR] Stat Exams 05/23/21 11:00 Taken Meds: Medications Discontinued Medications Generic Name Dose Route Start Last Admin Trade Name Freq PRN Reason Stop Dose Admin Al Hydroxide/Mg Hydroxide 30 ml 05/23/21 11:41 05/23/21 11:42 Gi Cocktail Oral Solution 30 Ml PO 05/23/21 11:42 30 ml ONETIME ONE Administration - Radiology Interpretation Free Text/Narrative:: Abd x-rays do not show an obvious FB. - Re-Assessments/Exams Free Text/Narrative Re-Assessment/Exam: 05/23/21 11:57 He was given a GI cocktail 30 ml. After 15 minutes his pain was almost gone. He tells us he takes an antacid that starts with a P. His PCP has told him to double it recently, but he has not yet increased the dose. I advised him to take 2 tabs a day for 2 weeks. Re check with PCP in 1 week or so. Follow up in the ER as needed. Departure - Departure Time of Disposition: 11:55 Disposition: Home, Self-Care 01 Condition: Good Clinical Impression: Gastritis and duodenitis - Discharge Information *PRESCRIPTION DRUG MONITORING PROGRAM REVIEWED*: Yes *COPY OF PRESCRIPTION DRUG MONITORING REPORT IN PATIENT FATOU: No Instructions: Gastritis, Adult, [id number] Referrals: Fransisca Buckner MD [Primary Care Provider] - Forms: ED Department Discharge Care Plan Goals: Double what you normally take for antacid for the two weeks.. Follow up with primary. Return to the ER if needed. Sepsis Event Note (ED) - Focused Exam Vital Signs: Vital Signs Temp Pulse Resp BP Pulse Ox 05/23/21 11:36 97.6 F 72 16 135/63 98 05/23/21 10:48 98.8 F 70 20 147/61 H 97 - My Orders Last 24 Hours: My Active Orders 05/23/21 11:00 Abdomen 2V AP Flat Upright [CR] Stat - Assessment/Plan Last 24 Hours: My Active Orders 05/23/21 11:00 Abdomen 2V AP Flat Upright [CR] Stat
--- NOTE | 2021-05-24 07:57 | CR ---
Date of Service: 05/23/21 Clinical Data: ? swallowed a plastic bottle cap 2 weeks ago SUPINE AND UPRIGHT ABDOMEN: There are multiple gas-filled loops of small bowel within the abdomen and pelvis. They are not distended. There is gas throughout the colon. There are a few scattered air-fluid levels in the small bowel and colon on the upright film. Enterocolitis should be considered. Followup imaging is recommended if clinically indicated. No free air. There are surgical clips in the right upper quadrant. There is degenerative disk disease throughout the lower thoracic and lumbar spine. [id number] [facility]
== END 2021-05-23 11:57 | disposition home or self-care (01) ==
LOC: LB.ED 09:52
DX: K29.70 Gastritis, unspecified, without bleeding (principal); K29.80 Duodenitis without bleeding; I10 Essential (primary) hypertension; I25.2 Old myocardial infarction; M10.9 Gout, unspecified; E11.9 Type 2 diabetes mellitus without complications; Z87.891 Personal history of nicotine dependence; Z88.6 Allergy status to analgesic agent; Z91.018 Allergy to other foods; Z91.012 Allergy to eggs; Z88.8 Allergy status to other drugs, medicaments and biological substances; Z88.5 Allergy status to narcotic agent; Z79.4 Long term (current) use of insulin; Z79.82 Long term (current) use of aspirin; Z79.899 Other long term (current) drug therapy
CPT/HCPCS: 74019; 99284; A9270

== ENCOUNTER 2021-07-05 07:53 | Observation (INO) | payer OTHER ==
[2021-07-05] MEDS ORDERED: Lactulose Soln 10 GM/15 ML 15 ML UD Cup PO ONE ×2 (09:47→19:04)
[2021-07-05] MEDS: Lactulose Soln 10 GM/15 ML 15 ML UD Cup PO SCH ×3 (11:24→19:35)
--- NOTE | 2021-07-05 17:14 | EDM.PDOC ---
ED HPI GENERAL MEDICAL PROBLEM - General Chief Complaint: General Stated Complaint: CONFUSION Time Seen by Provider: 07/05/21 08:14 - Related Data Allergies Allergy/AdvReac Type Severity Reaction Status Date / Time acetaminophen Allergy Change Verified 07/05/21 07:55 [From Darvocet-N 100] Mental Status cinnamon Allergy Cannot Verified 07/05/21 07:55 Remember egg Allergy Cannot Verified 07/05/21 07:55 Remember dontrell Allergy Other Verified 07/05/21 07:55 mustard Allergy Anaphylactic Verified 07/05/21 07:55 Shock propoxyphene napsylate Allergy Cannot Verified 07/05/21 07:55 [From Darvocet-N 100] Remember Xkrogtf-YUE-IfG Reductase Allergy Muscle Verified 07/05/21 07:55 Inhibitor Aches [Uljwywy-Ayv-Ohd Reductase Inhibitor] codeine AdvReac Change Verified 07/05/21 07:55 Mental Status indomethacin [From Indocin] AdvReac Change Verified 07/05/21 07:55 Mental Status indomethacin sodium AdvReac Change Verified 07/05/21 07:55 [From Indocin] Mental Status propoxyphene HCl AdvReac Change Verified 07/05/21 07:55 [From Darvon] Mental Status Home Meds: Home Meds Multivitamin [Multi-Vitamin Daily] 1 each PO DAILY 01/29/15 [History] Alogliptin Benzoate [Alogliptin] 25 mg PO DAILY 08/20/19 [History] Citalopram [Citalopram HBr] 10 mg PO DAILY 08/20/19 [History] Insulin Aspart [NovoLOG] 5 units SUBCUT TIDMEALS 08/20/19 [History] Insulin Glargine,Hum.Rec.Anlog [Lantus Solostar] 10 units SUBCUT BEDTIME 08/20/19 [History] Magnesium Oxide 2 tab PO TID 08/20/19 [History] carvediloL [Coreg] 25 mg PO BID 08/20/19 [History] Lactulose 60 ml PO QID 08/28/19 [History] Albuterol Sulfate [Albuterol Sulfate Hfa] 2 puff INH QID PRN 10/20/19 [History] carvediloL [Carvedilol] 6.25 mg PO BID 10/20/19 [History] Aspirin [Halfprin] 81 mg PO DAILY tab.ec 06/24/20 [Rx] Ferrous Sulfate 325 mg PO 2000 tablet 06/24/20 [Rx] Rifaximin [Xifaxan] 550 mg PO TID #0 06/24/20 [Rx] Acetaminophen [Tylenol Extra Strength] 1,000 mg PO TID PRN 07/17/20 [History] Ascorbic Acid [Vitamin C] 500 mg PO DAILY 07/17/20 [History] Albuterol [Ventolin HFA] 0 gm INH QID PRN inhaler 07/25/20 [Rx] lisinopriL [Prinivil] 20 mg PO DAILY 01/30/21 [History] Pantoprazole Sodium [Protonix] 40 mg PO BID 07/05/21 [History] metFORMIN [Glucophage] 500 mg PO BID 07/05/21 [History] Past Medical History HEENT History: Reports: Hard of Hearing, Impaired Vision Other HEENT History: glasses Cardiovascular History: Reports: Angina, High Cholesterol, Hypertension, [place] Other Cardiovascular History: AICD stents July 2017 Respiratory History: Reports: SOB Other Respiratory History: dyspnea with exertion no sob or difficulty breathing at rest Gastrointestinal History: Reports: Cirrhosis, GERD, Hiatal Hernia, PUD Musculoskeletal History: Reports: Gout, Osteoarthritis Other Musculoskeletal History: Bilateral Knee Pain Neurological History: Reports: Other (See Below) Other Neuro History: AMS when ammonia level gets high Psychiatric History: Reports: Anxiety Endocrine/Metabolic History: Reports: Diabetes, Type II Hematologic History: Reports: Anemia - Infectious Disease History Infectious Disease History: Reports: Chicken Pox - Past Surgical History HEENT Surgical History: Reports: None Cardiovascular Surgical History: Reports: Coronary Artery Stent, Other (See Below) Other Cardiovascular Surgeries/Procedures: Internal Defibrillator Respiratory Surgical History: Reports: None GI Surgical History: Reports: Cholecystectomy Endocrine Surgical History: Reports: None Neurological Surgical History: Reports: None Musculoskeletal Surgical History: Reports: None - History Comment History Comment: Home Medications: Reviewed see EMR for details. Pertinent Medical History: Hepatic encephalopathy, cirrhosis, CAD, DM 2, asthma, [place] x2, depression, thrombocytopenia, esophageal varices, HTN, left heart catheterization times multiple, EGD, colonoscopy times multiple, cholecystectomy, ICD. Pertinent Social History: , quit smoking in 2001, up to that point smoked 3 packs/day for 10 years, quit drinking alcohol in 2004 Social & Family History - Family History Family Medical History: No Pertinent Family History - Caffeine Use Caffeine Use: Reports: Coffee Other Caffeine Use: not reported ED ROS GENERAL - Review of Systems Review Of Systems: Unable To Obtain Reason Not Obtained: confused, uncooperative ED EXAM, GENERAL - Physical Exam Exam: See Below Exam Limited By: Uncooperative General Appearance: Alert, No Apparent Distress Eye Exam: Bilateral Eye: PERRL Ears: Normal External Exam Nose: Normal Inspection Throat/Mouth: Normal Inspection, Normal Oropharynx, No Airway Compromise Head: Atraumatic, Normocephalic Neck: Normal Inspection, Non-Tender, Full Range of Motion Respiratory/Chest: No Respiratory Distress, Lungs Clear, Normal Breath Sounds, No Accessory Muscle Use Cardiovascular: Regular Rate, Rhythm GI/Abdominal: Non-Tender, No Distention, Abnormal Bowel Sounds (decreased) Neurological: Confused Psychiatric: Normal Affect Skin Exam: Warm, Dry, Intact Course - Vital Signs Last Recorded V/S: Last Vital Signs Temp 36.7 C 07/05/21 14:33 Pulse 72 07/05/21 14:33 Resp 17 07/05/21 14:33 BP 167/78 H 07/05/21 14:33 Pulse Ox 99 07/05/21 14:33 - Orders/Labs/Meds Orders: Active Orders 24 hr Category Date Time Status Lactulose [Chronulac] Med 07/05/21 10:00 Active 20 gm PO Q4H Medication Orders Lactulose (Lactulose Soln 10 Gm/15 Ml 15 Ml Ud Cup) 20 gm PO Q4H FATOU Last Admin: 07/05/21 15:08 Dose: 20 gm Documented by: Admin: 07/05/21 11:24 Dose: 20 gm Documented by: AMNA Labs: Laboratory Tests 07/05/21 07/05/21 07/05/21 Range/Units 08:55 08:56 08:56 WBC 2.9 L (4.0-11.0) K/uL RBC 3.75 L (4.50-6.50) M/uL Hgb 11.6 L (13.0-18.0) g/dL Hct 34.0 L (40.0-54.0) % MCV 91 (76-96) fL MCH 30.9 (27.0-32.0) pg MCHC 34.1 (31.0-35.0) g/dL RDW 15.3 (11.0-16.0) % Plt Count 70 L (150-400) K/uL MPV 11.0 H (6.0-10.0) fL Neut % (Auto) 69.6 (45.0-70.0) % Lymph % (Auto) 13.7 L (20.0-40.0) % [place] % (Auto) 13.0 H (3.0-10.0) % Eos % (Auto) 3.4 (1.0-5.0) % Baso % (Auto) 0.3 (0.0-0.5) % Neut # (Auto) 2.04 (2.00-7.50) K/uL Lymph # (Auto) 0.40 L (1.50-4.00) K/uL [place] # (Auto) 0.38 (0.20-0.80) K/uL Eos # (Auto) 0.10 (0.04-0.40) K/uL Baso # (Auto) 0.01 L (0.02-0.10) K/uL Sodium 142 (136-145) mmol/L Potassium 4.5 (3.5-5.1) mmol/L Chloride 108 H (98-107) mmol/L Carbon Dioxide 24.9 (21.0-32.0) mmol/L Anion Gap 13.6 (5.0-15.0) mmol/L BUN 15 (8-26) mg/dL Creatinine 1.26 (0.70-1.30) mg/dL Est Cr Clr Drug Dosing TNP Estimated GFR (MDRD) 58 L (>60) MLS/MIN BUN/Creatinine Ratio 11.9 (6-25) Glucose 235 H (74-100) mg/dL Calcium 8.2 L (8.5-10.1) mg/dL Total Bilirubin 1.1 H D (0.0-1.0) mg/dL AST 53 H (15-37) U/L ALT 54 (12-78) U/L Alkaline Phosphatase 180 H (46-116) U/L Ammonia (11-32) umol/L Total Protein 6.3 L (6.4-8.2) g/dL Albumin 2.8 L (3.4-5.0) g/dL Globulin 3.5 (2.2-4.2) g/dL Albumin/Globulin Ratio 0.8 (0.8-2.0) Lipase 179 (73-393) U/L 07/05/21 07/05/21 Range/Units 08:56 16:31 WBC (4.0-11.0) K/uL RBC (4.50-6.50) M/uL Hgb (13.0-18.0) g/dL Hct (40.0-54.0) % MCV (76-96) fL MCH (27.0-32.0) pg MCHC (31.0-35.0) g/dL RDW (11.0-16.0) % Plt Count (150-400) K/uL MPV (6.0-10.0) fL Neut % (Auto) (45.0-70.0) % Lymph % (Auto) (20.0-40.0) % [place] % (Auto) (3.0-10.0) % Eos % (Auto) (1.0-5.0) % Baso % (Auto) (0.0-0.5) % Neut # (Auto) (2.00-7.50) K/uL Lymph # (Auto) (1.50-4.00) K/uL [place] # (Auto) (0.20-0.80) K/uL Eos # (Auto) (0.04-0.40) K/uL Baso # (Auto) (0.02-0.10) K/uL Sodium (136-145) mmol/L Potassium (3.5-5.1) mmol/L Chloride (98-107) mmol/L Carbon Dioxide (21.0-32.0) mmol/L Anion Gap (5.0-15.0) mmol/L BUN (8-26) mg/dL Creatinine (0.70-1.30) mg/dL Est Cr Clr Drug Dosing Estimated GFR (MDRD) (>60) MLS/MIN BUN/Creatinine Ratio (6-25) Glucose (74-100) mg/dL Calcium (8.5-10.1) mg/dL Total Bilirubin (0.0-1.0) mg/dL AST (15-37) U/L ALT (12-78) U/L Alkaline Phosphatase (46-116) U/L Ammonia 268 H 63 H (11-32) umol/L Total Protein (6.4-8.2) g/dL Albumin (3.4-5.0) g/dL Globulin (2.2-4.2) g/dL Albumin/Globulin Ratio (0.8-2.0) Lipase (73-393) U/L Meds: Medications Generic Name Dose Route Start Last Admin Trade Name Freq PRN Reason Stop Dose Admin Lactulose 20 gm 07/05/21 10:00 07/05/21 15:08 Lactulose Soln 10 Gm/15 Ml 15 Ml Ud Cup PO 20 gm Q4H FATOU Administration Discontinued Medications Generic Name Dose Route Start Last Admin Trade Name Freq PRN Reason Stop Dose Admin Lactulose 20 gm 07/05/21 09:47 07/05/21 10:45 Lactulose Soln 10 Gm/15 Ml 15 Ml Ud Cup PO 07/05/21 09:48 Not Given ONETIME ONE - Re-Assessments/Exams Free Text/Narrative Re-Assessment/Exam: This patient presents to the emergency department for confusion.He was found to have an ammonia level of 268 this morning., Given 4 g of lactulose he was kept in the ER during the day which he took and tolerated. A repeat ammonia level was 63 this afternoon. The patient is awake, at baseline, and does want to go home. Given his otherwise normal physical examination and his history of repeated visits for the same concern he will be prepared to go home. The patient was stable at the time of discharge. 07/05/21 17:10 Departure - Departure Time of Disposition: 17:30 Disposition: Home, Self-Care 01 Condition: Fair Clinical Impression: Hepatic encephalopathy - Discharge Information *PRESCRIPTION DRUG MONITORING PROGRAM REVIEWED*: Not Applicable *COPY OF PRESCRIPTION DRUG MONITORING REPORT IN PATIENT FATOU: Not Applicable Forms: ED Department Discharge Sepsis Event Note (ED) - Evaluation Sepsis Screening Result: No Definite Risk - Focused Exam Vital Signs: Vital Signs Temp Pulse Resp BP Pulse Ox 07/05/21 14:33 36.7 C 72 17 167/78 H 99 07/05/21 10:46 75 16 162/77 H 98 07/05/21 08:21 36.5 C 72 16 140/67 96 - My Orders Last 24 Hours: My Active Orders 07/05/21 10:00 Lactulose [Chronulac] 20 gm PO Q4H - Assessment/Plan Last 24 Hours: My Active Orders 07/05/21 10:00 Lactulose [Chronulac] 20 gm PO Q4H
[2021-07-05] MEDS ORDERED: Acetaminophen 325 MG Tab PO PRN (18:53)
[2021-07-05] MEDS ORDERED: Glucagon,Human Recombinant 1 MG Vial IM PRN (18:56)
[2021-07-05] MEDS ORDERED: Albuterol 8 GM Inhaler INH PRN ×2 (18:56)
[2021-07-05] MEDS ORDERED: Acetaminophen 500 MG Tab PO PRN (18:56)
[2021-07-05] MEDS ORDERED: 50% Dextrose in Water 50 ML Syringe IVPUSH PRN (18:56)
--- NOTE | 2021-07-05 19:25 | PCM.HP.2 ---
H&P History of Present Illness - General Date of Service: 07/05/21 Admit Problem/Dx: Admission Diagnosis/Problem Admission Diagnosis/Problem Hepatic encephalopathy Source of Information: EMS Notes Reviewed, RN Notes Reviewed History Limitations: Reports: Uncooperative - History of Present Illness Initial Comments - Free Text/Narative: This patient was admitted to the emergency department for hepatic encephalopathy after receiving lactulose, 40 g today. He arrived by bus assistant this morning for increased confusion and combative behavior at home. His initial ammonia was 268 and did come down to 63 after lactulose given in the ED. He remained somewhat uncooperative throughout the day but did have increasing mentation and was alert and oriented just prior to admission. - Related Data Allergies/Adverse Reactions: Allergies Allergy/AdvReac Type Severity Reaction Status Date / Time acetaminophen Allergy Change Verified 07/05/21 07:55 [From Darvocet-N 100] Mental Status cinnamon Allergy Cannot Verified 07/05/21 07:55 Remember egg Allergy Cannot Verified 07/05/21 07:55 Remember dontrell Allergy Other Verified 07/05/21 07:55 mustard Allergy Anaphylactic Verified 07/05/21 07:55 Shock propoxyphene napsylate Allergy Cannot Verified 07/05/21 07:55 [From Darvocet-N 100] Remember [place]-XRV-QoF Reductase Allergy Muscle Verified 07/05/21 07:55 Inhibitor Aches [Urgrsqu-Aoz-Oto Reductase Inhibitor] codeine AdvReac Change Verified 07/05/21 07:55 Mental Status indomethacin [From Indocin] AdvReac Change Verified 07/05/21 07:55 Mental Status indomethacin sodium AdvReac Change Verified 07/05/21 07:55 [From Indocin] Mental Status propoxyphene HCl AdvReac Change Verified 07/05/21 07:55 [From Darvon] Mental Status Home Medications: Home Meds Multivitamin [Multi-Vitamin Daily] 1 each PO DAILY 01/29/15 [History] Alogliptin Benzoate [Alogliptin] 25 mg PO DAILY 08/20/19 [History] Citalopram [Citalopram HBr] 10 mg PO DAILY 08/20/19 [History] Insulin Aspart [NovoLOG] 5 units SUBCUT TIDMEALS 08/20/19 [History] Insulin Glargine,Hum.Rec.Anlog [Lantus Solostar] 10 units SUBCUT BEDTIME 08/20/19 [History] Magnesium Oxide 2 tab PO TID 08/20/19 [History] carvediloL [Coreg] 25 mg PO BID 08/20/19 [History] Lactulose 60 ml PO QID 08/28/19 [History] Albuterol Sulfate [Albuterol Sulfate Hfa] 2 puff INH QID PRN 10/20/19 [History] carvediloL [Carvedilol] 6.25 mg PO BID 10/20/19 [History] Aspirin [Halfprin] 81 mg PO DAILY tab.ec 06/24/20 [Rx] Ferrous Sulfate 325 mg PO 2000 tablet 06/24/20 [Rx] Rifaximin [Xifaxan] 550 mg PO TID #0 06/24/20 [Rx] Acetaminophen [Tylenol Extra Strength] 1,000 mg PO TID PRN 07/17/20 [History] Ascorbic Acid [Vitamin C] 500 mg PO DAILY 07/17/20 [History] Albuterol [Ventolin HFA] 0 gm INH QID PRN inhaler 07/25/20 [Rx] lisinopriL [Prinivil] 20 mg PO DAILY 01/30/21 [History] Pantoprazole Sodium [Protonix] 40 mg PO BID 07/05/21 [History] metFORMIN [Glucophage] 500 mg PO BID 07/05/21 [History] Past Medical History HEENT History: Reports: Hard of Hearing, Impaired Vision Other HEENT History: glasses Cardiovascular History: Reports: Angina, High Cholesterol, Hypertension, [place] Other Cardiovascular History: AICD stents July 2017 Respiratory History: Reports: SOB Other Respiratory History: dyspnea with exertion no sob or difficulty breathing at rest Gastrointestinal History: Reports: Cirrhosis, GERD, Hiatal Hernia, PUD Musculoskeletal History: Reports: Gout, Osteoarthritis Other Musculoskeletal History: Bilateral Knee Pain Neurological History: Reports: Other (See Below) Other Neuro History: AMS when ammonia level gets high Psychiatric History: Reports: Anxiety Endocrine/Metabolic History: Reports: Diabetes, Type II Hematologic History: Reports: Anemia - Infectious Disease History Infectious Disease History: Reports: Chicken Pox - Past Surgical History HEENT Surgical History: Reports: None Cardiovascular Surgical History: Reports: Coronary Artery Stent, Other (See Below) Other Cardiovascular Surgeries/Procedures: Internal Defibrillator Respiratory Surgical History: Reports: None GI Surgical History: Reports: Cholecystectomy Endocrine Surgical History: Reports: None Neurological Surgical History: Reports: None Musculoskeletal Surgical History: Reports: None - History Comment History Comment: Home Medications: Reviewed see EMR for details. Pertinent Medical History: Hepatic encephalopathy, cirrhosis, CAD, DM 2, asthma, [place] x2, depression, thrombocytopenia, esophageal varices, HTN, left heart catheterization times multiple, EGD, colonoscopy times multiple, cho lecystectomy, ICD. Pertinent Social History: , quit smoking in 2001, up to that point smoked 3 packs/day for 10 years, quit drinking alcohol in 2004 Social & Family History - Family History Family Medical History: No Pertinent Family History - Caffeine Use Caffeine Use: Reports: Coffee Other Caffeine Use: not reported H&P Review of Systems - Review of Systems: Review Of Systems: See Below General: Reports: Decreased Appetite. Denies: Fever HEENT: Reports: No Symptoms Pulmonary: Denies: Shortness of Breath Cardiovascular: Denies: Chest Pain, Palpitations, Dyspnea on Exertion Gastrointestinal: Reports: No Symptoms Musculoskeletal: Reports: No Symptoms Skin: Reports: No Symptoms (Very nice but) Neurological: Reports: No Symptoms, Other (Uncooperative) Exam - Exam Exam: See Below - Vital Signs Vital Signs: Last Vital Signs Temp 36.7 C 07/05/21 14:33 Pulse 72 07/05/21 14:33 Resp 17 07/05/21 14:33 BP 167/78 H 07/05/21 14:33 Pulse Ox 99 07/05/21 14:33 - Exam General: Alert HEENT: PERRLA, Conjunctiva Clear, EACs Clear, Mucosa Moist & [place], Nares Patent, Posterior Pharynx Clear, Pupils Equal, Pupils Reactive (Applied collar and just) Neck: Supple Lungs: Clear to Auscultation, Normal Respiratory Effort Cardiovascular: Regular Rhythm GI/Abdominal Exam: Soft, Non-Tender, No Distention, Abnormal Bowel Sounds (Hypoactive) Extremities: Normal Inspection Skin: Warm (No), Dry, Intact (In a wheelchair) Neuro Extensive - Mental Status: Alert - Patient Data Lab Results Last 24 hrs: Laboratory Results - last 24 hr 07/05/21 07/05/21 07/05/21 Range/Units 08:55 08:56 08:56 WBC 2.9 L (4.0-11.0) K/uL RBC 3.75 L (4.50-6.50) M/uL Hgb 11.6 L (13.0-18.0) g/dL Hct 34.0 L (40.0-54.0) % MCV 91 (76-96) fL MCH 30.9 (27.0-32.0) pg MCHC 34.1 (31.0-35.0) g/dL RDW 15.3 (11.0-16.0) % Plt Count 70 L (150-400) K/uL MPV 11.0 H (6.0-10.0) fL Neut % (Auto) 69.6 (45.0-70.0) % Lymph % (Auto) 13.7 L (20.0-40.0) % [place] % (Auto) 13.0 H (3.0-10.0) % Eos % (Auto) 3.4 (1.0-5.0) % Baso % (Auto) 0.3 (0.0-0.5) % Neut # (Auto) 2.04 (2.00-7.50) K/uL Lymph # (Auto) 0.40 L (1.50-4.00) K/uL [place] # (Auto) 0.38 (0.20-0.80) K/uL Eos # (Auto) 0.10 (0.04-0.40) K/uL Baso # (Auto) 0.01 L (0.02-0.10) K/uL Sodium 142 (136-145) mmol/L Potassium 4.5 (3.5-5.1) mmol/L Chloride 108 H (98-107) mmol/L Carbon Dioxide 24.9 (21.0-32.0) mmol/L Anion Gap 13.6 (5.0-15.0) mmol/L BUN 15 (8-26) mg/dL Creatinine 1.26 (0.70-1.30) mg/dL Est Cr Clr Drug Dosing TNP Estimated GFR (MDRD) 58 L (>60) MLS/MIN BUN/Creatinine Ratio 11.9 (6-25) Glucose 235 H (74-100) mg/dL Calcium 8.2 L (8.5-10.1) mg/dL Total Bilirubin 1.1 H D (0.0-1.0) mg/dL AST 53 H (15-37) U/L ALT 54 (12-78) U/L Alkaline Phosphatase 180 H (46-116) U/L Ammonia (11-32) umol/L Total Protein 6.3 L (6.4-8.2) g/dL Albumin 2.8 L (3.4-5.0) g/dL Globulin 3.5 (2.2-4.2) g/dL Albumin/Globulin Ratio 0.8 (0.8-2.0) Lipase 179 (73-393) U/L 07/05/21 07/05/21 Range/Units 08:56 16:31 WBC (4.0-11.0) K/uL RBC (4.50-6.50) M/uL Hgb (13.0-18.0) g/dL Hct (40.0-54.0) % MCV (76-96) fL MCH (27.0-32.0) pg MCHC (31.0-35.0) g/dL RDW (11.0-16.0) % Plt Count (150-400) K/uL MPV (6.0-10.0) fL Neut % (Auto) (45.0-70.0) % Lymph % (Auto) (20.0-40.0) % [place] % (Auto) (3.0-10.0) % Eos % (Auto) (1.0-5.0) % Baso % (Auto) (0.0-0.5) % Neut # (Auto) (2.00-7.50) K/uL Lymph # (Auto) (1.50-4.00) K/uL [place] # (Auto) (0.20-0.80) K/uL Eos # (Auto) (0.04-0.40) K/uL Baso # (Auto) (0.02-0.10) K/uL Sodium (136-145) mmol/L Potassium (3.5-5.1) mmol/L Chloride (98-107) mmol/L Carbon Dioxide (21.0-32.0) mmol/L Anion Gap (5.0-15.0) mmol/L BUN (8-26) mg/dL Creatinine (0.70-1.30) mg/dL Est Cr Clr Drug Dosing Estimated GFR (MDRD) (>60) MLS/MIN BUN/Creatinine Ratio (6-25) Glucose (74-100) mg/dL Calcium (8.5-10.1) mg/dL Total Bilirubin (0.0-1.0) mg/dL AST (15-37) U/L ALT (12-78) U/L Alkaline Phosphatase (46-116) U/L Ammonia 268 H 63 H (11-32) umol/L Total Protein (6.4-8.2) g/dL Albumin (3.4-5.0) g/dL Globulin (2.2-4.2) g/dL Albumin/Globulin Ratio (0.8-2.0) Lipase (73-393) U/L Result Diagrams: 07/05/21 08:56 07/05/21 08:55 Sepsis Event Note - Evaluation Sepsis Screening Result: No Definite Risk - Focused Exam Vital Signs: Vital Signs Temp Pulse Resp BP Pulse Ox 07/05/21 14:33 36.7 C 72 17 167/78 H 99 07/05/21 10:46 75 16 162/77 H 98 07/05/21 08:21 36.5 C 72 16 140/67 96 Problem List Initiated/Reviewed/Updated: Yes Orders Last 24hrs: Active Orders 24 hr Category Date Time Status Patient Status [ADT] Routine ADT 07/05/21 18:53 Active Oxygen Therapy [RC] PRN Care 07/05/21 18:53 Active Pulse Oximetry [RC] CONTINUOUS Care 07/05/21 18:55 Active RT Aerosol Therapy [RC] ASDIRECTED Care 07/05/21 18:58 Active RT Post Treatment Assessment [RC] Click to Edit Care 07/05/21 18:58 Active Up With Assistance [RC] ASDIRECTED Care 07/05/21 18:53 Active Vital Signs [RC] Q4H Care 07/05/21 18:53 Active Regular Diet [DIET] Diet 07/05/21 Breakfast Ordered AMMONIA VENOUS [CHEM] AM Lab 07/07/21 05:11 Ordered Acetaminophen [TylenoL] Med 07/05/21 18:53 Active 650 mg PO Q4H PRN Acetaminophen [Tylenol Extra Strength] Med 07/05/21 18:56 Active 1,000 mg PO TID PRN Albuterol [Ventolin HFA] Med 07/05/21 18:56 Active 0 gm INH QID PRN Albuterol [Ventolin HFA] Med 07/05/21 18:56 Active 2.5 gm INH QID PRN Alogliptin Benzoate [Alogliptin] Med 07/06/21 08:00 Active 25 mg PO DAILY Ascorbic Acid [Vitamin C] Med 07/06/21 08:00 Active 500 mg PO DAILY Aspirin [Halfprin] Med 07/06/21 08:00 Active 81 mg PO DAILY Citalopram [Celexa] Med 07/06/21 08:00 Active 10 mg PO DAILY Dextrose 50% in Water Med 07/05/21 18:56 Active 50 ml IVPUSH ASDIRECTED PRN Ferrous Sulfate Med 07/05/21 20:00 Active 325 mg PO 2000 Glucagon,Human Recombinant [GlucaGen] Med 07/05/21 18:56 Active 1 mg IM ASDIRECTED PRN Insulin Aspart [NovoLOG] Med 07/06/21 08:00 Active 5 unit SUBCUT TIDMEALS Insulin Glarg,Human.Rec.Analog [LantUS Solostar] Med 07/05/21 20:00 Active 10 units SUBCUT BEDTIME Lactulose [Chronulac] Med 07/05/21 10:00 Active 20 gm PO Q4H Magnesium Oxide [Magnesium Oxide] Med 07/05/21 20:00 Active 2 tab PO TID Multivitamin [Multi-Vitamin Daily] Med 07/06/21 08:00 Active 1 each PO DAILY Pantoprazole [ProTONIX Granules] Med 07/05/21 20:00 Active 40 mg PO BID Rifaximin [Xifaxan] Med 07/05/21 20:00 Active 550 mg PO TID carvediloL [Coreg] Med 07/05/21 20:00 Active 25 mg PO BID carvediloL [Coreg] Med 07/05/21 20:00 Active 6.25 mg PO BID lisinopriL [Prinivil] Med 07/06/21 08:00 Active 20 mg PO DAILY metFORMIN [Glucophage] Med 07/05/21 20:00 Active 500 mg PO BID Resuscitation Status Routine Resus Stat 07/05/21 18:53 Ordered Medication Orders Acetaminophen (Acetaminophen 325 Mg Tab) 650 mg PO Q4H PRN PRN Reason: analgesia/fever Acetaminophen (Acetaminophen 500 Mg Tab) 1,000 mg PO TID PRN PRN Reason: Pain Albuterol (Albuterol 8 Gm Inhaler) 2.5 gm INH QID PRN PRN Reason: Dyspnea Albuterol (Albuterol 8 Gm Inhaler) 0 gm INH QID PRN PRN Reason: Dyspnea Ascorbic Acid (Ascorbic Acid 500 Mg Tab) 500 mg PO DAILY [facility] Aspirin (Aspirin 81 Mg Tab.Ec) 81 mg PO DAILY [facility] Carvedilol (Carvedilol 6.25 Mg Tab) 6.25 mg PO BID [facility] Carvedilol (Carvedilol 25 Mg Tab) 25 mg PO BID [facility] Citalopram Hydrobromide (Citalopram 20 Mg Tab) 10 mg PO DAILY [facility] Dextrose/Water (50% Dextrose In Water 50 Ml Syringe) 50 ml IVPUSH ASDIRECTED PRN PRN Reason: Hypoglycemia Ferrous Sulfate (Ferrous Sulfate 325 Mg Tab) 325 mg PO 2000 [facility] Glucagon (Glucagon,Human Recombinant 1 Mg Vial) 1 mg IM ASDIRECTED PRN PRN Reason: Hypoglycemia Insulin Aspart (Insulin Aspart 100 Units/Ml 3 Ml Pen) 5 unit SUBCUT TIDMEALS [facility] Insulin Glargine (Insulin Glargine,Human Rec. Analog 100 Units/Ml 3 Ml Pen) 10 units SUBCUT BEDTIME [facility] Lactulose (Lactulose Soln 10 Gm/15 Ml 15 Ml Ud Cup) 20 gm PO Q4H [facility] Last Admin: 07/05/21 15:08 Dose: 20 gm Documented by: Admin: 07/05/21 11:24 Dose: 20 gm Documented by: AMNA Lisinopril (Lisinopril 20 Mg Tab) 20 mg PO DAILY [facility] Metformin HCl (Metformin 500 Mg Tab) 500 mg PO BID [facility] Non-Formulary Medication (Alogliptin Benzoate [Alogliptin]) 25 mg PO DAILY [facility] Non-Formulary Medication (Magnesium Oxide [Magnesium Oxide]) 2 tab PO TID [facility] Non-Formulary Medication (Multivitamin [Multi-Vitamin Daily]) 1 each PO DAILY [facility] Non-Formulary Medication (Rifaximin [Xifaxan]) 550 mg PO TID [facility] Pantoprazole Sodium (Pantoprazole 40 Mg Delayed-Release Granules 1 Packet) 40 mg PO BID [facility] Assessment/Plan Comment:: Patient is admitted to the inpatient unit on observation status for hepatic encephalopathy. He will be given 1 additional dose of lactulose this evening and will have a repeat ammonia level drawn in the morning. He will likely be discharged after that.
[2021-07-05] MEDS ORDERED: metFORMIN 500 MG Tab PO SCH (20:00)
[2021-07-05] MEDS ORDERED: LANTUS SUBCUT SCH (20:00)
[2021-07-05] MEDS ORDERED: RIFAXIMIN 200 MG PO SCH (20:00)
[2021-07-05] MEDS ORDERED: Pantoprazole 40 MG Delayed-Release Granules 1 Packet PO SCH (20:00)
[2021-07-05] MEDS ORDERED: Ferrous Sulfate 325 MG Tab PO SCH (20:00)
[2021-07-05] MEDS ORDERED: Non-Formulary Medication 1 Each (Magnesium Oxide [Magnesium Oxide] 420 MG Tablet) PO SCH (20:00)
[2021-07-05] MEDS ORDERED: Carvedilol 6.25 MG Tab PO SCH (20:00)
[2021-07-05] MEDS ORDERED: LACTULOSE PO SCH (20:00)
[2021-07-05] MEDS ORDERED: Insulin Glargine,Human Rec. Analog 100 Units/ML 3 ML Pen SUBCUT SCH (20:00)
[2021-07-05] MEDS ORDERED: Ferrous Sulfate 325 MG Tab **OWN MED PO SCH (20:15)
[2021-07-05] MEDS: Carvedilol 25 MG Tab PO SCH (20:29)
[2021-07-05] MEDS: metFORMIN 500 MG Tab **OWN MED PO SCH (20:30)
[2021-07-05] MEDS: Pantoprazole 40 MG Tab.CR **OWN MED PO SCH (20:30)
[2021-07-05] MEDS: Carvedilol 6.25 MG Tab **OWN MED PO SCH (20:31)
[2021-07-05] MEDS: MAGNESIUM OXIDE 420 MG PO SCH (20:31)
[2021-07-05] MEDS: RIFAXIMIN 550 MG PO SCH (20:32)
[2021-07-05] MEDS: LACTULOSE 10 GM/15 ML PO SCH (20:33)
[2021-07-06] MEDS: LACTULOSE 10 GM/15 ML PO SCH ×3 (02:04→08:35)
[2021-07-06] MEDS: Pantoprazole 40 MG Tab.CR **OWN MED PO SCH (06:13)
[2021-07-06] MEDS: metFORMIN 500 MG Tab **OWN MED PO SCH (07:48)
[2021-07-06] MEDS: Carvedilol 6.25 MG Tab **OWN MED PO SCH (07:51)
[2021-07-06] MEDS: Carvedilol 25 MG Tab PO SCH (07:51)
[2021-07-06] MEDS: RIFAXIMIN 550 MG PO SCH (07:52)
[2021-07-06] MEDS: MAGNESIUM OXIDE 420 MG PO SCH (07:54)
[2021-07-06] MEDS ORDERED: Lisinopril 20 MG Tab PO SCH (08:00)
[2021-07-06] MEDS ORDERED: Insulin Aspart 100 Units/ML 3 ML Pen SUBCUT SCH (08:00)
[2021-07-06] MEDS ORDERED: Lisinopril 20 MG Tab **OWN MED PO SCH (08:00)
[2021-07-06] MEDS ORDERED: Aspirin 81 MG Tab.EC PO SCH (08:00)
[2021-07-06] MEDS ORDERED: Citalopram 20 MG Tab **OWN MED PO SCH ×2 (08:00)
[2021-07-06] MEDS ORDERED: Non-Formulary Medication 1 Each (Multivitamin [Multi-Vitamin Daily] 1 EACH Tablet) PO SCH (08:00)
[2021-07-06] MEDS ORDERED: Aspirin 81 MG Tab.EC **OWN MED PO SCH (08:00)
[2021-07-06] MEDS ORDERED: ASCORBIC ACID 500 MG PO SCH (08:00)
[2021-07-06] MEDS ORDERED: ALOGLIPTIN BENZOATE 25 MG PO SCH (08:00)
[2021-07-06] MEDS: Insulin Aspart 100 Units/ML 3 ML Pen **OWN MED SUBCUT SCH ×2 (10:33→12:20)
[2021-07-06 10:43] VITALS: BP 125/70; PULSE 87
--- NOTE | 2021-07-06 12:50 | PCM.DCSUM1 ---
Discharge Summary - Hospital Course Free Text/Narrative:: This patient was admitted to observation status overnight for confusion. He had a significant elevation in his ammonia level on arrival yesterday and took some time to clear. Today he is alert, oriented, up walking around his room, with a good appetite. HPI Initial Comments: Hyperammonemia - Discharge Data Discharge Date: 07/06/21 Discharge Disposition: Home, Self-Care 01 Condition: Good - Referral to Home Health Primary Care Physician: PCP None - Discharge Plan *PRESCRIPTION DRUG MONITORING PROGRAM REVIEWED*: Not Applicable *COPY OF PRESCRIPTION DRUG MONITORING REPORT IN PATIENT FATOU: Not Applicable Home Medications: Home Meds Multivitamin [Multi-Vitamin Daily] 1 each PO DAILY 01/29/15 [History] Alogliptin Benzoate [Alogliptin] 25 mg PO DAILY 08/20/19 [History] Citalopram [Citalopram HBr] 10 mg PO DAILY 08/20/19 [History] Insulin Aspart [NovoLOG] 5 units SUBCUT TIDMEALS 08/20/19 [History] Insulin Glargine,Hum.Rec.Anlog [Lantus Solostar] 10 units SUBCUT BEDTIME 08/20/19 [History] Magnesium Oxide 2 tab PO TID 08/20/19 [History] carvediloL [Coreg] 25 mg PO BID 08/20/19 [History] Lactulose 60 ml PO QID 08/28/19 [History] Albuterol Sulfate [Albuterol Sulfate Hfa] 2 puff INH QID PRN 10/20/19 [History] carvediloL [Carvedilol] 6.25 mg PO BID 10/20/19 [History] Aspirin [Halfprin] 81 mg PO DAILY tab.ec 06/24/20 [Rx] Ferrous Sulfate 325 mg PO 2000 tablet 06/24/20 [Rx] Rifaximin [Xifaxan] 550 mg PO TID #0 06/24/20 [Rx] Acetaminophen [Tylenol Extra Strength] 1,000 mg PO TID PRN 07/17/20 [History] Ascorbic Acid [Vitamin C] 500 mg PO DAILY 07/17/20 [History] Albuterol [Ventolin HFA] 0 gm INH QID PRN inhaler 07/25/20 [Rx] lisinopriL [Prinivil] 20 mg PO DAILY 01/30/21 [History] Pantoprazole Sodium [Protonix] 40 mg PO BID 07/05/21 [History] metFORMIN [Glucophage] 500 mg PO BID 07/05/21 [History] Forms: ED Department Discharge Referrals: PCP,None [Primary Care Provider] - - Discharge Summary/Plan Comment DC Time >30 min.: No Total # of Minutes for Discharge Time: 15 - Patient Data Vitals - Most Recent: Last Vital Signs Temp 36.8 C 07/06/21 10:42 Pulse 87 07/06/21 10:42 Resp 18 07/06/21 10:42 BP 125/70 07/06/21 10:42 Pulse Ox 99 07/06/21 10:42 Weight - Most Recent: 119.833 kg Lab Results - Last 24 hrs: Laboratory Results - last 24 hr 07/05/21 07/05/21 07/06/21 Range/Units 16:31 19:35 12:15 POC Glucose 161 H (74-110) mg/dL Ammonia 63 H (11-32) umol/L SARS-CoV-2 RNA (MCKAYLA) Negative (NEGATIVE) Med Orders - Current: Current Medications Acetaminophen (Acetaminophen 325 Mg Tab) 650 mg PO Q4H PRN PRN Reason: analgesia/fever Acetaminophen (Acetaminophen 500 Mg Tab) 1,000 mg PO TID PRN PRN Reason: Pain Albuterol (Albuterol 8 Gm Inhaler) 2.5 gm INH QID PRN PRN Reason: Dyspnea Albuterol (Albuterol 8 Gm Inhaler) 0 gm INH QID PRN PRN Reason: Dyspnea Ascorbic Acid (Ascorbic Acid 500 Mg Tab Own Med) 0 mg PO DAILY [facility] Last Admin: 07/06/21 07:55 Dose: 500 mg Documented by: Aspirin (Aspirin 81 Mg Tab.Ec Own Med) 81 mg PO DAILY [facility] Last Admin: 07/06/21 07:53 Dose: 81 mg Documented by: Carvedilol (Carvedilol 25 Mg Tab) 25 mg PO BID [facility] Last Admin: 07/06/21 07:51 Dose: 25 mg Documented by: Carvedilol (Carvedilol 6.25 Mg Tab Own Med) 6.25 mg PO BID [facility] Last Admin: 07/06/21 07:51 Dose: 6.25 mg Documented by: Citalopram Hydrobromide (Citalopram 20 Mg Tab Own Med) 10 mg PO DAILY [facility] Last Admin: 07/06/21 07:50 Dose: 10 mg Documented by: Dextrose/Water (50% Dextrose In Water 50 Ml Syringe) 50 ml IVPUSH ASDIRECTED PRN PRN Reason: Hypoglycemia Ferrous Sulfate (Ferrous Sulfate 325 Mg Tab Own Med) 325 mg PO 2000 [facility] Last Admin: 07/05/21 20:30 Dose: 325 mg Documented by: Glucagon (Glucagon,Human Recombinant 1 Mg Vial) 1 mg IM ASDIRECTED PRN PRN Reason: Hypoglycemia Insulin Aspart (Insulin Aspart 100 Units/Ml 3 Ml Pen Own Med) 5 unit SUBCUT TIDMEALS [facility] Last Admin: 07/06/21 12:20 Dose: 5 units Documented by: Lisinopril (Lisinopril 20 Mg Tab Own Med) 20 mg PO DAILY [facility] Last Admin: 07/06/21 07:53 Dose: 20 mg Documented by: Metformin HCl (Metformin 500 Mg Tab Own Med) 1,000 mg PO BIDMEALS [facility] Last Admin: 07/06/21 07:48 Dose: 1,000 mg Documented by: Alogliptin Benzoate 25 Mg Table Own Med 0 mg PO DAILY [facility] Last Admin: 07/06/21 07:49 Dose: 25 mg Documented by: Non-Formulary Medication (Multivitamin [Multi-Vitamin Daily]) 1 each PO DAILY [facility] Last Admin: 07/06/21 07:54 Dose: 1 each Documented by: Rifaximin (Xifaxan) 550 Mg Tablet Own Med 0 mg PO TID [facility] Last Admin: 07/06/21 07:52 Dose: 550 mg Documented by: Magnesium Oxide 420 Mg Tablet Own Med* * 2 tab PO TID [facility] Last Admin: 07/06/21 07:54 Dose: 2 tab Documented by: Pantoprazole Sodium (Pantoprazole 40 Mg Tab.Cr Own Med) 40 mg PO BIDAC [facility] Last Admin: 07/06/21 06:13 Dose: 40 mg Documented by: Lactulose 10 Gm/15 (Ml Own Med) 0 each PO Q4H [facility] Last Admin: 07/06/21 08:35 Dose: 1 each Documented by: Lantus Vial Own (Med) 0 each SUBCUT BEDTIME [facility] Last Admin: 07/05/21 20:32 Dose: 10 each Documented by: Discontinued Medications Aspirin (Aspirin 81 Mg Tab.Ec) 81 mg PO DAILY [facility] Carvedilol (Carvedilol 6.25 Mg Tab) 6.25 mg PO BID [facility] Last Admin: 07/05/21 21:03 Dose: Not Given Documented by: Citalopram Hydrobromide (Citalopram 20 Mg Tab Own Med) 10 mg PO DAILY [facility] Ferrous Sulfate (Ferrous Sulfate 325 Mg Tab) 325 mg PO 2000 [facility] Last Admin: 07/05/21 21:03 Dose: Not Given Documented by: Insulin Aspart (Insulin Aspart 100 Units/Ml 3 Ml Pen) 5 unit SUBCUT TIDMEALS [facility] Insulin Glargine (Insulin Glargine,Human Rec. Analog 100 Units/Ml 3 Ml Pen) 10 units SUBCUT BEDTIME [facility] Last Admin: 07/05/21 21:04 Dose: Not Given Documented by: Lactulose (Lactulose Soln 10 Gm/15 Ml 15 Ml Ud Cup) 20 gm PO ONETIME ONE Stop: 07/05/21 09:48 Last Admin: 07/05/21 10:45 Dose: Not Given Documented by: Lactulose (Lactulose Soln 10 Gm/15 Ml 15 Ml Ud Cup) 20 gm PO Q4H [facility] Last Admin: 07/05/21 19:35 Dose: Not Given Documented by: Lactulose (Lactulose Soln 10 Gm/15 Ml 15 Ml Ud Cup) 20 gm PO ONETIME ONE Stop: 07/05/21 19:05 Last Admin: 07/05/21 20:29 Dose: 20 gm Documented by: Lisinopril (Lisinopril 20 Mg Tab) 20 mg PO DAILY [facility] Metformin HCl (Metformin 500 Mg Tab) 500 mg PO BID [facility] Last Admin: 07/05/21 21:03 Dose: Not Given Documented by: Non-Formulary Medication (Lactulose [Lactulose]) 60 ml PO QID [facility] Non-Formulary Medication (Magnesium Oxide [Magnesium Oxide]) 2 tab PO TID [facility] Last Admin: 07/05/21 21:04 Dose: Not Given Documented by: Non-Formulary Medication (Rifaximin [Xifaxan]) 550 mg PO TID [facility] Last Admin: 07/05/21 21:04 Dose: Not Given Documented by: Pantoprazole Sodium (Pantoprazole 40 Mg Delayed-Release Granules 1 Packet) 40 mg PO BID [facility] Last Admin: 07/05/21 21:04 Dose: Not Given Documented by:
== END 2021-07-06 13:20 | disposition home or self-care (01) ==
LOC: LB.ED 07:53 → UNDOADMIN 18:20 → LB.MS 18:20 → UNDOADMIN 18:53 → LB.MS 18:53
PROVIDERS: ADMIT Nurse Practitioner; ATTEND Nurse Practitioner
DX: K72.90 Hepatic failure, unspecified without coma (principal); E78.00 Pure hypercholesterolemia, unspecified; I10 Essential (primary) hypertension; I25.2 Old myocardial infarction; K21.9 Gastro-esophageal reflux disease without esophagitis; M10.9 Gout, unspecified; E11.9 Type 2 diabetes mellitus without complications; Z88.8 Allergy status to other drugs, medicaments and biological substances; Z91.012 Allergy to eggs; Z88.5 Allergy status to narcotic agent; Z91.018 Allergy to other foods; Z79.899 Other long term (current) drug therapy; Z79.82 Long term (current) use of aspirin; Z79.4 Long term (current) use of insulin; Z79.84 Long term (current) use of oral hypoglycemic drugs; Z90.49 Acquired absence of other specified parts of digestive tract; Z98.890 Other specified postprocedural states; Z20.822 Contact with and (suspected) exposure to COVID-19
CPT/HCPCS: 36415; 80053; 82140; 82947; 83690; 85025; 87635; 93005; A0425; A0429; A9270; G0378; 99217; 99219; U0002

== ENCOUNTER 2021-07-16 10:37 | Observation (INO) | payer OTHER ==
[2021-07-16] MEDS ORDERED: Midazolam 1 MG/ML 10 ML MDV IVPUSH PRN (11:00)
[2021-07-16] MEDS ORDERED: Lactulose Soln 10 GM/15 ML ML 473 ML Bottle PO ONE (11:00)
[2021-07-16] MEDS ORDERED: Lactulose Soln 10 GM/15 ML 15 ML UD Cup PO ONE (11:34)
[2021-07-16] MEDS ORDERED: Ketamine 200 MG/20 ML MDV IVPUSH ONE (12:10)
[2021-07-16] MEDS: Haloperidol Lactate 5 MG/ML SDV IVPUSH PRN ×4 (13:34→14:54)
--- NOTE | 2021-07-16 14:22 | EDM.PDOC ---
ED HPI GENERAL MEDICAL PROBLEM - General Chief Complaint: Neurological Problem Stated Complaint: altered mental status Time Seen by Provider: 07/16/21 10:39 Source of Information: Reports: EMS History Limitations: Reports: Altered Mental Status - History of Present Illness INITIAL COMMENTS - FREE TEXT/NARRATIVE: 65-year-old male presents via EMS. 911 was called for altered mental status patient has long history of hepatic encephalopathy secondary to liver failure. Patient was last seen normal 8:00 last night. Patient's states that he has been compliant with medications and that he was acting appropriately last night. But has been having issues regularly since being discharged from the hospital approximately 10 days ago. Patient is nonconversive, patient is agitated, threatening staff, had a lumbering gait, no fine muscle coordination, decreased strength. Patient is poor historian due to his current mental status - Related Data Allergies Allergy/AdvReac Type Severity Reaction Status Date / Time acetaminophen Allergy Change Verified 07/16/21 12:39 [From Darvocet-N 100] Mental Status cinnamon Allergy Cannot Verified 07/16/21 12:39 Remember egg Allergy Cannot Verified 07/16/21 12:39 Remember dontrell Allergy Other Verified 07/16/21 12:39 mustard Allergy Anaphylactic Verified 07/16/21 12:39 Shock propoxyphene napsylate Allergy Cannot Verified 07/16/21 12:39 [From Darvocet-N 100] Remember Tassrun-YKV-[id number] Reductase Allergy Muscle Verified 07/16/21 12:39 Inhibitor Aches [Cxrykgr-Prg-Wvf Reductase Inhibitor] codeine AdvReac Change Verified 07/16/21 12:39 Mental Status indomethacin [From Indocin] AdvReac Change Verified 07/16/21 12:39 Mental Status indomethacin sodium AdvReac Change Verified 07/16/21 12:39 [From Indocin] Mental Status propoxyphene HCl AdvReac Change Verified 07/16/21 12:39 [From Darvon] Mental Status Home Meds: Home Meds Multivitamin [Multi-Vitamin Daily] 1 each PO DAILY 01/29/15 [History] Alogliptin Benzoate [Alogliptin] 25 mg PO DAILY 08/20/19 [History] Citalopram [Citalopram HBr] 10 mg PO DAILY 08/20/19 [History] Insulin Aspart [NovoLOG] 5 units SUBCUT TIDMEALS 08/20/19 [History] Insulin Glargine,Hum.Rec.Anlog [Lantus Solostar] 10 units SUBCUT BEDTIME 08/20/19 [History] Magnesium Oxide 2 tab PO TID 08/20/19 [History] carvediloL [Coreg] 25 mg PO BID 08/20/19 [History] Lactulose 60 ml PO QID 08/28/19 [History] Albuterol Sulfate [Albuterol Sulfate Hfa] 2 puff INH QID PRN 10/20/19 [History] carvediloL [Carvedilol] 6.25 mg PO BID 10/20/19 [History] Aspirin [Halfprin] 81 mg PO DAILY tab.ec 06/24/20 [Rx] Ferrous Sulfate 325 mg PO 2000 tablet 06/24/20 [Rx] Rifaximin [Xifaxan] 550 mg PO TID #0 06/24/20 [Rx] Acetaminophen [Tylenol Extra Strength] 1,000 mg PO TID PRN 07/17/20 [History] Ascorbic Acid [Vitamin C] 500 mg PO DAILY 07/17/20 [History] lisinopriL [Prinivil] 20 mg PO DAILY 01/30/21 [History] Pantoprazole Sodium [Protonix] 40 mg PO BID 07/05/21 [History] metFORMIN [Glucophage] 500 mg PO BID 07/05/21 [History] Albuterol [Ventolin HFA] 1 inh INH QID PRN 07/16/21 [History] Past Medical History HEENT History: Reports: Hard of Hearing, Impaired Vision Other HEENT History: glasses Cardiovascular History: Reports: Angina, High Cholesterol, Hypertension, [place] Other Cardiovascular History: AICD stents July 2017 Respiratory History: Reports: SOB Other Respiratory History: dyspnea with exertion no sob or difficulty breathing at rest Gastrointestinal History: Reports: Cirrhosis, GERD, Hiatal Hernia, PUD Musculoskeletal History: Reports: Gout, Osteoarthritis Other Musculoskeletal History: Bilateral Knee Pain Neurological History: Reports: Other (See Below) Other Neuro History: AMS when ammonia level gets high Psychiatric History: Reports: Anxiety Endocrine/Metabolic History: Reports: Diabetes, Type II Hematologic History: Reports: Anemia - Infectious Disease History Infectious Disease History: Reports: Chicken Pox - Past Surgical History HEENT Surgical History: Reports: None Cardiovascular Surgical History: Reports: Coronary Artery Stent, Other (See Below) Other Cardiovascular Surgeries/Procedures: Internal Defibrillator Respiratory Surgical History: Reports: None GI Surgical History: Reports: Cholecystectomy Endocrine Surgical History: Reports: None Neurological Surgical History: Reports: None Musculoskeletal Surgical History: Reports: None - History Comment History Comment: Home Medications: Reviewed see EMR for details. Pertinent Medical History: Hepatic encephalopathy, cirrhosis, CAD, DM 2, asthma, [place] x2, depression, thrombocytopenia, esophageal varices, HTN, left heart catheterization times multiple, EGD, colonoscopy times multiple, cholecystectomy, ICD. Pertinent Social History: , quit smoking in 2001, up to that point smoked 3 packs/day for 10 years, quit drinking alcohol in 2004 Social & Family History - Family History Family Medical History: No Pertinent Family History - Caffeine Use Caffeine Use: Reports: Coffee Other Caffeine Use: not reported ED ROS GENERAL - Review of Systems Review Of Systems: Unable To Obtain Reason Not Obtained: Patient combative, altered level consciousness - Physical Exam Exam: See Below Text/Narrative:: 65-year-old male found in trauma bay 3 in semifowler position. Patient was bro ught to the ED with EMS. Chief complaint altered level consciousness secondary to hepatic encephalopathy. Patient is alert and oriented 0/3 GCS of 345, patient responds to verbal stimuli. Patient able to speak in 4-5 word sentences mostly to tell healthcare providers much he disdain for situation. No obvious trauma noted, patient incontinent of stool. Exam Limited By: Combative/Threatening General Appearance: Obtunded, Obese Eye Exam: Bilateral Eye: PERRL Ears: Normal External Exam, Hearing Grossly Normal Nose: Normal Inspection, No Blood Throat/Mouth: Normal Lips, Normal Voice, No Airway Compromise Head Exam: Atraumatic, Normocephalic Respiratory/Chest: No Respiratory Distress, Lungs Clear, Normal Breath Sounds, No Accessory Muscle Use, Chest Non-Tender Cardiovascular: Normal Peripheral Pulses, Regular Rate, Rhythm, No Edema, No Gallop, No JVD, No Murmur, No Rub GI/Abdominal: Normal Bowel Sounds, Soft, Non-Tender, Distended (Shifting dullness) (Male) Exam: Normal Inspection, Circumcised. No: Penile Lesions, Rash Rectal (Males) Exam: Heme + Stool Neuro Exam (Abbreviated): Confused, Disoriented, Slow to Respond, Abnormal Gait Extremities: Normal Inspection, Normal Range of Motion, No Pedal Edema Psychiatric: Other (Agitated, threatening,) Skin Exam: Warm, Dry, Intact, Normal Color, No Rash #1 Interpretation EKG Date: 07/16/21 (Paced rhythm, right bundle branch block, unreadable for STEMI) Course - Vital Signs Last Recorded V/S: Last Vital Signs Temp 97.9 F 07/16/21 10:54 Pulse 79 07/16/21 10:54 Resp 16 07/16/21 10:54 BP 153/70 H 07/16/21 10:54 Pulse Ox 93 L 07/16/21 10:54 - Orders/Labs/Meds Orders: Active Orders 24 hr Category Date Time Status Haloperidol Lactate [Haldol] Med 07/16/21 13:06 Active 5 mg IVPUSH ASDIRECTED PRN Rifaximin [Xifaxan] Med 07/16/21 20:00 Active 550 mg PO BID Medication Orders Haloperidol Lactate (Haloperidol Lactate 5 Mg/Ml Sdv) 5 mg IVPUSH ASDIRECTED PRN PRN Reason: Agitation Last Admin: 07/16/21 14:54 Dose: 5 mg Documented by: Admin: 07/16/21 14:48 Dose: 5 mg Documented by: Admin: 07/16/21 13:50 Dose: 5 mg Documented by: Admin: 07/16/21 13:34 Dose: 5 mg Documented by: BURTON Rifaximin (Rifaximin 550 Mg Tab) 550 mg PO BID FATOU Labs: Laboratory Tests 07/16/21 07/16/21 07/16/21 Range/Units 10:50 10:50 10:51 WBC 3.2 L (4.0-11.0) K/uL RBC 3.83 L (4.50-6.50) M/uL Hgb 11.9 L (13.0-18.0) g/dL Hct 34.2 L (40.0-54.0) % MCV 89 (76-96) fL MCH 31.1 (27.0-32.0) pg MCHC 34.8 (31.0-35.0) g/dL RDW 15.3 (11.0-16.0) % Plt Count 76 L (150-400) K/uL MPV 11.1 H (6.0-10.0) fL Neut % (Auto) 72.2 H (45.0-70.0) % Lymph % (Auto) 13.6 L (20.0-40.0) % [place] % (Auto) 11.4 H (3.0-10.0) % Eos % (Auto) 2.2 (1.0-5.0) % Baso % (Auto) 0.6 H (0.0-0.5) % Neut # (Auto) 2.28 (2.00-7.50) K/uL Lymph # (Auto) 0.43 L (1.50-4.00) K/uL [place] # (Auto) 0.36 (0.20-0.80) K/uL Eos # (Auto) 0.07 (0.04-0.40) K/uL Baso # (Auto) 0.02 (0.02-0.10) K/uL PT 12.9 H (9.0-11.5) sec INR 1.3 (1.0-3.5) Sodium 139 (136-145) mmol/L Potassium 4.6 (3.5-5.1) mmol/L Chloride 107 (98-107) mmol/L Carbon Dioxide 21.0 (21.0-32.0) mmol/L Anion Gap 15.6 H (5.0-15.0) mmol/L BUN 14 (8-26) mg/dL Creatinine 1.12 (0.70-1.30) mg/dL Est Cr Clr Drug Dosing TNP Estimated GFR (MDRD) > 60 (>60) MLS/MIN BUN/Creatinine Ratio 12.5 (6-25) Glucose 239 H (74-100) mg/dL Calcium 8.9 (8.5-10.1) mg/dL Magnesium (1.8-2.4) mg/dL Total Bilirubin 1.3 H (0.0-1.0) mg/dL AST 54 H (15-37) U/L ALT 55 (12-78) U/L Alkaline Phosphatase 182 H (46-116) U/L Ammonia (11-32) umol/L Troponin I (0.000-0.060) ng/mL Total Protein 6.8 (6.4-8.2) g/dL Albumin 2.9 L (3.4-5.0) g/dL Globulin 3.9 (2.2-4.2) g/dL Albumin/Globulin Ratio 0.7 L (0.8-2.0) Urine Color Urine Appearance (CLEAR) Urine pH (5.0-8.0) Ur Specific Alpine (1.003-1.030) Urine Protein (NEGATIVE) mg/dL Urine Glucose (UA) (NEGATIVE) mg/dL Urine Ketones (NEGATIVE) mg/dL Urine Occult Blood (NEGATIVE) Urine Nitrite (NEGATIVE) Urine Bilirubin (NEGATIVE) Urine Urobilinogen (0.2-1.0) E.U./dL Ur Leukocyte Esterase (NEGATIVE) Urine RBC /HPF Urine WBC /HPF Ur Squamous Epith Cells /HPF Urine Bacteria /HPF Urinalysis Comment Urine Opiates Screen (NEGATIVE) Ur Oxycodone Screen (NEGATIVE) Urine Methadone Screen (NEGATIVE) Ur Barbiturates Screen (NEGATIVE) Ur Tricyclics Screen (NEGATIVE) Ur Phencyclidine Scrn (NEGATIVE) Ur Amphetamine Screen (NEGATIVE) U Methamphetamines Scrn (NEGATIVE) Urine MDMA Screen (NEGATIVE) U Benzodiazepines Scrn (NEGATIVE) U Cocaine Metab Screen (NEGATIVE) U Marijuana (THC) Screen (NEGATIVE) Ethyl Alcohol < 3.0 (<3.0) mg/dL SARS-CoV-2 RNA (MCKAYLA) (NEGATIVE) 07/16/21 07/16/21 07/16/21 Range/Units 10:51 10:51 11:29 WBC (4.0-11.0) K/uL RBC (4.50-6.50) M/uL Hgb (13.0-18.0) g/dL Hct (40.0-54.0) % MCV (76-96) fL MCH (27.0-32.0) pg MCHC (31.0-35.0) g/dL RDW (11.0-16.0) % Plt Count (150-400) K/uL MPV (6.0-10.0) fL Neut % (Auto) (45.0-70.0) % Lymph % (Auto) (20.0-40.0) % [place] % (Auto) (3.0-10.0) % Eos % (Auto) (1.0-5.0) % Baso % (Auto) (0.0-0.5) % Neut # (Auto) (2.00-7.50) K/uL Lymph # (Auto) (1.50-4.00) K/uL [place] # (Auto) (0.20-0.80) K/uL Eos # (Auto) (0.04-0.40) K/uL Baso # (Auto) (0.02-0.10) K/uL PT (9.0-11.5) sec INR (1.0-3.5) Sodium (136-145) mmol/L Potassium (3.5-5.1) mmol/L Chloride (98-107) mmol/L Carbon Dioxide (21.0-32.0) mmol/L Anion Gap (5.0-15.0) mmol/L BUN (8-26) mg/dL Creatinine (0.70-1.30) mg/dL Est Cr Clr Drug Dosing Estimated GFR (MDRD) (>60) MLS/MIN BUN/Creatinine Ratio (6-25) Glucose (74-100) mg/dL Calcium (8.5-10.1) mg/dL Magnesium 1.4 L (1.8-2.4) mg/dL Total Bilirubin (0.0-1.0) mg/dL AST (15-37) U/L ALT (12-78) U/L Alkaline Phosphatase (46-116) U/L Ammonia 189 H (11-32) umol/L Troponin I < 0.017 (0.000-0.060) ng/mL Total Protein (6.4-8.2) g/dL Albumin (3.4-5.0) g/dL Globulin (2.2-4.2) g/dL Albumin/Globulin Ratio (0.8-2.0) Urine Color Urine Appearance (CLEAR) Urine pH (5.0-8.0) Ur Specific Alpine (1.003-1.030) Urine Protein (NEGATIVE) mg/dL Urine Glucose (UA) (NEGATIVE) mg/dL Urine Ketones (NEGATIVE) mg/dL Urine Occult Blood (NEGATIVE) Urine Nitrite (NEGATIVE) Urine Bilirubin (NEGATIVE) Urine Urobilinogen (0.2-1.0) E.U./dL Ur Leukocyte Esterase (NEGATIVE) Urine RBC /HPF Urine WBC /HPF Ur Squamous Epith Cells /HPF Urine Bacteria /HPF Urinalysis Comment Urine Opiates Screen (NEGATIVE) Ur Oxycodone Screen (NEGATIVE) Urine Methadone Screen (NEGATIVE) Ur Barbiturates Screen (NEGATIVE) Ur Tricyclics Screen (NEGATIVE) Ur Phencyclidine Scrn (NEGATIVE) Ur Amphetamine Screen (NEGATIVE) U Methamphetamines Scrn (NEGATIVE) Urine MDMA Screen (NEGATIVE) U Benzodiazepines Scrn (NEGATIVE) U Cocaine Metab Screen (NEGATIVE) U Marijuana (THC) Screen (NEGATIVE) Ethyl Alcohol (<3.0) mg/dL SARS-CoV-2 RNA (MCKAYLA) (NEGATIVE) 07/16/21 07/16/21 07/16/21 Range/Units 11:40 11:40 13:03 WBC (4.0-11.0) K/uL RBC (4.50-6.50) M/uL Hgb (13.0-18.0) g/dL Hct (40.0-54.0) % MCV (76-96) fL MCH (27.0-32.0) pg MCHC (31.0-35.0) g/dL RDW (11.0-16.0) % Plt Count (150-400) K/uL MPV (6.0-10.0) fL Neut % (Auto) (45.0-70.0) % Lymph % (Auto) (20.0-40.0) % [place] % (Auto) (3.0-10.0) % Eos % (Auto) (1.0-5.0) % Baso % (Auto) (0.0-0.5) % Neut # (Auto) (2.00-7.50) K/uL Lymph # (Auto) (1.50-4.00) K/uL [place] # (Auto) (0.20-0.80) K/uL Eos # (Auto) (0.04-0.40) K/uL Baso # (Auto) (0.02-0.10) K/uL PT (9.0-11.5) sec INR (1.0-3.5) Sodium (136-145) mmol/L Potassium (3.5-5.1) mmol/L Chloride (98-107) mmol/L Carbon Dioxide (21.0-32.0) mmol/L Anion Gap (5.0-15.0) mmol/L BUN (8-26) mg/dL Creatinine (0.70-1.30) mg/dL Est Cr Clr Drug Dosing Estimated GFR (MDRD) (>60) MLS/MIN BUN/Creatinine Ratio (6-25) Glucose (74-100) mg/dL Calcium (8.5-10.1) mg/dL Magnesium (1.8-2.4) mg/dL Total Bilirubin (0.0-1.0) mg/dL AST (15-37) U/L ALT (12-78) U/L Alkaline Phosphatase (46-116) U/L Ammonia (11-32) umol/L Troponin I (0.000-0.060) ng/mL Total Protein (6.4-8.2) g/dL Albumin (3.4-5.0) g/dL Globulin (2.2-4.2) g/dL Albumin/Globulin Ratio (0.8-2.0) Urine Color Yellow Urine Appearance Clear (CLEAR) Urine pH 6.0 (5.0-8.0) Ur Specific [place] >= 1.030 (1.003-1.030) Urine Protein 30 H (NEGATIVE) mg/dL Urine Glucose (UA) Negative (NEGATIVE) mg/dL Urine Ketones Trace H (NEGATIVE) mg/dL Urine Occult Blood Trace-intact H (NEGATIVE) Urine Nitrite Negative (NEGATIVE) Urine Bilirubin Negative (NEGATIVE) Urine Urobilinogen 1.0 (0.2-1.0) E.U./dL Ur Leukocyte Esterase Negative (NEGATIVE) Urine RBC 0-5 H /HPF Urine WBC 0-5 H /HPF Ur Squamous Epith Cells Moderate /HPF Urine Bacteria Few /HPF Urinalysis Comment See note Urine Opiates Screen Negative (NEGATIVE) Ur Oxycodone Screen Negative (NEGATIVE) Urine Methadone Screen Negative (NEGATIVE) Ur Barbiturates Screen Negative (NEGATIVE) Ur Tricyclics Screen Negative (NEGATIVE) Ur Phencyclidine Scrn Negative (NEGATIVE) Ur Amphetamine Screen Negative (NEGATIVE) U Methamphetamines Scrn Negative (NEGATIVE) Urine MDMA Screen Negative (NEGATIVE) U Benzodiazepines Scrn Negative (NEGATIVE) U Cocaine Metab Screen Negative (NEGATIVE) U Marijuana (THC) Screen Negative (NEGATIVE) Ethyl Alcohol (<3.0) mg/dL SARS-CoV-2 RNA (MCKAYLA) Negative (NEGATIVE) Meds: Medications Generic Name Dose Route Start Last Admin Trade Name Freq PRN Reason Stop Dose Admin Haloperidol Lactate 5 mg 07/16/21 13:06 07/16/21 14:54 Haloperidol Lactate 5 Mg/Ml Sdv IVPUSH 5 mg ASDIRECTED PRN Administration Agitation Rifaximin 550 mg 07/16/21 20:00 Rifaximin 550 Mg Tab PO BID FATOU Discontinued Medications Generic Name Dose Route Start Last Admin Trade Name Chengq PRN Reason Stop Dose Admin Haloperidol Lactate Confirm 07/16/21 15:00 07/16/21 14:55 Haloperidol Lactate 5 Mg/Ml Sdv Administered 07/16/21 15:01 Not Given Dose 5 mg .ROUTE .STK-MED ONE Ketamine HCl 50 mg 07/16/21 12:10 07/16/21 11:50 Ketamine 200 Mg/20 Ml Mdv IVPUSH 07/16/21 12:11 50 mg ONETIME ONE Administration Lactulose 30 gm 07/16/21 11:00 07/16/21 11:10 Lactulose Soln 10 Gm/15 Ml Ml 473 Ml Bottle PO 07/16/21 11:01 30 gm ONETIME ONE Administration Lactulose 10 gm 07/16/21 11:34 07/16/21 11:20 Lactulose Soln 10 Gm/15 Ml 15 Ml Ud Cup PO 07/16/21 11:35 10 gm ONETIME ONE Administration Departure - Departure Time of Disposition: 17:50 Disposition: Refer to Observation Condition: Fair Clinical Impression: Hepatic encephalopathy, Confusion Altered mental state Qualifiers: Altered mental status type: transient alteration of awareness Qualified Code(s): R40.4 - Transient alteration of awareness - Discharge Information *PRESCRIPTION DRUG MONITORING PROGRAM REVIEWED*: No *COPY OF PRESCRIPTION DRUG MONITORING REPORT IN PATIENT FATOU: No Sepsis Event Note (ED) - Evaluation Sepsis Screening Result: No Definite Risk - Focused Exam Vital Signs: Vital Signs Temp Pulse Resp BP Pulse Ox 07/16/21 10:54 97.9 F 79 16 153/70 H 93 L - My Orders Last 24 Hours: My Active Orders 07/16/21 13:06 Haloperidol Lactate [Haldol] 5 mg IVPUSH ASDIRECTED PRN 07/16/21 20:00 Rifaximin [Xifaxan] 550 mg PO BID - Assessment/Plan Last 24 Hours: My Active Orders 07/16/21 13:06 Haloperidol Lactate [Haldol] 5 mg IVPUSH ASDIRECTED PRN 07/16/21 20:00 Rifaximin [Xifaxan] 550 mg PO BID Assessment:: 65-year-old male was assessed for altered mental status. Based on patient's labs/patient history most likely origin of patient's presentation is hepatic encephalopathy secondary to ammonia buildup. 1. Altered mental status/hepatic encephalopathy 2. Slow lower GI bleed 3. Mild leukopenia 4. Anemia 5. Mildly elevated PT 6. Hyperglycemia 7. Elevated bilirubin elevated AST 8. Elevated alk phos Plan: ABC, history, exam, labs, EKG, lactulose administration, IV, ketamine, Haldol, admission to observation, continue home medications including lactulose and rifaximin. 1. Altered mental status/hepatic encephalopathy-addressed with lactulose and rifaximin 2. Slow lower GI [id number] with primary care provider 3. Mild [id number] with primary care provider 4. Ckxetr-[id number] primary care provider 5. Mildly elevated PT-chronic condition secondary to liver failure 6. [id number] with primary care provider within his normal baseline 7. Elevated bilirubin elevated AST -secondary to chronic liver failure follow- up primary care provider 8. Elevated alk phos-secondary to chronic liver failure follow-up with primary care provider
[2021-07-16] MEDS ORDERED: Haloperidol Lactate 5 MG/ML SDV ONE (15:00)
[2021-07-16] MEDS ORDERED: Rifaximin 550 MG Tab PO SCH (20:00)
[2021-07-16] MEDS ORDERED: Acetaminophen 500 MG Tab PO PRN (20:53)
[2021-07-16] MEDS: Lactulose Soln 10 GM/15 ML 15 ML UD Cup PO SCH (21:05)
[2021-07-16] MEDS: Carvedilol 25 MG Tab PO SCH (21:05)
[2021-07-16] MEDS ORDERED: INSULIN GLARGINE 100 UNIT/ML SUBCUT SCH (21:30)
[2021-07-16] MEDS ORDERED: Magnesium Oxide 400 MG Tab PO SCH (21:30)
[2021-07-16] MEDS ORDERED: Sodium Chloride 0.9% 10 ML Syringe FLUSH PRN (22:07)
[2021-07-16] MEDS: Carvedilol 6.25 MG Tab PO SCH (22:45)
[2021-07-17] MEDS ORDERED: Pantoprazole 40 MG Delayed-Release Granules 1 Packet PO SCH (07:00)
[2021-07-17] MEDS ORDERED: ALOGLIPTIN 25 MG PO SCH (08:00)
[2021-07-17] MEDS ORDERED: Lisinopril 20 MG Tab PO SCH (08:00)
[2021-07-17] MEDS ORDERED: Magnesium Oxide 400 MG Tab PO SCH (08:00)
[2021-07-17] MEDS ORDERED: Citalopram 10 MG Tab PO SCH (08:00)
[2021-07-17] MEDS ORDERED: metFORMIN 500 MG Tab PO SCH (08:00)
[2021-07-17] MEDS ORDERED: Rifaximin 550 MG Tab PO SCH (08:00)
[2021-07-17] MEDS ORDERED: Aspirin 81 MG Tab.EC PO SCH (08:00)
[2021-07-17] MEDS ORDERED: Multivitamins with Iron/Calcium/Folic Acid/Minerals Tab PO SCH (08:00)
[2021-07-17] MEDS ORDERED: Ascorbic Acid 500 MG Tab PO SCH (08:00)
[2021-07-17] MEDS ORDERED: Pantoprazole 40 MG Tab.CR ONE (08:03)
[2021-07-17] MEDS: Carvedilol 6.25 MG Tab PO SCH (08:08)
[2021-07-17] MEDS: Lactulose Soln 10 GM/15 ML 15 ML UD Cup PO SCH (08:09)
[2021-07-17] MEDS: Carvedilol 25 MG Tab PO SCH (08:24)
[2021-07-17] MEDS: INSULIN ASPART 100 UNIT/ML SUBCUT SCH ×3 (09:55→11:57)
[2021-07-17 12:24] VITALS: BP 144/80; PULSE 70
[2021-07-17] MEDS ORDERED: Ferrous Sulfate 325 MG Tab PO SCH (20:00)
--- NOTE | 2021-07-17 22:51 | PCM.HP.2 ---
H&P History of Present Illness - General Date of Service: 07/17/21 Admit Problem/Dx: Admission Diagnosis/Problem Admission Diagnosis/Problem Altered mental status This will also be patient's discharge summary. Source of Information: Patient History Limitations: Reports: No Limitations - History of Present Illness Initial Comments - Free Text/Narative: 65-year-old male admitted for altered mental status secondary to hepatic encephalopathy. History of the same. Patient was unable to communicate upon time of admission. At time of being evaluated this morning patient was ambulatory, conversational, and appropriate. And requesting to go home. Patient was resting comfortably in bed semifowler position. No apparent distress. Alert and oriented 3 of 3. GCS 4 5 6. Speaking in full sentences Onset of Symptoms: Reports: Gradual Duration of Symptoms: Reports: Day(s): Associated Symptoms: Reports: Confusion, Other (Slow lumbering movements, inability to communicate) - Related Data Allergies/Adverse Reactions: Allergies Allergy/AdvReac Type Severity Reaction Status Date / Time acetaminophen Allergy Change Verified 07/16/21 12:39 [From Darvocet-N 100] Mental Status cinnamon Allergy Cannot Verified 07/16/21 12:39 Remember egg Allergy Cannot Verified 07/16/21 12:39 Remember dontrell Allergy Other Verified 07/16/21 12:39 mustard Allergy Anaphylactic Verified 07/16/21 12:39 Shock propoxyphene napsylate Allergy Cannot Verified 07/16/21 12:39 [From Darvocet-N 100] Remember Wuxvjdq-[id number]-[id number] Reductase Allergy Muscle Verified 07/16/21 12:39 Inhibitor Aches [Xkhivju-Ixx-Amm Reductase Inhibitor] codeine AdvReac Change Verified 07/16/21 12:39 Mental Status indomethacin [From Indocin] AdvReac Change Verified 07/16/21 12:39 Mental Status indomethacin sodium AdvReac Change Verified 07/16/21 12:39 [From Indocin] Mental Status propoxyphene HCl AdvReac Change Verified 07/16/21 12:39 [From Darvon] Mental Status Home Medications: Home Meds Multivitamin [Multi-Vitamin Daily] 1 each PO DAILY 01/29/15 [History] Alogliptin Benzoate [Alogliptin] 25 mg PO DAILY 08/20/19 [History] Citalopram [Citalopram HBr] 10 mg PO DAILY 08/20/19 [History] Insulin Aspart [NovoLOG] 5 units SUBCUT TIDMEALS 08/20/19 [History] Insulin Glargine,Hum.Rec.Anlog [Lantus Solostar] 10 units SUBCUT BEDTIME 08/20/19 [History] Magnesium Oxide 2 tab PO TID 08/20/19 [History] carvediloL [Coreg] 25 mg PO BID 08/20/19 [History] Lactulose 60 ml PO QID 08/28/19 [History] Albuterol Sulfate [Albuterol Sulfate Hfa] 2 puff INH QID PRN 10/20/19 [History] carvediloL [Carvedilol] 6.25 mg PO BID 10/20/19 [History] Aspirin [Halfprin] 81 mg PO DAILY tab.ec 06/24/20 [Rx] Ferrous Sulfate 325 mg PO 2000 tablet 06/24/20 [Rx] Rifaximin [Xifaxan] 550 mg PO TID #0 06/24/20 [Rx] Acetaminophen [Tylenol Extra Strength] 1,000 mg PO TID PRN 07/17/20 [History] Ascorbic Acid [Vitamin C] 500 mg PO DAILY 07/17/20 [History] lisinopriL [Prinivil] 20 mg PO DAILY 01/30/21 [History] Pantoprazole Sodium [Protonix] 40 mg PO BID 07/05/21 [History] metFORMIN [Glucophage] 500 mg PO BID 07/05/21 [History] Albuterol [Ventolin HFA] 1 inh INH QID PRN 07/16/21 [History] Past Medical History HEENT History: Reports: Hard of Hearing, Impaired Vision Other HEENT History: glasses Cardiovascular History: Reports: Angina, High Cholesterol, Hypertension, [place] Other Cardiovascular History: AICD stents July 2017 Respiratory History: Reports: SOB Other Respiratory History: dyspnea with exertion no sob or difficulty breathing at rest Gastrointestinal History: Reports: Cirrhosis, GERD, Hiatal Hernia, PUD, Other (See Below) Other Gastrointestinal History: Hepatic encephalopathy Musculoskeletal History: Reports: Gout, Osteoarthritis Other Musculoskeletal History: Bilateral Knee Pain Neurological History: Reports: Other (See Below) Other Neuro History: AMS when ammonia level gets high Psychiatric History: Reports: Anxiety Endocrine/Metabolic History: Reports: Diabetes, Type II Hematologic History: Reports: Anemia - Infectious Disease History Infectious Disease History: Reports: Chicken Pox - Past Surgical History HEENT Surgical History: Reports: None Cardiovascular Surgical History: Reports: Coronary Artery Stent, Other (See Below) Other Cardiovascular Surgeries/Procedures: Internal Defibrillator Respiratory Surgical History: Reports: None GI Surgical History: Reports: Cholecystectomy Endocrine Surgical History: Reports: None Neurological Surgical History: Reports: None Musculoskeletal Surgical History: Reports: None - History Comment History Comment: Home Medications: Reviewed see EMR for details. Pertinent Medical History: Hepatic encephalopathy, cirrhosis, CAD, DM 2, asthma, [place] x2, depression, thrombocytopenia, esophageal varices, HTN, left heart catheterization times multiple, EGD, colonoscopy times multiple, cholecystectomy, ICD. Pertinent Social History: , quit smoking in 2001, up to that point smoked 3 packs/day for 10 years, quit drinking alcohol in 2004 Social & Family History - Family History Family Medical History: No Pertinent Family History - Caffeine Use Caffeine Use: Reports: Coffee Other Caffeine Use: not reported - Recreational Drug Use Recreational Drug Use: No H&P Review of Systems - Review of Systems: Review Of Systems: See Below General: Reports: Fatigue HEENT: Reports: No Symptoms Pulmonary: Reports: No Symptoms. Denies: Shortness of Breath, Wheezing, Cough Cardiovascular: Reports: No Symptoms. Denies: Chest Pain Gastrointestinal: Reports: Diarrhea, Distension. Denies: Abdominal Pain, Black Stool, Bloody Stool Genitourinary: Reports: No Symptoms. Denies: Dysuria, Burning, Pain Musculoskeletal: Reports: No Symptoms. Denies: Joint Swelling Skin: Reports: No Symptoms Psychiatric: Reports: Confusion Neurological: Reports: Confusion Exam - Exam Exam: See Below - Vital Signs Vital Signs: Last Vital Signs Temp 97.6 F 07/17/21 12:00 Pulse 70 07/17/21 12:00 Resp 18 07/17/21 12:00 BP 144/80 H 07/17/21 12:00 Pulse Ox 97 07/17/21 12:00 Weight: 261 lb 3.2 oz - Exam General: Alert, Oriented, Cooperative, Other (Patient was originally responsive to verbal stimuli, alert and oriented 0/3 GCS 3 4 5 combative, threatening to staff, trying to get up out of bed to leave hospital.) HEENT: Pupils Equal, Pupils Reactive. No: Scleral Icterus Neck: Other (No pain upon palpation, no deformity, trachea is midline). No: Lymphadenopathy, JVD Lungs: Clear to Auscultation, Normal Respiratory Effort Cardiovascular: Regular Rate, Regular Rhythm GI/Abdominal Exam: Normal Bowel Sounds, Soft, Non-Tender, Distended, Other (Shifting dullness noted when patient on left lateral) (Male) Exam: Normal Inspection, Other (Dobbins in place to collect UA, tox screen, inability for patient to follow instructions to assist in his treatment). No: Rash Rectal (Males) Exam: Heme + Stool Back Exam: Normal Inspection, Full Range of Motion. No: CVA Tenderness (R), CVA Tenderness (L), Muscle Spasm, Paraspinal Tenderness, Vertebral Tenderness Extremities: Normal Inspection, Non-Tender, No Pedal Edema, Normal Capillary Refill Skin: Warm, Dry, Intact Neurological: Strength Equal Bilateral, Normal Gait, Normal Speech, Normal Tone, Sensation Intact Neuro Extensive - Mental Status: Alert, Oriented x3, Normal Mood/Affect, Normal Cognition, Memory Intact Neuro Extensive - Motor, Sensory, Reflexes: Normal Gait Psychiatric: Alert, Normal Affect, Normal Mood - Patient Data Lab Results Last 24 hrs: Laboratory Results - last 24 hr 07/17/21 07/17/21 07/17/21 Range/Units 08:30 08:30 08:30 WBC 5.5 D (4.0-11.0) K/uL RBC 4.01 L (4.50-6.50) M/uL Hgb 12.3 L (13.0-18.0) g/dL Hct 35.9 L (40.0-54.0) % MCV 90 (76-96) fL MCH 30.7 (27.0-32.0) pg MCHC 34.3 (31.0-35.0) g/dL RDW 15.8 (11.0-16.0) % Plt Count 87 L (150-400) K/uL MPV 10.7 H (6.0-10.0) fL Neut % (Auto) 70.4 H (45.0-70.0) % Lymph % (Auto) 12.1 L (20.0-40.0) % Person % (Auto) 14.1 H (3.0-10.0) % Eos % (Auto) 2.9 (1.0-5.0) % Baso % (Auto) 0.5 (0.0-0.5) % Neut # (Auto) 3.84 (2.00-7.50) K/uL Lymph # (Auto) 0.66 L (1.50-4.00) K/uL Person # (Auto) 0.77 (0.20-0.80) K/uL Eos # (Auto) 0.16 (0.04-0.40) K/uL Baso # (Auto) 0.03 (0.02-0.10) K/uL Sodium 139 (136-145) mmol/L Potassium 4.3 (3.5-5.1) mmol/L Chloride 106 (98-107) mmol/L Carbon Dioxide 24.0 (21.0-32.0) mmol/L Anion Gap 13.3 (5.0-15.0) mmol/L BUN 14 (8-26) mg/dL Creatinine 1.25 (0.70-1.30) mg/dL Est Cr Clr Drug Dosing 66.39 mL/min Estimated GFR (MDRD) 58 L (>60) MLS/MIN BUN/Creatinine Ratio 11.2 (6-25) Glucose 235 H (74-100) mg/dL POC Glucose (74-110) mg/dL Calcium 8.8 (8.5-10.1) mg/dL Total Bilirubin 2.2 H D (0.0-1.0) mg/dL AST 72 H (15-37) U/L ALT 63 (12-78) U/L Alkaline Phosphatase 137 H (46-116) U/L Ammonia 87 H (11-32) umol/L Total Protein 6.9 (6.4-8.2) g/dL Albumin 3.1 L (3.4-5.0) g/dL Globulin 3.8 (2.2-4.2) g/dL Albumin/Globulin Ratio 0.8 (0.8-2.0) 07/17/21 07/17/21 Range/Units 11:00 11:51 WBC (4.0-11.0) K/uL RBC (4.50-6.50) M/uL Hgb (13.0-18.0) g/dL Hct (40.0-54.0) % MCV (76-96) fL MCH (27.0-32.0) pg MCHC (31.0-35.0) g/dL RDW (11.0-16.0) % Plt Count (150-400) K/uL MPV (6.0-10.0) fL Neut % (Auto) (45.0-70.0) % Lymph % (Auto) (20.0-40.0) % Person % (Auto) (3.0-10.0) % Eos % (Auto) (1.0-5.0) % Baso % (Auto) (0.0-0.5) % Neut # (Auto) (2.00-7.50) K/uL Lymph # (Auto) (1.50-4.00) K/uL Person # (Auto) (0.20-0.80) K/uL Eos # (Auto) (0.04-0.40) K/uL Baso # (Auto) (0.02-0.10) K/uL Sodium (136-145) mmol/L Potassium (3.5-5.1) mmol/L Chloride (98-107) mmol/L Carbon Dioxide (21.0-32.0) mmol/L Anion Gap (5.0-15.0) mmol/L BUN (8-26) mg/dL Creatinine (0.70-1.30) mg/dL Est Cr Clr Drug Dosing mL/min Estimated GFR (MDRD) (>60) MLS/MIN BUN/Creatinine Ratio (6-25) Glucose (74-100) mg/dL POC Glucose 222 H (74-110) mg/dL Calcium (8.5-10.1) mg/dL Total Bilirubin (0.0-1.0) mg/dL AST (15-37) U/L ALT (12-78) U/L Alkaline Phosphatase (46-116) U/L Ammonia 77 H (11-32) umol/L Total Protein (6.4-8.2) g/dL Albumin (3.4-5.0) g/dL Globulin (2.2-4.2) g/dL Albumin/Globulin Ratio (0.8-2.0) Result Diagrams: 07/17/21 08:30 07/17/21 08:30 Sepsis Event Note - Evaluation Sepsis Screening Result: No Definite Risk - Focused Exam Vital Signs: Vital Signs Temp Pulse Resp BP Pulse Ox 07/17/21 12:00 97.6 F 70 18 144/80 H 97 - Problem List (1) GI bleed SNOMED Code(s): 95538877 ICD Code: K92.2 - GASTROINTESTINAL HEMORRHAGE, UNSPECIFIED Status: Chronic Priority: Medium Qualifiers: GI bleed type/associated pathology: unspecified gastrointestinal hemorrhage type Qualified Code(s): K92.2 - Gastrointestinal hemorrhage, unspecified (2) Altered mental state SNOMED Code(s): 103050188 ICD Code: R41.82 - ALTERED MENTAL STATUS, UNSPECIFIED Status: Resolved Priority: High Qualifiers: Altered mental status type: unspecified Qualified Code(s): R41.82 - Altered mental status, unspecified (3) Confusion SNOMED Code(s): 134167037 ICD Code: R41.0 - DISORIENTATION, UNSPECIFIED Status: Resolved Priority: Low (4) Hepatic encephalopathy SNOMED Code(s): 37576434 ICD Code: K72.90 - HEPATIC FAILURE, UNSPECIFIED WITHOUT COMA Status: Chronic Priority: High (5) Type 2 diabetes mellitus SNOMED Code(s): 01970671 ICD Code: E11.9 - TYPE 2 DIABETES MELLITUS WITHOUT COMPLICATIONS Status: Chronic Priority: Medium Qualifiers: Diabetes mellitus fpc insulin use: with rn long term care use Diabetes mellitus complication status: with hyperglycemia Qualified Code(s): E11.65 - Type 2 diabetes mellitus with hyperglycemia; Z79.4 - FDC (current) use of insulin Problem List Initiated/Reviewed/Updated: Yes Orders Last 24hrs: Active Orders 24 hr Category Date Time Status Resuscitation Status Routine Resus Stat 07/16/21 22:02 Ordered Assessment/Plan Comment:: This is both admission H&P and patient's discharge summary. Altered mental status secondary to hepatic encephalopathy with elevated ammonia level. Elevated ammonia level was treated with a combination of lactulose and rifaximin. Patient had greater than 6 soft stools while in observation. Patient had dramatic response to treatment going from alert and oriented 0/3 with a GCS of 345 that progressed to alert and oriented 3 of 3 GCS 4 5 6. Patient went from barely being able to move large muscle groups with coordination to fine muscle coordination. Due to patient's aggression and threats, and attempts to elope from bed patient was sedated to facilitate treatment and to protect patient from harmful behavior, and staff. This was accomplished with 1 dose of ketamine, followed by Haldol till patient state of consciousness improved and his temperament became more cordial. At discharge following labs were abnormal: RBC 4.01slow GI bleed Hemoglobin 12.3slow GI bleed Hemacrit 35.9slow GI bleed Platelet count 87chronic liver failure Elevated PT 12.9chronic liver failure Total bilirubin 2.2chronic liver failure Glucose 235 longstanding diabetes patient's baseline Alk phosphatase 137chronic liver failure Ammonia progression 189 -> 77 Plan for patient: Medication regime compliance, close follow-up with primary care provider/gastrointestinal specialist regarding liver failure and heme positive stool, patient educated/shared decision making regarding adherence to medical advice, all questions were answered to patient satisfaction, patient understood treatment plan and agreed, patient discharged in stable condition - Mortality Measure Prognosis:: Poor (Has liver failure is a terminal condition, patient appears to be noncompliant with medical regimen)
== END 2021-07-17 12:15 | disposition home or self-care (01) ==
LOC: LB.ED 10:37 → UNDOADMOB 17:15 → LB.MS 17:15 → UNDOADMOB 19:18 → UNDODISOB 07-17 12:15
PROVIDERS: ADMIT Physician Assistant; ATTEND Physician Assistant
DX: K72.90 Hepatic failure, unspecified without coma (principal); E78.00 Pure hypercholesterolemia, unspecified; I10 Essential (primary) hypertension; I25.2 Old myocardial infarction; K21.9 Gastro-esophageal reflux disease without esophagitis; M10.9 Gout, unspecified; I25.10 Atherosclerotic heart disease of native coronary artery without angina pectoris; E11.65 Type 2 diabetes mellitus with hyperglycemia; Z20.822 Contact with and (suspected) exposure to COVID-19; Z88.8 Allergy status to other drugs, medicaments and biological substances; Z91.012 Allergy to eggs; Z88.5 Allergy status to narcotic agent; Z91.02 Food additives allergy status; Z79.899 Other long term (current) drug therapy; Z79.84 Long term (current) use of oral hypoglycemic drugs; Z98.890 Other specified postprocedural states; Z90.49 Acquired absence of other specified parts of digestive tract; Z79.82 Long term (current) use of aspirin
CPT/HCPCS: 36415; 51702; 80053; 80307; 81001; 82140; 82947; 83735; 84484; 85025; 85610; 93005; 96374; 96375; 96376; 99285-25; A0425; A0429; A9270-GY; J1630; U0002

== ENCOUNTER 2021-09-30 11:11 | Observation (INO) | payer OTHER ==
[2021-09-30] MEDS ORDERED: Haloperidol Lactate 5 MG/ML SDV IM PRN (11:23)
[2021-09-30] MEDS ORDERED: Lactulose Soln 10 GM/15 ML ML 473 ML Bottle PO ONE (12:29)
[2021-09-30] MEDS ORDERED: Lactulose Soln 10 GM/15 ML 15 ML UD Cup ONE ×2 (12:34→17:56)
[2021-09-30] MEDS ORDERED: Enoxaparin 40 MG/0.4 ML Syringe SUBCUT ONE (14:05)
[2021-09-30] MEDS ORDERED: Lactulose Soln 10 GM/15 ML 15 ML UD Cup PO ONE (14:05)
[2021-09-30] MEDS ORDERED: 50% Dextrose in Water 50 ML Syringe IVPUSH PRN ×2 (15:37→15:41)
[2021-09-30] MEDS ORDERED: Glucagon,Human Recombinant 1 MG Vial IM PRN ×2 (15:37→15:41)
[2021-09-30] MEDS: metFORMIN 500 MG Tab PO SCH (17:59)
[2021-09-30] MEDS ORDERED: Enoxaparin 40 MG/0.4 ML Syringe ONE (18:01)
[2021-09-30] MEDS: Insulin Aspart 100 Units/ML 3 ML Pen SUBCUT SCH ×2 (19:08)
[2021-09-30] MEDS: Pantoprazole 40 MG Tab.CR PO SCH (20:58)
[2021-09-30] MEDS: Carvedilol 25 MG Tab PO SCH (20:58)
[2021-09-30] MEDS: Rifaximin 550 MG Tab PO SCH ×2 (20:59→21:02)
[2021-09-30] MEDS: MAGNESIUM OXIDE 420 MG PO SCH (21:00)
[2021-09-30] MEDS ORDERED: Magnesium Oxide 400 MG Tab ONE (21:00)
[2021-09-30] MEDS: Insulin Glargine,Human Rec. Analog 100 Units/ML 3 ML Pen SUBCUT SCH (21:07)
[2021-09-30] MEDS ORDERED: Haloperidol Lactate 5 MG/ML SDV ONE (21:47)
[2021-10-01] MEDS: Pantoprazole 40 MG Tab.CR PO SCH ×2 (08:12→20:04)
[2021-10-01] MEDS: Carvedilol 25 MG Tab PO SCH ×2 (08:13→20:03)
[2021-10-01] MEDS: Rifaximin 550 MG Tab PO SCH ×3 (08:15→20:04)
[2021-10-01] MEDS: Citalopram 20 MG Tab PO SCH (08:15)
[2021-10-01] MEDS: metFORMIN 500 MG Tab PO SCH ×2 (08:16→20:03)
[2021-10-01] MEDS: MAGNESIUM OXIDE 420 MG PO SCH ×3 (08:16→20:02)
[2021-10-01] MEDS: Ferrous Sulfate 325 MG Tab PO SCH (08:16)
[2021-10-01] MEDS: ALOGLIPTIN 25 MG PO SCH (08:17)
[2021-10-01] MEDS: Insulin Aspart 100 Units/ML 3 ML Pen SUBCUT SCH ×6 (08:17→19:37)
[2021-10-01] MEDS ORDERED: Lactulose Soln 10 GM/15 ML 15 ML UD Cup PO ONE ×2 (09:46→09:47)
[2021-10-01] MEDS: Lactulose Soln 10 GM/15 ML 15 ML UD Cup PO SCH ×2 (17:58→20:09)
[2021-10-01] MEDS: Insulin Glargine,Human Rec. Analog 100 Units/ML 3 ML Pen SUBCUT SCH (20:58)
[2021-10-02] MEDS: Carvedilol 25 MG Tab PO SCH (08:17)
[2021-10-02] MEDS: Citalopram 20 MG Tab PO SCH (08:17)
[2021-10-02] MEDS: MAGNESIUM OXIDE 420 MG PO SCH (08:18)
[2021-10-02] MEDS: ALOGLIPTIN 25 MG PO SCH (08:18)
[2021-10-02] MEDS: Rifaximin 550 MG Tab PO SCH (08:18)
[2021-10-02] MEDS: metFORMIN 500 MG Tab PO SCH (08:18)
[2021-10-02] MEDS: Pantoprazole 40 MG Tab.CR PO SCH (08:19)
[2021-10-02] MEDS: Ferrous Sulfate 325 MG Tab PO SCH (08:19)
[2021-10-02 08:55] VITALS: BP 147/64; PULSE 73
[2021-10-02] MEDS: Insulin Aspart 100 Units/ML 3 ML Pen SUBCUT SCH ×2 (09:00)
[2021-10-02] MEDS ORDERED: Lactulose Soln 10 GM/15 ML 15 ML UD Cup PO SCH (10:00)
== END 2021-10-02 11:10 | disposition home or self-care (01) ==
LOC: LB.ED 11:11 → LB.MS 13:31
PROVIDERS: ADMIT Physician Assistant; ATTEND Physician Assistant
DX: K72.90 Hepatic failure, unspecified without coma (principal); E72.20 Disorder of urea cycle metabolism, unspecified; R41.82 Altered mental status, unspecified; I10 Essential (primary) hypertension; E78.00 Pure hypercholesterolemia, unspecified; I25.2 Old myocardial infarction; K21.9 Gastro-esophageal reflux disease without esophagitis; F41.9 Anxiety disorder, unspecified; F32.A Depression, unspecified; J45.909 Unspecified asthma, uncomplicated; E11.65 Type 2 diabetes mellitus with hyperglycemia; Z20.822 Contact with and (suspected) exposure to COVID-19; Z88.8 Allergy status to other drugs, medicaments and biological substances; Z91.012 Allergy to eggs; Z91.018 Allergy to other foods; Z88.5 Allergy status to narcotic agent; Z79.899 Other long term (current) drug therapy; Z79.82 Long term (current) use of aspirin; Z98.890 Other specified postprocedural states; Z87.891 Personal history of nicotine dependence
CPT/HCPCS: 36415; 80053; 82140; 82947; 84484; 85025; 93005; 96372; 99285-25; A0425; A0429; A9270-GY; G0378; J1630; J1650; U0002

== ENCOUNTER 2021-11-05 22:37 | Emergency (ER) | payer OTHER ==
[2021-11-05] MEDS ORDERED: Sodium Chloride 0.9% 10 ML Syringe FLUSH PRN (22:47)
[2021-11-05] MEDS ORDERED: Sodium Chloride 0.9% 1,000 ML IV ONE (23:15)
[2021-11-06 01:56] VITALS: PULSE 79
[2021-11-06 01:57] VITALS: BP 147/63
== END 2021-11-05 23:30 ==
LOC: LB.ED 22:37
DX: K72.90 Hepatic failure, unspecified without coma (principal); E78.00 Pure hypercholesterolemia, unspecified; I10 Essential (primary) hypertension; I25.2 Old myocardial infarction; E11.9 Type 2 diabetes mellitus without complications; K21.9 Gastro-esophageal reflux disease without esophagitis; Z91.012 Allergy to eggs; Z91.018 Allergy to other foods; Z88.8 Allergy status to other drugs, medicaments and biological substances; Z88.5 Allergy status to narcotic agent; Z79.82 Long term (current) use of aspirin; Z79.899 Other long term (current) drug therapy; Z79.4 Long term (current) use of insulin
CPT/HCPCS: 36415; 80053; 82040; 82140; 85025; 85610; 99285; A0425; A0429; U0002

== ENCOUNTER 2021-11-05 23:30 | Observation (INO) | payer OTHER ==
[2021-11-06] MEDS ORDERED: 50% Dextrose in Water 50 ML Syringe IVPUSH PRN (00:59)
[2021-11-06] MEDS ORDERED: Albuterol 8 GM Inhaler INH PRN (00:59)
[2021-11-06] MEDS ORDERED: Glucagon,Human Recombinant 1 MG Vial IM PRN (00:59)
[2021-11-06] MEDS ORDERED: Nitroglycerin 0.4 MG Tab.SL SL PRN (00:59)
[2021-11-06] MEDS ORDERED: Haloperidol Lactate 5 MG/ML SDV IM STA (02:31)
[2021-11-06] MEDS ORDERED: Haloperidol Lactate 5 MG/ML SDV ONE ×2 (02:40→04:56)
[2021-11-06] MEDS: Lactulose Soln 10 GM/15 ML 15 ML UD Cup PO SCH ×5 (03:25→19:57)
[2021-11-06] MEDS: Lisinopril 20 MG Tab PO SCH (07:44)
[2021-11-06] MEDS: Citalopram 10 MG Tab PO SCH (07:47)
[2021-11-06] MEDS: Aspirin 81 MG Tab.EC PO SCH (07:47)
[2021-11-06] MEDS: Pantoprazole 40 MG Tab.CR PO SCH ×2 (07:48→16:33)
[2021-11-06] MEDS: Insulin Aspart 100 Units/ML 3 ML Pen SUBCUT SCH ×2 (07:50→13:05)
[2021-11-06] MEDS ORDERED: Non-Formulary Medication 1 Each (Magnesium Oxide [Magnesium Oxide] 420 MG Tablet) PO SCH (08:00)
[2021-11-06] MEDS ORDERED: metFORMIN 500 MG Tab PO SCH (08:00)
[2021-11-06] MEDS ORDERED: LACTULOSE PO SCH (08:00)
[2021-11-06] MEDS: Carvedilol 25 MG Tab PO SCH ×2 (13:04→19:56)
[2021-11-06] MEDS: ALOGLIPTIN BENZOATE 25 MG PO SCH (13:04)
[2021-11-06] MEDS: Rifaximin 550 MG Tab PO SCH ×3 (13:05→19:54)
[2021-11-06] MEDS: metFORMIN 500 MG Tab.ER PO SCH (16:33)
[2021-11-06] MEDS ORDERED: Insulin Aspart 100 Units/ML 3 ML Pen SUBCUT SCH (18:00)
[2021-11-06] MEDS ORDERED: Insulin Glargine,Human Rec. Analog 100 Units/ML 3 ML Pen SUBCUT SCH (20:00)
[2021-11-06] MEDS ORDERED: Ascorbic Acid 500 MG Tab PO SCH (20:00)
[2021-11-06] MEDS ORDERED: Ferrous Sulfate 325 MG Tab PO SCH (20:00)
[2021-11-07] MEDS: metFORMIN 500 MG Tab.ER PO SCH (07:22)
[2021-11-07] MEDS: Aspirin 81 MG Tab.EC PO SCH (07:22)
[2021-11-07] MEDS: Carvedilol 25 MG Tab PO SCH (07:27)
[2021-11-07] MEDS: Pantoprazole 40 MG Tab.CR PO SCH (07:27)
[2021-11-07] MEDS: Lisinopril 20 MG Tab PO SCH (07:28)
[2021-11-07] MEDS: Lactulose Soln 10 GM/15 ML 15 ML UD Cup PO SCH (07:28)
[2021-11-07] MEDS: Rifaximin 550 MG Tab PO SCH (07:28)
[2021-11-07 07:29] VITALS: BP 139/63
[2021-11-07] MEDS: Citalopram 10 MG Tab PO SCH (07:29)
[2021-11-07] MEDS: Insulin Aspart 100 Units/ML 3 ML Pen SUBCUT SCH (07:30)
[2021-11-07] MEDS: ALOGLIPTIN BENZOATE 25 MG PO SCH (07:33)
[2021-11-07 07:34] VITALS: PULSE 77
[2021-11-07] MEDS ORDERED: Magnesium Oxide 400 MG Tab PO SCH (08:00)
== END 2021-11-07 09:50 | disposition home or self-care (01) ==
LOC: LB.MS 23:30
PROVIDERS: ADMIT Nurse Practitioner; ATTEND Nurse Practitioner
DX: K72.90 Hepatic failure, unspecified without coma (principal); E78.00 Pure hypercholesterolemia, unspecified; I10 Essential (primary) hypertension; I25.2 Old myocardial infarction; K21.9 Gastro-esophageal reflux disease without esophagitis; M19.90 Unspecified osteoarthritis, unspecified site; F41.9 Anxiety disorder, unspecified; E11.9 Type 2 diabetes mellitus without complications; D64.9 Anemia, unspecified; J44.9 Chronic obstructive pulmonary disease, unspecified; I25.10 Atherosclerotic heart disease of native coronary artery without angina pectoris; F32.A Depression, unspecified; Z88.0 Allergy status to penicillin; Z91.018 Allergy to other foods; Z91.012 Allergy to eggs; Z88.5 Allergy status to narcotic agent; Z88.8 Allergy status to other drugs, medicaments and biological substances; Z88.6 Allergy status to analgesic agent; Z95.5 Presence of coronary angioplasty implant and graft; Z90.49 Acquired absence of other specified parts of digestive tract; Z95.810 Presence of automatic (implantable) cardiac defibrillator; Z98.890 Other specified postprocedural states; Z87.891 Personal history of nicotine dependence; Z79.82 Long term (current) use of aspirin; Z79.4 Long term (current) use of insulin; Z79.84 Long term (current) use of oral hypoglycemic drugs; Z79.899 Other long term (current) drug therapy; Z87.19 Personal history of other diseases of the digestive system
CPT/HCPCS: 36415; 80053; 82140; 82947; 96372; A9270; G0378; J1630; J1815; 99285; A0425; A0429

== ENCOUNTER 2021-11-17 09:42 | Emergency (ER) | payer OTHER ==
[2021-11-17] MEDS: Lactulose Soln 10 GM/15 ML 15 ML UD Cup PO SCH ×4 (12:05→17:20)
[2021-11-17 12:09] VITALS: BP 141/53; PULSE 67
== END 2021-11-17 18:24 | disposition home or self-care (01) ==
LOC: LB.ED 09:42
DX: K72.90 Hepatic failure, unspecified without coma (principal); E78.00 Pure hypercholesterolemia, unspecified; I10 Essential (primary) hypertension; I25.2 Old myocardial infarction; E11.9 Type 2 diabetes mellitus without complications; M10.9 Gout, unspecified; M19.90 Unspecified osteoarthritis, unspecified site; Z91.012 Allergy to eggs; Z91.018 Allergy to other foods; Z88.8 Allergy status to other drugs, medicaments and biological substances; Z88.5 Allergy status to narcotic agent; Z79.4 Long term (current) use of insulin; Z79.82 Long term (current) use of aspirin; Z79.899 Other long term (current) drug therapy; Z20.822 Contact with and (suspected) exposure to COVID-19
CPT/HCPCS: 36415; 80053; 80307; 82140; 83605; 85025; 87635; 93005; 99285; A0425; A0429; A9270; 99283; U0002

== ENCOUNTER 2021-11-29 12:15 | Emergency (ER) | payer OTHER ==
[2021-11-29] MEDS: Lactulose Soln 10 GM/15 ML 15 ML UD Cup PO SCH ×2 (12:47→14:00)
[2021-11-29] MEDS ORDERED: Sodium Chloride 0.9% 1,000 ML IV ONE (13:33)
[2021-11-29] MEDS ORDERED: Lactulose Soln 10 GM/15 ML 15 ML UD Cup PO ONE (14:00)
== END 2021-11-29 15:09 | disposition home or self-care (01) ==
LOC: LB.ED 12:15
DX: R41.0 Disorientation, unspecified (principal); E72.20 Disorder of urea cycle metabolism, unspecified; E78.00 Pure hypercholesterolemia, unspecified; I10 Essential (primary) hypertension; I25.2 Old myocardial infarction; E11.9 Type 2 diabetes mellitus without complications; K21.9 Gastro-esophageal reflux disease without esophagitis; Z91.012 Allergy to eggs; Z91.018 Allergy to other foods; Z88.8 Allergy status to other drugs, medicaments and biological substances; Z88.5 Allergy status to narcotic agent; Z79.4 Long term (current) use of insulin; Z79.899 Other long term (current) drug therapy; Z79.82 Long term (current) use of aspirin; Z87.891 Personal history of nicotine dependence
CPT/HCPCS: 36415; 71045; 80053; 82140; 83605; 84484; 85025; 93005; 99285; A9270; J7030; A0425; A0429

== ENCOUNTER 2021-12-11 06:16 | Emergency (ER) | payer OTHER ==
[2021-12-11 06:32] VITALS: BP 155/59; PULSE 75
[2021-12-11] MEDS ORDERED: Sodium Chloride 0.9% 10 ML Syringe FLUSH PRN (06:49)
[2021-12-11] MEDS ORDERED: Lactulose Soln 10 GM/15 ML 15 ML UD Cup PO ONE (06:56)
[2021-12-11] MEDS ORDERED: Rifaximin 550 MG Tab PO ONE (07:10)
[2021-12-11] MEDS ORDERED: Lactulose Soln 10 GM/15 ML 15 ML UD Cup PO SCH (08:00)
[2021-12-11] MEDS ORDERED: Rifaximin 550 MG Tab PO SCH (08:00)
[2021-12-11] MEDS ORDERED: Lactulose Soln 10 GM/15 ML ML 473 ML Bottle PO SCH (10:00)
== END 2021-12-11 12:10 ==
LOC: LB.ED 06:16
DX: R41.0 Disorientation, unspecified (principal); K72.90 Hepatic failure, unspecified without coma; E78.00 Pure hypercholesterolemia, unspecified; I10 Essential (primary) hypertension; I25.2 Old myocardial infarction; E11.9 Type 2 diabetes mellitus without complications; Z90.49 Acquired absence of other specified parts of digestive tract; Z91.012 Allergy to eggs; Z88.5 Allergy status to narcotic agent; Z88.8 Allergy status to other drugs, medicaments and biological substances; Z79.4 Long term (current) use of insulin; Z79.84 Long term (current) use of oral hypoglycemic drugs; Z79.899 Other long term (current) drug therapy
CPT/HCPCS: 36415; 80053; 82140; 82947; 85025; 99285; A0425; A0429; A9270-GY; U0002

== ENCOUNTER 2021-12-16 19:00 | Inpatient (IN) | payer OTHER ==
[2021-12-16] MEDS ORDERED: LORazepam 2 MG/ML SDV IM ONE (20:25)
[2021-12-16] MEDS ORDERED: Lactulose Soln 10 GM/15 ML 15 ML UD Cup PO SCH (22:00)
[2021-12-16] MEDS ORDERED: Sodium Chloride 0.9% 1,000 ML IV SCH (22:15)
[2021-12-17] MEDS: Lactulose Soln 10 GM/15 ML 15 ML UD Cup PO SCH ×12 (00:37→23:52)
[2021-12-17] MEDS ORDERED: Glucagon,Human Recombinant 1 MG Vial IM PRN (02:15)
[2021-12-17] MEDS ORDERED: 50% Dextrose in Water 50 ML Syringe IVPUSH PRN (02:15)
[2021-12-17] MEDS: Insulin Aspart 100 Units/ML 3 ML Pen SUBCUT SCH ×2 (07:52→12:08)
[2021-12-17] MEDS: metFORMIN 500 MG Tab PO SCH ×2 (07:54→16:29)
[2021-12-17] MEDS: Aspirin 81 MG Tab.EC PO SCH (07:54)
[2021-12-17] MEDS: Pantoprazole 40 MG Tab.CR PO SCH (07:54)
[2021-12-17] MEDS: Rifaximin 550 MG Tab PO SCH ×3 (07:54→20:10)
[2021-12-17] MEDS: Lactobacillus Acidophilus/Lactobacillus Sporogenes (Probiotic) Tab PO SCH (07:54)
[2021-12-17] MEDS: Carvedilol 25 MG Tab PO SCH ×2 (07:55→16:56)
[2021-12-17] MEDS: Furosemide 40 MG Tab PO SCH ×2 (07:55→16:28)
[2021-12-17] MEDS: Lisinopril 20 MG Tab PO SCH (07:57)
[2021-12-17] MEDS ORDERED: Non-Formulary Medication 1 Each PO SCH (08:00)
[2021-12-17] MEDS: Citalopram 10 MG Tab PO SCH (09:47)
[2021-12-17] MEDS ORDERED: Insulin Aspart 100 Units/ML 3 ML Pen SUBCUT SCH ×2 (11:00→18:00)
[2021-12-17] MEDS: Magnesium Oxide 400 MG Tab PO SCH ×2 (14:14→20:10)
[2021-12-17] MEDS ORDERED: Ferrous Sulfate 325 MG Tab PO SCH (18:00)
[2021-12-17] MEDS ORDERED: Insulin Glargine,Human Rec. Analog 100 Units/ML 3 ML Pen SUBCUT SCH (20:00)
[2021-12-18] MEDS: Ascorbic Acid 500 MG Tab PO SCH ×2 (06:06→08:09)
[2021-12-18] MEDS: Lactulose Soln 10 GM/15 ML 15 ML UD Cup PO SCH (06:06)
[2021-12-18] MEDS: Furosemide 40 MG Tab PO SCH (08:08)
[2021-12-18] MEDS: Magnesium Oxide 400 MG Tab PO SCH (08:08)
[2021-12-18] MEDS: Aspirin 81 MG Tab.EC PO SCH (08:08)
[2021-12-18] MEDS: Lactobacillus Acidophilus/Lactobacillus Sporogenes (Probiotic) Tab PO SCH (08:08)
[2021-12-18] MEDS: Pantoprazole 40 MG Tab.CR PO SCH (08:08)
[2021-12-18] MEDS: metFORMIN 500 MG Tab PO SCH (08:09)
[2021-12-18] MEDS: Carvedilol 25 MG Tab PO SCH (08:09)
[2021-12-18] MEDS: Rifaximin 550 MG Tab PO SCH (08:09)
[2021-12-18] MEDS: Insulin Aspart 100 Units/ML 3 ML Pen SUBCUT SCH (08:10)
[2021-12-18] MEDS: Lisinopril 20 MG Tab PO SCH (08:10)
[2021-12-18 08:11] VITALS: BP 151/70
[2021-12-18] MEDS: Citalopram 10 MG Tab PO SCH (08:12)
[2021-12-18 08:14] VITALS: PULSE 94
== END 2021-12-18 10:30 | disposition home or self-care (01) | DRG 432 ==
LOC: LB.ED 19:00 → LB.MS 21:00 → UNDOADMIN 21:00 → LB.MS 21:32 → UNDOADMIN 21:32 → LB.MS 12-17 07:45 → UNDODISIN 12-18 10:30
PROVIDERS: ADMIT Surgery; ATTEND Surgery
DX: K72.90 Hepatic failure, unspecified without coma (principal); K74.60 Unspecified cirrhosis of liver; K72.00 Acute and subacute hepatic failure without coma; K52.1 Toxic gastroenteritis and colitis; I10 Essential (primary) hypertension; K21.9 Gastro-esophageal reflux disease without esophagitis; M10.9 Gout, unspecified; K72.10 Chronic hepatic failure without coma; Z20.822 Contact with and (suspected) exposure to COVID-19; E11.9 Type 2 diabetes mellitus without complications; D64.9 Anemia, unspecified; M17.0 Bilateral primary osteoarthritis of knee; T47.3X5A Adverse effect of saline and osmotic laxatives, initial encounter; Z79.82 Long term (current) use of aspirin; Z79.4 Long term (current) use of insulin; I25.2 Old myocardial infarction; Z79.899 Other long term (current) drug therapy; Z91.012 Allergy to eggs; Z88.5 Allergy status to narcotic agent; Z88.8 Allergy status to other drugs, medicaments and biological substances; Z91.018 Allergy to other foods; Z95.5 Presence of coronary angioplasty implant and graft; Z87.11 Personal history of peptic ulcer disease
CPT/HCPCS: 36415; 80053; 82140; 82947; 85025; 85610; 85730; 99232; 99233; 99238; A0425; A0429; A9270-GY; J1815-GY; J2060; J7030; U0002

== ENCOUNTER 2021-12-28 07:43 | Observation (INO) | payer OTHER ==
[2021-12-28] MEDS ORDERED: Lactulose Soln 10 GM/15 ML ML 473 ML Bottle PO SCH (08:30)
[2021-12-28] MEDS ORDERED: Lactulose Soln 10 GM/15 ML 15 ML UD Cup ONE ×2 (08:33→08:36)
[2021-12-28] MEDS: Lactulose Soln 10 GM/15 ML 15 ML UD Cup PO SCH ×8 (08:38→22:41)
[2021-12-28] MEDS ORDERED: Haloperidol Lactate 5 MG/ML SDV IVPUSH PRN (10:02)
[2021-12-28] MEDS ORDERED: Glucagon,Human Recombinant 1 MG Vial IM PRN (22:42)
[2021-12-28] MEDS ORDERED: Albuterol 8 GM Inhaler INH PRN (22:42)
[2021-12-28] MEDS ORDERED: 50% Dextrose in Water 50 ML Syringe IVPUSH PRN (22:42)
[2021-12-28] MEDS ORDERED: Insulin Glargine,Human Rec. Analog 100 Units/ML 3 ML Pen SUBCUT SCH (23:15)
[2021-12-29] MEDS: Lactulose Soln 10 GM/15 ML 15 ML UD Cup PO SCH ×5 (01:55→08:14)
[2021-12-29] MEDS ORDERED: Pantoprazole 40 MG Tab.CR PO SCH (07:00)
[2021-12-29 07:28] VITALS: BP 158/75; PULSE 74
[2021-12-29] MEDS ORDERED: Non-Formulary Medication 1 Each (Alogliptin Benzoate [Alogliptin] 25 MG Tablet) PO SCH (08:00)
[2021-12-29] MEDS ORDERED: Aspirin 81 MG Tab.EC PO SCH (08:00)
[2021-12-29] MEDS ORDERED: Magnesium Oxide 400 MG Tab PO SCH (08:00)
[2021-12-29] MEDS ORDERED: Carvedilol 25 MG Tab PO SCH (08:00)
[2021-12-29] MEDS ORDERED: Rifaximin 550 MG Tab PO SCH (08:00)
[2021-12-29] MEDS ORDERED: Lactulose Soln 10 GM/15 ML 15 ML UD Cup PO SCH (08:00)
[2021-12-29] MEDS ORDERED: Ascorbic Acid 500 MG Tab PO SCH (08:00)
[2021-12-29] MEDS ORDERED: Citalopram 10 MG Tab PO SCH (08:00)
[2021-12-29] MEDS ORDERED: metFORMIN 500 MG Tab PO SCH (08:00)
[2021-12-29] MEDS ORDERED: Lisinopril 20 MG Tab PO SCH (08:00)
[2021-12-29] MEDS ORDERED: Lactobacillus Acidophilus/Lactobacillus Sporogenes (Probiotic) Tab PO SCH (08:00)
[2021-12-29] MEDS ORDERED: Furosemide 40 MG Tab PO SCH (08:00)
[2021-12-29] MEDS: Citalopram 20 MG Tab ONE ×2 (08:02→08:08)
[2021-12-29] MEDS: Insulin Aspart 100 Units/ML 3 ML Pen SUBCUT SCH ×2 (08:13→11:37)
[2021-12-29] MEDS ORDERED: Insulin Aspart 100 Units/ML 3 ML Pen SUBCUT SCH (18:00)
[2021-12-29] MEDS ORDERED: Ferrous Sulfate 325 MG Tab PO SCH (18:00)
[2021-12-29] MEDS ORDERED: Insulin Glargine,Human Rec. Analog 100 Units/ML 3 ML Pen SUBCUT SCH (20:00)
== END 2021-12-29 12:00 ==
LOC: LB.ED 07:43 → LB.MS 09:00 → INTOOBSV 09:00
PROVIDERS: ADMIT Physician Assistant; ATTEND Physician Assistant
DX: K72.90 Hepatic failure, unspecified without coma (principal); H54.7 Unspecified visual loss; I10 Essential (primary) hypertension; I25.2 Old myocardial infarction; E78.00 Pure hypercholesterolemia, unspecified; K21.9 Gastro-esophageal reflux disease without esophagitis; E11.9 Type 2 diabetes mellitus without complications; E66.9 Obesity, unspecified; Z91.012 Allergy to eggs; Z88.6 Allergy status to analgesic agent; Z91.018 Allergy to other foods; Z88.5 Allergy status to narcotic agent; Z88.8 Allergy status to other drugs, medicaments and biological substances; Z95.5 Presence of coronary angioplasty implant and graft; Z79.4 Long term (current) use of insulin; Z79.899 Other long term (current) drug therapy; Z79.82 Long term (current) use of aspirin; Z20.822 Contact with and (suspected) exposure to COVID-19; Z68.32 Body mass index [BMI] 32.0-32.9, adult
CPT/HCPCS: 36415; 80053; 82140; 82947; 85025; 85610; 87635; 93005; 99285; A9270; A0425; A0429; G0378; U0002